=== PATIENT | male | born 1955 | race Caucasian/White ===

== ENCOUNTER 2023-09-24 16:38 | Inpatient (IN) | payer MEDICARE, BC, SELFPAY ==
[2023-09-24] VITALS (20 sets, daily range): BP systolic 111–153; BP diastolic 53–70; PULSE 58–83; RESP 10–21; TEMP 36.6–36.7; O2SAT 96–100; BMI 29.0
--- NOTE | ~2023-09-24 | XR_ITS ---
EXAMINATION: XR chest 1V portable Exam Date/Time: 09/24/2023 18:00 CDT HISTORY: frequent falls Comparison: 06/30/2016. RESULT: Lines, tubes, and devices: None. Lungs and pleura: Clear. Cardiomediastinal silhouette: Stable. Other: No acute osseous or upper abdominal finding. IMPRESSION: No acute cardiopulmonary process. Reviewed, dictated and finalized at location K.
--- NOTE | ~2023-09-24 | CT_ITS ---
EXAMINATION: CT brain wo con DATE: 09/24/2023 18:03 INDICATION: dizziness, frequent falls . TECHNIQUE: Computed tomography (CT) of the head was performed without intravenous contrast. The mA wa s adjusted according to patient size. Iterative reconstruction technique was employed. The dose-lengt h product was 756.67 mGy-cm. COMPARISON: MR brain 09/07/2011. FINDINGS: No acute intracranial hemorrhage or extra-axial fluid collection. No hydrocephalus, mass, or herniation. No CT findings of acute infarct. 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 Unremarkable dural venous sinus attenuation. No acute osseous abnormality. The aerated spaces are clear. Mild atrophy and chronic white matter change. Atherosclerotic intracranial calcification. Bilateral l ens replacements. IMPRESSION: No acute intracranial process. Reviewed, dictated and finalized at location K.
--- NOTE | ~2023-09-24 | US_ITS ---
EXAMINATION: US renal BI DATE: 09/25/2023 16:48 INDICATION: Renal failure. TECHNIQUE: Multiple ultrasound grayscale images of the kidneys were obtained. COMPARISON: None. FINDINGS: The right kidney measures 9.3 x 4.9 x 4.5 cm. The left kidney measures 9.0 x 4.7 x 5.1 cm. The kidney s demonstrate normal parenchymal echogenicity. There is no hydronephrosis. The bladder is normal. IMPRESSION: 1. Normal kidneys. No hydronephrosis. Reviewed, dictated and finalized at location A.
--- NOTE | 2023-09-24 16:50 | ECG_ITS ---
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 Measurements Intervals [place] Rate: 74 P: 42 MD: 149 QRS: 26 QRSD: 91 T: 48 QT: 364 QTc: 406 Interpretive Statements SINUS RHYTHM BASELINE ARTIFACT- I, II, III, AVR, AVL, AVF NORMAL ECG No previous ECG available for comparison Electronically Signed On 09-24-2023 21:14:04 CDT by Bashir Bear D.O.
[2023-09-24 17:04] LABS: Basophils Percent Auto 0.3 % (0.2-1.2); Eosinophils Absolute Auto 0.2 K/mm3 (0-0.3); Eosinophils Percent Auto 1.5 % (0-4.4); Hemoglobin 12.1 g/dL (14.0-18.0); Immature Granulocyte Absolute 0.04 K/mm3 (0.00-0.031); Immature Granulocyte Percent A 0.3 % (0-0.5); Lymphocytes Absolute Auto 1.09 K/mm3 (0.9-3.2); Lymphocytes Percent Auto 8.8 % (18.3-44.2); Mean Corpuscular HGB Conc 32.7 g/dl (32-36); Mean Corpuscular Hemoglobin 28.5 pg (26-34); Mean Corpuscular Volume 87.3 fl (80-100); Monocytes Absolute Auto 0.7 K/mm3 (0.1-0.6); Monocytes Percent Auto 5.4 % (2.6-8.5); Neutrophils Absolute Auto 10.3 K/mm3 (1.3-6.7); Neutrophils Percent Auto 83.7 % (45.5-73.1); Platelet Count Result 340 k/mm3 (150-375); Red Blood Count 4.24 M/mm3 (4.6-6.20); Red Cell Distribution Width 14.4 % (11.5-14.5); White Blood Count 12.3 K/mm3 (4.5-10.0)
[2023-09-24 17:27] LABS: Alanine Aminotransferase 7 U/L (6-50); Albumin Level 4.6 g/dL (3.5-5.1); Alkaline Phosphatase 46 U/L (38-126); Anion Gap 11 mmol/L (4-12); Aspartate Amino Transferase 27 U/L (17-59); Bilirubin,Total 0.9 mg/dL (0.2-1.3); Blood Urea Nitrogen 40 mg/dL (9-20); Calcium 9.7 mg/dL (8.4-10.2); Carbon Dioxide 20 mmol/L (22-30); Chloride 106 mmol/L (98-107); Estimated CRCL calculation 31 ml/min; Estimated Glomerular Filt Rate 24; Glucose 57 mg/dL (65-110); Sodium 137 mmol/L (137-145)
--- NOTE | 2023-09-24 17:27 | ED.FALL ---
HPI - Fall General Chief Complaint: Fall <Cole Lopez PA-C - Last Filed: 09/24/23 20:05> Stated Complaint: INCREASED FALLS <Cole Lopez PA-C - Last Filed: 09/24/23 20:05> Time Seen by Provider: 09/24/23 17:00 <Cole Lopez PA-C - Last Filed: 09/24/23 20:05> Source: patient <MEL Watson Last Filed: 09/24/23 20:05> Mode of arrival: ambulatory <MEL Watson Last Filed: 09/24/23 20:05> Limitations: no limitations <MEL Watson Last Filed: 09/24/23 20:05> History of Present Illness HPI Narrative: This is a 67-year-old male with PMH of T2 dm, Parkinson's who presents to the ED for chief complaint of frequent falls over the past 2 weeks. Patient reports that he is unsure of why he has been following. He knows that he has these falls but cannot tell what is happening to cause them. is here at bedside and states that it seems that patient gets a little dizzy prior to falling. Reports that he also seems to have some lightheadedness/slurred speech. Today she notes that while patient was leaving a message further son, he started to ooze blur his words. She did not notice any facial droop or unilateral weakness. Patient denies any focal weakness, numbness, headache, chest pain, shortness of breath, cough or recent illness. Denies urinary symptoms or abdominal pain. Denies nausea, vomiting. Patient takes metformin and glimepiride for diabetes. His dosing has not changed and he has been taking as prescribed. states that patient has not been eating or drinking as much lately. <MEL Watson Last Filed: 09/24/23 20:05> Related Data Home Medications: Home Medications Medication Instructions Recorded Confirmed Adult Aspirin EC Low Strength 81 mg PO DAILY 09/24/23 09/24/23 atorvastatin 20 mg tablet 20 mg PO DAILY 09/24/23 09/24/23 carbidopa 25 mg-levodopa 100 mg 25 - 100 tablet PO TID 09/24/23 09/24/23 tablet (Sinemet) carbidopa ER 50 mg-levodopa 200 mg 50 - 200 tablet PO HS 09/24/23 09/24/23 tablet,extended release cetirizine 10 mg PO DAILY 09/24/23 09/24/23 clonazepam 0.5 mg tablet 0.5 mg PO HS 09/24/23 09/24/23 fenofibrate 160 mg tablet 160 mg PO DAILY 09/24/23 09/24/23 gabapentin 300 mg capsule 300 mg PO HS 09/24/23 09/24/23 glimepiride 1 mg tablet 1 mg PO DAILY 09/24/23 09/24/23 metformin 500 mg tablet 500 mg PO BID 09/24/23 09/24/23 omeprazole 20 mg PO DAILY 09/24/23 09/24/23 sertraline 100 mg tablet 100 mg PO DAILY 09/24/23 09/24/23 tamsulosin 0.4 mg capsule 0.4 mg PO DAILY 09/24/23 09/24/23 <Cole Lopez PA-C - Last Filed: 09/24/23 20:05> Allergies/Adverse Reactions: Allergies Allergy/AdvReac Type Severity Reaction Status Date / Time No Known Allergies Allergy Verified 09/24/23 21:20 <Cole Lopez PA-C - Last Filed: 09/24/23 20:05> Review of Systems Review of Systems: All systems as dictated in HPI <Cole Lopez PA-C - Last Filed: 09/24/23 20:05> [facility] Family History Family History: Family History (Updated 09/24/23 @ 22:17 by Brynn Javier RN) Other Unknown family medical history <MEL Watson Last Filed: 09/24/23 20:05> Social History Social History: Social History Smoking status: Never smoker Second hand tobacco smoke exposure: No Alcohol intake: current Drinks per week: 1 Substance use: never Do You Feel Safe in your Home?: Yes Lack of Transportation: No Lack of Food: Never True Current Housing: I Have Housing Concerned About Future Housing: No Difficulty Paying Gas/Electric Bills: No Difficulty Paying for Meds: No Currently Unemployed: No Education: Decline to Answer Difficulty w/ Childcare or Family Care: No Spiritual care concerns: No <Cole Lopez PA-C - Last Filed: 09/24/23 20:05> Exam Narrative: GENERAL: Well-appearing, well-nourished, and in no acute d
[2023-09-24] MEDS: DEXTROSE 50% 25 GM/50 ML SYRINGE IV PUSH (17:42)
[2023-09-24] MEDS: DEXTROSE 5%/0.45% SOD CHL 1,000 ML 100 ML IV CONT (18:27)
[2023-09-24] MEDS: OCTREOTIDE ACETATE 50 MCG/ML VIAL SUB-Q (18:30)
[2023-09-24 18:36] LABS: INR 1.1; Prothrombin Time 14.5 Seconds (11.1-14.7)
[2023-09-24 18:37] LABS: Partial Thromboplastin Time 23.8 Seconds (22.3-36.8)
[2023-09-24 18:52] LABS: Glucose Point of Care 97 mg/dl (65-105)
--- NOTE | 2023-09-24 19:19 | PC.NURSE ---
this rn assumed care of patient. this rn took patient report from SAMANTHA Gillespie.
[2023-09-24 19:42] LABS: Appearance Urine Clear (Clear); Bacteria Urine None Seen /hpf; Bilirubin Urine Negative (Negative); Blood Urine Negative (Negative); Color Urine Yellow (Yellow); Glucose Urine UA Negative (Negative); Hyaline Casts Urine Present /lpf; Ketones Urine Trace mg/dL (Negative); Leukocyte Esterase Ur Negative LEU/UL (Negative); Need Manual Microscopic Reviewed; Nitrate Urine Negative (Negative); Non Pathogenic Casts >20; Protein Urine Trace mg/dL (Negative); RBC Urine 0-2 /hpf (0-2); Specific Grav Ur 1.021 (1.001-1.035); Squamous Epithelial Cell Urine None Seen /hpf (Few); WBC Urine 0-5 /hpf (0-3)
[2023-09-24 19:44] LABS: Add Urine Microscopic? YES
[2023-09-24 20:33] LABS: Glucose Point of Care 88 mg/dl (65-105)
--- NOTE | 2023-09-24 21:00 | ADMGEN ---
This patient, Susan Ledezma, was admitted to IMU Room 205-01. Patient/family oriented to hospital policies and general routines including ID bracelet, bed and alarms, visiting hours, pain management, procedures, bathroom and other care routines, personal items, smoking policy, room service/diet, and visiting hours. Information on how to activate the Rapid Response Team has been discussed. Patient/Family are encouraged to report perceived risks to care and to ask questions if they do not understand what they are told or what they should do.
--- NOTE | 2023-09-24 21:08 | PM.IMHP ---
H&P: HPI History of Present Illness Date/Time: 09/24/23 21:08 Chief Complaint: Recurrent falls Narrative: This is a 67-year-old male with past medical history significant for Parkinson's disease, type diabetes mellitus. Patient comes to the emergency room after having a fall at home has had recurrent falls in the last couple of weeks, patient states that he gets lightheaded, denies any loss of consciousness, denies nausea vomiting diarrhea abdominal pain, shortness of breath, chest pain, vision changes, focal weakness. Patient was found to have a low blood sugar. Preliminary workup has been essentially nonrevealing. Patient has been admitted for further evaluation management and treatment. EXAMINATION: CT brain wo con DATE: 09/24/2023 18:03 INDICATION: dizziness, frequent falls . TECHNIQUE: Computed tomography (CT) of the head was performed without intravenous contrast. The mA was adjusted according to patient size. Iterative reconstruction technique was employed. The dose-length product was 756.67 mGy-cm. COMPARISON: MR brain 09/07/2011. FINDINGS: No acute intracranial hemorrhage or extra-axial fluid collection. No hydrocephalus, mass, or herniation. No CT findings of acute infarct. 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 Unremarkable dural venous sinus attenuation. No acute osseous abnormality. The? aerated spaces are clear. Mild atrophy and chronic white matter change. Atherosclerotic intracranial calcification. Bilateral lens replacements. IMPRESSION:? No acute intracranial process. EXAMINATION:? XR chest 1V portable Exam Date/Time:? 09/24/2023 18:00 CDT HISTORY: frequent falls ? Comparison:? 06/30/2016. RESULT: Lines, tubes, and devices:? None. Lungs and pleura:? Clear. Cardiomediastinal silhouette:? Stable. Other:? No acute osseous or upper abdominal finding. ? IMPRESSION: No acute cardiopulmonary process. Review of Systems Review of Systems: Recurrent falls, lightheadedness, low blood sugar Constitutional: Constitutional: Reports frequent falls Eyes: Eyes: Denies change in vision ENT: Denies dysphagia, Reports dizziness, Denies nasal congestion, Denies nasal discharge and Denies odynophagia Cardiovascular: Cardiovascular: Denies chest pain, Reports lightheadedness, Denies radiating jaw, neck or arm pain and Denies palpitations Respiratory: Respiratory: Denies cough and Denies dyspnea Gastrointestinal: Gastrointestinal: Denies abdominal pain, Denies diarrhea, Denies nausea and Denies vomiting Genitourinary: Genitourinary: Denies dysuria Musculoskeletal: Musculoskeletal: Denies back pain, Denies arthralgias and Denies limited range of motion Integumentary/Breasts: Skin/Breast: Denies rash Neurologic: Reports dizziness, Denies focal weakness and Denies Sensory deficit (Neuro) Psychiatric: Psychiatric: Reports no additional psychiatric complaints and Reports as per HPI Endocrine: Endocrine: Denies cold intolerance, Denies heat intolerance, Denies polyphagia, Denies polydipsia, Denies polyuria and Denies palpitations Hematologic/Lymphatic: Hematologic/Lymphatic: Reports no additional hematologic/lymphatic complaints and Reports as per HPI Allergic/Immunologic: Allergic/Immunologic: Reports no additional allergic/immunologic complaints and Reports as per HPI [facility] Family History Family History (Updated 09/24/23 @ 22:17 by Brynn Javier RN) Other Unknown family medical history Social History Social History Smoking status: Never smoker Alcohol intake: never Substance use: never Meds Home Medications and Allergies Home Medications Medication Instructions Recorded Confirmed Type Adult Aspirin EC Low Strength 81 mg PO DAILY 09/24/23 09/24/23 History atorvastatin 20 mg tablet 20 m
[2023-09-24 21:37] LABS: Glucose Point of Care 107 mg/dl (65-105)
[2023-09-24 21:39] LABS: Hemoglobin A1C 6.7 % (<5.7)
[2023-09-25] VITALS (14 sets, daily range): BP systolic 112–138; BP diastolic 59–66; PULSE 56–73; RESP 14–18; TEMP 36.3–36.7; O2SAT 97–100; BMI 29.0
[2023-09-25 00:05] LABS: Glucose Point of Care 129 mg/dl (65-105)
[2023-09-25 01:20] LABS: Glucose Point of Care 100 mg/dl (65-105)
[2023-09-25 02:48] LABS: Glucose Point of Care 128 mg/dl (65-105)
--- NOTE | 2023-09-25 02:52 | PC.NURSE ---
Dr. Logan notified of pt's q1hr blood sugar checks. with new order to D/C q1hr accuchecks and order accuchecks AC/HS.
[2023-09-25] MEDS: GABAPENTIN 300 MG CAPSULE PO ×2 (03:17→20:24)
[2023-09-25] MEDS: CARBIDOPA/LEVODOPA 25/100 MG CR TABLET 2 TABLET PO ×2 (03:17→20:24)
[2023-09-25] MEDS: DEXTROSE 5%/0.45% SOD CHL 1,000 ML 100 ML IV CONT ×2 (04:43→14:58)
[2023-09-25] MEDS: TAMSULOSIN HCL 0.4 MG CAPSULE PO (08:03)
[2023-09-25] MEDS: SERTRALINE HCL 50 MG TABLET 100 MG PO (08:03)
[2023-09-25] MEDS: CARBIDOPA/LEVODOPA 25/100 MG TABLET 3 TABLET PO ×3 (08:03→17:00)
[2023-09-25] MEDS: PANTOPRAZOLE 40 MG TABLET PO (08:04)
[2023-09-25] MEDS: LORATADINE 10 MG TABLET PO (08:04)
[2023-09-25] MEDS: ASPIRIN 81 MG ENTERIC TABLET PO (08:04)
[2023-09-25] MEDS: FENOFIBRATE 160 MG TABLET PO (08:04)
[2023-09-25 08:10] LABS: Glucose Point of Care 135 mg/dl (65-105)
[2023-09-25 11:44] LABS: Hematocrit 37.8 % (42.0-52.0); Mean Corpuscular HGB Conc 31.7 g/dl (32-36); Mean Corpuscular Hemoglobin 28.3 pg (26-34); Mean Corpuscular Volume 89.2 fl (80-100); Mean Platelet Volume 9.6 fl (7.4-10.4); Platelet Count Result 340 k/mm3 (150-375); Red Blood Count 4.24 M/mm3 (4.6-6.20); Red Cell Distribution Width 14.5 % (11.5-14.5); White Blood Count 11.1 K/mm3 (4.5-10.0)
[2023-09-25 11:55] LABS: Anion Gap 9 mmol/L (4-12); Blood Urea Nitrogen 34 mg/dL (9-20); Carbon Dioxide 20 mmol/L (22-30); Chloride 103 mmol/L (98-107); Estimated CRCL calculation 35 ml/min; Estimated Glomerular Filt Rate 32; Glucose 175 mg/dL (65-110); Potassium 5.2 mmol/L (3.4-5.0); Sodium 132 mmol/L (137-145)
[2023-09-25 12:00] LABS: Glucose Point of Care 179 mg/dl (65-105)
--- NOTE | 2023-09-25 15:47 | PC.NURSE ---
This patient, Susan Ledezma, was transferred to [facility] on 09/25/23 at 1510. Personal belongings sent with patient. Report given to SAMANTHA Conway. Appropriate documentation sent with patient.
--- NOTE | 2023-09-25 15:49 | PC.NURSE ---
Spouse, Isabel, updated on transferred to room 242.
--- NOTE | 2023-09-25 15:55 | PM.IMPN ---
Progress Note: A&P Assessment and Plan (1) Hypoglycemia secondary to sulfonylurea: Code(s): T38.3X1A - Poisoning by insulin and oral hypoglycemic [antidiabetic] drugs, accidental (unintentional), initial encounter; E16.0 - Drug-induced hypoglycemia without coma Status: Acute (2) Falls: Code(s): W19.XXXA - Unspecified fall, initial encounter Status: Acute (3) Diabetes: Code(s): E11.9 - Type 2 diabetes mellitus without complications Status: Acute (4) Parkinson's disease: Code(s): G20.A1 - Parkinson's disease without dyskinesia, without mention of fluctuations Status: Acute Plan This is a 67-year-old male with past medical history of type 2 diabetes Parkinson's disease presents to the ED with frequent falls of the past 2 weeks. Knee feels of the bed dizzy prior to falling associated slurred speech. No facial drooping or unilateral weakness. No cough chest pain shortness of breath or fever chills. Patient takes metformin and glimepiride for diabetes. Vitals was stable in the ED. EKG with normal sinus rhythm. Exam with no focal neurological deficits. He was noted to be hypoglycemic at 57 on CMP. Mildly elevated WBC count at 12.3. CMP revealed creatinine of 2.7 which indicates IVONE. Last creatinine per chart was 1.[address] scan of the brain showed no acute findings but likely reveal chronic infarct to the right lateral occipital lobe. Chest x-ray was normal. He received D50 and was started on D5 normal saline. Also received octreotide 50 mcg. Patient received IV fluid creatinine is down to 2.1 today. Gentle fluid to continue. A1c at 6.7. PT OT to see. Hold glimepiride and metformin. DVT prophylaxis Lovenox. Renal ultrasound. DYLLAN on CPAP at home. PT OT see will stop D5 and monitor blood sugar. Subjective Date/time seen: 09/25/23 15:55 Interval history: No overnight events. Feeling better. No chest pain or shortness of breath. Review of Systems Review of Systems: All systems reviewed & are unremarkable except as noted in HPI and below Exam Const: Other: GENERAL: Well-appearing, well-nourished, and in no acute distress. HEAD: Normocephalic, atraumatic. EYES: PERRLA and EOMI. ENT: Nares clear, no rhinorrhea or epistaxis.? Mucous membranes moist. NECK: Supple.? No adenopathy or masses.? CHEST: No respiratory distress. Clear to auscultation. No wheezes rales or rhonchi HEART: Regular rate and rhythm.? No murmur heard.? Normal peripheral pulses. ABDOMEN: Soft, nontender, nondistended, normal active bowel sounds. MSK: Normal range of motion.? No edema. SKIN: Warm, dry, no rash. NEURO: Alert and oriented x4. No focal deficits. PSYCH: Normal mood and affect. Objective Data Vital Signs Vital Signs: Vital Signs - 24 hr 09/24/23 16:44 09/24/23 17:12 09/24/23 17:15 Temperature 98.1 F Pulse Rate 79 72 78 Respiratory Rate 15 10 L 11 L Blood Pressure 111/53 L Pulse Oximetry 98 98 98 Oxygen Delivery 09/24/23 17:16 09/24/23 17:42 09/24/23 17:45 Temperature Pulse Rate 77 79 83 Respiratory Rate 21 H 13 18 Blood Pressure 132/57 L Pulse Oximetry 96 97 96 Oxygen Delivery 09/24/23 17:46 09/24/23 18:06 09/24/23 18:15 Temperature Pulse Rate 78 72 Respiratory Rate 17 17 Blood Pressure 117/57 L Pulse Oximetry 97 99 99 Oxygen Delivery 09/24/23 18:24 09/24/23 18:30 09/24/23 18:31 Temperature Pulse Rate 72 73 73 Respiratory Rate 20 18 16 Blood Pressure 141/62 H 138/60 Pulse Oximetry 97 99 99 Oxygen Delivery 09/24/23 19:04 09/24/23 19:58 09/24/23 20:01 Temperature Pulse Rate 61 58 L 61 Respiratory Rate 17 16 18 Blood Pressure 144/70 H 141/65 H Pulse Oximetry 99 96 99 Oxygen Delivery 09/24/23 20:16 09/24/23 21:00 09/24/23 23:44 Temperature 97.8 F Pulse Rate 60 62 Respiratory Rate 13 18 Blood Pressure 143/69 H 153/64 H Pulse Oximetry 99 100 Oxygen Delivery Room Air 09/24/23 23:56
[2023-09-25 17:03] LABS: Glucose Point of Care 150 mg/dl (65-105)
[2023-09-25] MEDS: clonazePAM (*CRX) 0.5 MG TABLET PO (20:25)
[2023-09-25 20:29] LABS: Glucose Point of Care 135 mg/dl (65-105)
[2023-09-25] MEDS: HEPARIN SODIUM 5,000 UNITS/ML VIAL 5000 UNITS SUB-Q (20:30)
[2023-09-26] VITALS (7 sets, daily range): BP systolic 108–119; BP diastolic 58–67; PULSE 59–74; RESP 14–18; TEMP 36.4–36.9; O2SAT 98–100
[2023-09-26 05:06] LABS: Basophils Percent Auto 0.4 % (0.2-1.2); Eosinophils Absolute Auto 0.3 K/mm3 (0-0.3); Eosinophils Percent Auto 3.8 % (0-4.4); Hematocrit 37.2 % (42.0-52.0); Hemoglobin 11.8 g/dL (14.0-18.0); Immature Granulocyte Absolute 0.02 K/mm3 (0.00-0.031); Immature Granulocyte Percent A 0.3 % (0-0.5); Lymphocytes Absolute Auto 1.19 K/mm3 (0.9-3.2); Lymphocytes Percent Auto 15.8 % (18.3-44.2); Mean Corpuscular HGB Conc 31.7 g/dl (32-36); Mean Corpuscular Hemoglobin 28.2 pg (26-34); Mean Platelet Volume 9.4 fl (7.4-10.4); Monocytes Absolute Auto 0.5 K/mm3 (0.1-0.6); Monocytes Percent Auto 6.5 % (2.6-8.5); Neutrophils Absolute Auto 5.5 K/mm3 (1.3-6.7); Neutrophils Percent Auto 73.2 % (45.5-73.1); Platelet Count Result 323 k/mm3 (150-375); Red Blood Count 4.18 M/mm3 (4.6-6.20); Red Cell Distribution Width 14.1 % (11.5-14.5); White Blood Count 7.5 K/mm3 (4.5-10.0)
[2023-09-26 05:25] LABS: Albumin Level 4.1 g/dL (3.5-5.1); Alkaline Phosphatase 45 U/L (38-126); Anion Gap 5 mmol/L (4-12); Aspartate Amino Transferase 24 U/L (17-59); Bilirubin,Total 0.7 mg/dL (0.2-1.3); Blood Urea Nitrogen 29 mg/dL (9-20); Calcium 9.3 mg/dL (8.4-10.2); Carbon Dioxide 24 mmol/L (22-30); Chloride 106 mmol/L (98-107); Estimated CRCL calculation 36 ml/min; Estimated Glomerular Filt Rate 34; Glucose 98 mg/dL (65-110); Magnesium 1.9 mg/dL (1.6-2.3); Potassium 4.5 mmol/L (3.4-5.0); Sodium 135 mmol/L (137-145)
[2023-09-26 05:31] LABS: Alanine Aminotransferase < 6 U/L (6-50)
[2023-09-26 08:38] LABS: Glucose Point of Care 94 mg/dl (65-105)
[2023-09-26] MEDS: CARBIDOPA/LEVODOPA 25/100 MG TABLET 3 TABLET PO ×2 (08:47→11:52)
[2023-09-26] MEDS: ASPIRIN 81 MG ENTERIC TABLET PO (08:48)
[2023-09-26] MEDS: PANTOPRAZOLE 40 MG TABLET PO (08:48)
[2023-09-26] MEDS: LORATADINE 10 MG TABLET PO (08:48)
[2023-09-26] MEDS: FENOFIBRATE 160 MG TABLET PO (08:48)
[2023-09-26] MEDS: HEPARIN SODIUM 5,000 UNITS/ML VIAL 5000 UNITS SUB-Q (08:48)
[2023-09-26] MEDS: TAMSULOSIN HCL 0.4 MG CAPSULE PO (08:49)
[2023-09-26] MEDS: SERTRALINE HCL 50 MG TABLET 100 MG PO (08:49)
[2023-09-26 11:57] LABS: Glucose Point of Care 149 mg/dl (65-105)
--- NOTE | 2023-09-26 14:25 | PM.DS ---
DS: Admitting Diagnosis Discharge Date 09/26/2023 Admitting Diagnosis Recurrent falls DS: Discharge Diagnosis Discharge Diagnosis (1) Hypoglycemia secondary to sulfonylurea: Code(s): T38.3X1A - Poisoning by insulin and oral hypoglycemic [antidiabetic] drugs, accidental (unintentional), initial encounter; E16.0 - Drug-induced hypoglycemia without coma Status: Acute (2) Falls: Code(s): W19.XXXA - Unspecified fall, initial encounter Status: Acute (3) Diabetes: Code(s): E11.9 - Type 2 diabetes mellitus without complications Status: Acute (4) Parkinson's disease: Code(s): G20.A1 - Parkinson's disease without dyskinesia, without mention of fluctuations Status: Acute DS: Summary Hospital Course Hospital Course: This is a 67-year-old male with past medical history of type 2 diabetes Parkinson's disease presents to the ED with frequent falls of the past 2 weeks.? Knee feels weak and dizzy prior to falling associated slurred speech.? No facial drooping or unilateral weakness.? No cough chest pain shortness of breath or fever chills.? Patient takes metformin and glimepiride for diabetes.? Vitals was stable in the ED. EKG with normal sinus rhythm.? Exam with no focal neurological deficits.? He was noted to be hypoglycemic at 57 on CMP.? Mildly elevated WBC count at 12.3.? CMP revealed creatinine of 2.7 which indicates IVONE.? 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 Chest x-ray was normal.? He received D50 and was started on D5 normal saline.? Also received octreotide 50 mcg.? Patient received IV fluid creatinine is down to 2.1 and further down to 2. History with gentle IV fluids. His baseline creatinine from 2021 was 1.6. He might be close to his baseline now. With his worsening renal dysfunction his glimepiride might be causing his hypoglycemic episodes. Which is recommended to be stopped. He follows with linen folder. And encouraged him to discuss with him regarding his diabetes therapy. A1c at 6.7.? PT OT to see which he cleared.? He continues PT OT as outpatient as well. DVT prophylaxis Lovenox.? Renal ultrasound.? DYLLAN on CPAP at home. Time Spent with Patient Time attestation: Total time spent providing and/or coordinating discharge services: 35 minutes Exam Const: Other: GENERAL: Well-appearing, well-nourished, and in no acute distress. HEAD: Normocephalic, atraumatic. EYES: PERRLA and EOMI. ENT: Nares clear, no rhinorrhea or epistaxis.? Mucous membranes moist. NECK: Supple.? No adenopathy or masses.? CHEST: No respiratory distress. Clear to auscultation. No wheezes rales or rhonchi HEART: Regular rate and rhythm.? No murmur heard.? Normal peripheral pulses. ABDOMEN: Soft, nontender, nondistended, normal active bowel sounds. MSK: Normal range of motion.? No edema. SKIN: Warm, dry, no rash. NEURO: Alert and oriented x4. No focal deficits. PSYCH: Normal mood and affect. DS: Data Data Completed and Pending Labs on day of discharge: Labs from last 24 hours 09/26/23 09/26/23 09/26/23 11:51 08:28 04:49 WBC 7.5 RBC 4.18 L Hgb 11.8 L Hct 37.2 L MCV 89.0 MCH 28.2 MCHC 31.7 L RDW 14.1 Plt Count 323 MPV 9.4 Immature Gran % (Auto) 0.3 Neut % (Auto) 73.2 H Lymph % (Auto) 15.8 L [place] % (Auto) 6.5 Eos % (Auto) 3.8 Baso % (Auto) 0.4 Lymph # (Auto) 1.19 [place] # (Auto) 0.5 Eos # (Auto) 0.3 Baso # (Auto) 0.0 Abs Immat Gran (auto) 0.02 Absolute Neuts (auto) 5.5 Absolute Nucleated RBC 0.000 Nucleated RBC % 0.0 Sodium 135 L Potassium 4.5 Chloride 106 Carbon Dioxide 24 Anion Gap 5 BUN 29 H Creatinine 2.00 H Estim Creat Clear Calc 36 Estimated GFR 34 L Glucose 98 POC Capillary Glucose 149 H 94 Calcium 9.3 Magnesium 1.9 Total Bilirubin 0.7 AST
== END 2023-09-26 15:10 | disposition home or self-care (01) | DRG 918 ==
LOC: ANHED 20:05 → ANHIMU 20:45 → ANH2MED 09-25 15:32
PROVIDERS: Emergency Medicine; Nurse Practitioner Acute Care; Admitting Provider Internal Medicine; Emergency Provider Physician Assistant; PCP Internal Medicine; Visit Provider Internal Medicine
DX: T38.3X1A Poisoning by insulin and oral hypoglycemic [antidiabetic] drugs, accidental (unintentional), initial encounter (principal); E11.649 Type 2 diabetes mellitus with hypoglycemia without coma; G20.A1 Parkinson's disease without dyskinesia, without mention of fluctuations; G47.33 Obstructive sleep apnea (adult) (pediatric); Z79.84 Long term (current) use of oral hypoglycemic drugs; Z91.81 History of falling; Z86.73 Personal history of transient ischemic attack (TIA), and cerebral infarction without residual deficits; Z99.89 Dependence on other enabling machines and devices; Z79.82 Long term (current) use of aspirin
CPT/HCPCS: 36415; 70450; 71045; 76775; 80048; 80053; 81001; 82948; 83036; 83735; 85025; 85027; 85610; 85730; 93005; 96361; 96372; 96374; 97110; 97161; 97166; 97530; 97535; 99285; A9270; G0378; J1644; J2354

== ENCOUNTER 2024-06-19 13:19 | Emergency (ER) | payer MEDICARE, BC, SELFPAY ==
--- NOTE | ~2024-06-19 | XR_ITS ---
HISTORY: left rib pain, fall COMPARISON: 09/24/2023 TECHNIQUE: 3 views of the left ribs were performed along with a PA and lateral of the chest FINDINGS: No acute displaced fracture is appreciated. The cardiomediastinal silhouette is unremarkable. The lungs are clear. Bone mineralization is age-appropriate. IMPRESSION: No acute displaced left-sided rib fracture. The lungs are clear. Reviewed, dictated and finalized at location A. 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
--- OUTSIDE RECORDS SUMMARY | 2024-06-19 13:21 | XMS_ITS | Continuity of Care Document ---
Author Organization [employer] [place] Address [address] [facility] [address] [facility] [address] [place] [address] Phone Care Team Providers Care Triage Specialist Name Role Phone Lucy Dang OT Unavailable Unavailable Procedures Procedure Date Therapeutic Activities Therapeutic Activities Therapeutic Activities Therapeutic Activities Progress Note Therapeutic Activities Therapeutic Activities Therapeutic Activities Hot or Cold Pack Therapeutic Activities Therapeutic Activities Therapeutic Activities Therapeutic Activities Therapeutic Activities Therapeutic Activities Doc neg elder mal no plan PT Evaluation High Complexity Therapeutic Activities Therapeutic Exercise Therapeutic Activities Manual Therapy Hot or Cold Pack Therapeutic Activities Manual Therapy Hot or Cold Pack Therapeutic Activities Manual Therapy Hot or Cold Pack Therapeutic Activities Manual Therapy Hot or Cold Pack Therapeutic Activities Manual Therapy Hot or Cold Pack Progress Note Therapeutic Activities Manual Therapy Hot or Cold Pack Therapeutic Activities Manual Therapy Hot or Cold Pack Therapeutic Activities Manual Therapy Hot or Cold Pack Therapeutic Activities Manual Therapy Hot or Cold Pack Therapeutic Activities Manual Therapy Hot or Cold Pack Doc neg elder mal no plan Identified as not an unhealthy alcohol u ser Not identified as unhealthy alcohol via screening OT Evaluation Low Complexity Therapeutic Activities Manual Therapy Hot or Cold Pack Advance Directives Directive Yes / No Effective Date File Name No Information Encounters Encounter Description Practice Location Reason(s) For Visit Diagnoses Date Provider Providers Copied on Encounter [facility] [employer] [address] [place] [address], [id number], [place] tel:[phone] [place] No Information 5 Laurence Ayala. . [facility] [place] [place], [id number], [place] tel:[phone] [place] No Information 4 Laurence Ayala. . Referring Provider: Fadi Martinez, [address] [place] [address] [address], [place], [address]. tel:[phone] [facility] [employer] [place], [id number], [place] tel:[phone] [place] No Information 4 Levy Avila. . Referring Provider: José Miguel Michaels, [address] [place] [address], [place], [address]. tel:[phone] [facility] [place] [place], [id number], [place] tel:[phone] [place] No Information Dec-2 4 Dang Lucy. . Referring Provider: Fadi Martinez, [address] [facility] [address], [place], [address]. tel:[phone] [facility] [address], [place], [place], [id number], [place] tel:[phone] [place] No Information Dec-2 4 [place]orge Austin. . Referring Provider: José Miguel Michaels, [address] [place] [address], [address]. tel:[phone] [facility] [address], [place], [place], [id number], [place] tel:[phone] [place] No Information Mar-2 4 Dang Lucy. . Referring Provider: Fadi Martinez, [address] [facility] [address], [place], [address]. tel:[phone] [facility] [address] [facility], [place], [place], [id number], [place] tel:[phone] [place] No Information Mar- 4 [place]orge Austin. . Referring Provider: José Miguel Michaels, [address] [place] [address], [address]. tel:[phone] [facility] [address] [place], [place] [address], [place], [place], [id number], [place] tel:[phone] [place] No Information Mar- 4 Emmanuel Markus. . Referring Provider: Fadi Martinez, [address] [facility] [address], [place], [address]. tel:[phone] [facility] [address], [place], [place], [id number], [place] tel:[phone] [place] No Information Mar- 4 [place] Austin. . Referring Provider: José Miguel Michaels, [address] [place] [address], [address]. tel:[phone] [facility] [address], [place], [place], [id number], [place] tel:[phone] [place] No Information 4 [place]orge Austin. . Referring Provider: José Miguel Michaels, [address] [place] [address], [address]. tel:[phone] [facility], [address], [place], [place], [id number], [place] tel:[phone] [place] No Information 4 Dang Lucy. . Referring Provider: Fadi Martinez, [address] [place] [address] [address], [place], [address]. tel:[phone] [facility] [address], [place], [place], [id number], [place] tel:[phone] [place] No Information 4 Dang Lucy. . Referring Provider: Fadi Martinez, [address] [facility] [address], [place], [address]. tel:[phone] [facility], [address], [place], [id number], [place] tel:[phone] [place] No Information 4 [place]orge Austin. . Referring Provider: José Miguel Michaels, [address] [place] [address], [address]. tel:[phone] [facility] [address], [place], [place], [id number], [place] tel:[phone] [place] No Information Dec-0 4 Oh[place]orge Austin. . Referring Provider: José Miguel Michaels, [address] [place] [address], [address]. tel:[phone] [facility], [address], [place], [id number], [place] tel:[phone] [place] No Information Dec-[address], [place], [place]. Referring Provider: José Miguel Michaels, [address] [place] [address], [place], [address]. tel:[phone] [facility], [place], [id number], [place] tel:[phone] [place] No Information 4 Dang Lucy. . Referring Provider: Fadi Martinez, [address] [place] [address] [address], [place], [address]. tel:[phone] [facility], [place], [place], [id number], [place] tel:[phone] [place] No Information 4 Dang Lucy. . Referring Provider: Fadi Martinez, [address] [place] [address] [address], [place], [address]. tel:[phone] [facility], [place], [place], [id number], [place] tel:[phone] [place] No Information 4 Dang Lucy. . Referring Provider: Fadi Martienz, [address] [place] [address] [address], [place], [address]. tel:[phone] [facility], [place], [place], [id number], [place] tel:[phone] [place] No Information 4 Dang Lucy. . Referring Provider: Fadi Martinez, [address] [place] [address] [address], [place], [address]. tel:[phone] [facility], [place], [place], [id number], [place] tel:[phone] [place] No Information 4 Dang Lucy. . Referring Provider: Fadi Martinez, [address] [place] [address] [address], [place], [address]. tel:[phone] [facility], [place], [id number], [place] tel:[phone] [place] No Information 0 4 Dang Lucy. . Referring Provider: Fadi Martinez, [address] [facility] [address], [place], [address]. tel:[phone] [facility], [address], [place], [place], [id number], [place] tel:[phone] [place] No Information 4 Dang Lucy. . Referring Provider: Fadi Martinez, [address] [facility] [address], [place], [address]. tel:[phone] [facility] [address], [place], [place], [id number], [place] tel:[phone] [place] No Information 4 Dang Lucy. . Referring Provider: Dylan Canales [facility] [address], [place], [address]. tel:[phone] [facility], [address], [place], [id number], [place] tel:[phone] [place] No Information 4 Dang Lucy. . Referring Provider: Fadi Martinez, [address] [facility] [address], [place], [address]. tel:[phone] [facility] [address], [place], [place], [id number], [place] tel:[phone] [place] No Information 4 Dang Lucy. . Referring Provider: Fadi Martinez, [address] [facility] [address], [place], [address]. tel:[phone] [facility], [place], [place], [id number], [place] tel:[phone] [place] No Information 4 Dang Lucy. . Referring Provider: Fadi Martinez [address] [facility] [address], [place], [address]. tel:[phone] Family History Family Member Type Diagnosis Age At Onset No Information Payers Payer name Insurance type Covered constitution party ID Authorjasmina tialyse(s) Medicare [place] [id number] Social History Type Description Quantity Date Captured Comments Sex Male Smoking Status No Information Chief Complaint And Reason For Visit No Information Reason For Referral Reason For Referral No Information History Of Present Illness Encounter Date Complaint History Of Prese nt Illness No Information Functional Status Date Functional Assessmen t No Information Instructions Date Instruction Additional Infor mation No Information Assessments Type Assessment Date No Information Patient Care Teams Name Effective Dates (start - stop) Status Members No Information
--- OUTSIDE RECORDS SUMMARY | 2024-06-19 13:21 | XMS_ITS | Clinical Summary ---
Author Organization [facility] Address [address] [place] [address] Care Team Providers Care Recreation Aide Name Role Phone Jm Alonso MD Primary Care Provider [phone] Allergies No known active allergies Medications cetirizine (ZyrTEC) 10 mg tabletIndicati ons:Seasonal Allergic Rhinitis Take 1 tablet (10 mg total) by mouth radiation control technician 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 Active aspirin 81 mg enteric coated tabletIndicati ons:prevention of thrombosis Take 1 tablet (81 mg total) by mouth every morning Active omeprazole 20 mg tablet,delayed release (DR/EC)Indicat ions:Treatment of Non-Bleeding Gastric Disorder Take 1 tablet (20 mg total) by mouth every morning 09/26/19 21 Active sertraline (ZOLOFT) 100 mg tablet Take 1.5 tabs each morning. 150 tablet 3 03/23/20 23 Active atorvastatin (LIPITOR) 20 mg tablet Take 1 tablet (20 mg total) by mouth daily 90 tablet 3 07/03/19 24 Active pen needle, diabetic 32 gauge x /32 needle Use to inject insulin 1 times per day. 100 each 3 10/13/19 24 Active cyanocobalamin (Vitamin B-12) 1,000 mcg tabletIndicati ons:Prevention of Vitamin B12 Deficiency Take 1 tablet (1,000 mcg total) by mouth daily Active tamsulosin (FLOMAX) 0.4 mg extended release capsule Take 1 capsule (0.4 mg total) by mouth daily 90 capsule 2 12/21/19 24 Active carbidopa-levo dopa (SINEMET) 25-100 mg per tabletIndicati ons:Parkinsoni sm Take 3 tablets by mouth 4 (four) times a day 1080 tablet 3 01/29/20 24 025 Active carbidopa-levo dopa CR (SINEMET CR) 50-200 mg per CR tablet Take 2 tablets by mouth nightly 180 tablet 3 01/29/20 24 025 Active linaGLIPtin (Tradjenta) 5 mg tablet Take 1 tablet by mouth once daily 30 tablet 3 04/12/20 24 Active clonazePAM (KlonoPIN) 0.5 mg tabletIndicati ons:REM sleep behavior disorder TAKE 2 TABLETS BY MOUTH ONCE DAILY AT NIGHT 180 tablet 04/27/19 25 Active gabapentin (NEURONTIN) 300 mg capsule TAKE 1 CAPSULE BY MOUTH NIGHTLY 90 capsule 2 05/11/19 25 Active insulin glargine 100 unit/mL (3 mL) pen for injection Take 30 units sub q daily 45 mL 4 05/23/19 25 Active fenofibrate (TRIGLIDE) 160 mg tablet Take 1 tablet by mouth once daily 90 tablet 06/16/19 25 Active fenofibrate (TRIGLIDE) 160 mg tablet Take 1 tablet (160 mg total) by mouth daily 90 tablet 2 06/29/19 24 025 Discontinued insulin glargine (LANTUS) 100 unit/mL (3 mL) pen for injection Take 15 units every am same time 15 mL 3 10/13/19 24 025 Discontinued(Th erapy completed) pneumococcal 20-valent (PREVNAR 20) 0.5 mL vaccine Inject 0.5 mL into the muscle as instructed once for 1 dose 0.5 mL 05/23/19 25 025 varicella-zost er (SHINGRIX) 50 mcg/0.5 mL vaccine Inject 0.5 mL into the muscle as instructed once for 1 dose 0.5 mL 1 05/23/19 25 025 Active Problems Problem Noted Date Diagnosed Date Nuclear sclerotic cataract of right eye 01/09/20 23 Benign prostatic hyperplasia with nocturia 02/28 Anxiety 10/21/2021 Sialorrhea 11/06/2020 Assessment & Plan (11/06/2020 9:04 PM CDT): He has sialorrhea which may be related to underlying Parkinson disease. THis is not sufficiently bothersome to warrant treatment at this time but we may consider chemodenervation in the future. Obstructive sleep apnea on CPAP 08/03/2020 Cubital tunnel syndrome on left 07/25/2020 Overview (07/25/2020): Added automatically from request for surgery [id number] Levodopa-induced dyskinesia 05/04/2020 Paresthesia of skin 05/04/2020 Ulnar neuropathy at elbow of left upper extremit y 04/18/2020 Assessment & Plan (04/18/2020 1:53 PM MANAGER RESORT): Plan at this point is to check nerve conduction study to verify that this is indeed a ulnar neuropathy at the elbow as opposed to a cervical radiculopathy. Once this is confirmed we can proceed with definitive therapy Type 2 diabetes mellitus wit hout complication, without long-term current use of insulin ([facility]) 02/29/2020 Assessment & Plan (05/23/2024 12:02 PM MANAGER RESORT): Increase insulin to 30 units Assessment & Plan (02/09/2024 11:53 AM CDT): Incease lantus to 26 units. May need bolus insulin Essential hypertension 02/29/2020 Assessment & Plan (05/23/2024 12:02 PM MANAGER RESORT): Bp at target Assessment & Plan (02/09/2024 11:52 AM CDT): Bp at target Gastroesophageal reflux disease without esophagi tis 02/29/2020 REM sleep behavior disorder 09/07/2018 Assessment & Plan (09/29/2022 7:31 AM CDT): He has history of limb movements in sleep that probably represent REM behavior disorder given his underlying Parkinson disease and improvement of this phenomenon with clonazepam. He is reasonably well treated and is tolerating current dose of clonazepam so it is be reasonable to continue current dose. Assessment & Plan (11/06/2020 9:02 PM CDT): He has history of limb movements in sleep that probably represent REM behavior disorder given his underlying Parkinson disease and improvement of this phenomenon with clonazepam. He is reasonably well treated and is tolerating current dose of clonazepam so it is be reasonable to continue current dose. Assessment & Plan (01/09/2020 9:05 AM CDT): He continues to have limb movements in sleep that probably represent REM behavior disorder given his underlying Parkinson disease and improvement of this phenomenon with clonazepam. He still has some RBD symptoms and is tolerating current dose of clonazepam so it may be reasonable to increase the dose slightly from 0.5mg to 1mg qhs. It has been some time since his last sleep study so I will refer to sleep neurologist for evaluation and polysomnogram if appropriate to query DYLLAN and/or other pathologies. Assessment & Plan (09/07/2018 4:19 PM CDT): He has limb movements in sleep that may represent REM behavior disorder given his underlying Parkinson disease and improvement of this phenomenon with clonazepam. He still has some RBD symptoms and is tolerating current dose of clonazepam so it may be reasonable to increase the dose slightly. Parkinson disease (CMS/[facility]) 05/29/2015 Assessment & Plan (05/23/2024 12:02 PM MANAGER RESORT): sandee Stevens neurology Assessment & Plan (02/09/2024 11:52 AM CDT): Per neuro Assessment & Plan (11/05/2023 1:28 PM CDT): He has parkinsonism stage 2.5 characterized on exam by bilateral rigidity and bradykinesia, mild postural instability with recovery on pull test, feeling of internal tremor, and subjective response to levodopa. The most likely etiology remains idiopathic Parkinson disease. He may have levodopa-related side effects including mild non-bothersome dyskinesia, and lightheadedness with low BPs that resolved after eliminating the irbesartan. He has some occasional wearing off but cannot tolerate more levodopa at this time given dyskinesia. He may take doses 30 to 60 min early as needed for wearing off. He has finished PT and knows of [employer] channel exercises online. He is interested in ST both for his voice and for his cognition and we will refer for that today. He has sleep apnea and is now treated so daytime sleepiness is better. His RBD is well controlled with clonazepam and he doesn't have much insomnia or PLMS. He has noted bothersome pins and needles and pain in the palmar side of his left hand and the pinky and ring finger and EMG/NCS showed substantial nerve entrapment. He can continue his current dose of bedtime gabapentin for now. He has some complaints of thinking and memory impairment and borderline low B12 in 2020. He should continue his B12 supplement. TSH was normal. We discussed cholinesterase inhibitors but given low likelihood of efficacy, they will skip these in favor of Focus Factor, which I explained also may not be helpful. We will order OT for this. Mood and anxiety are better with increased sertraline and we will continue that. Recs: 1. On busy days, may try carbi/levo IR qid vs tid, watching for side effects. 2. Same ER levodopa. 3. Same gabapentin.. 4. Same clonazepam and sertraline. 5. Start APDA youtube channel exercises. 6. Start ST, rx given. 7. Restart B12. 8. Same sertraline. 9. We agree with RSB. 10. Increase salt, fluids and if tolerated, caffeine, if not too late in the day. Assessment & Plan (03/26/2023 7:09 PM MANAGER RESORT): He has parkinsonism stage 2.5 characterized on exam by bilateral rigidity and bradykinesia, mild postural instability with recovery on pull test, feeling of internal tremor, and subjective response to levodopa. The most likely etiology remains idiopathic Parkinson disease. He may have levodopa-related side effects including mild non-bothersome dyskinesia, and lightheadedness with low BPs that resolved after eliminating the irbesartan. He has some occasional wearing off but cannot tolerate more levodopa at this time given dyskinesia. He may take doses 30 to 60 min early as needed for wearing off. We will refer to PT today and he knows of the APDA classes online. He has sleep apnea and is now treated so daytime sleepiness is better. His RBD is well controlled with clonazepam and he doesn't have much insomnia or PLMS. He has noted bothersome pins and needles and pain in the palmar side of his left hand and the pinky and ring finger and EMG/NCS showed substantial nerve entrapment. He can continue his current dose of bedtime gabapentin for now. He has some complaints of thinking and memory impairment and borderline low B12 in 2020. He should continue his B12 supplement. TSH was normal. We discussed cholinesterase inhibitors but given low likelihood of efficacy, they will skip these in favor of Focus Factor, which I explained also may not be helpful. Mood and anxiety are still a bit of an issue with 100 mg/day of sertraline and we will increase that dose. Recs: 1. Same carbi/levo IR. Same ER levodopa. 2. Same gabapentin.. 3. Same clonazepam. 4. Start APDA [employer] channel exercises. 5. Start PT, rx given. 6. Continue B12. 7. Increase sertraline as directed. Assessment & Plan (09/29/2022 7:30 AM CDT): He has parkinsonism stage 2.5 characterized by bilateral rigidity and bradykinesia, postural instability with recovery on pull test, historical feeling of internal tremor, and subjective response to levodopa. The most likely etiology remains idiopathic Parkinson disease. He may be reasonably well-treated at this point and it is reasonable to continue carbidopa-levodopa at current regimen as long as he does not have problematic orthostatic hypotension. He would benefit from PT for gait training and fall prevention. I discussed with him and his that I am concerned about his driving based on their reports, and I recommended he pursue a driving evaluation with Occupational Therapy. 1. Please checking orthostatic blood pressure per the instruction sheet and send results in 1-2 weeks. 2. Continue carbidopa-levodopa at same schedule for now but if fluctuation of thinking gets more noticeable, you may want to be more consistent with dose timing. 3. Call [facility] PT to schedule a follow up appointment. 4. I will send a referral to [facility] OT for a driving evaluation. Assessment & Plan (05/16/2022 1:12 PM MANAGER RESORT): He has parkinsonism stage 2.5 characterized on exam by bilateral rigidity and bradykinesia, mild postural instability with recovery on pull test, feeling of internal tremor, and subjective response to levodopa. The most likely etiology remains idiopathic Parkinson disease. He may have levodopa-related side effects including mild non-bothersome dyskinesia, history of orthostasis with low BPs at the last 3 visits here (82 to 100 systolic each time in the last 3 months), and mild daytime sleepiness. His orthostasis could contribute to daytime sleepiness and given the extremely low BP today and lightheadedness, I will contact Dr. Alonso about decreasing or eliminating the irbesartan. He has some occasional wearing off but cannot tolerate more levodopa at this time given BP and dyskinesia. He may take doses 30 to 60 min early as needed for wearing off. He is doing PT and should start APDA youtube channel exercises when PT ends. He has sleep apnea and is now treated so daytime sleepiness is better. His RBD is well controlled with clonazepam and he doesn't have much insomnia or PLMS. He has noted bothersome pins and needles and pain in the palmar side of his left hand and the pinky and ring finger and EMG/NCS showed substantial nerve entrapment. He can continue his current dose of gabapentin for now. He has some complaints of thinking and memory impairment and borderline low B12 in 2019. He should start a B12 supplement. TSH was normal. We discussed cholinesterase inhibitors but given low likelihood of efficacy, they will skip these in favor of Focus Factor, which I explained also may not be helpful. Mood is fine with sertraline and we will continue this dose. Recs: 1. Same carbi/levo but may take doses 30 to 60 min early if needed. Same ER levodopa. 2. Same gabapentin.. 3. Same clonazepam. 4. Start APDA youtube channel exercises. 5. I emailed Dr. Alonso about cutting back irbesartan to half or stopping it entirely. 6. Start B12. 7. Same sertraline. Assessment & Plan (10/21/2021 5:47 PM CDT): He has parkinsonism stage 2.5 characterized on exam by bilateral rigidity and bradykinesia, postural instability with recovery on pull test, feeling of internal tremor, and subjective response to levodopa. The most likely etiology remains idiopathic Parkinson disease. He may have levodopa-related side effects including mild non-bothersome dyskinesia, history of orthostasis with low BPs at the last 3 visits here (99 to 100 systolic each time in the last 3 months), and daytime sleepiness. His orthostasis could contribute to daytime sleepiness and he could talk with his PMD about cutting back the irbesartan given the low readings with lightheadedness. He has some wearing off but cannot tolerate more levodopa at this time given BP and dyskinesia. He may take doses 30 to 60 min early as needed for wearing off. He is willing to do PT here to devise a plan and then have it sent locally, same with ST for dysphagia; and will start APDA youtube exercises. He has sleep apnea and is now treated so daytime sleepiness is better. He continues to have limb movements in sleep that probably represent REM behavior disorder given his underlying Parkinson disease and improvement of this phenomenon with clonazepam. This has been better since increasing his clonazepam. He has noted bothersome pins and needles and pain in the palmar side of his left hand and the pinky and ring finger and EMG/NCS showed substantial nerve entrapment. He can continue his current dose of gabapentin for now. He has some complaints of thinking and memory impairment and should be sure PMD has checked B12 (also given the possible neuropathy described above) and TSH. Recs: 1. Same carbi/levo but may take doses 30 to 60 min early if needed. Same ER levodopa. 2. Same gabapentin.. 3. Same clonazepam. 4. Start APDA youtube channel exercises. 5. Talk to Dr. Alonso about cutting back irbesartan to half. 6. [employer]. 7. Start PT and ST here at [facility] then get plan made for PT and ST locally. Assessment & Plan (11/06/2020 9:00 PM CDT): He has parkinsonism stage 2.5 characterized by bilateral rigidity and bradykinesia, postural instability with recovery on pull test, historical feeling of internal tremor, and subjective response to levodopa. The most likely etiology remains idiopathic Parkinson disease. He may be reasonably well-treated at this point despite clear benefit from dose to dose and is tolerating current regimen of levodopa so it is reasonable to continue as is for now. He would benefit from PT for gait training and fall prevention. 1. Continue carbidopa-levodopa at current dose. 2. Our office to please mail copy of my instructions for orthostatic blood pressure. I asked him to please check blood pressure sitting/standing per the instruction sheet, daily for 1 week, then send results. 3. I will send a referral to physical therapy with Dr. Diana Nath for a follow up appointment. 4. Continue clonazepam for dream enactment and they will let me know if this ever worsens. 5. If drooling worsens they will let me know and we can discuss [employer]. 6. I will send refill for gabapentin 300mg at bedtime, they will call me in 3 months to discuss whether we should continue after that. Assessment & Plan (08/06/2020 12:42 PM CDT): He has parkinsonism stage 2.5 characterized on exam by bilateral rigidity and bradykinesia, postural instability with recovery on pull test, feeling of internal tremor, and subjective response to levodopa. The most likely etiology remains idiopathic Parkinson disease. He may have levodopa-related side effects including dyskinesia, history of orthostasis (better since his antihypertensive was cut in half), and daytime sleepiness. He tried to decrease levodopa to see if dyskinesia improved but motor symptoms and wearing off worsened. At this point, his wearing off and peak dose symptoms are under better control and we will continue his current doses. He completed PT and will start APDA youtube exercises. He has sleep apnea and is working with the sleep group on mask consideration. He continues to have limb movements in sleep that probably represent REM behavior disorder given his underlying Parkinson disease and improvement of this phenomenon with clonazepam. This has been better since increasing his clonazepam at last visit. He has noted bothersome pins and needles and pain in the palmar side of his left hand and the pinky and ring finger and EMG/NCS showed substantial nerve entrapment. He will soon have surgery with Emily Bowser. He can continue his current dose of gabapentin for now. He has some complaints of thinking and memory impairment and should be sure PMD has checked B12 (also given the possible neuropathy described above) and TSH. Recs: 1. Same carbi/levo. Same ER levodopa. 2. Same gabapentin (he will soon have surgery for his nerve entrapment). 3. Same clonazepam. 4. Start APDA youtube channel exercises. Assessment & Plan (05/04/2020 12:37 PM MANAGER RESORT): He has parkinsonism stage 2.5 characterized on prior exam by bilateral rigidity and bradykinesia, postural instability with recovery on pull test, feeling of internal tremor, and subjective response to levodopa. The most likely etiology remains idiopathic Parkinson disease. He may have levodopa-related side effects including dyskinesia, history of orthostasis (better since his antihypertensive was cut in half), and daytime sleepiness. He tried to decrease levodopa to see if dyskinesia improved but motor symptoms and wearing off worsened. At this point, he has an unusual schedule for taking levodopa IR and we will change doses so that they are every 4 hours apart to prevent wearing off and taking other doses too close together. He completed PT and will start APDA youtube exercises. He has sleep apnea and is working with the sleep group on mask consideration. He continues to have limb movements in sleep that probably represent REM behavior disorder given his underlying Parkinson disease and improvement of this phenomenon with clonazepam. This has been better since increasing his clonazepam at last visit. He has noted bothersome pins and needles and pain in the palmar side of his left hand and the pinky and ring finger. He had decreased sensation to sharp vs dull and clear weakness when holding ring finger and pinky to thumb but normal vibratory sense and cool/warm sense. This may be due to ulnar nerve entrapment. He does not note loss of sensation or paresthesia in the arm. We will order EMG/NCS and possibly refer to hand clinic. Since the pain is substantial enough at night that he could wake up in tears, we will also increase his gabapentin from 300 to 600 for paresthesia. He has some complaints of thinking and memory impairment and should be sure PMD has checked B12 (also given the possible neuropathy described above) and TSH. 1. Same carbi/levo but change dosing times to q 4 hours. Same ER levodopa. 2. Increase gabapentin to 600 mg qhs. We will order EMG/NCS of left hand. 3. Start APDA youtube channel exercises. 4. Be sure PMD has checked TSH and B12. Assessment & Plan (01/09/2020 9:11 AM CDT): He has parkinsonism stage 2.5 characterized on prior exam by bilateral rigidity and bradykinesia, postural instability with recovery on pull test, feeling of internal tremor, and subjective response to levodopa. The most likely etiology remains idiopathic Parkinson disease. He may have levodopa-related side effects including dyskinesia, orthostasis, and daytime sleepiness. It is reasonable to decrease carbidopa/levodopa gradually to see if these side effects improve without sacrificing essential motor benefit. He would benefit from PT for gait training and fall prevention and may need home safety assessment at discretion of PT. It is reasonable for him to obtain a handicap parking placard. 1. Decrease carbidopa/levodopa to 2.5 tablets for 2 weeks and then may decrease to 2 tablets if sleepiness, lightheadedness, and head bobbing is not improved. 2. Our office to mail or electronically send Instructions for measuring orthostatic blood pressure for him to check daily for 1 week and then report back with the results. 3. I will send a referral to a sleep neurologist at [facility]. They may want to order another sleep study because it has been some time since your last one. 4. I will send a referral to [facility] PT for balance and walking. 5. Increase clonazepam to 2 tablets at bedtime (1mg total). I sent renewal prescription 6. Our office to look for handicap parking application which they will send for my signature. Assessment & Plan (09/07/2018 4:21 PM CDT): He has parkinsonism stage 2.5 characterized by bilateral rigidity and bradykinesia, postural instability with recovery on pull test, feeling of internal tremor, and subjective response to levodopa. The most likely etiology remains idiopathic Parkinson disease. He may be undertreated due to inconsistent levodopa dosing so it is reasonable to first make his dosing schedule more consistent and then adjust as needed after that. 1. I encouraged him to try to take carbidopa/levodopa 25/100mg 3 tabs three times daily (breakfast lunch and supper). He should call with any side effects including lightheadedness. If he notices lightheadedness, I asked him to please take blood pressure sitting and standing per instruction sheet I provided today. 2. Increase clonazepam (1mg) to 1 tablet at bedtime for REM behavior disorder. 3. Exercise regularly. Resolved Problems Problem Noted Date Diagnosed Date Resolved Date Nuclear sclerotic cataract of left eye 11/25/2022 01/14/2023 Nuclear sclerotic cataract of right eye 11/25/2022 01/14/2023 Hyperlipidemia 02/29/2020 08/16/2021 Encounters Date Type Department Care Team Description 06/09/2024 Telephone [facility] [address] [place] [address] Jm Alonso MD Fall 06/06/2024 Telephone [facility] [address] [place] [address] Doron Nancy, [facility] Scheduling Appointments 05/23/2024 11:15 AM MANAGER RESORT Office Visit [facility] [address] [facility] [address] [place] [address] Jm Alonso MD Type 2 diabetes mellitus without complication, without long-term current use of insulin (CMS/HCC) (HCC) (Primary Dx); Parkinson's disease with dyskinesia and fluctuating manifestations (HCC); Essential hypertension 05/11/2024 2:45 PM MANAGER RESORT Office Visit [facility] [address] [place] [id number] Fadi Martinez PA Closed displaced fracture of base of third metacarpal bone of right hand with routine healing, subsequent encounter (Primary Dx) 05/02/2024 Telephone [facility] [facility] [address] [place] [id number] Fadi Martinez PA Appointment from Last 3 Months Immunizations Immunization Administration Dates Next Due Moderna SARS-CoV-2 Monovalent Vaccination (12+ Y RS) 07/27/2020,06/29/2020 Surgical History Surgery Date Site/Laterality Comments ULNAR NERVE REPAIR 08/07/2020 Left CATARACT EXTRACTION 01/14/2023 Left Medical History Medical History Date Comments Diabetes mellitus (HCC) Hypertension Hyperlipidemia Parkinson disease (HCC) Sleep apnea cpap nightly Family History Medical History Relation Name Comments Heart attack Father Heart disease Father Hypertension Mother Anesthesia problems Neg Hx Relation Name Status Comments Father Mother Social History Tobacco Use Types Packs/Day Years Used Date Smoking Tobacco: Never Smokeless Tobacco: Never Tobacco Cessation:Counseling Given: Not Answered AUDIT-C Answer Date Recorded Q1: How often do you have a drink containing alcohol? Never 03/09/2024 Q2: How many drinks containi ng alcohol do you have on a typical day when you are drinking? Patient does not drink Q3: How often do you have si x or more drinks on one occasion? Never 03/09/2024 Personal Safety Answer Date Recorded Have you ever been in or are you currently in a harmful physical or emotional relationship or is someone making you feel afraid or unsafe? Denies 02/11/2023 Sex and Gender Information Value Date Recorded Sex Assigned at Not on file Legal Sex Male 11:00 AM MANAGER RESORT Gender Identity Male 01/03/2020 10:22 AM CDT Sexual Orientation Choose not to disclose 2019 10:22 AM CDT Obstetrics History Last Filed Vital Signs Vital Sign Reading Time Taken Comments Blood Pressure 116/69 05/23/2024 11:31 AM MANAGER RESORT Pulse 73 05/23/2024 11:31 AM MANAGER RESORT Temperature 36.6 C (97.9 F) 11/15/2023 4:38 PM CDT Respiratory Rate 16 11/15/2023 4:38 PM CDT Oxygen Saturation 99% 11/15/2023 4:38 PM CDT Inhaled Oxygen Concentration - - Weight 100.7 kg (222 lb) 05/23/2024 11:31 AM MANAGER RESORT Height 182.9 cm (6') 05/23/2024 11:31 AM MANAGER RESORT Body Mass Index 30.11 05/23/2024 11:31 AM MANAGER RESORT Plan of Treatment Scheduled Procedures Name Priority Associated Diagnoses Date/Ti me COLONOSCOPY Encounter for screening colonoscopy Health Maintenance Due Date Last Done Comments Hepatitis C Screening 1955 Dilated Eye Exam 1955 Foot Exam 1955 DTaP/Tdap/Td Vaccine (1 - Tdap) 11/05/1967 Hepatitis B Screening 1974 Pneumococcal vaccine 65+ (1 of 2 - PCV) 11/05/1975 Zoster Vaccine (1 of 2) 2006 Well Visit 65+ 2021 Depression Screening 05/16/2023 05/16/2022 Prostate Cancer Screening-PSA 08/17/2023 08/16/2021, 02/29/2020 Influenza Vaccine (#1) 2023 Fall Risk Assessment 02/12/2024 02/11/2023 Albumin Creatinine Ratio, Urine 09/28/2024 09/29/2023 eGFR 09/28/2024 09/29/2023, 04/2 05/2021, 02/29/2020 Covid-19 Vaccine (7 - 2024-25 season) 2024 04/29/2024, 05/22/2023, 10/21/2021, Additional history exists Lipid Panel 11/03/2024 2023, 08/26, 08/16/2021, Additional history exists Hemoglobin A1C 11/20/2024 05/23/2024, 01/25, 2023, Additional history exists Colon Cancer Screening-Colonoscopy 11/08/2025 Postponed from 1955 (Patient declined, but will receive in the future) Medical Devices Implanted Type Area [place] Device Identifier Shelf Expiration Date Model / Serial / Lot [employer] Lens Iol Tecnis Smplcty 1-Pc Clr [place] 15.5 Diopter [id number] - [id number] - [id number] Implanted:Qty: 1 on 01/14/2023 by Richmond Morales MD at [facility] Lens Left: Eye [employer] [id number] 05/10/2025 [id number] / [id number] / 0 [employer] Lens Iol Tecnis Smplcty 1-Pc Clr [place] 15.5 Diopter [id number] - [id number] - [id number] Implanted:Qty: 1 on 02/11/2023 by Richmond Morales MD at [facility] Lens Right: Eye [employer] [id number] 12/10/2024 [id number] / [id number] / Procedures Procedure Name Priority Date/Time Associated Diagnosis Comments POCT HEMOGLOBIN A1C Routine 05/23/2024 1 1:33 AM MANAGER RESORT Type 2 diabetes mellitus without complication, without long-term current use of insulin ([facility]/HCC) (HCC) POCT LIPID PANEL Routine 2023 11:1 4 AM CDT Hyperlipidemia, unspecified hyperlipidemia type BASIC METABOLIC PANEL Routine 09/29/2023 11:20 AM CDT Stage 3b chronic kidney disease (HCC) ALBUMIN CREATININE RATIO, URINE Routine 09/29/2023 11:20 AM CDT Stage 3b chronic kidney disease (HCC) PSA SCREEN Routine 08/16/2021 10:37 AM CDT Type 2 diabetes mellitus without complication, without long-term current use of insulin (CMS/HCC) (HCC) Hyperlipidemia, unspecified hyperlipidemia type Colon cancer screening Parkinson disease (CMS/HCC) (HCC) from Last 3 Months or Most Recently Relevant to Health Maintenance Results * (ABNORMAL) POCT hemoglobin A1c (05/23/2024 11:33 AM MANAGER RESORT) Hemoglobin A1C, POC 9.9 4.0 - 5.6 % Blood 05/23/2024 11:3 3 AM MANAGER RESORT us Jm Alonso MD POINT OF CARE TEST ORDERABLES Final Result * POCT lipid panel (2023 11:14 AM CDT) Cholesterol, POC 112 mg/dL HDL, POC 47 mg/dL Triglycerides, POC 66 mg/dL LDL Cholesterol POC 5 mg/dL Chol/HDL Ratio, POC 2.4 Non-HDL Cholesterol, POC 65 mg/dL Cholesterol Total, POC 112 mg/dL Capillary blood 2023 1 1:14 AM CDT us Jm Alonso MD POINT OF CARE TEST ORDERABLES Final Result * Albumin Creatinine Ratio, Urine (09/29/2023 11:20 AM CDT) Creatinine ur 220.6 Not Estab. mg/dL [facility] - 01 Microalbumin, ur 38.0 Not Estab. ug/mL [facility] - 01 Microalbumin/cre at ratio 17 0 - 29 mg/g creat [facility] - 01 Comment: Normal: 0 - 29 Moderately increased: 30 - 300 Severely increased: >300 Urine 09/29/2023 11:2 0 AM CDT 09/29/2023 Narrative [facility] - 09/30/2023 4:08 AM CDT Performed at: [facility] [id number] Counter Checker: Yuan Gaitan PhD, Phone: [phone] Jm Alonso MD LAB URINE ORDERABLES Final Re sult Performing Organization Address [facility] [[email or web address]] Co de Phone Number [facility] - * (ABNORMAL) Basic metabolic panel (09/29/2023 11:20 AM CDT) Glucose 188(H) 70 - 99 mg/dL [facility] - 01 BUN 25 8 - 27 mg/dL [facility] - 01 Creatinine, Serum 1.78(H) 0.76 - 1.27 mg/dL [facility] - 01 eGFR 42(L) >59 mL/min/1.7 3 [facility] - 01 BUN/creat ratio 14 10 - 24 [facility] - 01 Sodium 136 134 - 144 mmol/L [facility] - 01 Potassium, sr 5.4(H) 3.5 - 5.2 mmol/L [facility] - 01 Ch[place]ide 101 96 - 106 mmol/L [facility] - 01 CO2 22 20 - 29 mmol/L [facility] - 01 Calcium 10.1 8.6 - 10.2 mg/dL [facility] - 01 Blood 09/29/2023 11:2 0 AM CDT 09/29/2023 Narrative [facility] - 09/30/2023 4:08 AM CDT Performed at: [facility] [id number] Counter Checker: Yuan Gaitan PhD, Phone: [phone] Jm Alonso MD LAB BLOOD ORDERABLES Final Re sult Performing Organization Address [facility]/ZIP Co de Phone Number [facility] - * PSA screen (08/16/2021 10:37 AM CDT) PSA 0.5 0.0 - 4.0 ng/mL [facility] - 01 Comment: Lito ECLIA methodology. According to the [employer], Serum PSA should decrease and remain at undetectable levels after radical prostatectomy. The AUA defines biochemical recurrence as an initial PSA value 0.2 ng/mL or greater followed by a subsequent confirmatory PSA value 0.2 ng/mL or greater. Values obtained with different assay methods or kits cannot be used interchangeably. Results cannot be interpreted as absolute evidence of the presence or absence of malignant disease. Blood specimen (specimen) 08/16/2021 10:37 AM CDT 08/16/2021 Narrative [facility] - 08/17/2021 7:09 AM CDT Performed at: - [facility] [id number] Counter Checker: Yuan Gaitan PhD, Phone: [phone] us Jm Alonso MD LAB BLOOD ORDERABLES Final Re sult [facility] - 01 from Last 3 Months or Most Recently Relevant to Health Maintenance Insurance MEDICARE [facility] Address: [address] [place] [address] MEDICARE [facility] [employer] MEDICARE MEDICARE [facility] Address: [address] [place] [address] Advance Directives For more information, please contact: [phone] * Full Code (Latest Code Status on File) Date Activated Date Inactivated Comments 02/11/2023 9:33 AM 02/11/2023 4:38 PM * Full Code Date Activated Date Inactivated Comments 01/14/2023 8:51 AM 01/14/2023 4:11 PM Care Teams Recreation Aide Relationship Specialty Start Date End Date Jm Alonso MD [id number] [address] PCP - General Internal Medicine 08/25/18
--- OUTSIDE RECORDS SUMMARY | 2024-06-19 13:21 | XMS_ITS | Clinical Summary ---
Author Organization [facility] Address [address] [place] [phone] Phone Care Team Providers Care Lens Dotter Name Role Phone Unavailable Primary Care Provider Unavailabl e Social History Tobacco Use Types Packs/Day Years Used Date Smoking Tobacco: Never Assessed Sex and Gender Information Value Date Recorded Sex Assigned at Not on file Legal Sex Male 5:35 AM HAND SINGER Gender Identity Not on file Sexual Orientation Not on file Plan of Treatment Health Maintenance Due Date Last Done Comments DTAP/TDAP/TD VACCINES (1 - Tdap) 11/05/1975 COLORECTAL SCREENING 2001 Colorectal Cancer Screening 2001 FIT-DNA Q 3 years 2001 FIT/FOBT Q 1 year 2001 Flex Sig/CT Colonography Q 5 years 2001 PNEUMOCOCCAL VACCINE 65+ YEARS (1 of 1 - PCV) 11/05/19 07 ZOSTER VACCINE (1 of 2) 2006 INFLUENZA VACCINE (#1) 2023 RSV VACCINE (60+ or ) (1 - 1-dose 75+ series) 11/05/2031
--- OUTSIDE RECORDS SUMMARY | 2024-06-19 13:21 | XMS_ITS | Encounter Summary ---
Author Organization [employer] Address [address] [place] [address] Care Team Providers Care Furniture Packer Name Role Phone Unavailable Primary Care Provider Unavailabl e Encounter Details Date Type Department Care Team (Late st Contact Info) Description 10/16/2007 Outpatient Historical [facility] [place], Authorized [place] [address] [place] [address] Other Chest Pain Social History Tobacco Use Types Packs/Day Years Used Date Smoking Tobacco: Never Assessed Sex and Gender Information Value Date Recorded Sex Assigned at Not on file Legal Sex Male 5:35 AM PEDIATRIC CNS Gender Identity Not on file Sexual Orientation Not on file documented as of this encounter Plan of Treatment Not on file documented as of this encounter Procedures Procedure Name Priority Date/Time Associated Diagnosis Comments ECHO STRESS TEST EXERCISE WO ECG Routine 10/18/2007 10:13 AM CDT BASIC METABOLIC PANEL Stat 10/18/2007 6:57 AM CDT D-DIMER Timed Study 10/17/2007 5:34 PM CDT TROPONIN Timed Study 10/17/2007 6:15 AM CDT TROPONIN (W/REFLEX CKMB/CK) Stat 10/16/2007 10:26 PM CDT CBC WITH DIFFERENTIAL Stat 10/16/2007 10:26 PM CDT COMPREHENSIVE METABOLIC PANEL Stat 10/16/2007 10:26 PM CDT XR CHEST PA OR AP 1 VW Routine 10/16/2007 10:25 PM CDT documented in this encounter Results * ECHOCARDIOGRAM STRESS TEST (10/18/2007 10:13 AM CDT) Narrative INTERFACE SYSTEM - 10/18/2007 10:13 AM CDT [facility] [address] [place] [id number] [email or web address] Patient: Susan Ledezma MRN: Study ID: ADULT STRESS ECH Gender: M : 1955 Age: 51 years Race: 1 Room: Bed: Height: Study Date: October 18, 2007 Patient status: Inpatient Weight: Access. #: [id number] POC: Ordering: Jamie Riley Attending MD: Jamie Riley Admitting MD: Jamie Riley Study Conclusions: SUMMARY - Stress results : Duration of exercise was 6 min and 30 sec. Target heart rate was achieved. There was no chest pain during stress. The stress ECG was normal. - Echo image interpretation : There was no diagnostic evidence for stress-induced ischemia. History and indications - Detection of coronary artery disease. Stress results [place] protocol HR bpm SBP mmHg DBP mmHg Symptoms ST change Rhythm/conduct Baseline 86 119 68 none none NSR, no ectopy STRESS RESULTS - Duration of exercise was 6 min and 30 sec. - Maximal work rate was 7 METs. - Functional capacity was normal. - Maximal heart rate during stress was 155 bpm ( 90 % of maximal predicted heart rate). - The heart rate response to stress was normal. - There was normal resting blood pressure with an appropriate response to stress. - The rate-pressure product for the peak heart rate and blood pressure was [address]. - There was no chest pain during stress. - The stress test was terminated due to moderate fatigue. - There were no stress arrhythmias or conduction abnormalities. - The stress ECG was normal. Imaging data STRESS 2D ECHOCARDIOGRAPHIC RESULTS Baseline: - There were no left ventricular regional wall motion abnormalities at baseline. Peak stress: - There were no left ventricular regional wall motion abnormalities at peak stress. ECHO IMPRESSIONS - There was no diagnostic evidence for stress-induced ischemia. Prepared and Electronically Authenticated Jem Jang MD Confirmed October 18, 2007 09:54:58 Procedure Note Provider, Historical - 10/18/2007 [facility] [address] [place] [address] [email or web address] Patient: Susan Ledezma MRN: Study ID: ADULT STRESS ECH Gender: M : 1955 Age: 51 years Race: 1 Room: Bed: Height: Study Date: October 18, 2007 Patient status: Inpatient Weight: Access. #: [id number] POC: Ordering: Jamie Riley Attending MD: Jamie Riley Admitting MD: Jamie Riley Study Conclusions: SUMMARY - Stress results : Duration of exercise was 6 min and 30 sec. Targetheart rate was achieved. There was no chest pain during stress. The stress ECG was normal. - Echo image interpretation : There was no diagnostic evidence for stress-induced ischemia. History and indications - Detection of coronary artery disease. Stress results Richmond protocol HR bpm SBP mmHg DBP mmHg Symptoms ST change Rhythm/conduct Baseline 86 119 68 none none NSR, no ectopy STRESS RESULTS - Duration of exercise was 6 min and 30 sec. - Maximal work rate was 7 METs. - Functional capacity was normal. - Maximal heart rate during stress was 155 bpm ( 90 % of maximalpredicted heart rate). - The heart rate response to stress was normal. - There was normal resting blood pressure with an appropriate responseto stress. - The rate-pressure product for the peak heart rate and blood pressurewas 15953. - There was no chest pain during stress. - The stress test was terminated due to moderate fatigue. - There were no stress arrhythmias or conduction abnormalities. - The stress ECG was normal. Imaging data STRESS 2D ECHOCARDIOGRAPHIC RESULTS Baseline: - There were no left ventricular regional wall motion abnormalities at baseline. Peak stress: - There were no left ventricular regional wall motion abnormalities at peak stress. ECHO IMPRESSIONS - There was no diagnostic evidence for stress-induced ischemia. Prepared and Electronically Authenticated Jem Jang MD Confirmed October 18, 2007 09:54:58 Jamie Chen MD ORDERABLES Final Resu lt INTERFACE SYSTEM Refer to clinic/hospital department * (ABNORMAL) BASIC METABOLIC PANEL (10/18/2007 6:57 AM CDT) SODIUM 135 135 - 145 mmol/L [facility] CALCIUM 8.5 8.4 - 10.2 mg/dL [facility] CO2 25 22 - 30 mmol/L [facility] CREATININE 1.19(H) 0.67 - 1.17 mg/dL [facility] POTASSIUM 4.6 3.5 - 4.9 mmol/L [facility] BUN 20 6 - 20 mg/dL [facility] CHLORIDE 99 96 - 108 mmol/L [facility] GLUCOSE 128(H) 65 - 99 mg/dL [facility] GFR, >60 >=60 mL/min/1. 7 sq meter [facility] GFR >60 >=60 mL/min/1. 7 sq meter [facility] Comment: Modification of Diet in Renal Disease (MDRD) study formula. Estimated GFR rate interpretative information for both Americans and non- Americans is available on the [facility] Intranet at: [email or web address] Select: Lab Policies and Procedures Select: Reference Ranges - GFR Blood specimen (specimen) 10/18/2007 6:57 AM CDT 10/18/2007 7:08 AM CDT Result [facility] Jamie Chen MD CHEMISTRY ORDERABLES Edite d Performing Organization Address [facility] Co de Phone Number [facility] CLIA# [id number] [address] [place] [address] * D-DIMER (10/17/2007 5:34 PM CDT) D-DIMER QUANT <0.22 <=0.42 ug/mL FEU [facility] Comment: DVT Screen reference range <0.45 ug/mL FEU D. Dimer Interpretation: The reference range is not clearly established in uncomplicated pregnancies. Values above the upper limit of the reference range are common from the 31st to 40th week of . High negative predictive values for DVT have been reported with the current methodology, as part of a comprehensive medical examination, including risk stratification. Blood specimen (specimen) 10/17/2007 5:34 PM CDT 10/17/2007 5:56 PM CDT Jamie Chen MD HEMATOLOGY ORDERABLES Sania l Result Performing Organization Address [facility] Co de Phone Number [facility] CLIA# [id number] [address] [place] [address] * TROPONIN (10/17/2007 6:15 AM CDT) Pathologist [facility] TROPONIN T <0.01 <=0.03 ng/mL [facility] TROPONIN T INTERP Negative [facility] Blood specimen (specimen) 10/17/2007 6:15 AM CDT 10/17/2007 6:19 AM CDT us aJmie Chen MD CHEMISTRY ORDERABLES Edite d [facility] CLIA# [id number] [address] [place] [address] * (ABNORMAL) COMPREHENSIVE METABOLIC PANEL (10/16/2007 10:26 PM CDT) [facility] CALCIUM 9.1 8.4 - 10.2 mg/dL [facility] CO2 22 22 - 30 mmol/L [facility] ALBUMIN 4.4 3.4 - 4.8 g/dL [facility] POTASSIUM See note. 3.5 - 4.9 mmol/L [facility] Comment: Gross hemolysis present. Result unreliable. K not reported per . Gross hemolysis present. Result unreliable. CREATININE 1.10 0.67 - 1.17 mg/dL [facility] SODIUM 134(L) 135 - 145 mmol/L [facility] ALT 18 0 - 41 U/L [facility] Comment: Hemolyzed: Result may be falsely elevated. ALKALINE PHOSPHATASE 65 40 - 129 U/L [facility] BILIRUBIN TOTAL 0.5 0.2 - 1.0 mg/dL [facility] TOTAL PROTEIN 7.5 6.3 - 8.6 g/dL [facility] CHLORIDE 101 96 - 108 mmol/L [facility] GLUCOSE 174(H) 65 - 99 mg/dL [facility] AST 36 12 - 38 U/L [facility] Comment: Hemolyzed: Result may be falsely elevated. BUN 19 6 - 20 mg/dL [facility] GFR, >60 >=60 mL/min/1. 7 sq meter [facility] GFR >60 >=60 mL/min/1. 7 sq meter [facility] Comment: Modification of Diet in Renal Disease (MDRD) study formula. Estimated GFR rate interpretative information for both Americans and non- Americans is available on the [facility] Intranet at: [email or web address] Select: Lab Policies and Procedures Select: Reference Ranges - GFR Blood specimen (specimen) 10/16/2007 10:26 PM CDT 10/16/2007 10:34 PM CDT Mohsen Garcia MD CHEMISTRY ORDERABLES Edited [facility] CLIA# [id number] [address] [place] [address] * TROPONIN (W/REFLEX CKMB/CK) (10/16/2007 10:26 PM CDT) TROPONIN T <0.01 <=0.03 ng/mL [facility] TROPONIN T INTERP Negative [facility] Blood specimen (specimen) 10/16/2007 10:26 PM CDT 10/16/2007 10:34 PM CDT Mohsen Garcia MD CHEMISTRY ORDERABLES Edited [facility] CLIA# [id number] [address] [place] [address] * CBC WITH DIFFERENTIAL (10/16/2007 10:26 PM CDT) MPV 10.7 9.3 - 12.4 fL [facility] HEMATOCRIT 43.4 40.0 - 48.0 % [facility] RDW-STDEV 41.3 37.1 - 48.7 fL [facility] RBC 5.09 4.50 - 5.40 M/uL [facility] MCHC 35.3 31.5 - 35.5 % [facility] MCV 85.3 82.0 - 99.0 fL [facility] PLATELETS 275 140 - 350 K/uL [facility] HEMOGLOBIN 15.3 13.6 - 16.5 g/dL [facility] RDW 13.3 11.5 - 14.5 % [facility] WBC 8.7 4.0 - 9.8 K/uL [facility] MCH 30.1 27.2 - 32.6 pg [facility] BASOPHILS 1 0 - 2 % [facility] BASOPHILS ABSOLUTE 0.05 0.00 - 0.20 K/uL [facility] MONOCYTES 8 3 - 13 % [facility] MONOCYTE ABSOLUTE 0.68 0.10 - 1.30 K/uL [facility] NEUTROPHILS 65 45 - 70 % [facility] NEUTROPHIL ABSOLUTE 5.65 1.90 - 7.00 K/uL [facility] EOSINOPHILS 2 0 - 7 % [facility] EOSINOPHIL ABSOLUTE 0.15 0.00 - 0.70 K/uL [facility] LYMPHOCYTES 25 16 - 45 % [facility] LYMPHOCYTE ABSOLUTE 2.15 0.70 - 4.50 K/uL [facility] Blood specimen (specimen) 10/16/2007 10:26 PM CDT 10/16/2007 10:34 PM CDT us Mohsen Garcia MD HEMATOLOGY ORDERABLES Edited INTERFACE SYSTEM Refer to clinic/hospital department [facility] CLIA# [id number] [address] [place] [address] * XR CHEST PA OR AP (10/16/2007 10:25 PM CDT) Anatomical Region Laterality Modality Chest Other 10/16/2007 10:2 5 PM CDT Narrative 10/17/2007 5:13 PM CDT [facility] [address] [place], [place] [address] Admit Date: 10/17/2007 SUSAN LEDEZMA Sex: M Admit Prov: JAMIE CHEN Date: 1955 Primary Care Prov: CMRN: [id number] Room: [address] [place] [address] SSN: [id number] IMAGING SERVICES Ordering Prov: N/A Accession Number: [id number] Interpretation Chest, portable AP semierect, 10/16/2007 at 2230 hours. Clinical History: Chest pain and shortness of breath. Findings: The heart and mediastinum are within normal limits. The lungs are free of active infiltrates. No pleural effusion or pneumothorax is identified. Impression: No active disease. . Dictated by: CHADWICK MAZA 10/16/2007 22:41 Electronically signed by: CHADWICK MAZA 10/17/2007 17:13 Transcribed: 10/16/2007 23:07 AMK Procedure Note Provider, Historical - 10/17/2007 [facility] [address] [place], [place] [address] Admit Date: 10/17/2007 SUSAN LEDEZMA Sex: M Admit Prov: JAMIE CHEN Date: 1955 Primary Care Prov: CMRN: [id number] Room: [address] [place] [address] SSN: [id number] IMAGING SERVICES Ordering Prov: N/A Interpretation Chest, portable AP semierect, 10/16/2007 at 2230 hours. Clinical History: Chest pain and shortness of breath. Findings: The heart and mediastinum are within normal limits. Thelungs are free of active infiltrates. No pleural effusion or pneumothoraxis identified. Impression: No active disease. . Dictated by: CHADWICK MAZA 10/16/2007 22:41 Electronically signed by: CHADWICK MAZA 10/17/2007 17:13 Transcribed: 10/16/2007 23:07 AMK Mohsen Garcia MD DIAGNOSTIC IMAGING ORDERABLES Fi nal Result documented in this encounter Visit Diagnoses Diagnosis Other chest pain documented in this encounter
--- OUTSIDE RECORDS SUMMARY | 2024-06-19 13:21 | XMS_ITS | Referral Summary ---
Author Organization [facility] Address [address] [place] [address] Care Team Providers Care Plant Maintenance Worker Name Role Phone Jm Alonso MD Primary Care Provider [phone] Encounters Date Type Department Care Team Description 06/09/2024 Telephone [facility] [address] [place] [phone] Jm Alonso MD Fall 06/06/2024 Telephone [facility] Scheduling [address] [place] [address] [facility] Scheduling Appointments 05/23/2024 11:15 AM NUT TIGHTENER Office Visit [facility] [address] [place] [phone] Jm Alonso MD Type 2 diabetes mellitus without complication, without long-term current use of insulin (CMS/HCC) (HCC) (Primary Dx); Parkinson's disease with dyskinesia and fluctuating manifestations ([facility]); Essential hypertension 05/11/2024 2:45 PM NUT TIGHTENER Office Visit [facility] [address] [place] [phone] Fadi Martinez PA Closed displaced fracture of base of third metacarpal bone of right hand with routine healing, subsequent encounter (Primary Dx) 05/02/2024 Telephone [facility] [address] [address] Fadi Martinez PA Appointment from Last 3 Months Allergies No known active allergies Medications cetirizine (ZyrTEC) 10 mg tabletIndicati ons:Seasonal Allergic Rhinitis Take 1 tablet (10 mg total) by mouth food 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 Once this is confirmed we can proceed with definitive therapy Type 2 diabetes mellitus wit hout complication, without long-term current use of insulin ([facility]) 02/29/2020 Assessment & Plan (05/23/2024 12:02 PM NUT TIGHTENER): Increase insulin to 30 units Assessment & Plan (02/09/2024 11:53 AM CDT): Incease lantus to 26 units. May need bolus insulin Essential hypertension 02/29/2020 Assessment & Plan (05/23/2024 12:02 PM NUT TIGHTENER): Bp at target Assessment & Plan (02/09/2024 [...] to increase the dose slightly. Parkinson disease ([facility]) 05/29/2015 Assessment & Plan (05/23/2024 12:02 PM NUT TIGHTENER): sandee Stevens neurology Assessment & Plan (02/09/2024 [...] He has finished PT and knows of [employer] youtube channel exercises online. He is interested in [...] day. Assessment & Plan (03/26/2023 7:09 PM NUT TIGHTENER): He has parkinsonism stage 2.5 characterized on [...] borderline low B12 in 2019. He should continue his B12 supplement. TSH [...] 4. Start [employer] youtube channel exercises. 5. Start PT, rx given. [...] more consistent with dose timing. 3. Call [facility] PT to schedule a follow up appointment. 4. I will send a referral to [facility] OT for a driving evaluation. Assessment & Plan (05/16/2022 1:12 PM NUT TIGHTENER): He has parkinsonism stage 2.5 characterized on [...] borderline low B12 in 2020. He should start a B12 supplement. TSH [...] about cutting back irbesartan to half. 6. [employer]. 7. Start PT and ST here at [facility] then get plan made for PT [...] exercises. Assessment & Plan (05/04/2020 12:37 PM NUT TIGHTENER): He has parkinsonism stage 2.5 characterized on [...] a referral to a sleep neurologist at [facility]. They may want to order another sleep study because it has been some time since your last one. 4. I will send a referral to [facility] PT for balance and walking. 5. Increase clonazepam to 2 tablets at bedtime (1mg total). I sent renewal prescription 6. Our office to look for [employer] parking application which they will send for [...] right eye 11/25/2022 01/14/2023 Hyperlipidemia 02/29/2020 08/16/2021 Immunizations Immunization Administration Dates Next Due Moderna SARS-CoV-2 Monovalent Vaccination (12+ Y RS) 07/27/2020,06/29/2020 Social History Tobacco Use Types Packs/Day Years [...] on file Legal Sex Male 11:00 AM NUT TIGHTENER Gender Identity Male 01/03/2020 10:22 AM CDT Sexual Orientation Choose not to disclose 2019 10:22 AM CDT Last Filed Vital Signs Vital Sign Reading Time Taken Comments Blood Pressure 116/69 05/23/2024 11:31 AM NUT TIGHTENER Pulse 73 05/23/2024 11:31 AM NUT TIGHTENER Temperature 36.6 C (97.9 F) 11/15/2023 4:38 PM CDT Respiratory Rate 16 11/15/2023 4:38 PM CDT Oxygen Saturation 99% 11/15/2023 4:38 PM CDT Inhaled Oxygen Concentration - - Weight 100.7 kg (222 lb) 05/23/2024 11:31 AM NUT TIGHTENER Height 182.9 cm (6') 05/23/2024 11:31 AM NUT TIGHTENER Body Mass Index 30.11 05/23/2024 11:31 AM NUT TIGHTENER Plan of Treatment Scheduled Procedures Name Priority Associated Diagnoses Date/Ti me COLONOSCOPY Encounter for screening colonoscopy Medical Devices Implanted Type Area Cottage Parent Device Identifier Shelf Expiration Date Model / Serial / Lot [employer] Lens Iol Tecnis Smplcty 1-Pc Clr Dundy 15.5 Diopter [id number] - [id number] - [id number] Implanted:Qty: 1 on 01/14/2023 by Richmond Morales MD at [facility] Lens Left: Eye [employer] [id number] 05/10/2025 [id number] / [id number] / 0 [employer] Lens Iol Tecnis Smplcty 1-Pc Clr Dundy 15.5 Diopter [id number] - [id number] - [id number] Implanted:Qty: 1 on 02/11/2023 by Richmond Morales MD at [facility] [employer] Lens Right: Eye [employer] [id number] 12/10/2024 [id number] / [id number] / Procedures Procedure Name Priority Date/Time Associated Diagnosis Comments POCT HEMOGLOBIN A1C Routine 05/23/2024 1 1:33 AM NUT TIGHTENER Type 2 diabetes mellitus without complication, without long-term current use of insulin ([facility] ([facility]) POCT LIPID PANEL Routine 2023 11:1 4 [...] (ABNORMAL) POCT hemoglobin A1c (05/23/2024 11:33 AM NUT TIGHTENER) Hemoglobin A1C, POC 9.9 4.0 - 5.6 % Blood 05/23/2024 11:3 3 AM NUT TIGHTENER us Jm Alonso MD POINT OF CARE [...] - 09/30/2023 4:08 AM CDT Performed at: [address] [place] [address] [id number] Assembly Mechanic: Yuan Gaitan PhD, Phone: [phone] Jm Alonso MD LAB URINE ORDERABLES Final Re sult Performing Organization Address [facility] de Phone Number [facility] - * (ABNORMAL) Basic metabolic panel (09/29/2023 11:20 AM CDT) Pathologist [facility] Glucose 188(H) 70 - 99 mg/dL [facility] [...] - 09/30/2023 4:08 AM CDT Performed at: [address] [place] [address] [id number] Assembly Mechanic: Yuan Gaitan PhD, Phone: [phone] Jm Alonso MD LAB BLOOD ORDERABLES Final Re sult [facility] - 01 * PSA screen (08/16/2021 10:37 AM CDT) [facility] Signature PSA 0.5 0.0 - 4.0 ng/mL [facility] - Comment: Lito ECLIA methodology. According to the [place] [employer], Serum PSA should decrease and [...] - 08/17/2021 7:09 AM CDT Performed at: [address] [place] [address] [id number] Assembly Mechanic: Yuan Gaitan PhD, Phone: [phone] us Jm Alonso MD LAB BLOOD ORDERABLES Final Re sult [facility] - from Last 3 Months or Most Recently Relevant to Health Maintenance Insurance MEDICARE [facility] MEDICARE [facility]AL [facility] FEDERAL MEDICARE MEDICARE [facility] Advance Directives For more information, please contact: [phone] * Full Code (Latest Code Status on File) Date Activated Date Inactivated Comments 02/11/2023 9:33 AM 02/11/2023 4:38 PM * Full Code Date Activated Date Inactivated Comments 01/14/2023 8:51 AM 01/14/2023 4:11 PM Care Teams Plant Maintenance Worker Relationship Specialty Start Date End Date Jm Alonso MD [address] [facility] [address] [address] PCP - General Internal Medicine 08/25/18
[2024-06-19 13:31] VITALS: BP 111/60; PULSE 70; RESP 15; TEMP 36.9; O2SAT 99
--- OUTSIDE RECORDS SUMMARY | 2024-06-19 14:34 | XMS_ITS | Clinical Summary ---
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
--- OUTSIDE RECORDS SUMMARY | 2024-06-19 14:34 | XMS_ITS | Encounter Summary ---
Author Organization [employer] Address [address] [place] [address] Care Team Providers Care Supervisor [employer] Name Role Phone Unavailable Primary Care Provider Unavailabl e Encounter Details Date Type Department Care Team (Late st Contact Info) Description 10/16/2007 Outpatient Historical [facility] [place], Authorized [place] 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 [id number] [email or web address] Patient: Susan Ledezma MRN: Study ID: ADULT STRESS ECH Gender: M : 1955 Age: 51 years Race: 1 Room: Bed: Height: Study Date: October 18, 2007 Patient status: Inpatient Weight: Access. #: [id number] POC: Ordering: Jamie Riley Attending MD: Jamie [...] peak heart rate [place] blood pressure [place] [address]. - There was no chest pain during [...] 09:54:58 Procedure Note Provider, Historical - 10/18/2007 [facility] [place] [address] [place] [address] [email or web address] Stress Study Patient: Susan Ledezma MRN: Study ID: ADULT STRESS ECH Gender: M : 1955 Age: 51 years Race: 1 Room: Bed: Height: Study Date: October 18, 2007 Patient status: Inpatient Weight: Access. #: [id number] POC: Ordering: Jamie Riley Attending MD: Jamie [...] the peak heart rate and blood pressurewas 09276. - There was no chest pain during [...] CDT) SODIUM 135 135 - 145 mmol/L [facility] CALCIUM 8.5 8.4 - 10.2 mg/dL [facility] CO2 25 22 - 30 mmol/L [facility] CREATININE 1.19(H) 0.67 - 1.17 mg/dL [facility] POTASSIUM 4.6 3.5 - 4.9 mmol/L [facility] BUN 20 6 - 20 mg/dL [facility] CHLORIDE 99 96 - 108 mmol/L [facility] GLUCOSE 128(H) 65 - 99 mg/dL [facility] GFR, >60 >=60 mL/min/1. 7 sq meter [facility] GFR >60 >=60 mL/min/1. 7 sq meter [facility] Comment: Modification of Diet in Renal Disease (MDRD) study formula. Estimated GFR rate interpretative information for both Americans and non- Americans is available on the [facility] Intranet at: [email or web address] Select: Lab Policies and Procedures Select: Reference Ranges - GFR Blood specimen (specimen) 10/18/2007 6:57 AM CDT 10/18/2007 7:08 AM CDT Result [facility] Jamie Chen MD CHEMISTRY ORDERABLES Edite d Performing Organization Address [facility] Co de Phone Number [facility] CLIA# [id number] [address] [place] [address] * D-DIMER (10/17/2007 5:34 PM CDT) D-DIMER QUANT <0.22 <=0.42 ug/mL FEU [facility] Comment: DVT Screen reference range <0.45 [...] ORDERABLES Sania l Result Performing Organization Address [facility] Co de Phone Number [facility] CLIA# [id number] [address] [place] [address] * TROPONIN (10/17/2007 6:15 AM CDT) Pathologist [facility] TROPONIN T <0.01 <=0.03 ng/mL [facility] TROPONIN T INTERP Negative [facility] Blood specimen (specimen) 10/17/2007 6:15 AM CDT 10/17/2007 6:19 AM CDT us Jamie Chen MD CHEMISTRY ORDERABLES Edite d [facility] CLIA# [id number] [address] [place] [address] * (ABNORMAL) COMPREHENSIVE METABOLIC PANEL (10/16/2007 10:26 PM CDT) [facility] CALCIUM 9.1 8.4 - 10.2 mg/dL [facility] CO2 22 22 - 30 mmol/L [facility] ALBUMIN 4.4 3.4 - 4.8 g/dL [facility] POTASSIUM See note. 3.5 - 4.9 mmol/L [facility] Comment: Gross hemolysis present. Result unreliable. K not reported per . Gross hemolysis present. Result unreliable. CREATININE 1.10 0.67 - 1.17 mg/dL [facility] SODIUM 134(L) 135 - 145 mmol/L [facility] ALT 18 0 - 41 U/L [facility] Comment: Hemolyzed: Result may be falsely elevated. ALKALINE PHOSPHATASE 65 40 - 129 U/L [facility] BILIRUBIN TOTAL 0.5 0.2 - 1.0 mg/dL [facility] TOTAL PROTEIN 7.5 6.3 - 8.6 g/dL [facility] CHLORIDE 101 96 - 108 mmol/L [facility] GLUCOSE 174(H) 65 - 99 mg/dL [facility] AST 36 12 - 38 U/L [facility] Comment: Hemolyzed: Result may be falsely elevated. BUN 19 6 - 20 mg/dL [facility] GFR, >60 >=60 mL/min/1. 7 sq meter [facility] GFR >60 >=60 mL/min/1. 7 sq meter [facility] Comment: Modification of Diet in Renal Disease (MDRD) study formula. Estimated GFR rate interpretative information for both Americans and non- Americans is available on the [facility] Intranet at: [email or web address] Select: Lab Policies and Procedures Select: Reference Ranges - GFR Blood specimen (specimen) 10/16/2007 10:26 PM CDT 10/16/2007 10:34 PM CDT Mohsen Garcia MD CHEMISTRY ORDERABLES Edited [facility] CLIA# [id number] [address] [place] [address] * TROPONIN (W/REFLEX CKMB/CK) (10/16/2007 10:26 PM CDT) TROPONIN T <0.01 <=0.03 ng/mL [facility] TROPONIN T INTERP Negative [facility] Blood specimen (specimen) 10/16/2007 10:26 PM CDT 10/16/2007 10:34 PM CDT Mohsen Garcia MD CHEMISTRY ORDERABLES Edited [facility] CLIA# [id number] [address] [place] [address] * CBC WITH DIFFERENTIAL (10/16/2007 10:26 PM CDT) MPV 10.7 9.3 - 12.4 fL [facility] HEMATOCRIT 43.4 40.0 - 48.0 % [facility] RDW-STDEV 41.3 37.1 - 48.7 fL [facility] RBC 5.09 4.50 - 5.40 M/uL [facility] MCHC 35.3 31.5 - 35.5 % [facility] MCV 85.3 82.0 - 99.0 fL [facility] PLATELETS 275 140 - 350 K/uL [facility] HEMOGLOBIN 15.3 13.6 - 16.5 g/dL [facility] RDW 13.3 11.5 - 14.5 % [facility] WBC 8.7 4.0 - 9.8 K/uL [facility] MCH 30.1 27.2 - 32.6 pg [facility] BASOPHILS 1 0 - 2 % [facility] BASOPHILS ABSOLUTE 0.05 0.00 - 0.20 K/uL [facility] MONOCYTES 8 3 - 13 % [facility] MONOCYTE ABSOLUTE 0.68 0.10 - 1.30 K/uL [facility] NEUTROPHILS 65 45 - 70 % [facility] NEUTROPHIL ABSOLUTE 5.65 1.90 - 7.00 K/uL [facility] EOSINOPHILS 2 0 - 7 % [facility] EOSINOPHIL ABSOLUTE 0.15 0.00 - 0.70 K/uL [facility] LYMPHOCYTES 25 16 - 45 % [facility] LYMPHOCYTE ABSOLUTE 2.15 0.70 - 4.50 K/uL [facility] Blood specimen (specimen) 10/16/2007 10:26 PM CDT 10/16/2007 10:34 PM CDT us Mohsen Garcia MD HEMATOLOGY ORDERABLES Edited INTERFACE SYSTEM Refer to clinic/hospital department [facility] CLIA# [id number] [address] [place] [address] * XR CHEST PA OR AP (10/16/2007 10:25 PM CDT) Anatomical Region Laterality Modality Chest Other 10/16/2007 10:2 5 PM CDT Narrative 10/17/2007 5:13 PM CDT [facility] [address] [place], [place] [address] Admit Date: 10/17/2007 SUSAN ELDEZMA Sex: M Admit Prov: JAMIE CHEN Date: 1955 Primary Care Prov: CMRN: [id number] Room: [address] [place] [address] SSN: [id number] IMAGING SERVICES Ordering Prov: N/A Accession Number: [id number] Interpretation Chest, portable AP semierect, 10/16/2007 at [...] AMK Procedure Note Provider, Historical - 10/17/2007 [facility] [address] [place], [place] [address] Admit Date: 10/17/2007 SUSAN LEDEZMA Sex: M Admit Prov: JAMIE CHEN Date: 1955 Primary Care Prov: CMRN: [id number] Room: [address] [place] [address] SSN: [id number] IMAGING SERVICES Ordering Prov: N/A Interpretation Chest, [...]
--- OUTSIDE RECORDS SUMMARY | 2024-06-19 14:34 | XMS_ITS | Clinical Summary ---
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 Once this is confirmed we can proceed with definitive therapy Type 2 diabetes mellitus wit hout complication, without long-term current use of insulin ([facility]) 02/29/2020 Assessment & Plan (05/23/2024 12:02 PM MILL WASHER): Increase insulin to 30 units Assessment & Plan (02/09/2024 11:53 AM CDT): Incease lantus to 26 units. May need bolus insulin Essential hypertension 02/29/2020 Assessment & Plan (05/23/2024 12:02 PM MILL WASHER): Bp at target Assessment & Plan (02/09/2024 [...] to increase the dose slightly. Parkinson disease (CMS/[facility]) 05/29/2015 Assessment & Plan (05/23/2024 12:02 PM MILL WASHER): sandee Stevens neurology Assessment & Plan (02/09/2024 [...] He has finished PT and knows of [employer] channel exercises online. He is interested in [...] day. Assessment & Plan (03/26/2023 7:09 PM MILL WASHER): He has parkinsonism stage 2.5 characterized on [...] gabapentin.. 3. Same clonazepam. 4. Start APDA [employer] channel exercises. 5. Start PT, rx given. [...] more consistent with dose timing. 3. Call [facility] PT to schedule a follow up appointment. 4. I will send a referral to [facility] OT for a driving evaluation. Assessment & Plan (05/16/2022 1:12 PM MILL WASHER): He has parkinsonism stage 2.5 characterized on [...] about cutting back irbesartan to half. 6. [employer] PD Voice [employer]. 7. Start PT and ST here at [facility] then get plan made for [...] exercises. Assessment & Plan (05/04/2020 12:37 PM MILL WASHER): He has parkinsonism stage 2.5 characterized on [...] a referral to a sleep neurologist at [facility]. They may want to order another sleep study because it has been some time since your last one. 4. I will send a referral to [facility] PT for balance and walking. 5. [...] Type Department Care Team Description 06/09/2024 Telephone [facility] [address] [place] [address] Jm Alonso MD Fall 06/06/2024 Telephone [facility] Scheduling [address] [place] [address] Doron Nancy, [facility] Scheduling Appointments 05/23/2024 11:15 AM MILL WASHER Office Visit [facility] [address] [place] [address] Jm Alonso MD Type 2 diabetes mellitus without complication, without long-term current use of insulin (CMS/HCC) (HCC) (Primary Dx); Parkinson's disease with dyskinesia and fluctuating manifestations (HCC); Essential hypertension 05/11/2024 2:45 PM MILL WASHER Office Visit [facility] [address] [place] [phone] Fadi Martinez PA Closed displaced fracture of base of third metacarpal bone of right hand with routine healing, subsequent encounter (Primary Dx) 05/02/2024 Telephone [facility] [address] [place] [phone] Fadi Martinez PA Appointment from Last [...] on file Legal Sex Male 11:00 AM MILL WASHER Gender Identity Male 01/03/2020 10:22 AM CDT Sexual Orientation Choose not to disclose 2019 10:22 AM CDT Obstetrics History Last Filed Vital Signs Vital Sign Reading Time Taken Comments Blood Pressure 116/69 05/23/2024 11:31 AM MILL WASHER Pulse 73 05/23/2024 11:31 AM MILL WASHER Temperature 36.6 C (97.9 F) 11/15/2023 4:38 PM CDT Respiratory Rate 16 11/15/2023 4:38 PM CDT Oxygen Saturation 99% 11/15/2023 4:38 PM CDT Inhaled Oxygen Concentration - - Weight 100.7 kg (222 lb) 05/23/2024 11:31 AM MILL WASHER Height 182.9 cm (6') 05/23/2024 11:31 AM MILL WASHER Body Mass Index 30.11 05/23/2024 11:31 AM MILL WASHER Plan of Treatment Scheduled Procedures Name Priority [...] the future) Medical Devices Implanted Type Area Painter Aircraft Device Identifier Shelf Expiration Date Model / Serial / Lot [employer] Lens Iol Tecnis Smplcty 1-Pc Clr [place] 15.5 Diopter [id number] - [id number] - [id number] Implanted:Qty: 1 on 01/14/2023 by Richmond Morales MD at [facility] Lens Left: Eye [employer] [id number] 05/10/2025 [id number] / [id number] / 0 [employer] Lens Iol Tecnis Smplcty 1-Pc Clr [place] 15.5 Diopter [id number] - [id number] - [id number] Implanted:Qty: 1 on 02/11/2023 by Richmond Morales MD at [facility] Lens Right: Eye [employer] [id number] 12/10/2024 [id number] / [id number] / Procedures Procedure Name Priority Date/Time Associated Diagnosis Comments POCT HEMOGLOBIN A1C Routine 05/23/2024 1 1:33 AM MILL WASHER Type 2 diabetes mellitus without complication, without long-term current use of insulin ([facility]/HCC) (HCC) POCT LIPID PANEL Routine 2023 11:1 [...] (ABNORMAL) POCT hemoglobin A1c (05/23/2024 11:33 AM MILL WASHER) Hemoglobin A1C, POC 9.9 4.0 - 5.6 % Blood 05/23/2024 11:3 3 AM MILL WASHER us Jm Alonso MD POINT OF CARE [...] - 09/30/2023 4:08 AM CDT Performed at: [address] [id number] Arborist Climber: Yuan Gaitna PhD, Phone: [phone] Jm Alonso MD LAB URINE ORDERABLES Final Re sult Performing Organization Address [facility] Co de Phone Number [facility] - [...] - 09/30/2023 4:08 AM CDT Performed at: [address] [id number] Arborist Climber: Yuan Gaitan PhD, Phone: [phone] Jm Alonso MD LAB BLOOD ORDERABLES Final Re sult Performing Organization Address [facility]/ZIP Co de Phone Number [facility] - * PSA screen (08/16/2021 10:37 AM CDT) PSA 0.5 0.0 - 4.0 ng/mL [facility] - 01 Comment: Lito ECLIA methodology. According to the [place] [employer], Serum PSA should decrease and [...] 08/17/2021 7:09 AM CDT Performed at: - [facility] [id number] Arborist Climber: Yuan Gaitan PhD, Phone: [phone] us Jm Alonso MD LAB BLOOD ORDERABLES Final Re sult [facility] - 01 from Last 3 Months or Most Recently Relevant to Health Maintenance Insurance MEDICARE [facility] MEDICARE [facility] FEDERAL [facility] FEDERAL MEDICARE MEDICARE [facility] Advance Directives For more information, please contact: [phone] * Full Code (Latest Code Status on File) Date Activated Date Inactivated Comments 02/11/2023 9:33 AM 02/11/2023 4:38 PM * Full Code Date Activated Date Inactivated Comments 01/14/2023 8:51 AM 01/14/2023 4:11 PM Care Teams Equipment Lead Relationship Specialty Start Date End Date Jm Alonso MD [address] [address] PCP - General Internal Medicine 08/25/18
--- OUTSIDE RECORDS SUMMARY | 2024-06-19 14:34 | XMS_ITS | Continuity of Care Document ---
Author Organization [employer] [place] Address [address] [facility] [address] [place] [address] Phone Care Team Providers Care Security Systems Integrator Name Role Phone Lucy Dang OT Unavailable [...] Diagnoses Date Provider Providers Copied on Encounter [facility] [place] [address], [id number], [place] tel:[phone] [place] No Information 5 Laurence Ayala. . [facility] [employer] [place], [id number], [place] tel:[phone] [place] No Information 4 Laurence Ayala. . Referring Provider: Fadi Martinez, [address] [place] [address] [address], [place], [address]. tel:[phone] [facility] [employer] [place], [id number], [place] tel:[phone] [place] No Information 4 Levy Avila. . Referring Provider: José Miguel Michaels, [address] [place] [address], [place], [address]. tel:[phone] [facility] [employer] [place], [id number], [place] tel:[phone] [place] No Information Dec-2 4 Dang Lucy. . Referring Provider: Fadi Martinez, [address] [facility] [address], [place], [address]. tel:[phone] [facility] [address], [place], [place], [id number], [place] tel:[phone] [place] No Information Dec-2 4 [place]. . Referring Provider: José Miguel Michaels, [address] [place] [address], [address]. tel:[phone] [facility] [address], [place], [place], [id number], [place] tel:[phone] [place] No Information Mar-2 4 Dang Lucy. . Referring Provider: Fadi Martinez, [address] [facility] [address], [place], [address]. tel:[phone] [facility] [address], [place], [place], [id number], [place] tel:[phone] [place] No Information Mar- 4 [place]. . Referring Provider: José Miguel Michaels, [address] [place] [address], [address]. tel:[phone] [facility] [address] [place], [place] [address], [place], [place], [id number], [place] tel:[phone] [place] No Information Mar- 4 Emmanuel Markus. . Referring Provider: Fadi Martinez, [address] [facility] [address], [place], [address]. tel:[phone] [facility] [address], [place], [place], [id number], [place] tel:[phone] [place] No Information Mar- 4 [place]. . Referring Provider: José Miguel Michaels, [address] [place] [address], [address]. tel:[phone] [facility] [address] [place] [address], [place], [id number], [place] tel:[phone] [place] No Information 4 [place]. . Referring Provider: José Miguel Michaels, [address] [place] [address], [address]. tel:[phone] [facility], [address], [place], [place], [id number], [place] tel:[phone] [place] No Information 4 Dang Lucy. . Referring Provider: Fadi Martinez, [address] [place] [address] [address], [place], [address]. tel:[phone] [facility] [address], [place], [place], [id number], [place] tel:[phone] [place] No Information 4 Dang Lucy. . Referring Provider: Fadi Martinez, [address] [facility] [address], [place], [address]. tel:[phone] [facility], [address], [place], [id number], [place] tel:[phone] [place] No Information 4 [place]. . Referring Provider: José Miguel Michaels, [address] [place] [address], [address]. tel:[phone] [facility] [address], [place], [id number], [place] tel:[phone] [place] No Information Dec-0 4 [place]. . Referring Provider: José Miguel Michaels, [address] [place] [address], [address]. tel:[phone] [facility], [address], [place], [place], [id number], [place] tel:[phone] [place] No Information Dec-0 2 4 [place], [place], [place]. Referring Provider: José Miguel Michaels, [address] [place] [address], [place], [address]. tel:[phone] [facility] [place] [address], [place], [place], [id number], [place] tel:[phone] [place] No Information 4 Dang Lucy. . Referring Provider: Fadi Martinez, [address] [place] [address] [address], [place], [address]. tel:[phone] [facility] [place] [address], [place], [place], [id number], [place] tel:[phone] [place] No Information 4 Dang Lucy. . Referring Provider: Fadi Martinez, [address] [place] [address] [address], [place], [address]. tel:[phone] [facility], [place], [id number], [place] tel:[phone] [place] No Information 4 Dang Lucy. . Referring Provider: Fadi Martinez, [address] [place] [address] [address], [place], [address]. tel:[phone] [facility] [place] [address], [place], [id number], [place] tel:[phone] [place] No Information 4 Dang Lucy. . Referring Provider: Fadi Martinez, [address] [place] [address] [address], [place], [address]. tel:[phone] [facility] [place] [address], [place], [place], [address], [place] tel:[phone] [place] No Information 4 Dang Lucy. . Referring Provider: Fadi Martinez, [address] [place] [address] [address], [place], [address]. tel:[phone] [facility] [place] [address], [place], [place], [address], [place] tel:[phone] [place] No Information 0 4 Dang Lucy. . Referring Provider: Fadi Martinez, [address] [facility] [address], [place], [address]. tel:[phone] [facility], [address], [place], [place], [id number], [place] tel:[phone] [place] No Information 4 Dang Lucy. . Referring Provider: Fadi Martinez, [address] [facility] [address], [place], [address]. tel:[phone] [facility] [address], [place], [place], [id number], [place] tel:[phone] [place] No Information 4 Dang Lucy. . Referring Provider: Dylan Canales [facility] [address], [place], [address]. tel:[phone] [facility], [address], [place], [place], [address], [place] tel:[phone] [place] No Information 4 Dang Lucy. . Referring Provider: Fadi Martinez, [address] [facility] [address], [place], [address]. tel:[phone] [facility] [address], [place], [id number], [place] tel:[phone] [place] No Information 4 Dang Lucy. . Referring Provider: Fadi Martinez, [address] [facility] [address], [place], [address]. tel:[phone] [facility], [place], [id number], [place] tel:[phone] [place] No Information 4 Dang Lucy. . Referring Provider: Fadi Martinez [address] [facility] [address], [place], [address]. tel:[phone] Family History Family Member Type Diagnosis Age At Onset No Information Payers Payer name Insurance type Covered libertarian ID Authorjasmina tialyse(s) Medicare [place] MB [id number] Social History Type Description Quantity Date Captured [...]
--- OUTSIDE RECORDS SUMMARY | 2024-06-19 14:34 | XMS_ITS | Referral Summary ---
Author Organization [facility] Address [address] [place] [address] Care Team Providers Care It Data Architect Name Role Phone Jm Alonso MD Primary Care Provider [phone] Encounters Date Type Department Care Team Description 06/09/2024 Telephone [facility] [address] [place] [id number] Jm Alonso MD Fall 06/06/2024 Telephone [facility] Scheduling [address] [place] [address] [facility] Scheduling Appointments 05/23/2024 11:15 AM SIZING SPRAYER Office Visit [facility] [address] [place] [phone] Jm Alonso MD Type 2 diabetes mellitus without complication, without long-term current use of insulin (CMS/HCC) (HCC) (Primary Dx); Parkinson's disease with dyskinesia and fluctuating manifestations ([facility]); Essential hypertension 05/11/2024 2:45 PM SIZING SPRAYER Office Visit [facility] [address] [place] [phone] Fadi Martinez PA Closed displaced fracture of base of third metacarpal bone of right hand with routine healing, subsequent encounter (Primary Dx) 05/02/2024 Telephone [facility] [address] [facility] [address], [place] [address] Fadi Martinez PA Appointment from Last 3 Months Allergies No known active allergies Medications cetirizine (ZyrTEC) 10 mg tabletIndicati ons:Seasonal Allergic Rhinitis Take 1 tablet (10 mg total) by mouth technology auditor 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 Active aspirin 81 mg enteric [...] (07/25/2020): Added automatically from request for surgery [id number] 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 Once this is confirmed we can proceed with definitive therapy Type 2 diabetes mellitus wit hout complication, without long-term current use of insulin ([facility]) 02/29/2020 Assessment & Plan (05/23/2024 12:02 PM SIZING SPRAYER): Increase insulin to 30 units Assessment & Plan (02/09/2024 11:53 AM CDT): Incease lantus to 26 units. May need bolus insulin Essential hypertension 02/29/2020 Assessment & Plan (05/23/2024 12:02 PM SIZING SPRAYER): Bp at target Assessment & Plan (02/09/2024 [...] to increase the dose slightly. Parkinson disease ([facility]) 05/29/2015 Assessment & Plan (05/23/2024 12:02 PM SIZING SPRAYER): sandee Stevens neurology Assessment & Plan (02/09/2024 [...] He has finished PT and knows of [employer] youtube channel exercises online. He is interested [...] day. Assessment & Plan (03/26/2023 7:09 PM SIZING SPRAYER): He has parkinsonism stage 2.5 characterized on [...] more consistent with dose timing. 3. Call [facility] PT to schedule a follow up appointment. 4. I will send a referral to [facility] OT for a driving evaluation. Assessment & Plan (05/16/2022 1:12 PM SIZING SPRAYER): He has parkinsonism stage 2.5 characterized on [...] back irbesartan to half. 6. [employer]. 7. Start PT and ST here at [facility] then get plan made for PT and [...] exercises. Assessment & Plan (05/04/2020 12:37 PM SIZING SPRAYER): He has parkinsonism stage 2.5 characterized on [...] a referral to a sleep neurologist at [facility]. They may want to order another sleep study because it has been some time since your last one. 4. I will send a referral to [facility] PT for balance and walking. 5. Increase clonazepam to 2 tablets at bedtime (1mg total). I sent renewal prescription 6. Our office to look for [employer] parking application which they will send for [...] on file Legal Sex Male 11:00 AM SIZING SPRAYER Gender Identity Male 01/03/2020 10:22 AM CDT Sexual Orientation Choose not to disclose 2019 10:22 AM CDT Last Filed Vital Signs Vital Sign Reading Time Taken Comments Blood Pressure 116/69 05/23/2024 11:31 AM SIZING SPRAYER Pulse 73 05/23/2024 11:31 AM SIZING SPRAYER Temperature 36.6 C (97.9 F) 11/15/2023 4:38 PM CDT Respiratory Rate 16 11/15/2023 4:38 PM CDT Oxygen Saturation 99% 11/15/2023 4:38 PM CDT Inhaled Oxygen Concentration - - Weight 100.7 kg (222 lb) 05/23/2024 11:31 AM SIZING SPRAYER Height 182.9 cm (6') 05/23/2024 11:31 AM SIZING SPRAYER Body Mass Index 30.11 05/23/2024 11:31 AM SIZING SPRAYER Plan of Treatment Scheduled Procedures Name Priority Associated Diagnoses Date/Ti me COLONOSCOPY Encounter for screening colonoscopy Medical Devices Implanted Type Area Digital Strategy Specialist Device Identifier Shelf Expiration Date Model / Serial / Lot [employer] Lens Iol Tecnis Smplcty 1-Pc Clr [place] 15.5 Diopter [id number] - [id number] - [id number] Implanted:Qty: 1 on 01/14/2023 by Richmond Morales MD at [facility] Lens Left: Eye [employer] [id number] 05/10/2025 [id number] / [id number] / 0 [employer] Lens Iol Tecnis Smplcty 1-Pc Clr [place] 15.5 Diopter [id number] - [id number] - [id number] Implanted:Qty: 1 on 02/11/2023 by Richmond Morales MD at [facility] Lens Right: Eye [employer] [id number] 12/10/2024 [id number] / [id number] / Procedures Procedure Name Priority Date/Time Associated Diagnosis Comments POCT HEMOGLOBIN A1C Routine 05/23/2024 1 1:33 AM SIZING SPRAYER Type 2 diabetes mellitus without complication, without long-term current use of insulin ([facility]) ([facility]) POCT LIPID PANEL Routine 2023 11:1 4 [...] (ABNORMAL) POCT hemoglobin A1c (05/23/2024 11:33 AM SIZING SPRAYER) Hemoglobin A1C, POC 9.9 4.0 - 5.6 % Blood 05/23/2024 11:3 3 AM SIZING SPRAYER us Jm Alonso MD POINT OF CARE [...] - 09/30/2023 4:08 AM CDT Performed at: [address] [place] [id number] Yarn Examiner: Yuan Gaitan PhD, Phone: [phone] Jm Alonso MD LAB URINE ORDERABLES Final Re sult Performing Organization Address [facility] de Phone Number [facility] - * (ABNORMAL) Basic metabolic panel (09/29/2023 11:20 AM CDT) Pathologist [facility] Glucose 188(H) 70 - 99 mg/dL [facility] [...] - 09/30/2023 4:08 AM CDT Performed at: [address] [place] [id number] Yarn Examiner: Yuan Gaitan PhD, Phone: [phone] Jm Alonso MD LAB BLOOD ORDERABLES Final Re sult [facility] - 01 * PSA screen (08/16/2021 10:37 AM CDT) [facility] Signature PSA 0.5 0.0 - 4.0 ng/mL [facility] - Comment: Lito ECLIA methodology. According to the [place] [employer], Serum PSA should decrease and [...] - 08/17/2021 7:09 AM CDT Performed at: [address] [place] [id number] Yarn Examiner: Yuan Gaitan PhD, Phone: [phone] us Jm Alonso MD LAB BLOOD ORDERABLES Final Re sult [employer] [facility] - from Last 3 Months or Most Recently Relevant to Health Maintenance Insurance MEDICARE [facility] MEDICARE [facility] FEDERAL [facility] FEDERAL MEDICARE MEDICARE [facility] Address: [address] [place] [address] Advance Directives For more information, please contact: [phone] * Full Code (Latest Code Status on File) Date Activated Date Inactivated Comments 02/11/2023 9:33 AM 02/11/2023 4:38 PM * Full Code Date Activated Date Inactivated Comments 01/14/2023 8:51 AM 01/14/2023 4:11 PM Care Teams It Data Architect Relationship Specialty Start Date End Date Jm Alonso MD [address] [facility] [address] [address] PCP - General Internal Medicine 08/25/18
--- NOTE | 2024-06-19 14:39 | ED.FALL ---
HPI - Fall General Chief Complaint: Fall Stated Complaint: fall yesterday, L side pain Time Seen by Provider: 06/19/24 14:20 Source: patient Mode of arrival: ambulatory Limitations: no limitations History of Present Illness HPI Narrative: This is a 68-year-old male that presents to the emergency department for left-sided rib pain. Reports he does not have great balance due to history of Parkinson's. He tripped and fell onto his left side yesterday. He has had left-sided rib pain since which prompted him to be seen. He did not hit his head or lose consciousness. No other focal injuries or areas of pain. Denies abdominal pain, vomiting. Related Data Home Medications ?Medication ?Instructions ?Recorded ?Confirmed ?Last Taken ?Type Adult Aspirin EC Low Strength 81 mg PO DAILY 09/24/23 06/19/24 09/24/23 09:30 History atorvastatin 20 mg tablet 20 mg PO DAILY 09/24/23 09/24/23 09/24/23 09:30 History carbidopa 25 mg-levodopa 100 mg 25 - 100 tablet PO TID 09/24/23 09/24/23 09/24/23 18:00 History tablet (Sinemet) carbidopa ER 50 mg-levodopa 200 mg 50 - 200 tablet PO HS 09/24/23 09/24/23 09/23/23 22:30 History tablet,extended release cetirizine 10 mg PO DAILY 09/24/23 09/24/23 09/24/23 09:30 History clonazepam 0.5 mg tablet 0.5 mg PO HS 09/24/23 09/24/23 09/23/23 22:30 History fenofibrate 160 mg tablet 160 mg PO DAILY 09/24/23 09/24/23 09/24/23 09:30 History gabapentin 300 mg capsule 300 mg PO HS 09/24/23 09/24/23 09/23/23 22:30 History metformin 500 mg tablet 500 mg PO BID 09/24/23 09/24/23 09/24/23 09:30 History omeprazole 20 mg PO DAILY 09/24/23 09/24/23 09/24/23 09:30 History sertraline 100 mg tablet 100 mg PO DAILY 09/24/23 09/24/23 09/24/23 09:30 History tamsulosin 0.4 mg capsule 0.4 mg PO DAILY 09/24/23 09/24/23 09/24/23 09:30 History Allergies Allergy/AdvReac Type Severity Reaction Status Date / Time No Known Allergies Allergy Verified 06/19/24 14:22 Review of Systems Review of Systems: CONSTITUTIONAL: Denies fever RESPIRATORY: Denies dyspnea. GASTROINTESTINAL: Denies abdominal pain, nausea, vomiting All systems reviewed & are unremarkable except as noted in HPI and below PMFSH Past Medical History Medical History (Updated 06/19/24 @ 15:24 by Roslyn Landon PA-C) Diabetes Parkinson's disease Family History Family History (Updated 09/24/23 @ 22:17 by Brynn Javier RN) Other Unknown family medical history Social History Social History Smoking status: Never smoker Second hand tobacco smoke exposure: No Alcohol intake: current Drinks per week: 1 Substance use: never Do You Feel Safe in your Home?: Yes Lack of Transportation: No Lack of Food: Never True Current Housing: I Have Housing Concerned About Future Housing: No Difficulty Paying Gas/Electric Bills: No Difficulty Paying for Meds: No Currently Unemployed: No Education: Decline to Answer Difficulty w/ Childcare or Family Care: No Spiritual care concerns: No Exam Narrative: GENERAL: Well-appearing, well-nourished, and in no acute distress. HEAD: Normocephalic, atraumatic. EYES: PERRLA and EOMI. ENT: Nares clear, no rhinorrhea or epistaxis. Mucous membranes moist. Oropharynx without tonsillar hypertrophy exudate or other lesions. Bilateral TMs pearly warren non-bulging NECK: Supple. No adenopathy or masses. CHEST: Clear to auscultation. No respiratory distress. No wheezes rales or rhonchi HEART: Regular rate and rhythm. No murmur heard. Normal peripheral pulses. ABDOMEN: Soft, nontender, nondistended, normal active bowel sounds. EXTREMITIES: Normal range of motion. No edema. Strength equal in bilateral upper and lower extremities (5/5) SKIN: Warm, dry, no rash. NEURO: No focal deficits. Alert and oriented x3. CN II-XII grossly intact PSYCH: Normal mood and affect Course Course Emergency Course: patient and family updated on workup and agree with plan of care Vital Signs Vital signs: Vital Signs Temperature 98.4 F 06/19/24 13:31 Pulse Rate 70 06/19/24 13:31 Respiratory Rate 15 06/19/24 13:31 Blood Pressure 111/60 06/19/24 13:31 Pulse Oximetry 99 06/19/24 13:31 Oxygen Delivery Room Air 06/19/24 13:31 Temperature 98.4 F 06/19/24 13:31 Pulse Rate 70 06/19/24 13:31 Respiratory Rate 15 06/19/24 13:31 Blood Pressure 111/60 06/19/24 13:31 Pulse Oximetry 99 06/19/24 13:31 Oxygen Delivery Room Air 06/19/24 13:31 MDM - Fall MDM Narrative Medical decision making narrative: Patient presents the emergency department for left-sided rib pain after a fall yesterday. Patient is neurologically intact. Left rib/chest x-ray without acute posttraumatic findings. Patient updated on his workup and agrees with plan of care. He is to follow up with primary provider. He was given warnings to return to the ER Differential Diagnosis Differential diagnosis: Likely other (rib fracture, rib contusion) Imaging Data Radiologist's impression: ITS Impressions Ribs w/Chest X-Ray 06/19/24 15:10 IMPRESSION: No acute displaced left-sided rib fracture. The lungs are clear. Critical Care Time Critical Care Time Critical Care Time: No Discharge Plan Discharge Clinical Impression: Contusion of rib on left side Qualifiers: Encounter type: initial encounter Qualified Code(s): S20.212A - Contusion of left front wall of thorax, initial encounter Patient Disposition: Home, Self-Care Condition: Stable Instructions: Rib Contusion (ED) Additional Instructions: Return to the emergency department if you experience fever, chest pain, shortness of breath, abdominal pain with nausea and vomiting, or any other symptoms that are concerning to you. Rest. Ice to the area. Over the counter pain medication as needed Follow up with primary care doctor Patient Language: Citizen Of [place] Prescriptions: No Action Adult Aspirin EC Low Strength 81 mg PO DAILY metformin 500 mg tablet 500 mg PO BID atorvastatin 20 mg tablet 20 mg PO DAILY clonazepam 0.5 mg tablet 0.5 mg PO HS carbidopa-levodopa 50-200 mg tablet extended release 50 - 200 tablet PO HS sertraline 100 mg tablet 100 mg PO DAILY tamsulosin 0.4 mg capsule 0.4 mg PO DAILY gabapentin 300 mg capsule 300 mg PO HS carbidopa-levodopa [Sinemet] 25-100 mg tablet 25 - 100 tablet PO TID Rx Instructions: Take 3 tablets Three Times A Day fenofibrate 160 mg tablet 160 mg PO DAILY cetirizine 10 mg PO DAILY omeprazole 20 mg PO DAILY Follow-up/Referrals: Celeste,Jm Woodard MD [Primary Care Provider] -
[2024-06-19 15:33] VITALS: BP 115/68; PULSE 72; RESP 16; TEMP 37; O2SAT 98
== END 2024-06-19 15:34 | disposition home or self-care (01) ==
PROVIDERS: Emergency Provider Physician Assistant; PCP Internal Medicine
DX: S20.212A Contusion of left front wall of thorax, initial encounter (principal); W18.30XA Fall on same level, unspecified, initial encounter; G20.A1 Parkinson's disease without dyskinesia, without mention of fluctuations; E11.9 Type 2 diabetes mellitus without complications
CPT/HCPCS: 71046; 71100; 99283

== ENCOUNTER 2024-09-06 17:29 | Emergency (ER) | payer MEDICARE, BC, SELFPAY ==
--- NOTE | ~2024-09-06 | CT_ITS ---
EXAMINATION: CT cervical spine wo con DATE: 09/06/2024 18:30 INDICATION: fall/trauma TECHNIQUE: Computed tomography (CT) of the cervical spine was performed without intravenous contrast. Automated exposure control and iterative reconstruction technique were employed. The dose-length pro duct was 495.80 mGy-cm. COMPARISON: None. FINDINGS: Vertebral Body Alignment: Mild reversal of the normal cervical lordosis centered at C5-6. Trace retro listhesis at C6-7, presumably secondary to degenerative change. Craniocervical and atlantoaxial alignment: Moderate degenerative change. Alignment intact. Osseous structures/fracture: No evidence of a lytic or blastic process in the visualized spine. No e vidence of acute fracture. Cervical soft tissues: The paraspinal soft tissues planes are maintained. Degenerative changes: Degenerative changes, without severe central canal narrowing. Severe right neur al foraminal narrowing at C5-6 and on the left at C6-7 secondary to degenerative changes. IMPRESSION: No acute fracture or traumatic malalignment in the cervical spine. Reviewed, dictated and finalized at location K.
--- NOTE | ~2024-09-06 | CT_ITS ---
EXAMINATION: CT brain wo con DATE: 09/06/2024 18:29 INDICATION: fall/trauma . TECHNIQUE: Computed tomography (CT) of the head was performed without intravenous contrast. The mA wa s adjusted according to patient size. Iterative reconstruction technique was employed. The dose-lengt h product was 681.00 mGy-cm. COMPARISON: 09/24/2023. FINDINGS: No acute intracranial hemorrhage or extra-axial fluid collection. No hydrocephalus, mass, or herniation. No acute ischemic infarct. Unremarkable dural venous sinus attenuation. No acute osseous abnormality. The aerated spaces are clear. Small left posterior scalp contusion. Mild atrophy and chronic white matter change. Atherosclerotic intracranial calcification. Bilateral l ens replacements. Small chronic right occipital infarct IMPRESSION: No acute intracranial process. Reviewed, dictated and finalized at location K.
--- OUTSIDE RECORDS SUMMARY | 2024-09-06 17:31 | XMS_ITS | Referral Summary ---
Author Organization [facility] Address [address] [place] [address] Care Team Providers Care Anesthesiologist Assistant Name Role Phone Jm Alonso MD Primary Care Provider [phone] Encounters Date Type Department Care Team Description 09/06/2024 Results Follow-Up [facility] Convenient Care at [address] [phone] Desi Barney NP 09/06/2024 2:35 PM CDT Ancillary Procedure [facility] Imaging at [address] [phone] Injury of left little finger, initial encounter 09/06/2024 2:10 PM CDT Ancillary Procedure [facility] Imaging at [address] [phone] Injury of left little finger, initial encounter 09/06/2024 2:30 PM CDT Office Visit [facility] at [address] [phone] Desi Barney, ROSA Injury of left little finger, initial encounter (Primary Dx); Closed traumatic dislocation of proximal interphalangeal (PIP) joint of left little finger; Displaced fracture of middle phalanx of left little finger, initial encounter for closed fracture 09/05/2024 Telephone [facility] [address] [facility] 7[address] [place] [address] Adrianne Briceño RN 07/25/2024 12:00 PM CDT Office Visit [facility] [address] [facility] 6th [address] [place] [address] Rusty Vicente PA Essential hypertension (Primary Dx); Obstructive sleep apnea on CPAP; REM sleep behavior disorder 07/18/2024 Results Follow-Up [facility]ient Care at [address] [address] Briseida Bowers NP 07/18/2024 2:25 PM CDT Ancillary Procedure [facility] Imaging at [address] [phone] Accidental fall, initial encounter 07/18/2024 2:20 PM CDT Ancillary Procedure [facility] Imaging at [address] [phone] Accidental fall, initial encounter 07/18/2024 2:15 PM CDT Ancillary Procedure [facility] Medical [facility] Imaging at [address] [phone] Accidental fall, initial encounter 07/18/2024 2:00 PM CDT Office Visit [facility] at [address] [phone] Briseida Bowers NP Accidental fall, initial encounter (Primary Dx) 06/20/2024 2:45 PM COMMERCIAL RELIEF DRIVER Office Visit [facility] Medical [facility] Convenient Care at [address] [phone] Yovana Cheek NP Bilateral impacted cerumen (Primary Dx); Dizziness 06/19/2024 Orders Only [facility] [address] [facility] [place] [phone] Jm Alonso MD 06/09/2024 [facility] [address] [place] [phone] Jm Alonso MD Fall from Last 3 Months Allergies No known active allergies Medications cetirizine (ZyrTEC) 10 mg tabletIndicati ons:Seasonal Allergic Rhinitis Take 1 tablet (10 mg total) by mouth digital analyst 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 Active aspirin 81 mg enteric coated tabletIndicati ons:prevention of thrombosis Take 1 tablet (81 mg total) by mouth every morning Active omeprazole 20 mg tablet,delayed release (DR/EC)Indicat ions:Treatment of Non-Bleeding Gastric Disorder Take 1 tablet (20 mg total) by mouth every morning 09/26/19 21 Active pen needle, diabetic 32 gauge x [...] 180 tablet 3 01/29/20 24 025 Active gabapentin (NEURONTIN) 300 mg capsule TAKE 1 CAPSULE BY MOUTH NIGHTLY 90 capsule 2 05/11/19 25 Active insulin glargine 100 unit/mL (3 mL) pen for injection Take 30 units sub q daily 45 mL 4 05/23/19 25 Active fenofibrate (TRIGLIDE) 160 mg tablet Take 1 tablet by mouth once daily 90 tablet 06/16/19 25 Active clonazePAM (KlonoPIN) 0.5 mg tabletIndicati ons:REM sleep behavior disorder TAKE 2 TABLETS BY MOUTH ONCE DAILY AT NIGHT 180 tablet 07/30/19 25 Active atorvastatin (LIPITOR) 20 mg tablet Take 1 tablet by mouth once daily 90 tablet 2 07/30/19 25 Active Tradjenta 5 mg tablet Take 1 tablet by mouth once daily 30 tablet 08/16/19 25 Active sertraline (ZOLOFT) 100 mg tablet Take 1.5 tablets (150 mg total) by mouth digital analyst 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 135 tablet 3 09/06/19 25 026 Active sertraline (ZOLOFT) 100 mg tablet Take 1.5 tabs each morning. 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 Once this is confirmed we can proceed with definitive therapy Type 2 diabetes mellitus wit hout complication, without long-term current use of insulin 02/29/2020 Assessment & Plan (05/23/2024 12:02 PM COMMERCIAL RELIEF DRIVER): Increase insulin to 30 units Assessment & Plan (02/09/2024 11:53 AM CDT): Incease lantus to 26 units. May need bolus insulin Essential hypertension 02/29/2020 Assessment & Plan (05/23/2024 12:02 PM COMMERCIAL RELIEF DRIVER): Bp at target Assessment & Plan (02/09/2024 [...] to increase the dose slightly. Parkinson disease (CMS/[facility]) 05/29/2015 Assessment & Plan (05/23/2024 12:02 PM COMMERCIAL RELIEF DRIVER): sandee Stevens neurology Assessment & Plan (02/09/2024 [...] He has finished PT and knows of APDA youtube channel exercises online. He is interested [...] day. Assessment & Plan (03/26/2023 7:09 PM COMMERCIAL RELIEF DRIVER): He has parkinsonism stage 2.5 characterized on [...] more consistent with dose timing. 3. Call [facility] PT to schedule a follow up appointment. 4. I will send a referral to [facility] OT for a driving evaluation. Assessment & Plan (05/16/2022 1:12 PM COMMERCIAL RELIEF DRIVER): He has parkinsonism stage 2.5 characterized on [...] about cutting back irbesartan to half. 6. [employer]. 7. Start PT and [...] exercises. Assessment & Plan (05/04/2020 12:37 PM COMMERCIAL RELIEF DRIVER): He has parkinsonism stage 2.5 characterized on [...] a referral to a sleep neurologist at [facility]. They may want to order another sleep study because it has been some time since your last one. 4. I will send a referral to [facility] PT for balance and walking. 5. [...] on file Legal Sex Male 11:00 AM COMMERCIAL RELIEF DRIVER Gender Identity Male 01/03/2020 10:22 AM CDT Sexual Orientation Choose not to disclose 2019 10:22 AM CDT Last Filed Vital Signs Vital Sign Reading Time Taken Comments Blood Pressure 120/76 09/06/2024 2:00 PM CDT Pulse 78 09/06/2024 2:00 PM CDT Temperature 37.1 C (98.7 F) 09/06/2024 2:00 PM CDT Respiratory Rate 20 09/06/2024 2:00 PM CDT Oxygen Saturation 98% 09/06/2024 2:00 PM CDT Inhaled Oxygen Concentration - - Weight 102.5 kg (226 lb) 09/06/2024 2:00 PM CDT Height 182.9 cm (6') 07/25/2024 12:01 PM CDT Body Mass Index 30.65 07/25/2024 12:01 PM CDT Plan of Treatment Scheduled Procedures Name Priority Associated Diagnoses Date/Ti me COLONOSCOPY Encounter for screening colonoscopy Medical Devices Implanted Type Area Brain Picker Device Identifier Shelf Expiration Date Model / Serial / Lot [employer] Lens Iol Tecnis Smplcty 1-Pc Clr [place] 15.5 Diopter [id number] - [id number] - [id number] Implanted:Qty: 1 on 01/14/2023 by Richmond Morales MD at [facility] Lens Left: Eye [employer] [id number] 05/10/2025 [id number] / [id number] / 0 [employer] Lens Iol Tecnis Smplcty 1-Pc Clr [place] 15.5 Diopter [id number] - [id number] - [id number] Implanted:Qty: 1 on 02/11/2023 by Richmond Morales MD at [facility] Advanced [facility] Lens Right: Eye [employer] [id number] 12/10/2024 [id number] / [id number] / Procedures Procedure Name Priority Date/Time Associated Diagnosis Comments XR FINGER 5TH PINKY LEFT Schedule MINI, Read MINI (Appt Today, Awaiting Results) 09/06/2024 2:39 PM CDT Injury of left little finger, initial encounter XR HAND LEFT 3 OR MORE VIEWS Schedule MINI, Read MINI (Appt Today, Awaiting Results) 09/06/2024 2:17 PM CDT Injury of left little finger, initial encounter XR SHOULDER LEFT 2 OR MORE VIEWS Schedule MINI, Read MINI (Appt Today, Awaiting Results) 07/18/2024 2:25 PM CDT Accidental fall, initial encounter XR HUMERUS LEFT 2 OR MORE VIEWS Schedule MINI, Read MINI (Appt Today, Awaiting Results) 07/18/2024 2:25 PM CDT Accidental fall, initial encounter XR HIP LEFT 2 OR 3 VIEWS Schedule MINI, Read MINI (Appt Today, Awaiting Results) 07/18/2024 2:25 PM CDT Accidental fall, initial encounter [place] REMOVAL IMPACTED CERUMEN INSTRUMENTATION UNILAT Routine 06/20/2024 2:45 PM COMMERCIAL RELIEF DRIVER Bilateral impacted cerumen SCAN - RADIOLOGY/IMAGING 06/19/2024 3:23 PM COMMERCIAL RELIEF DRIVER POCT HEMOGLOBIN A1C Routine 05/23/2024 11:33 AM COMMERCIAL RELIEF DRIVER Type 2 diabetes mellitus without complication, without long-term current use of insulin (HCC) POCT LIPID PANEL Routine 2023 11:14 AM CDT Hyperlipidemia, unspecified hyperlipidemia type BASIC METABOLIC PANEL Routine 09/29/2023 11:20 AM CDT Stage 3b chronic kidney disease (HCC) ALBUMIN CREATININE RATIO, URINE Routine 09/29/2023 11:20 AM CDT Stage 3b chronic kidney disease (HCC) PSA SCREEN Routine 08/16/2021 10:37 AM CDT Type 2 diabetes mellitus without complication, without long-term current use of insulin (HCC) Hyperlipidemia, unspecified hyperlipidemia type Colon cancer screening Parkinson disease (HCC) from Last 3 Months or Most Recently Relevant to Health Maintenance Results * XR Finger 5Th Pinky Left (09/06/2024 2:39 PM CDT) Anatomical Region Laterality Modality Upper Extremities, Hand, Fingers Left Digital Radiography 09/06/2024 3:16 PM CDT Narrative 09/06/2024 3:18 PM CDT EXAM DESCRIPTION: XR FINGER 5TH PINKY LEFT REASON FOR STUDY: Dislocation, finger or thumb, post reduction Post reduction fifth digit. TECHNIQUE: 3 radiographic view(s) of the left small finger . COMPARISON: Same day hand radiograph. FINDINGS: BONES/JOINTS: Interval reduction of previously seen 5th proximal interphalangeal joint dislocation. Displaced volar plate avulsion fracture of the base of the 5th middle phalanx. SOFT TISSUES: Overlying soft tissue edema. IMPRESSION: Interval reduction of previously seen 5th proximal interphalangeal joint dislocation. Displaced volar plate avulsion fracture of the 5th middle phalanx. THIS IS AN ELECTRONICALLY VERIFIED FINAL REPORT 09/06/2024 3:18 PM - Electronically signed by Collin Cantrell M.D. NS T: Report ID: [id number] Reading Location: [id number] Procedure Note Collin Cantrell MD - 09/06/2024 EXAM DESCRIPTION: XR FINGER 5TH PINKY LEFT REASON FOR STUDY: Dislocation, finger or thumb, post reduction Post reduction fifth digit. TECHNIQUE: 3 radiographic view(s) of the left small finger . COMPARISON: Same day hand radiograph. FINDINGS: BONES/JOINTS: Interval reduction of previously seen 5thproximal interphalangeal joint dislocation. Displaced volar plate avulsionfracture of the base of the 5th middle phalanx. SOFT TISSUES: Overlying soft tissue edema. IMPRESSION: Interval reduction of previously seen 5th proximal interphalangeal joint dislocation. Displaced volar plate avulsion fracture of the 5th middle phalanx. THIS IS AN ELECTRONICALLY VERIFIED FINAL REPORT 09/06/2024 3:18 PM - Electronically signed by Collin STARKS T: Report ID: [id number] Reading Location: [id number] Desi Barney SALES ACCOUNT DIRECTOR IMG XR PROCEDURES Final Re sult * XR Hand Left 3 or More Views (09/06/2024 2:17 PM CDT) Anatomical Region Laterality Modality Upper Extremities, Hand Left Digital Radiography 09/06/2024 3:13 PM CDT Narrative 09/06/2024 3:16 PM CDT EXAM DESCRIPTION: XR HAND LEFT 3 OR MORE VIEWS REASON FOR STUDY: finger pain, left little finger, likely dislocated at pip. Unable to bend. Mild tenderness to ring finger Left fifth digit PIP pain and unable to bend. Fall today. TECHNIQUE: 3 radiographic view(s) of the left hand . COMPARISON: None. FINDINGS: BONES/JOINTS: Dorsal dislocation of the 5th middle phalanx. Nondisplaced fracture of the volar aspect of the base of the 5th middle phalanx. SOFT TISSUES: Overlying soft tissue edema. IMPRESSION: Dorsal dislocation of the 5th middle phalanx. Nondisplaced fracture of the volar aspect of the base of the 5th middle phalanx. THIS IS AN ELECTRONICALLY VERIFIED FINAL REPORT 09/06/2024 3:16 PM - Electronically signed by Collin Cantrell M.D. NS T: Report ID: [id number] Reading Location: [id number] Procedure Note Collin Cantrell MD - 09/06/2024 EXAM DESCRIPTION: XR HAND LEFT 3 OR MORE VIEWS REASON FOR STUDY: finger pain, left little finger, likely dislocated atpip. Unable to bend. Mild tenderness to ring finger Left fifth digit PIP pain and unable to bend. Fall today. TECHNIQUE: 3 radiographic view(s) of the left hand . COMPARISON: None. FINDINGS: BONES/JOINTS: Dorsal dislocation of the 5th middle phalanx. Nondisplaced fracture of the volar aspect of the base of the 5th middle phalanx. SOFT TISSUES: Overlying soft tissue edema. IMPRESSION: Dorsal dislocation of the 5th middle phalanx. Nondisplaced fracture of the volar aspect of the base of the 5th middle phalanx. THIS IS AN ELECTRONICALLY VERIFIED FINAL REPORT 09/06/2024 3:16 PM - Electronically signed by Collin Cantrell M.D. NS T: Report ID: [id number] Reading Location: [id number] Desi Barney NP IMG XR PROCEDURES Final Re sult * XR Shoulder Left 2+ Vw (07/18/2024 2:25 PM CDT) Anatomical Region Laterality Modality Upper Extremities, Shoulder Left Digi jessica Radiography 07/18/2024 7:36 PM CDT Narrative 07/18/2024 7:40 PM CDT EXAM DESCRIPTION: XR SHOULDER LEFT 2 OR MORE VIEWS; XR HUMERUS LEFT 2 OR MORE VIEWS REASON FOR STUDY: accidental fall Pt fell this morning. Pain to the left shoulder, left arm, and left hip. No prior surgery to the shoulder, arm or hip. TECHNIQUE: 4 radiographic view(s) of the left shoulder and AP and lateral views of the humerus . COMPARISON: None FINDINGS: BONES/JOINTS: No acute fracture is noted. There is a 4.5 mm calcified structure adjacent to the humeral head which may represent a free fragment in the shoulder joint. The joint spaces are otherwise normal. SOFT TISSUES: Within normal limits. IMPRESSION: 1. No fracture. 2. Possible small free fragment in the left shoulder joint. THIS IS AN ELECTRONICALLY VERIFIED FINAL REPORT 07/18/2024 7:40 PM - Electronically signed by Francisco Reyes M.D. BS T: Report ID: [id number] Reading Location: [id number] Procedure Note Francisco Reyes MD - 07/18/2024 EXAM DESCRIPTION: XR SHOULDER LEFT 2 OR MORE VIEWS; XR HUMERUS LEFT 2 ORMORE VIEWS REASON FOR STUDY: accidental fall Pt fell this morning. Pain to the left shoulder, left arm, and left hip.No prior surgery to the shoulder, arm or hip. TECHNIQUE: 4 radiographic view(s) of the left shoulder and AP and lateral views of the humerus . COMPARISON: None FINDINGS: BONES/JOINTS: No acute fracture is noted. There is a 4.5 mm calcified structure adjacent to the humeral head which may represent afree fragment in the shoulder joint. The joint spaces are otherwise normal. SOFT TISSUES: Within normal limits. IMPRESSION: 1. No fracture. 2. Possible small free fragment in the left shoulder joint. THIS IS AN ELECTRONICALLY VERIFIED FINAL REPORT 07/18/2024 7:40 PM - Electronically signed by Francisco Reyes M.D. BS T: Report ID: [id number] Reading Location: [id number] Briseida Bowers NP IM XR PROCEDURES Final Result * XR Humerus Left 2 or More Views (07/18/2024 2:25 PM CDT) Anatomical Region Laterality Modality Upper Extremities, Upper Arm Left Dig ital Radiography 07/18/2024 7:36 PM CDT Narrative 07/18/2024 7:40 PM CDT EXAM DESCRIPTION: XR SHOULDER LEFT 2 OR MORE VIEWS; XR HUMERUS LEFT 2 OR MORE VIEWS REASON FOR STUDY: accidental fall Pt fell this morning. Pain to the left shoulder, left arm, and left hip. No prior surgery to the shoulder, arm or hip. TECHNIQUE: 4 radiographic view(s) of the left shoulder and AP and lateral views of the humerus . COMPARISON: None FINDINGS: BONES/JOINTS: No acute fracture is noted. There is a 4.5 mm calcified structure adjacent to the humeral head which may represent a free fragment in the shoulder joint. The joint spaces are otherwise normal. SOFT TISSUES: Within normal limits. IMPRESSION: 1. No fracture. 2. Possible small free fragment in the left shoulder joint. THIS IS AN ELECTRONICALLY VERIFIED FINAL REPORT 07/18/2024 7:40 PM - Electronically signed by Francisco Reyes M.D. BS T: Report ID: [id number] Reading Location: [id number] Procedure Note Francisco Reyes MD - 07/18/2024 EXAM DESCRIPTION: XR SHOULDER LEFT 2 OR MORE VIEWS; XR HUMERUS LEFT 2 ORMORE VIEWS REASON FOR STUDY: accidental fall Pt fell this morning. Pain to the left shoulder, left arm, and left hip.No prior surgery to the shoulder, arm or hip. TECHNIQUE: 4 radiographic view(s) of the left shoulder and AP and lateral views of the humerus . COMPARISON: None FINDINGS: BONES/JOINTS: No acute fracture is noted. There is a 4.5 mm calcified structure adjacent to the humeral head which may represent afree fragment in the shoulder joint. The joint spaces are otherwise normal. SOFT TISSUES: Within normal limits. IMPRESSION: 1. No fracture. 2. Possible small free fragment in the left shoulder joint. THIS IS AN ELECTRONICALLY VERIFIED FINAL REPORT 07/18/2024 7:40 PM - Electronically signed by Francisco Murphy.D. BS T: Report ID: [id number] Reading Location: [id number] Briseida Bowers NP IMG XR PROCEDURES Final Result * XR Hip Left 2+ Vw (07/18/2024 2:25 PM CDT) Anatomical Region Laterality Modality Lower Extremities, Hip, Pelvis Left D igital Radiography 07/18/2024 7:38 PM CDT Narrative 07/18/2024 7:39 PM CDT EXAM DESCRIPTION: XR HIP LEFT 2 OR 3 VIEWS REASON FOR STUDY: accidental fall Pt fell this morning. Pain to the left shoulder, left arm, and left hip. No prior surgery to the shoulder, arm or hip. TECHNIQUE: AP and lateral radiographic view(s) of the left hip . COMPARISON: 2023 FINDINGS: BONES/JOINTS: There is no acute fracture, malalignment or osseous abnormality. There is mild degenerative change of the left hip joint with joint space narrowing and spur formation seen. SOFT TISSUES: Within normal limits. IMPRESSION: 1. No fracture. 2. Mild degenerative change of the left hip joint. THIS IS AN ELECTRONICALLY VERIFIED FINAL REPORT 07/18/2024 7:39 PM - Electronically signed by Francisco Reyes M.D. BS T: Report ID: [id number] Reading Location: [id number] Procedure Note Francisco Reyes MD - 07/18/2024 EXAM DESCRIPTION: XR HIP LEFT 2 OR 3 VIEWS REASON FOR STUDY: accidental fall Pt fell this morning. Pain to the left shoulder, left arm, and left hip.No prior surgery to the shoulder, arm or hip. TECHNIQUE: AP and lateral radiographic view(s) of the left hip . COMPARISON: 2023 FINDINGS: BONES/JOINTS: There is no acute fracture, malalignment orosseous abnormality. There is mild degenerative change of the left hip joint with joint space narrowing and spur formation seen. SOFT TISSUES: Within normal limits. IMPRESSION: 1. No fracture. 2. Mild degenerative change of the left hip joint. THIS IS AN ELECTRONICALLY VERIFIED FINAL REPORT 07/18/2024 7:39 PM - Electronically signed by Francisco Reyes M.D. BS T: Report ID: [id number] Reading Location: [id number] Briseida Bowers SALES ACCOUNT DIRECTOR IMG XR PROCEDURES Final Result * [place] REMOVAL IMPACTED CERUMEN INSTRUMENTATION UNILAT (06/20/2024 2:45 PM COMMERCIAL RELIEF DRIVER) Narrative Yovana Cheek NP - 06/20/2024 2:45 PM COMMERCIAL RELIEF DRIVER Yovana Cheek NP 06/20/2024 3:41 PM Ear Cerumen Removal Performed by: Yovana Cheek NP Authorized by: Yovana Cheek NP Consent Given by: Patient Verbal consent obtained: Yes Location: Bilateral L ear cerumen impacted?: Yes L ear method of removal: Instrumentation and irrigation L ear instrumentation: Curette L ear magnification: Otoscope R ear cerumen impacted?: Yes R ear method of removal: Instrumentation and irrigation R ear instrumentation: Curette R ear magnification: Otoscope Inspection: TM intact Hearing quality: Normal Patient tolerance: Patient tolerated the procedure well with no immediate complications Yovana Cheek SALES ACCOUNT DIRECTOR IN CLINIC/BEDSIDE ORDERABLES F inal Result * SCAN - RADIOLOGY/IMAGING (06/19/2024 3:23 PM COMMERCIAL RELIEF DRIVER) Anatomical Region Laterality Modality Other Jm Alonso MD Final Result * (ABNORMAL) POCT hemoglobin A1c (05/23/2024 11:33 AM COMMERCIAL RELIEF DRIVER) Hemoglobin A1C, POC 9.9 4.0 - 5.6 % Blood 05/23/2024 11:3 3 AM COMMERCIAL RELIEF DRIVER Result [facility] Jm Alonso MD POINT OF CARE TEST ORDERABLES Final Result * POCT lipid panel (2023 11:14 AM CDT) Cholesterol, POC 112 mg/dL HDL, POC 47 mg/dL Triglycerides, POC 66 mg/dL LDL Cholesterol POC 5 mg/dL Chol/HDL Ratio, POC 2.4 Non-HDL Cholesterol, POC 65 mg/dL Cholesterol Total, POC 112 mg/dL Capillary blood 2023 1 1:14 AM CDT Jm Alonso MD POINT OF CARE TEST [...] - 09/30/2023 4:08 AM CDT Performed at: 01 - [place] [address] Shovel Engineer: Yuan Gaitan PhD, Phone: [phone] Jm Alonso MD LAB URINE ORDERABLES Final Re sult [facility] - 01 * (ABNORMAL) Basic metabolic panel (09/29/2023 11:20 [...] - 09/30/2023 4:08 AM CDT Performed at: Lab[address] [id number] Shovel Engineer: Yuan Gaitan PhD, Phone: [phone] Jm Alonso MD LAB BLOOD ORDERABLES Final Re sult Performing Organization Address [facility] Co de Phone Number [facility] * PSA screen (08/16/2021 10:37 AM CDT) [facility] PSA 0.5 0.0 - 4.0 ng/mL [facility] - Comment: Lito ECLIA methodology. According to the [employer], Serum PSA should decrease and [...] - 08/17/2021 7:09 AM CDT Performed at: [facility] [id number] Shovel Engineer: Yuan Gaitan PhD, Phone: [phone] Jm Alonso MD LAB BLOOD ORDERABLES Final Re sult Performing Organization Address [facility]/ZIP Co de Phone Number [facility] from Last 3 Months or Most Recently Relevant to Health Maintenance Insurance MEDICARE [facility] MEDICARE [facility] Address: [address] [place] [address] MEDICARE [facility] Address: [address] [address] MEDICARE [facility] Address: [address] [address] [place] [address] [facility] Advance Directives For more information, please contact: [phone] * Full Code (Latest Code Status on File) Date Activated Date Inactivated Comments 02/11/2023 9:33 AM 02/11/2023 4:38 PM * Full Code Date Activated Date Inactivated Comments 01/14/2023 8:51 AM 01/14/2023 4:11 PM Care Teams Anesthesiologist Assistant Relationship Specialty Start Date End Date Jm Alonso MD PCP - General Internal Medicine 08/25/18
--- OUTSIDE RECORDS SUMMARY | 2024-09-06 17:32 | XMS_ITS | Clinical Summary ---
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
--- OUTSIDE RECORDS SUMMARY | 2024-09-06 17:32 | XMS_ITS | Encounter Summary ---
Author Organization [facility] Healthcare Address [address] [place] [address] Care Team Providers Care Fondant Machine Operator Name Role Phone Jm Alonso MD Primary Care Provider [phone] Encounter Details Date Type Department Care Team (Late st Contact Info) Description 07/18/2024 Results Follow-Up [facility] Convenient Care at [address] [address] Briseida Bowers NP [address] [place] [address] [address] [place] [address] Social History Tobacco Use Types Packs/Day Years Used Date Smoking Tobacco: Never Smokeless Tobacco: Never AUDIT-C Answer Date Recorded Q1: How often [...] on file 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 Pt verbalized understanding. documented in this encounter Plan of Treatment Scheduled Procedures Name Priority Associated Diagnoses Date/Ti me COLONOSCOPY Encounter for screening colonoscopy documented as of this encounter Visit Diagnoses Not on filedocumented in this encounter Care Teams Fondant Machine Operator Relationship Specialty Start Date End Date Jm Alonso MD PCP - General Internal Medicine 08/25/18 documented as of this encounter
--- OUTSIDE RECORDS SUMMARY | 2024-09-06 17:32 | XMS_ITS | Encounter Summary ---
Author Organization [facility] Address 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 [id number] [email or web address] Study Patient: Susan Ledezma MRN: Study ID: ADULT STRESS ECH Gender: M : 1955 Age: 51 years Race: 1 Room: Bed: Height: Study Date: October 18, 2007 Patient status: Inpatient Weight: Access. #: [id number] POC: Ordering: Jamie Riley Attending MD: Jamie [...] peak heart rate and blood pressure [place] [address]. - There was no chest pain during [...] 09:54:58 Procedure Note Provider, Historical - 10/18/2007 [facility] [address] [place] [address] [email or web address] Stress Study Patient: Susan Ledezma MRN: Study ID: ADULT STRESS ECH Gender: M : 1955 Age: 51 years Race: 1 Room: Bed: Height: Study Date: October 18, 2007 Patient status: Inpatient Weight: Access. #: [id number] POC: Ordering: Jamie Riley Attending MD: Jamie [...] the peak heart rate and blood pressurewas [address]5928. - There was no chest pain during [...] CDT) SODIUM 135 135 - 145 mmol/L [facility] CALCIUM 8.5 8.4 - 10.2 mg/dL [facility] CO2 25 22 - 30 mmol/L [facility] CREATININE 1.19(H) 0.67 - 1.17 mg/dL [facility] POTASSIUM 4.6 3.5 - 4.9 mmol/L [facility] BUN 20 6 - 20 mg/dL [facility] CHLORIDE 99 96 - 108 mmol/L [facility] GLUCOSE 128(H) 65 - 99 mg/dL [facility] GFR, >60 >=60 mL/min/1. 7 sq meter [facility] GFR >60 >=60 mL/min/1. 7 sq meter [facility] Comment: Modification of Diet in Renal Disease (MDRD) study formula. Estimated GFR rate interpretative information for both Americans and non- Americans is available on the [facility] Intranet at: [email or web address] Select: Lab Policies and Procedures Select: Reference Ranges - GFR Blood specimen (specimen) 10/18/2007 6:57 AM CDT 10/18/2007 7:08 AM CDT Result [facility] Jamie Chen MD CHEMISTRY ORDERABLES Edite d Performing Organization Address [facility] Co de Phone Number [facility] CLIA# [id number] [address] [place] [address] * D-DIMER (10/17/2007 5:34 PM CDT) D-DIMER QUANT <0.22 <=0.42 ug/mL FEU [facility] Comment: DVT Screen reference range <0.45 [...] ORDERABLES Sania l Result Performing Organization Address [facility] Co de Phone Number [facility] CLIA# [id number] [address] [place] [address] * TROPONIN (10/17/2007 6:15 AM CDT) Pathologist [facility] TROPONIN T <0.01 <=0.03 ng/mL [facility] TROPONIN T INTERP Negative [facility] Blood specimen (specimen) 10/17/2007 6:15 AM CDT 10/17/2007 6:19 AM CDT us Jamie Chen MD CHEMISTRY ORDERABLES Edite d [facility] CLIA# [id number] [address] [place] [address] * (ABNORMAL) COMPREHENSIVE METABOLIC PANEL (10/16/2007 10:26 PM CDT) [facility] CALCIUM 9.1 8.4 - 10.2 mg/dL [facility] CO2 22 22 - 30 mmol/L [facility] ALBUMIN 4.4 3.4 - 4.8 g/dL [facility] POTASSIUM See note. 3.5 - 4.9 mmol/L [facility] Comment: Gross hemolysis present. Result unreliable. K not reported per . Gross hemolysis present. Result unreliable. CREATININE 1.10 0.67 - 1.17 mg/dL [facility] SODIUM 134(L) 135 - 145 mmol/L [facility] ALT 18 0 - 41 U/L [facility] Comment: Hemolyzed: Result may be falsely elevated. ALKALINE PHOSPHATASE 65 40 - 129 U/L [facility] BILIRUBIN TOTAL 0.5 0.2 - 1.0 mg/dL [facility] TOTAL PROTEIN 7.5 6.3 - 8.6 g/dL [facility] CHLORIDE 101 96 - 108 mmol/L [facility] GLUCOSE 174(H) 65 - 99 mg/dL [facility] AST 36 12 - 38 U/L [facility] Comment: Hemolyzed: Result may be falsely elevated. BUN 19 6 - 20 mg/dL [facility] GFR, >60 >=60 mL/min/1. 7 sq meter [facility] GFR >60 >=60 mL/min/1. 7 sq meter [facility] Comment: Modification of Diet in Renal Disease (MDRD) study formula. Estimated GFR rate interpretative information for both Americans and non- Americans is available on the [facility] Intranet at: [email or web address] Select: Lab Policies and Procedures Select: Reference Ranges - GFR Blood specimen (specimen) 10/16/2007 10:26 PM CDT 10/16/2007 10:34 PM CDT Mohsen Garcia MD CHEMISTRY ORDERABLES Edited [facility] CLIA# [id number] [address] [place] [address] * TROPONIN (W/REFLEX CKMB/CK) (10/16/2007 10:26 PM CDT) TROPONIN T <0.01 <=0.03 ng/mL [facility] TROPONIN T INTERP Negative [facility] Blood specimen (specimen) 10/16/2007 10:26 PM CDT 10/16/2007 10:34 PM CDT Mohsen Garcia MD CHEMISTRY ORDERABLES Edited [facility] CLIA# [id number] [address] [place] [address] * CBC WITH DIFFERENTIAL (10/16/2007 10:26 PM CDT) MPV 10.7 9.3 - 12.4 fL [facility] HEMATOCRIT 43.4 40.0 - 48.0 % [facility] RDW-STDEV 41.3 37.1 - 48.7 fL [facility] RBC 5.09 4.50 - 5.40 M/uL [facility] MCHC 35.3 31.5 - 35.5 % [facility] MCV 85.3 82.0 - 99.0 fL [facility] PLATELETS 275 140 - 350 K/uL [facility] HEMOGLOBIN 15.3 13.6 - 16.5 g/dL [facility] RDW 13.3 11.5 - 14.5 % [facility] WBC 8.7 4.0 - 9.8 K/uL [facility] MCH 30.1 27.2 - 32.6 pg [facility] BASOPHILS 1 0 - 2 % [facility] BASOPHILS ABSOLUTE 0.05 0.00 - 0.20 K/uL [facility] MONOCYTES 8 3 - 13 % [facility] MONOCYTE ABSOLUTE 0.68 0.10 - 1.30 K/uL [facility] NEUTROPHILS 65 45 - 70 % [facility] NEUTROPHIL ABSOLUTE 5.65 1.90 - 7.00 K/uL [facility] EOSINOPHILS 2 0 - 7 % [facility] EOSINOPHIL ABSOLUTE 0.15 0.00 - 0.70 K/uL [facility] LYMPHOCYTES 25 16 - 45 % [facility] LYMPHOCYTE ABSOLUTE 2.15 0.70 - 4.50 K/uL [facility] Blood specimen (specimen) 10/16/2007 10:26 PM CDT 10/16/2007 10:34 PM CDT us Mohsen Garcia MD HEMATOLOGY ORDERABLES Edited INTERFACE SYSTEM Refer to clinic/hospital department [facility] CLIA# [id number] [address] [place] [address] * XR CHEST PA OR AP (10/16/2007 10:25 PM CDT) Anatomical Region Laterality Modality Chest Other 10/16/2007 10:2 5 PM CDT Narrative 10/17/2007 5:13 PM CDT [facility] [address] [place], [place] [address] Admit Date: 10/17/2007 SUSAN LEDEZMA Sex: M Admit Prov: JAMIE CHEN Date: 1955 Primary Care Prov: CMRN: [id number] Room: [address] [place] [address] SSN: [id number] IMAGING SERVICES Ordering Prov: N/A Accession Number: [id number] Interpretation Chest, portable AP semierect, 10/16/2007 at [...] AMK Procedure Note Provider, Historical - 10/17/2007 [facility] [address] [place] [place], [place] [address] Admit Date: 10/17/2007 SUSAN LEDEZMA Sex: M Admit Prov: JAMIE CHEN Date: 1955 Primary Care Prov: CMRN: [id number] Room: [address] [place] [address] SSN: [id number] IMAGING SERVICES Ordering Prov: N/A Interpretation Chest, [...]
--- OUTSIDE RECORDS SUMMARY | 2024-09-06 17:32 | XMS_ITS | Encounter Summary ---
Author Organization [facility] Address [address] [place] [address] Care Team Providers Care Cut Off Machine Unloader Name Role Phone Jm Alonso MD Primary Care Provider [phone] Reason for Visit * Diagnostic Imaging (Routine) - Closed Specialty Diagnoses / Procedures Referred By Contac t Referred To Contact Diagnoses Injury of left little finger, initial encounter Procedures XR Hand Left 3 or More Views Desi Barney, PUBLIC SAFETY DISPATCHER [address] [place] [address] Phone: tel: fax: [facility] Referral ID Status Reason Start Date Expiration Date Visits Re quested Visits Authorized [id number] Closed 09/06/2024 10/06/2025 1 1 Encounter Details Date Type Department Care Team (Latest Contact Info) Description 09/06/2024 2:10 PM CDT Ancillary Procedure [facility] Imaging at [address] [id number] Injury of left little finger, initial encounter Social History Tobacco Use Types Packs/Day Years [...] on file 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] 3:16 PM - Electronically signed by Collin STARKS T: Report ID: [id number] Reading Location: [id number] Procedure Note Collin Cantrell MD - 09/06/2024 [...] Collin Cantrell M.D. NS T: Report ID: [id number] Reading Location: [place] [address] Desi Barney PUBLIC SAFETY DISPATCHER IMG XR PROCEDURES Final Re sult documented in this encounter Visit Diagnoses Diagnosis Injury of left little finger, initial encounter documented in this encounter Care Teams Cut Off Machine Unloader Relationship Specialty Start Date End Date Jm Alonso MD PCP - General Internal Medicine 08/25/18 documented as of this encounter
--- OUTSIDE RECORDS SUMMARY | 2024-09-06 17:32 | XMS_ITS | Encounter Summary ---
Author Organization [facility] Address [address] [place] [address] Care Team Providers Care Intermodal Truck Driver Name Role Phone Jm Alonso MD Primary Care Provider [phone] Reason for Referral * Consultation (Routine) - Authorized Specialty Diagnoses / Procedures Referred By Manuel alba Referred To Contact Hand Surgery Diagnoses Closed traumatic dislocation of proximal interphalangeal (PIP) joint of left little finger Desi Barney NP [address] [place] [address] Phone: tel: fax: [facility] Hand Surgery [address] [place] [address] [place] [phone] Phone: tel: fax: Referral ID Status Reason Start Date Expiration Date Visits Requested Visits Authorized [id number] Authorized Specialty Services Required 09/06/2024 10/06/2025 1 1 Question Answer Please select the performing region: [facility] [[id number]] Please select the performing department: [facility] [[id number]] # of visits: 1 * Diagnostic Imaging (Routine) - Closed Specialty Diagnoses / Procedures Referred By Manuel alba Referred To Contact Diagnoses Injury of left little finger, initial encounter Procedures XR Finger [address] Pinky Left Desi Barney NP [address] [place] [address] Phone: tel: fax: [facility] Referral ID Status Reason Start Date Expiration Date Visits Re quested Visits Authorized [id number] Closed 09/06/2024 10/06/2025 1 1 * Diagnostic Imaging (Routine) - Closed Specialty Diagnoses / Procedures Referred By Contac t Referred To Contact Diagnoses Injury of left little finger, initial encounter Procedures XR Hand Left 3 or More Views Desi Barney NP [address] [place] [address] Phone: tel: fax: [facility] Referral ID Status Reason Start Date Expiration Date Visits Re quested Visits Authorized [id number] Closed 09/06/2024 10/06/2025 1 1 Reason for Visit * Reason Comments Hand Injury Fell around noon, fe ll down Encounter Details Date Type Department Care Team (Late st Contact Info) Description 09/06/2024 2:30 PM CDT Office Visit [facility] Convenient Care at [address] [address] Desi Barney NP [address] [place] [address] Injury of left little finger, initial encounter (Primary Dx); Closed traumatic dislocation of proximal interphalangeal (PIP) joint of left little finger; Displaced fracture of middle phalanx of left little finger, initial encounter for closed fracture Social History Tobacco Use Types Packs/Day Years [...] on file 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 Gender Identity Male 01/03/2020 10:22 AM CDT Sexual Orientation Choose not to disclose 2019 10:22 AM CDT documented as of this encounter Last Filed Vital Signs Vital Sign Reading Time Taken Comments Blood Pressure 120/76 09/06/2024 2:00 PM CDT Pulse 78 09/06/2024 2:00 PM CDT Temperature 37.1 C (98.7 F) 09/06/2024 2:00 PM CDT Respiratory Rate 20 09/06/2024 2:00 PM CDT Oxygen Saturation 98% 09/06/2024 2:00 PM CDT Inhaled Oxygen Concentration - - Weight 102.5 kg (226 lb) 09/06/2024 2:00 PM CDT Height - - Body Mass Index 30.65 07/25/2024 12:01 PM CDT documented in this encounter Patient Instructions * Patient Instructions* Desi Barney NP - 09/06/2024 2:30 PM CDT If you have no improvement or worsening of your symptoms, please follow up with your Primary Care Provider, Convenient Care and or Emergency Room. I strive to provide you with EXCELLENT service. You may receive a survey after your visit today. If you cannot rate your experience as EXCELLENT, please let us know how we can improve and better meet your needs. Thank you for choosing [facility]! It was my pleasure to see you today, I hope you feel better soon! Desi Barney TITLE CLERK [employer]BILE * Attachments The following attachments cannot be sent through Care Everywhere. * Finger Dislocation (AfterCare(R) Instructions(ER/ED)) (Rwandan) documented in this encounter Plan of Treatment Scheduled Procedures Name Priority Associated Diagnoses Date/Ti me COLONOSCOPY Encounter for screening colonoscopy Scheduled Referrals Name Type Priority Associated Diagnoses Orde r Schedule Ambulatory referral to Hand Surgery Outpatient Referral Routine Closed traumatic dislocation of proximal interphalangeal (PIP) joint of left little finger 1 Occurrences starting 09/06/2024 until 09/06/2025 documented as of this encounter Results * XR Finger [address] Pinky Left [...] Collin Cantrell M.D. NS T: Report ID: [id number] Reading Location: [id number] Procedure Note Collin Cantrell MD - 09/06/2024 [...] Collin Cantrell M.D. NS T: Report ID: [id number] Reading Location: [id number] Desi Barney REJECT OPENER AND FILLER IMG XR PROCEDURES Final Re sult * [...] Collin Cantrell M.D. NS T: Report ID: [id number] Reading Location: [id number] Procedure Note Collin Cantrell MD - 09/06/2024 [...] signed by Collin STARKS T: Report ID: [id number] Reading Location: [id number] Desi Barney REJECT OPENER AND FILLER IMG XR PROCEDURES Final Re sult documented in this encounter Visit Diagnoses Diagnosis Injury of left little finger, initial encounter- Primary Closed traumatic dislocation of proximal interphalangeal (PIP) joint of left little finger Displaced fracture of middle phalanx of left little finger, initial encounter for closed fracture Injury of left little finger, initial encounter Injury of left little finger, initial encounter documented in this encounter Care Teams Intermodal Truck Driver Relationship Specialty Start Date End Date Jm Alonso MD PCP - General Internal Medicine 08/25/18 documented as of this encounter
--- OUTSIDE RECORDS SUMMARY | 2024-09-06 17:32 | XMS_ITS | Encounter Summary ---
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 We are sorry to hear of his increasing back pain and hunching over. The stooped posture is common in PD and this posture along with stiffness can cause more back pain. Does he notice the back pain improves after a dose of levodopa at all? Or is this back pain constant and does not relate to levodopa dosing? Has he had the back pain evaluated by his primary doctor or a specialist? Any injury to cause the back pain, such as a fall? Exercise is no doubt very important foreveryone and especially our PD patients. It is great that he has started [employer] and PT would be a great idea to address his back pain as well. We also could move his Marcie appointment up sooner if you like since his last visit was October of 2023. Let us know. Take care, Kate Briceño, RN, BSN Movement Disorders Department of Neurology ===View-only below this line=== ----- Message ----- From:Susan Ledezma Sent:09/02/2024 9:01 PM CDT To:Marcie Silver NP Subject:Mid to Lower Back Discomfort/Pain Susan has been complaining about his back for a while now along with hunching over when it gets too bad. I have suggested maybe a back brace yet if we don't know the cause, this may do more harm than good. He had talked about wanting to go back to PT plus he started [employer] this week. We attended the [employer] [place] Conference last week which provided a lot of good information. The things that stood out for me was new medical treatments and that exercise is extremely important. Massagewas mentioned too so we started looking at those massage chairs yet the rollers are causing a greatdeal of discomfort. I am trying to encourage him yet with the falling episodes that happen on and off these days ' we are both cautious. Susan is not due to see Dr. Hutchins until October and Marcie in November - would like to see what might work for him before then. Let me know your thoughts. Sincerely Renay Ledezma documented in this encounter Plan of Treatment Scheduled Procedures Name Priority Associated Diagnoses Date/Ti me COLONOSCOPY Encounter for screening colonoscopy documented as of this encounter Visit Diagnoses Not on filedocumented in this encounter Care Teams Fitness Trainer Relationship Specialty Start Date End Date Jm Alonso MD PCP - General Internal Medicine 08/25/18 documented as of this encounter
--- OUTSIDE RECORDS SUMMARY | 2024-09-06 17:32 | XMS_ITS | Continuity of Care Document ---
Author Organization [employer] [place] Address [address] [facility] [place] [address] Phone Care Team Providers Care Supervisor Billposting Name Role Phone Lucy Dang OT Unavailable [...] Diagnoses Date Provider Providers Copied on Encounter [facility] [address] [place] [address], [id number], [place] tel:[phone] [place] No Information 5 Laurence Ayala. . [facility] [employer] [place], [id number], [place] tel:[phone] [place] No Information 4 Laurence Ayala. . Referring Provider: Fadi Martinez, [address] [place] [address] [address], [place], [address]. tel:[phone] [facility] [place], [id number], [place] tel:[phone] [place] No Information 4 Levy Avila. . Referring Provider: José Miguel Michaels, [address] [place] [address], [place], [address]. tel:[phone] [facility] [employer] [place], [id number], [place] tel:[phone] [place] No Information Dec-2 4 Dang Lucy. . Referring Provider: Fadi Martinez, [address] [facility] [address], [place], [address]. tel:[phone] [facility] [address], [place], [place], [id number], [place] tel:[phone] [place] No Information Dec-2 4 [place] Austin. . Referring Provider: José Miguel Michaels, [address] [place] [address], [address]. tel:[phone] [facility] [address], [place], [id number], [place] tel:[phone] [place] No Information Mar-2 4 Dang Lucy. . Referring Provider: Fadi Martinez, 4 [facility] [address], [place], [address]. tel:[phone] [facility] [address], [place], [id number], [place] tel:[phone] [place] No Information Mar- 4 [place] Austin. . Referring Provider: José Miguel Michaels, [address] [place] [address], [address]. tel:[phone] [facility] [address] [place], [place] [address], [place], [address], [place] tel:[phone] [place] No Information Mar- 4 Emmanuel Markus. . Referring Provider: Fadi Martinez, [address] [facility] [address], [place], [address]. tel:[phone] [facility] [address], [place], [address], [place] tel:[phone] [place] No Information Mar- 4 [place]. . Referring Provider: José Miguel Michaels, [address] [place] [address], [address]. tel:[phone] [facility] [address], [place], [address], [place] tel:[phone] [place] No Information 4 [place]. . Referring Provider: José Miguel Michaels, [address] [place] [address], [address]. tel:[phone] [facility], [address], [place], [address], [place] tel:[phone] [place] No Information 4 Dang Lucy. . Referring Provider: Fadi Martinez, [address] [place] [address] [address], [place], [address]. tel:[phone] [facility] [address], [place], [id number], [place] tel:[phone] [place] No Information 4 Dang Lucy. . Referring Provider: Fadi Martinez, 4 [facility] [address], [place], [address]. tel:[phone] [facility], [address], [place], [address], [place] tel:[phone] [place] No Information 4 [place] Austin. . Referring Provider: José Miguel Michaels, [address] [place] [address], [address]. tel:[phone] [facility] [address], [place], [address], [place] tel:[phone] [place] No Information Dec-0 4 [place] Austin. . Referring Provider: José Miguel Michaels, [address] [place] [address], [address]. tel:[phone] [facility], [address], [place], [address], [place] tel:[phone] [place] No Information Dec-0 2 4 [place], [place], [place]. Referring Provider: José Miguel Michaels, [address] [place] [address], [place], [address]. tel:[phone] [facility], [place], [place], [address], [place] tel:[phone] [place] No Information 4 Dang Lucy. . Referring Provider: Fadi Martinez, [address] [place] [address] [address], [place], [address]. tel:[phone] [facility], [place], [id number], [place] tel:[phone] [place] No Information 4 Dang Lucy. . Referring Provider: Fadi Martinez, [address] [place] [address] [address], [place], [address]. tel:[phone] [facility], [place], [address], [place] tel:[phone] [place] No Information 4 Dang Lucy. . Referring Provider: Fadi Martinez, [address] [place] [address] [address], [place], [address]. tel:[phone] [facility], [place], [address], [place] tel:[phone] [place] No Information 4 Dang Lucy. . Referring Provider: Fadi Martinez, [address] [place] [address] [address], [place], [address]. tel:[phone] [facility], [place], [address], [place] tel:[phone] [place] No Information 4 Dang Lucy. . Referring Provider: Fadi Martinez, [address] [place] [address] [address], [place], [address]. tel:[phone] [facility], [place], [address], [place] tel:[phone] [place] No Information 0 4 Dang Lucy. . Referring Provider: Fadi Martinez, 4 [facility] [address], [place], [address]. tel:[phone] [facility], [address], [place], [address], [place] tel:[phone] [place] No Information 4 Dang Lucy. . Referring Provider: Fadi Martinez, [address] [facility] [address], [place], [address]. tel:[phone] [facility] [address], [place], [address], [place] tel:[phone] [place] No Information 4 Dang Lucy. . Referring Provider: Dylan Canales [facility] [address], [place], [address]. tel:[phone] [facility], [address], [place], [address], [place] tel:[phone] [place] No Information 4 Dang Lucy. . Referring Provider: Fadi Martinez, [address] [facility] [address], [place], [address]. tel:[phone] [facility] [address], [place], [address], [place] tel:[phone] [place] No Information 4 Dang Lucy. . Referring Provider: Fadi Martinez, [address] [facility] [address], [place], [address]. tel:[phone] [facility], [place], [address], [place] tel:[phone] [place] No Information 4 Dang Lucy. . Referring Provider: Fadi Martinez 4 [facility] [address], [place], [address]. tel:[phone] Family History Family Member Type Diagnosis Age At Onset No Information Payers Payer name Insurance type Covered democrat ID Authorjasmina tialyse(s) Medicare [place] [id number] Social History Type Description Quantity Date Captured [...]
--- OUTSIDE RECORDS SUMMARY | 2024-09-06 17:32 | XMS_ITS | Encounter Summary ---
Author Organization [facility] Healthcare Address [address] [place] [address] Care Team Providers Care Electromyographic Technician Name Role Phone Jm Alonso MD Primary Care Provider [phone] Reason for Visit * Diagnostic Imaging (Routine) - Closed Specialty Diagnoses / Procedures Referred By Contac t Referred To Contact Diagnoses Injury of left little finger, initial encounter Procedures XR Finger 5Th Pinky Left Desi Barney, FERMENTER WINE [address] [place] [address] Phone: tel: fax: [facility] Referral ID Status Reason Start Date Expiration Date Visits Re quested Visits Authorized [id number] Closed 09/06/2024 10/06/2025 1 1 Encounter Details Date Type Department Care Team (Latest Contact Info) Description 09/06/2024 2:35 PM CDT Ancillary Procedure [facility] Imaging at [address] [address] Injury of left little finger, [...] on file 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 NS T: Report ID: [id number] Reading Location: [id number] Procedure Note Collin Cantrell MD - 09/06/2024 [...] signed by Collin STARKS T: Report ID: [id number] Reading Location: [place] [address] Desi Barney FERMENTER WINE IMG XR PROCEDURES Final Re sult documented in this encounter Visit Diagnoses Diagnosis Injury of left little finger, initial encounter documented in this encounter Care Teams Electromyographic Technician Relationship Specialty Start Date End Date Jm Alonso MD PCP - General Internal Medicine 08/25/18 documented as of this encounter
--- OUTSIDE RECORDS SUMMARY | 2024-09-06 17:32 | XMS_ITS | Encounter Summary ---
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
--- OUTSIDE RECORDS SUMMARY | 2024-09-06 17:32 | XMS_ITS | Clinical Summary ---
Author Organization [facility] Address [address] [place] [address] Care Team Providers Care Nutrition Services Worker Name Role Phone Jm Alonso MD Primary Care Provider [phone] Allergies No known active allergies Medications cetirizine (ZyrTEC) 10 mg tabletIndicati ons:Seasonal Allergic Rhinitis Take 1 tablet (10 mg total) by mouth mainframe architect 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 Active aspirin 81 mg enteric coated tabletIndicati ons:prevention of thrombosis Take 1 tablet (81 mg total) by mouth every morning Active omeprazole 20 mg tablet,delayed release (DR/EC)Indicat ions:Treatment of Non-Bleeding Gastric Disorder Take 1 tablet (20 mg total) by mouth every morning 09/26/19 21 Active pen needle, diabetic 32 gauge x 5/32 needle Use to inject insulin 1 times [...] 1.5 tablets (150 mg total) by mouth mainframe architect 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 135 tablet 3 09/06/19 25 [...] (07/25/2020): Added automatically from request for surgery [id number] 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 Once this is confirmed we can proceed with definitive therapy Type 2 diabetes mellitus wit hout complication, without long-term current use of insulin 02/29/2020 Assessment & Plan (05/23/2024 12:02 PM FINANCIAL AID ADVISOR): Increase insulin to 30 units Assessment & Plan (02/09/2024 11:53 AM CDT): Incease lantus to 26 units. May need bolus insulin Essential hypertension 02/29/2020 Assessment & Plan (05/23/2024 12:02 PM FINANCIAL AID ADVISOR): Bp at target Assessment & Plan (02/09/2024 [...] to increase the dose slightly. Parkinson disease ([facility]) 05/29/2015 Assessment & Plan (05/23/2024 12:02 PM FINANCIAL AID ADVISOR): sandee Stevens neurology Assessment & Plan (02/09/2024 [...] He has finished PT and knows of [employer] youtube channel exercises online. He is interested [...] day. Assessment & Plan (03/26/2023 7:09 PM FINANCIAL AID ADVISOR): He has parkinsonism stage 2.5 characterized on [...] more consistent with dose timing. 3. Call [facility] PT to schedule a follow up appointment. 4. I will send a referral to [facility] OT for a driving evaluation. Assessment & Plan (05/16/2022 1:12 PM FINANCIAL AID ADVISOR): He has parkinsonism stage 2.5 characterized on [...] about cutting back irbesartan to half. 6. [employer] PD tu[employer]nr Project. 7. Start PT and ST here at [facility] then get plan made for PT and [...] exercises. Assessment & Plan (05/04/2020 12:37 PM FINANCIAL AID ADVISOR): He has parkinsonism stage 2.5 characterized on [...] a referral to a sleep neurologist at [facility]. They may want to order another sleep study because it has been some time since your last one. 4. I will send a referral to [facility] PT for balance and walking. 5. Increase [...] Date Type Department Care Team Description 09/06/2024 2:35 PM CDT Ancillary Procedure [facility] Imaging at [address] [address] Injury of left little finger, initial encounter 09/06/2024 2:30 PM CDT Office Visit [facility] Convenient Care at [address] [address] Desi Barney NP Injury of left little finger, initial encounter (Primary Dx); Closed traumatic dislocation of proximal interphalangeal (PIP) joint of left little finger; Displaced fracture of middle phalanx of left little finger, initial encounter for closed fracture 09/06/2024 2:10 PM CDT Ancillary Procedure [facility] Imaging at [address] [address] Injury of left little finger, initial encounter 09/06/2024 Results Follow-Up [facility] Convenient Care at [address] [id number] Desi Barney NP 09/05/2024 Telephone [facility] [address] [facility] [address]th [place] [address] Adrianne Briceño RN 07/25/2024 12:00 PM CDT Office Visit [facility] [address] [facility] 6[address] [place] [address] Rusty Vicente PA Essential hypertension (Primary Dx); Obstructive sleep apnea on CPAP; REM sleep behavior disorder 07/18/2024 2:25 PM CDT Ancillary Procedure [facility] Imaging at [address] [address] Accidental fall, initial encounter 07/18/2024 2:20 PM CDT Ancillary Procedure [facility] Imaging at [address] [address] Accidental fall, initial encounter 07/18/2024 2:15 PM CDT Ancillary Procedure [facility] Imaging at [address] [address] Accidental fall, initial encounter 07/18/2024 2:00 PM CDT Office Visit [facility] Convenient Care at [address] [address] Briseida Bowers NP Accidental fall, initial encounter (Primary Dx) 07/18/2024 Results Follow-Up [facility] Convenient Care at [address] [address] Briseida Bowers NP 06/20/2024 2:45 PM FINANCIAL AID ADVISOR Office Visit [facility] Convenient Care at [address] [address] Yovana Cheek NP Bilateral impacted cerumen (Primary Dx); Dizziness 06/19/2024 Orders Only [facility] [address] [place] [address] Jm Alonso MD 06/09/2024 Telephone [facility] [address] [place], [place] [address] [place] [address] Jm Alonso MD Fall from Last 3 Months Immunizations Immunization Administration [...] on file Legal Sex Male 11:00 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 Gender Identity Male 01/03/2020 10:22 AM CDT [...] 05/16/2022 Prostate Cancer Screening-PSA 08/17/2023 08/16/2021, 02/29/2020 Fall Risk Assessment 02/12/2024 02/11/2023 Albumin Creatinine Ratio, Urine 09/28/2024 09/29/2023 eGFR 09/28/2024 09/29/2023, 07/27, 02/29/2020 Covid-19 Vaccine ( season) 2024 04/29/2024, 05/22/2023, 10/21/2021, Additional history exists Lipid Panel 11/03/2024 2023, 08/26, 08/16/2021, Additional history exists Hemoglobin A1C 11/20/2024 05/23/2024, 01/25, 2023, Additional history exists Influenza Vaccine (Season Ended) 2024 Colon Cancer Screening-Colonoscopy 11/08/2025 Postponed from 1956 (Patient declined, but will receive in the future) Medical Devices Implanted Type Area Moisture Meter Reader Device Identifier Shelf Expiration Date Model / Serial / Lot [employer] Lens Iol Tecnis Smplcty 1-Pc Clr Rawlins 15.5 Diopter [id number] - [id number] - [id number] Implanted:Qty: 1 on 01/14/2023 by Richmond Morales MD at [facility] Lens Left: Eye [employer] [id number] 05/10/2025 [id number] / [id number] / 0 [employer] Lens Iol Tecnis Smplcty 1-Pc Clr Raw[place]ins 15.5 Diopter [id number] - [id number] - [id number] Implanted:Qty: 1 on 02/11/2023 by Richmond Morales MD at [facility] Lens Right: Eye [employer] [id number] 12/10/2024 [id number] / [id number] / Procedures Procedure Name Priority Date/Time Associated [...] 2:25 PM CDT Accidental fall, initial encounter ND REMOVAL IMPACTED CERUMEN INSTRUMENTATION UNILAT Routine 06/20/2024 2:45 PM FINANCIAL AID ADVISOR Bilateral impacted cerumen SCAN - RADIOLOGY/IMAGING 06/19/2024 3:23 PM FINANCIAL AID ADVISOR POCT HEMOGLOBIN A1C Routine 05/23/2024 11:33 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 AID ADVISOR Type 2 diabetes mellitus without complication, without [...] Collin Cantrell M.D. NS T: Report ID: [id number] Reading Location: [id number] Procedure Note Collin Cantrell MD - 09/06/2024 [...] signed by Collin STARKS T: Report ID: [id number] Reading Location: [id number] Desi Barney NP IMG XR PROCEDURES Final [...] signed by Collin STARKS T: Report ID: [id number] Reading Location: [id number] Procedure Note Collin Cantrell MD - 09/06/2024 [...] signed by Collin STARKS T: Report ID: [id number] Reading Location: [id number] Desi Barney NP IMG XR PROCEDURES Final [...] Francisco Reyes M.D. BS T: Report ID: [id number] Reading Location: [id number] Procedure Note Francisco Reyes MD - 07/18/2024 [...] Francisco Reyes M.D. BS T: Report ID: [id number] Reading Location: [id number] Briseida Bowers NP IM XR PROCEDURES Final [...] Francisco Reyes M.D. BS T: Report ID: [id number] Reading Location: [id number] Procedure Note Francisco Reyes MD - 07/18/2024 [...] Francisco Reyes M.D. BS T: Report ID: [id number] Reading Location: [id number] Briseida Bowers NP IMG XR PROCEDURES Final [...] Francisco Reyes M.D. BS T: Report ID: [id number] Reading Location: [id number] Procedure Note Francisco Reyes MD - 07/18/2024 [...] Francisco Reyes M.D. BS T: Report ID: [id number] Reading Location: [id number] Briseida Bowers TEACHER'S ASSISTANT IMG XR PROCEDURES Final Result * ND REMOVAL IMPACTED CERUMEN INSTRUMENTATION UNILAT (06/20/2024 2:45 PM FINANCIAL AID ADVISOR) Narrative Yovana Cheek NP - 06/20/2024 2:45 PM FINANCIAL AID ADVISOR Yovana Cheek NP 06/20/2024 3:41 PM Ear [...] the procedure well with no immediate complications Result [facility] Yovana Cehek NP IN CLINIC/BEDSIDE ORDERABLES F inal Result * SCAN - RADIOLOGY/IMAGING (06/19/2024 3:23 PM FINANCIAL AID ADVISOR) Anatomical Region Laterality Modality Other Result [facility] Jm Alonso MD Final Result * (ABNORMAL) POCT hemoglobin A1c (05/23/2024 11:33 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 AID ADVISOR) Hemoglobin A1C, POC 9.9 4.0 - 5.6 % Blood 05/23/2024 11:3 3 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 AID ADVISOR Result [facility] Jm Alonso MD POINT OF CARE TEST [...] - 09/30/2023 4:08 AM CDT Performed at: [address] [place] [id number] Blade Aligner: Yuan Gaitan PhD, Phone: [phone] Jm Alonso MD LAB URINE ORDERABLES Final Re sult [facility] - 01 * (ABNORMAL) Basic metabolic [...] - 09/30/2023 4:08 AM CDT Performed at: [address] [id number] Blade Aligner: Yuan Gaitan PhD, Phone: [phone] mJ Alonso MD LAB BLOOD ORDERABLES Final Re sult Performing Organization Address [facility] Co de Phone Number [facility] - * PSA screen (08/16/2021 10:37 AM CDT) [facility] PSA 0.5 0.0 - 4.0 ng/mL [facility] - Comment: Lito ECLIA methodology. According to the [employer], Serum PSA should decrease and [...] - 08/17/2021 7:09 AM CDT Performed at: [address] [place] [id number] Blade Aligner: Yuan Gaitan PhD, Phone: [phone] Jm Alonso MD LAB BLOOD ORDERABLES Final Re sult Performing Organization Address [facility] de Phone Number [facility] - from Last 3 Months or Most Recently Relevant to Health Maintenance Insurance MEDICARE [facility] FEDERAL MEDICARE [facility] MEDIC[facility] Advance Directives For more information, please contact: [phone] * Full Code (Latest Code Status on File) Date Activated Date Inactivated Comments 02/11/2023 9:33 AM 02/11/2023 4:38 PM * Full Code Date Activated Date Inactivated Comments 01/14/2023 8:51 AM 01/14/2023 4:11 PM Care Teams Nutrition Services Worker Relationship Specialty Start Date End Date Jm Alonso MD PCP - General Internal Medicine 08/25/18
[2024-09-06 17:45] VITALS: BP 92/55; PULSE 67; RESP 16; TEMP 36.7; O2SAT 100
[2024-09-06 18:42] VITALS: BP 109/47; PULSE 64; RESP 20; TEMP 36.1; O2SAT 100
--- NOTE | 2024-09-06 20:40 | PC.NURSE ---
Dr. Hill at pt bedside to remove C-collar.
--- OUTSIDE RECORDS SUMMARY | 2024-09-06 20:41 | XMS_ITS | Clinical Summary ---
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
--- OUTSIDE RECORDS SUMMARY | 2024-09-06 20:41 | XMS_ITS | Continuity of Care Document ---
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 . [facility] [employer], [place], [id number], [place] tel:[phone] [place] No Information 4 Laurence Ayala. . Referring Provider: Fadi Martinez, [address] [place] [address] [address], [place], [address]. tel:[phone] [facility] [employer], [place], [address], [place] tel:[phone] [place] No Information 4 Levy Avila. . Referring Provider: José Miguel Michaels, [address] [place] [address], [place], [address]. tel:[phone] [facility] [employer] [address], [place], [id number], [place] tel:[phone] [place] No Information Dec-2 4 Dang Lucy. . Referring Provider: Fadi Martinez, [address] [facility] [address], [place], [address]. tel:[phone] [facility] [address], [place], [place], [id number], [place] tel:[phone] [place] No Information Dec-2 4 [place]. . Referring Provider: José Miguel Michaels, [address] [place] [address], [address]. tel:[phone] [facility] [address], [place], [place], [id number], [place] tel:[phone] [place] No Information Mar-2 4 Dang Lucy. . Referring Provider: Fadi Martinez, [address] [facility] [address], [place], [address]. tel:[phone] [facility] [address], [place], [place], [id number], [place] tel:[phone] [place] No Information Mar- 4 [place]. . Referring Provider: José Miguel Michaels, [address] [place] [address], [address]. tel:[phone] [facility] [address] [place], [place] [address], [place], [place], [id number], [place] tel:[phone] [place] No Information Mar- 4 Emmanuel Markus. . Referring Provider: Fadi Martinez, [address] [facility] [address], [place], [address]. tel:[phone] [facility] [address], [place], [place], [id number], [place] tel:[phone] [place] No Information Mar- 4 [place]. . Referring Provider: José Miguel Michaels, [address] [place] [address], [address]. tel:[phone] [facility] [address], [place], [id number], [place] tel:[phone] [place] No Information 4 [place]. . Referring Provider: José Miguel Michaels, [address] [place] [address], [address]. tel:[phone] [facility], [address], [place], [place], [id number], [place] tel:[phone] [place] No Information 4 Dang Lucy. . Referring Provider: Fadi Martinez, [address] [place] [address] [address], [place], [address]. tel:[phone] [facility] [address], [place], [place], [id number], [place] tel:[phone] [place] No Information 4 Dang Lucy. . Referring Provider: Fadi Martinez, [address] [facility] [address], [place], [address]. tel:[phone] [facility], [address], [place], [place], [id number], [place] tel:[phone] [place] No Information 4 [place]. . Referring Provider: José Miguel Michaels, [address] [place] [address], [address]. tel:[phone] [facility] [address], [place], [place], [id number], [place] tel:[phone] [place] No Information Dec-0 4 [place]. . Referring Provider: José Miguel Michaels, [address] [place] [address], [address]. tel:[phone] [facility], [address], [place], [id number], [place] tel:[phone] [place] No Information Dec-0 2 4 [place], [place], [place]. Referring Provider: José Miguel Michaels, [address] [place] [address], [place], [address]. tel:[phone] [facility], [place], [place], [id number], [place] tel:[phone] [place] No Information 4 Dang Lucy. . Referring Provider: Fadi Martinez, [address] [place] [address] [address], [place], [address]. tel:[phone] [facility], [place], [place], [id number], [place] tel:[phone] [place] No Information 4 Dang Lucy. . Referring Provider: Fadi Martinez, [address] [place] [address] [address], [place], [address]. tel:[phone] [facility], [place], [place], [address], [place] tel:[phone] [place] No Information 4 Dang Lucy. . Referring Provider: Fadi Martinez, [address] [place] [address] [address], [place], [address]. tel:[phone] [facility], [place], [id number], [place] tel:[phone] [place] No Information 4 Dang Lucy. . Referring Provider: Fadi Martinez, [address] [place] [address] [address], [place], [address]. tel:[phone] [facility], [place], [place], [id number], [place] tel:[phone] [place] No Information 4 Dang Lucy. . Referring Provider: Fadi Martinez, [address] [place] [address] [address], [place], [address]. tel:[phone] [facility], [place], [place], [address], [place] tel:[phone] [place] No Information 0 4 Dang Lucy. . Referring Provider: Fadi Martinez, [address] [facility] [address], [place], [address]. tel:[phone] [facility], [address], [place], [place], [address], [place] tel:[phone] [place] No Information 4 Dang Lucy. . Referring Provider: Fdai Maritnez, [address] [facility] [address], [place], [address]. tel:[phone] [facility] [address], [place], [place], [address], [place] tel:[phone] [place] No Information 4 Dang Lucy. . Referring Provider: Dylan Canales [facility] [address], [place], [address]. tel:[phone] [facility], [address], [place], [place], [address], [place] tel:[phone] [place] No Information 4 Dang Lucy. . Referring Provider: Fadi Martinez, [address] [facility] [address], [place], [address]. tel:[phone] [facility] [address], [place], [place], [address], [place] tel:[phone] [place] No Information 4 Dang Lucy. . Referring Provider: Fadi Martinez, [address] [facility] [address], [place], [address]. tel:[phone] [facility], [place], [place], [address], [place] tel:[phone] [place] No Information 4 Dang Lucy. . Referring Provider: Fadi Martinez [address] [facility] [address], [place], [address]. tel:[phone] Family History Family Member Type Diagnosis Age At Onset No Information Payers Payer name Insurance type Covered democrat ID Authorjasmina tialyse(s) Medicare [place] [id number] Social History Type Description Quantity Date Captured [...]
--- OUTSIDE RECORDS SUMMARY | 2024-09-06 20:41 | XMS_ITS | Encounter Summary ---
Author Organization [employer] Address 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 [id number] [email or web address] Stress Study Patient: Susan Ledezma MRN: Study ID: ADULT STRESS ECH Gender: M : 1955 Age: 51 years Race: 1 Room: Bed: Height: Study Date: October 18, 2007 Patient status: Inpatient Weight: Access. #: [id number] POC: Ordering: Jamie Riley Attending MD: Jamie [...] peak heart rate [place] blood [place] [address]. - There was no chest pain during [...] Provider, Historical - 10/18/2007 [facility] [address] [place] [address] [email or web address] Stress Study Patient: Susan Ledezma MRN: Study ID: ADULT STRESS ECH Gender: M : 1955 Age: 51 years Race: 1 Room: Bed: Height: Study Date: October 18, 2007 Patient status: Inpatient Weight: Access. #: [id number] POC: Ordering: Jamie Riley Attending MD: Jamie [...] the peak heart rate and blood pressurewas 63002. - There was no chest pain during [...] CDT) SODIUM 135 135 - 145 mmol/L [facility] CALCIUM 8.5 8.4 - 10.2 mg/dL [facility] CO2 25 22 - 30 mmol/L [facility] CREATININE 1.19(H) 0.67 - 1.17 mg/dL [facility] POTASSIUM 4.6 3.5 - 4.9 mmol/L [facility] BUN 20 6 - 20 mg/dL [facility] CHLORIDE 99 96 - 108 mmol/L [facility] GLUCOSE 128(H) 65 - 99 mg/dL [facility] GFR, >60 >=60 mL/min/1. 7 sq meter [facility] GFR >60 >=60 mL/min/1. 7 sq meter [facility] Comment: Modification of Diet in Renal Disease (MDRD) study formula. Estimated GFR rate interpretative information for both Americans and non- Americans is available on the [facility] Intranet at: [email or web address] Select: Lab Policies and Procedures Select: Reference Ranges - GFR Blood specimen (specimen) 10/18/2007 6:57 AM CDT 10/18/2007 7:08 AM CDT Result [facility] Jamie Chen MD CHEMISTRY ORDERABLES Edite d Performing Organization Address [facility] Co de Phone Number [facility] CLIA# [id number] [address] [place] [address] * D-DIMER (10/17/2007 5:34 PM CDT) D-DIMER QUANT <0.22 <=0.42 ug/mL FEU [facility] Comment: DVT Screen reference range [...] ORDERABLES Sania l Result Performing Organization Address [facility] Co de Phone Number [facility] CLIA# [id number] [address] [place] [address] * TROPONIN (10/17/2007 6:15 AM CDT) Pathologist [facility] TROPONIN T <0.01 <=0.03 ng/mL [facility] TROPONIN T INTERP Negative [facility] Blood specimen (specimen) 10/17/2007 6:15 AM CDT 10/17/2007 6:19 AM CDT us Jamie Chen MD CHEMISTRY ORDERABLES Edite d [facility] CLIA# [id number] [address] [place] [address] * (ABNORMAL) COMPREHENSIVE METABOLIC PANEL (10/16/2007 10:26 PM CDT) [facility] CALCIUM 9.1 8.4 - 10.2 mg/dL [facility] CO2 22 22 - 30 mmol/L [facility] ALBUMIN 4.4 3.4 - 4.8 g/dL [facility] POTASSIUM See note. 3.5 - 4.9 mmol/L [facility] Comment: Gross hemolysis present. Result unreliable. K not reported per . Gross hemolysis present. Result unreliable. CREATININE 1.10 0.67 - 1.17 mg/dL [facility] SODIUM 134(L) 135 - 145 mmol/L [facility] ALT 18 0 - 41 U/L [facility] Comment: Hemolyzed: Result may be falsely elevated. ALKALINE PHOSPHATASE 65 40 - 129 U/L [facility] BILIRUBIN TOTAL 0.5 0.2 - 1.0 mg/dL [facility] TOTAL PROTEIN 7.5 6.3 - 8.6 g/dL [facility] CHLORIDE 101 96 - 108 mmol/L [facility] GLUCOSE 174(H) 65 - 99 mg/dL [facility] AST 36 12 - 38 U/L [facility] Comment: Hemolyzed: Result may be falsely elevated. BUN 19 6 - 20 mg/dL [facility] GFR, >60 >=60 mL/min/1. 7 sq meter [facility] GFR >60 >=60 mL/min/1. 7 sq meter [facility] Comment: Modification of Diet in Renal Disease (MDRD) study formula. Estimated GFR rate interpretative information for both Americans and non- Americans is available on the [facility] Intranet at: [email or web address] Select: Lab Policies and Procedures Select: Reference Ranges - GFR Blood specimen (specimen) 10/16/2007 10:26 PM CDT 10/16/2007 10:34 PM CDT Mohsen Garcia MD CHEMISTRY ORDERABLES Edited [facility] CLIA# [id number] [address] [place] [address] * TROPONIN (W/REFLEX CKMB/CK) (10/16/2007 10:26 PM CDT) TROPONIN T <0.01 <=0.03 ng/mL [facility] TROPONIN T INTERP Negative [facility] Blood specimen (specimen) 10/16/2007 10:26 PM CDT 10/16/2007 10:34 PM CDT Mohsen Garcia MD CHEMISTRY ORDERABLES Edited [facility] CLIA# [id number] [address] [place] [address] * CBC WITH DIFFERENTIAL (10/16/2007 10:26 PM CDT) MPV 10.7 9.3 - 12.4 fL [facility] HEMATOCRIT 43.4 40.0 - 48.0 % [facility] RDW-STDEV 41.3 37.1 - 48.7 fL [facility] RBC 5.09 4.50 - 5.40 M/uL [facility] MCHC 35.3 31.5 - 35.5 % [facility] MCV 85.3 82.0 - 99.0 fL [facility] PLATELETS 275 140 - 350 K/uL [facility] HEMOGLOBIN 15.3 13.6 - 16.5 g/dL [facility] RDW 13.3 11.5 - 14.5 % [facility] WBC 8.7 4.0 - 9.8 K/uL [facility] MCH 30.1 27.2 - 32.6 pg [facility] BASOPHILS 1 0 - 2 % [facility] BASOPHILS ABSOLUTE 0.05 0.00 - 0.20 K/uL [facility] MONOCYTES 8 3 - 13 % [facility] MONOCYTE ABSOLUTE 0.68 0.10 - 1.30 K/uL [facility] NEUTROPHILS 65 45 - 70 % [facility] NEUTROPHIL ABSOLUTE 5.65 1.90 - 7.00 K/uL [facility] EOSINOPHILS 2 0 - 7 % [facility] EOSINOPHIL ABSOLUTE 0.15 0.00 - 0.70 K/uL [facility] LYMPHOCYTES 25 16 - 45 % [facility] LYMPHOCYTE ABSOLUTE 2.15 0.70 - 4.50 K/uL [facility] Blood specimen (specimen) 10/16/2007 10:26 PM CDT 10/16/2007 10:34 PM CDT us Mohsen Garcia MD HEMATOLOGY ORDERABLES Edited INTERFACE SYSTEM Refer to clinic/hospital department [facility] CLIA# [id number] [address] [place] [address] * XR CHEST PA OR AP (10/16/2007 10:25 PM CDT) Anatomical Region Laterality Modality Chest Other 10/16/2007 10:2 5 PM CDT Narrative 10/17/2007 5:13 PM CDT [facility] [address] [place], [place] [address] Admit Date: 10/17/2007 SUSAN LEDEZMA Sex: M Admit Prov: JAMIE CHEN Date: 1955 Primary Care Prov: CMRN: [id number] Room: [address] [place] [address] SSN: [id number] IMAGING SERVICES Ordering Prov: N/A Accession Number: [id number] Interpretation Chest, portable AP semierect, 10/16/2007 at [...] AMK Procedure Note Provider, Historical - 10/17/2007 [facility] [address] [place], [place] [address] Admit Date: 10/17/2007 SUSAN LEDEZMA Sex: M Admit Prov: JAMIE CHEN Date: 1955 Primary Care Prov: CMRN: [id number] Room: [address] [place] [address] SSN: [id number] IMAGING SERVICES Ordering Prov: N/A Interpretation Chest, [...]
--- NOTE | 2024-09-06 20:48 | ED.GENADULT ---
HPI - General Adult General Chief complaint: Fall Stated complaint: fall Time Seen by Provider: 09/06/24 20:13 History of Present Illness HPI narrative: 68-year-old male with history of Parkinson's and recurrent falls presenting fall. Patient fell multiple times today. On his 1st falling dislocated his finger which is relocated at an outside urgent care. He then fell again and then fell a 3rd time striking his head. He did not lose conscious. He use blood thinners. He did notice lump back his head came to be evaluated. Patient has Parkinson's and falls more days than not. He has no other complaints at this time. Related Data Home Medications ?Medication ?Instructions ?Recorded ?Confirmed ?Last Taken ?Type Adult Aspirin EC Low Strength 81 mg PO DAILY 09/24/23 06/19/24 09/24/23 09:30 History atorvastatin 20 mg tablet 20 mg PO DAILY 09/24/23 09/24/23 09/24/23 09:30 History carbidopa 25 mg-levodopa 100 mg 25 - 100 tablet PO TID 09/24/23 09/24/23 09/24/23 18:00 History tablet (Sinemet) carbidopa ER 50 mg-levodopa 200 mg 50 - 200 tablet PO HS 09/24/23 09/24/23 09/23/23 22:30 History tablet,extended release cetirizine 10 mg PO DAILY 09/24/23 09/24/23 09/24/23 09:30 History clonazepam 0.5 mg tablet 0.5 mg PO HS 09/24/23 09/24/23 09/23/23 22:30 History fenofibrate 160 mg tablet 160 mg PO DAILY 09/24/23 09/24/23 09/24/23 09:30 History gabapentin 300 mg capsule 300 mg PO HS 09/24/23 09/24/23 09/23/23 22:30 History metformin 500 mg tablet 500 mg PO BID 09/24/23 09/24/23 09/24/23 09:30 History omeprazole 20 mg PO DAILY 09/24/23 09/24/23 09/24/23 09:30 History sertraline 100 mg tablet 100 mg PO DAILY 09/24/23 09/24/23 09/24/23 09:30 History tamsulosin 0.4 mg capsule 0.4 mg PO DAILY 09/24/23 09/24/2324 09:30 History Allergies Allergy/AdvReac Type Severity Reaction Status Date / Time No Known Allergies Allergy Verified 09/06/24 19:28 [facility] Past Medical History Medical History (Updated 09/06/24 @ 20:53 by Bill Hill MD) Diabetes Parkinson's disease Family History Family History (Updated 09/24/23 @ 22:17 by Brynn Javier RN) Other Unknown family medical history Social History Social History Smoking status: Never smoker Second hand tobacco smoke exposure: No Alcohol intake: current Drinks per week: 1 Substance use: never Do You Feel Safe in your Home?: Yes Lack of Transportation: No Lack of Food: Never True Current Housing: I Have Housing Concerned About Future Housing: No Difficulty Paying Gas/Electric Bills: No Difficulty Paying for Meds: No Currently Unemployed: No Education: Decline to Answer Difficulty w/ Childcare or Family Care: No Spiritual care concerns: No Exam Narrative: APPEARANCE: No apparent distress. Head: atraumatic. EYES: EOMI, NOSE: Atraumatic NECK: Trachea midline no midline spinal tenderness RESPIRATORY: No increased rate of breathing CTAB CARDIOVASCULAR: RRR, ABDOMINAL: Non-distended MUSCULOSKELETAl: No obvious deformities NEURO: Alert. Cranial nerves 2-12 grossly intact. Sensation light touch, motor function cerebellar function intact for 4 extremities. Slight intention tremor bilaterally. SKIN:: Warm, dry. Normal color PSYCHIATRIC: Normal affect Course Vital Signs Vital signs: Vital Signs Temperature 98.0 F 09/06/24 17:45 Pulse Rate 67 09/06/24 17:45 Respiratory Rate 16 09/06/24 17:45 Blood Pressure 92/55 L 09/06/24 17:45 Pulse Oximetry 100 09/06/24 17:45 Oxygen Delivery Room Air 09/06/24 17:45 Temperature 96.9 F L 09/06/24 18:42 Pulse Rate 64 09/06/24 18:42 Respiratory Rate 20 09/06/24 18:42 Blood Pressure 109/47 L 09/06/24 18:42 Pulse Oximetry 100 09/06/24 18:42 Oxygen Delivery Room Air 09/06/24 17:45 Medical Decision Making MDM Narrative Medical decision making narrative: -Course: 68-year-old male Parkinson's presenting fall. CT brain and C-spine negative for traumatic injury. Neurologic exam is normal outside of his classic Parkinson's symptoms. I discussed doing further lab work/studies due to his recurrent falls and they have declined. Patient falls almost on a daily basis and this is nothing new for him. They are following up PCP on they have any concerns they would like to address at then. Patient discharged. He was given a splint for his pinky finger. -DDX includes but is not limited to: Fall, C-spine injury, intracranial hemorrhage, concussion Vital Signs Vital Signs: Vital Signs Temperature 98.0 F 09/06/24 17:45 Pulse Rate 67 09/06/24 17:45 Respiratory Rate 16 09/06/24 17:45 Blood Pressure 92/55 L 09/06/24 17:45 Pulse Oximetry 100 09/06/24 17:45 Oxygen Delivery Room Air 09/06/24 17:45 Temperature 96.9 F L 09/06/24 18:42 Pulse Rate 64 09/06/24 18:42 Respiratory Rate 20 09/06/24 18:42 Blood Pressure 109/47 L 09/06/24 18:42 Pulse Oximetry 100 09/06/24 18:42 Oxygen Delivery Room Air 09/06/24 17:45 Discharge Plan Discharge Clinical Impression: Fall Patient Disposition: Home Condition: Stable Instructions: Antibiotic Form, Parkinson Disease (ED), Fall Prevention for Older Adults (ED) Additional Instructions: You seen emergency department after a fall. Your CT head and C-spine were negative for acute injury. Please follow-up with your primary care physician at your appointment on . If develop any new or worsening symptoms return to the ED for re-evaluation. Patient Language: Pashto Prescriptions: No Action Adult Aspirin EC Low Strength 81 mg PO DAILY metformin 500 mg tablet 500 mg PO BID atorvastatin 20 mg tablet 20 mg PO DAILY clonazepam 0.5 mg tablet 0.5 mg PO HS carbidopa-levodopa 50-200 mg tablet extended release 50 - 200 tablet PO HS sertraline 100 mg tablet 100 mg PO DAILY tamsulosin 0.4 mg capsule 0.4 mg PO DAILY gabapentin 300 mg capsule 300 mg PO HS carbidopa-levodopa [Sinemet] 25-100 mg tablet 25 - 100 tablet PO TID Rx Instructions: Take 3 tablets Three Times A Day fenofibrate 160 mg tablet 160 mg PO DAILY cetirizine 10 mg PO DAILY omeprazole 20 mg PO DAILY Follow-up/Referrals: Celeste,Jm Woodard MD [Primary Care Provider] -
== END 2024-09-06 21:30 | disposition home or self-care (01) ==
PROVIDERS: Emergency Provider Emergency Medicine; PCP Internal Medicine
DX: G20.A1 Parkinson's disease without dyskinesia, without mention of fluctuations (principal); E11.9 Type 2 diabetes mellitus without complications; Z79.84 Long term (current) use of oral hypoglycemic drugs; Z91.81 History of falling; Z79.01 Long term (current) use of anticoagulants; W19.XXXA Unspecified fall, initial encounter
CPT/HCPCS: 70450; 72125; 99284

== ENCOUNTER 2024-10-10 15:01 | Emergency (ER) | payer MEDICARE, BC, SELFPAY ==
--- NOTE | ~2024-10-10 | CT_ITS ---
CT brain wo con Ordering provider: Ranulfo Espinoza MD History: 68 years Male with . fall . Comparison: September 06, 2024 Technique: CT of the head without contrast. Radiation reduction technique utilized. The dose-length product was 681 mGy-cm. FINDINGS: BRAIN PARENCHYMA AND CSF SPACES: Hypodensity is seen in the right parietal area which may be subacute or hilar or chronic infarct which is unchanged from previous examination. Mild leukoaraiosis and diffuse cortical atrophy. Mild atheromatous disease. No midline shift, mass effect or hemorrhage. The brain parenchyma and CSF spaces are otherwise norm al. VISUALIZED PARANASAL SINUSES: Well aerated. MASTOIDS: Well aerated. BONES: The bones appear intact. SOFT TISSUES: Visualized nasopharynx is normal. Superficial soft tissues are normal. IMPRESSION: No acute intracranial findings. Hypodensity in the right parietal temporal area which is unchanged from previous examination suggesti ve of subacute versus chronic infarct. Reviewed, dictated and finalized at location A. IMPRESSION: No acute intracranial findings. Hypodensity in the right parietal temporal area which is unchanged from previou s examination suggestive of subacute versus chronic infarct.
--- NOTE | ~2024-10-10 | CT_ITS ---
EXAMINATION: CT cervical spine wo con DATE: 10/10/2024 16:12 INDICATION: Fall TECHNIQUE: Computed tomography (CT) of the cervical spine was performed without intravenous contrast. Automated exposure control and iterative reconstruction technique were employed. The dose-length pro duct was 681.00 mGy-cm. COMPARISON: 09/06/2024 FINDINGS: Unchanged 1-2 mm retrolisthesis C6 on C7. 9 mm cervical levocurvature. Severe osteoarthritis at the a tlantoaxial articulation. Vertebral body heights are normal with no fracture. Multilevel cervical dis c height loss, severe at C6-C7, moderate at C5-C6 and mild at C4-C5 and C7-T1. Multilevel uncovertebr al osteoarthritis, severe on the right at C5-C6 and bilaterally at C6-C7. Mild to moderate uncoverteb ral osteoarthritis at many of the remaining cervical uncovertebral joints. There is also multilevel m ild to moderate cervical facet osteoarthritis. Posterior disc osteophyte complexes resulting in mild central canal stenosis at C5-C6 and C6-C7. Moderate neural from stenosis on the right at C3-C4 and bi laterally at C5-C6 and C6-C7. Mild neural from stenosis at a few additional bilateral neural foramina . Cervical soft tissues are unremarkable. Visualized apices of lungs are clear. IMPRESSION: 1. Moderate to severe lower cervical predominant spondylosis. No acute osseous abnormality. Reviewed, dictated and finalized at location B.
[2024-10-10 15:02] VITALS: BP 131/72; PULSE 76; RESP 13; TEMP 36.8; O2SAT 95
[2024-10-10 15:47] LABS: Glucose Point of Care 116 mg/dl (65-105)
[2024-10-10 16:30] VITALS: BP 122/63; PULSE 68; RESP 18; O2SAT 96
--- NOTE | 2024-10-10 16:57 | ED_ITS ---
HPI - Fall General Chief Complaint: Fall Stated Complaint: glf, multiple Time Seen by Provider: 10/10/24 15:48 History of Present Illness HPI Narrative: 77-year-old male with a past medical history including Parkinson's dementia and recurrent falls. Patient presents to the emergency department after falling today when he was outside on his porch. He fell forward and struck his knees but did not strike his head or lose consciousness. He has fallen multiple times today and multiple times in the past few months. Patient is not any acute distress, denies any pains. States he falls frequently from Parkinson's and his is at bedside states that she is not concerned about his falls. He has a upcoming neurologist appointment with his primary team in early October. No recent medication changes. No blood thinner use. He is on carbidopa levodopa for Parkinson's. Patient presents in a C-collar and denies any complaints. He has some abrasions over his hands and knees which are old according to them. Related Data Home Medications ?Medication ?Instructions ?Recorded ?Confirmed ?Last Taken ?Type Adult Aspirin EC Low Strength 81 mg PO DAILY 09/24/23 06/19/24 09/24/23 09:30 History atorvastatin 20 mg tablet 20 mg PO DAILY 09/24/23 09/24/23 09/24/23 09:30 History carbidopa 25 mg-levodopa 100 mg 25 - 100 tablet PO TID 09/24/23 09/24/23 09/24/23 18:00 History tablet (Sinemet) carbidopa ER 50 mg-levodopa 200 mg 50 - 200 tablet PO HS 09/24/23 09/24/23 09/23/23 22:30 History tablet,extended release cetirizine 10 mg PO DAILY 09/24/23 09/24/23 09/24/23 09:30 History clonazepam 0.5 mg tablet 0.5 mg PO HS 09/24/23 09/24/23 09/23/23 22:30 History fenofibrate 160 mg tablet 160 mg PO DAILY 09/24/23 09/24/23 09/24/23 09:30 History gabapentin 300 mg capsule 300 mg PO HS 09/24/23 09/24/23 09/23/23 22:30 History metformin 500 mg tablet 500 mg PO BID 09/24/23 09/24/23 09/24/23 09:30 History omeprazole 20 mg PO DAILY 09/24/23 09/24/23 09/24/23 09:30 History sertraline 100 mg tablet 100 mg PO DAILY 09/24/23 09/24/23 09/24/23 09:30 History tamsulosin 0.4 mg capsule 0.4 mg PO DAILY 09/24/23 09/24/23 09/24/23 09:30 History Allergies Allergy/AdvReac Type Severity Reaction Status Date / Time No Known Allergies Allergy Verified 10/10/24 15:04 Review of Systems Review of Systems: As reviewed above in [facility] Past Medical History Medical History Diabetes Parkinson's disease Family History Family History Other Unknown family medical history Social History Social History Smoking status: Never smoker Second hand tobacco smoke exposure: No Alcohol intake: current Drinks per week: 1 Substance use: never Do You Feel Safe in your Home?: Yes Lack of Transportation: No Lack of Food: Never True Current Housing: I Have Housing Concerned About Future Housing: No Difficulty Paying Gas/Electric Bills: No Difficulty Paying for Meds: No Currently Unemployed: No Education: Decline to Answer Difficulty w/ Childcare or Family Care: No Spiritual care concerns: No Exam Narrative: GENERAL: [Well-appearing, well-nourished, and in no acute distress.] HEAD: [Normocephalic, atraumatic.] EYES: [PERRLA and EOMI.] ENT: Nares clear, no rhinorrhea or epistaxis. Mucous membranes moist. NECK: Supple. CHEST: [Clear to auscultation. No respiratory distress.] HEART: [Regular rate and rhythm]. No murmur heard. [Normal peripheral pulses.] ABDOMEN: [Soft, nondistended], [nontender], [No rigidity or guarding] EXTREMITIES: Abrasions over the bilateral knees and hands which appear in various stages of healing, no acute bleeding or breakdown of the skin. Full range of motion of the knees and elbows. No step-offs deformities. Cogwheel rigidity noted. No midline cervical spinal tenderness. SKIN: Warm, dry, no rash. NEURO: [No focal deficits]. Alert and oriented [x3.] PSYCH: [Normal mood and affect.] Course Vital Signs Vital signs: Vital Signs Temperature 36.8 C 10/10/24 15:02 Pulse Rate 76 10/10/24 15:02 Respiratory Rate 13 10/10/24 15:02 Blood Pressure 131/72 10/10/24 15:02 Pulse Oximetry 95 10/10/24 15:02 Oxygen Delivery Room Air 10/10/24 15:02 Temperature 36.8 C 10/10/24 15:02 Pulse Rate 68 10/10/24 16:30 Respiratory Rate 18 10/10/24 16:30 Blood Pressure 122/63 10/10/24 16:30 Pulse Oximetry 96 10/10/24 16:30 Oxygen Delivery Room Air 10/10/24 15:02 MDM - Fall MDM Narrative Medical decision making narrative: 68-year-old male with history of Parkinson's disease and recurrent falls. Patient states he falls frequently multiple times per day and this is not unusual for him. He has difficulty with his cogwheel rigidity and gets caught up and then falls. No medications such as blood thinners, no changes to his medications recently. Follows up with Neurology with this appointment coming up in the early part of October. No apparent new injuries on examination, old very stages healing of abrasions to his knees and arms but full range of motion without any pain. No head trauma reported. No loss of consciousness. Head CT and cervical spine CT were ordered given the recurrent falls and risk factors. Patient has no signs of acute injury to his extremities and given no pain in range of motion restrictions I believe he does not need any imaging of the extremities. I discussed with his at bedside and the patient regarding getting a workup regarding his recurrent falls including blood work and other analysis but they declined and states this is not new for him and feel comfortable with him going home after some imaging. Patient offered analgesia but also politely declined. 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 Cervical spine without any cervical fracture deformity. Moderate severe spondylosis. Patient has no acute complaints at this time and is at baseline mentation and mobility. feels comfortable taking the patient home. Patient given return precautions and follow-up instructions. Medical Records Attestation: I reviewed the patient's medical records. Lab Data Attestation: I reviewed the patient's lab results. Labs: Lab Results 10/10/24 Range/Units 15:44 POC Capillary Glucose 116 H (65-105) mg/dl Imaging Data Attestation: I personally reviewed and interpreted this imaging study as follows: My impression: Impressions Head CT 10/10/24 16:14 IMPRESSION: No acute intracranial findings. Hypodensity in the right parietal temporal area which is unchanged from previous examination suggestive of subacute versus chronic infarct. Cervical Spine CT 10/10/24 16:16 IMPRESSION: 1. Moderate to severe lower cervical predominant spondylosis. No acute osseous abnormality. Discharge Plan Discharge Clinical Impression: Parkinson's disease, Falls frequently, Superficial abrasion Patient Disposition: Home Condition: Stable Instructions: Antibiotic Form, Contusion in Adults (ED), Fall Prevention (ED) Additional Instructions: CT scans without any acute problems, no fractures or dislocations or brain injury. You do have a prior old infarct that was seen on old CTs as well and not new. Follow-up with your nephrology team about this as well as your frequent falls. Return with any worsening symptoms or new concerns. Patient Language: Italian Prescriptions: No Action Adult Aspirin EC Low Strength 81 mg PO DAILY metformin 500 mg tablet 500 mg PO BID atorvastatin 20 mg tablet 20 mg PO DAILY clonazepam 0.5 mg tablet 0.5 mg PO HS carbidopa-levodopa 50-200 mg tablet extended release 50 - 200 tablet PO HS sertraline 100 mg tablet 100 mg PO DAILY tamsulosin 0.4 mg capsule 0.4 mg PO DAILY gabapentin 300 mg capsule 300 mg PO HS carbidopa-levodopa [Sinemet] 25-100 mg tablet 25 - 100 tablet PO TID Rx Instructions: Take 3 tablets Three Times A Day fenofibrate 160 mg tablet 160 mg PO DAILY cetirizine 10 mg PO DAILY omeprazole 20 mg PO DAILY Follow-up/Referrals: Celeste,Jm Woodard MD [Primary Care Provider] - Time of Disposition: 17:07
--- OUTSIDE RECORDS SUMMARY | 2024-10-10 17:05 | XMS_ITS | Encounter Summary ---
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 Role Phone Jm Alonso MD Primary Care Provider [phone] Encounter Details Date Type Department Care Team (Late st Contact Info) Description 09/06/2024 Results Follow-Up [facility] at [address] [id number] Desi Barney, CHROME TANNER [address] [place] [address] [address] [place], [place] [id number] XR Finger [address] Pinky Left Social History Tobacco Use Types Packs/Day Years [...] on file 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
--- OUTSIDE RECORDS SUMMARY | 2024-10-10 17:05 | XMS_ITS | Clinical Summary ---
Author Organization [facility] Address [address] [place] [address] Care Team Providers Care Edge Setter Name Role Phone Jm Alonso MD Primary Care Provider [phone] Allergies No known active allergies Medications cetirizine (ZyrTEC) 10 mg tabletIndicatio ns:Seasonal Allergic Rhinitis Take 1 tablet (10 mg total) by mouth jet piercer operator 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 Active aspirin 81 mg enteric coated tabletIndicatio ns:prevention of thrombosis Take 1 tablet (81 mg total) by mouth every morning Active omeprazole 20 mg tablet,delayed release (DR/EC)Indicati ons:Treatment of Non-Bleeding Gastric Disorder Take 1 tablet (20 mg total) by mouth every morning 1 Active pen needle, diabetic 32 gauge x /32 needle Use to inject insulin 1 times per day. 100 each 3 4 Active cyanocobalamin (Vitamin B-12) 1,000 mcg tabletIndicatio ns:Prevention of Vitamin B12 Deficiency Take 1 tablet (1,000 mcg total) by mouth daily Active carbidopa-levod opa (SINEMET) 25-100 mg per tabletIndicatio ns:Parkinsonism Take 3 tablets by mouth 4 (four) times a day 1080 tablet 3 4 01/29/20 25 Active carbidopa-levod opa CR (SINEMET CR) 50-200 mg per CR tablet Take 2 tablets by mouth nightly 180 tablet 3 4 01/29/20 25 Active gabapentin (NEURONTIN) 300 mg capsule TAKE 1 CAPSULE BY MOUTH NIGHTLY 90 capsule 2 5 Active insulin glargine 100 unit/mL (3 mL) pen for injection Take 30 units sub q daily 45 mL 4 5 Active clonazePAM (KlonoPIN) 0.5 mg tabletIndicatio ns:REM sleep behavior disorder TAKE 2 TABLETS BY MOUTH ONCE DAILY AT NIGHT 180 tablet 5 Active atorvastatin (LIPITOR) 20 mg tablet Take 1 tablet by mouth once daily 90 tablet 2 5 Active sertraline (ZOLOFT) 100 mg tablet Take 1.5 tablets (150 mg total) by mouth jet piercer operator 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 135 tablet 3 5 09/06/19 26 Active Tradjenta 5 mg tablet Take 1 tablet by mouth once daily 30 tablet 5 Active fenofibrate (TRIGLIDE) 160 mg tablet Take 1 tablet by mouth once daily 90 tablet 5 Active tamsulosin (FLOMAX) 0.4 mg extended release capsule Take 1 capsule by mouth once daily 90 capsule 5 Active mirabegron ER (MYRBETRIQ) 50 mg tablet extended release 24 hr Take 1 tablet (50 mg total) by mouth jet piercer operator 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 5 Active Active Problems Problem Noted Date Diagnosed Date Orthostatic hypotension 10/04/2024 Nuclear sclerotic cataract of right eye 01/09/20 [...] (07/25/2020): Added automatically from request for surgery [id number] 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 Once this is confirmed we can proceed with definitive therapy Type 2 diabetes mellitus wit hout complication, without long-term current use of insulin 02/29/2020 Assessment & Plan (05/23/2024 12:02 PM PARACHUTE ACCESSORIES ATTACHER): Increase insulin to 30 units Assessment & Plan (02/09/2024 11:53 AM CDT): Incease lantus to 26 units. May need bolus insulin Essential hypertension 02/29/2020 Assessment & Plan (05/23/2024 12:02 PM PARACHUTE ACCESSORIES ATTACHER): Bp at target Assessment & Plan (02/09/2024 [...] to increase the dose slightly. Parkinson disease ([facility]) 05/29/2015 Assessment & Plan (10/04/2024 4:14 PM CDT): He has parkinsonism stage 2.5 characterized on exam by bilateral rigidity and bradykinesia, mild postural instability with recovery on pull test, feeling of internal tremor, and subjective response to levodopa. The most likely etiology remains idiopathic Parkinson disease. He may have levodopa-related side effects including mild non-bothersome dyskinesia, and lightheadedness with low BPs that initially resolved after eliminating the irbesartan but has been more problematic again recently. We will have him check sit to stand pressures and report in a week. He should increase salt, fluids and if tolerated, caffeine. He has some occasional wearing off but cannot tolerate more levodopa at this time given dyskinesia. He may take doses 30 to 60 min early as needed for wearing off. He is willing to resume PT and knows of [email or web address] channel exercises online. He has completed ST both for his voice and for his cognition. He has sleep apnea and is now [...] and we will continue that. Recs: 1. Take carbi/levo IR at 9am, 1pm, 5pm. If any wearing off from dinner to bedtime, take an extra 1 tablet. Same carbi/levo CR 50/200 at bedtime. 3. Same gabapentin.. 4. Same clonazepam. 5. Start APDA youtube channel exercises. 6. Increase salt, fluids and caffeine if not too late in the day to prevent the low BPs. 7. Take cetirizeine at bedtime since it can make you sleepy. 8. Same sertraline. 9. We agree with RSB. 10. We will refer to PT today. 10. Check BPs sit to stand and report in a week. 11. Be sure PCP has checked B12 and TSH in the past year. My total encounter time was 47 minutes which was spent in the activities documented in the note including interview, assessment, education, and support. This includes time spent prior to the visit with 24 hours of the visit and after the visit in direct care of the patient. This time does not include time spent in any separately reportable services. I am seeing this patient for a chronic condition and will have continued care with this patient. Assessment & Plan (05/23/2024 12:02 PM PARACHUTE ACCESSORIES ATTACHER): sandee Stevens neurology Assessment & Plan (02/09/2024 [...] day. Assessment & Plan (03/26/2023 7:09 PM PARACHUTE ACCESSORIES ATTACHER): He has parkinsonism stage 2.5 characterized on [...] gabapentin.. 3. Same clonazepam. 4. Start APDA [email or web address] channel exercises. 5. Start PT, rx given. [...] more consistent with dose timing. 3. Call [facility] PT to schedule a follow up appointment. 4. I will send a referral to [facility] OT for a driving evaluation. Assessment & Plan (05/16/2022 1:12 PM PARACHUTE ACCESSORIES ATTACHER): He has parkinsonism stage 2.5 characterized on [...] about cutting back irbesartan to half. 6. [employer]. 7. Start PT and ST here at [facility] then get plan made for PT and [...] referral to physical therapy with Dr. Diana Crowner for a follow up appointment. 4. Continue [...] exercises. Assessment & Plan (05/04/2020 12:37 PM PARACHUTE ACCESSORIES ATTACHER): He has parkinsonism stage 2.5 characterized on [...] a referral to a sleep neurologist at [facility]. They may want to order another sleep study because it has been some time since your last one. 4. I will send a referral to [facility] PT for balance and walking. 5. Increase [...] Encounters Date Type Department Care Team Description 10/10/2024 10:00 AM CDT Office Visit [facility] Hand Surgery [address] [place], [place] [address] Shoshana Hutchins MD Closed traumatic dislocation of proximal interphalangeal (PIP) joint of left little finger (Primary Dx) 10/10/2024 Orders Only [facility] [address] [place] [address] Jm Alonso MD 09/24/2024 11:22 AM CDT - 09/24/2024 5:52 PM CDT Emergency [facility] Emergency Department [address] [place] [address] Natalie Urrutia MD Fitzmaurice, Sean C., MD Fall, initial encounter (Primary Dx); Blunt head trauma, initial encounter; Abdominal pain Discharge Disposition: Discharge to home or self care 09/24/2024 9:30 AM CDT Office Visit [facility] at [address] [address] Briseida Bowers NP Left upper quadrant abdominal pain (Primary Dx); Left upper quadrant abdominal tenderness without rebound tenderness; Contusion of abdominal wall, initial encounter; Multiple falls 09/16/2024 9:30 AM CDT Office Visit [facility] Movement Disorders [address] [place] [address] [address]th [place] [address] Marcie Silver NP Parkinson's disease with dyskinesia and fluctuating manifestations (HCC) (Primary Dx); Levodopa-induced dyskinesia; REM sleep behavior disorder; Anxiety 09/12/2024 9:15 AM CDT Office Visit [facility] Hand Surgery [address] [place] [id number] Shoshana Hutchins MD Finger pain, left (Primary Dx); Closed traumatic dislocation of proximal interphalangeal (PIP) joint of left little finger; Right wrist pain 09/12/2024 7:45 AM CDT - 09/12/2024 11:59 PM CDT Hospital Encounter [facility] M[facility] 1 DIAG IMG [address] [place] [address] Finger pain, left; Right wrist pain Discharge Disposition: Discharge to home or self care 09/12/2024 Telephone [facility] Scheduling [address] [place] [address] Marcie Silver NP Scheduling Appointments 09/08/2024 2:15 PM CDT Office Visit [facility] [place] [address] Jm Alonso MD Type 2 diabetes mellitus without complication, without long-term current use of insulin (HCC) (Primary Dx); Parkinson's disease with dyskinesia and fluctuating manifestations (HCC); Essential hypertension 09/06/2024 2:35 PM CDT Ancillary Procedure [facility] Imaging at [address] [address] Injury of left little finger, initial encounter 09/06/2024 2:30 PM CDT Office Visit [facility] Care at [address] [address] Desi Barney NP Injury of left little finger, initial encounter (Primary Dx); Closed traumatic dislocation of proximal interphalangeal (PIP) joint of left little finger; Displaced fracture of middle phalanx of left little finger, initial encounter for closed fracture 09/06/2024 2:10 PM CDT Ancillary Procedure [facility] Imaging at [address] [address] Injury of left little finger, initial encounter 09/06/2024 Orders Only [facility] [address] [place] [address] [address] [place] [address] Jm Alonso MD 09/06/2024 Results Follow-Up [facility] Care at [address] [address] Desi Barney NP XR Finger 5Th Pinky Left 09/05/2024 Telephone [facility] Movement Disorders [address] [facility] 7th [place] [address] Adrianne Briceño RN 07/25/2024 12:00 PM CDT Office Visit [facility] Neuro Sleep [address] 6th [address] [place] [address] Rusty Vicente PA Essential hypertension (Primary Dx); Obstructive sleep apnea on CPAP; REM sleep behavior disorder 07/18/2024 2:25 PM CDT Ancillary Procedure [facility] Imaging at [address] [address] Accidental fall, initial encounter 07/18/2024 2:20 PM CDT Ancillary Procedure [facility] Imaging at [address] [address] Accidental fall, initial encounter 07/18/2024 2:15 PM CDT Ancillary Procedure [facility] Imaging at [address] [address] Accidental fall, initial encounter 07/18/2024 2:00 PM CDT Office Visit [facility] at [address] [address] Briseida Bowers NP Accidental fall, initial encounter (Primary Dx) 07/18/2024 Results Follow-Up [facility] Care at [address] [address] Briseida Bowers NP XR Shoulder Left 2+ Vw from Last 3 Months Immunizations Immunization Administration [...] making you feel afraid or unsafe? Denies 09/24/2024 Sex and Gender Information Value Date Recorded Sex Assigned at Not on file Legal Sex Male 11:00 AM PARACHUTE ACCESSORIES ATTACHER Gender Identity Male 01/03/2020 10:22 AM CDT Sexual Orientation Choose not to disclose 2019 10:22 AM CDT Obstetrics History Last Filed Vital Signs Vital Sign Reading Time Taken Comments Blood Pressure 102/62 09/24/2024 5:45 PM CDT Pulse 77 09/24/2024 5:45 PM CDT Temperature 36.4 C (97.6 F) 09/24/2024 11:07 AM CDT Respiratory Rate 16 09/24/2024 5:45 PM CDT Oxygen Saturation 96% 09/24/2024 5:45 PM CDT Inhaled Oxygen Concentration - - Weight 102.5 kg (226 lb) 09/24/2024 11:07 AM CDT Height 182.9 cm (6') 09/24/2024 9:34 AM CDT Body Mass Index 30.65 09/24/2024 9:34 AM CDT Plan of Treatment Scheduled Procedures Name [...] 02/11/2023 Albumin Creatinine Ratio, Urine 09/28/2024 09/29/2023 Covid-19 Vaccine ( season) 2024 04/29/2024, 05/22/2023, 10/21/2021, Additional history exists Lipid Panel 11/03/2024 2023, 08/26, 08/16/2021, Additional history exists Influenza Vaccine (Season Ended) 2024 Hemoglobin A1C 03/11/2025 09/08/2024, 04/28, 02/09/2024, Additional history exists eGFR 09/24/2025 09/24/2024, 07/2023, 08/16/2021, Additional history exists Colon Cancer Screening-Colonoscopy 11/08/2025 Postponed from 1956 (Patient declined, but will receive in the future) Medical Devices Implanted Type Area Bridge/Structure Inspection Team Leader Device Identifier Shelf Expiration Date Model / Serial / Lot [employer] Lens Iol Tecnis Smplcty 1-Pc Clr Mohave 15.5 Diopter [id number] - [id number] - [id number] Implanted:Qty: 1 on 01/14/2023 by Richmond Morales MD at [facility] Lens Left: Eye [employer] [id number] 05/10/2025 [id number] / [id number] / 0 [employer] Lens Iol Tecnis Smplcty 1-Pc Clr Mohave 15.5 Diopter [id number] - [id number] - [id number] Implanted:Qty: 1 on 02/11/2023 by Richmond Morales MD at [facility] Lens Right: Eye [employer] [id number] 12/10/2024 [id number] / [id number] / Procedures Procedure Name Priority Date/Time Associated Diagnosis Comments SCAN - RADIOLOGY/IMAGING 10/10/2024 4:42 PM CDT SCAN - RADIOLOGY/IMAGING 10/10/2024 4:[address] RECON THORACIC AND LUMBAR SPINE W CONTRAST ED Urgent/IP Urgent 09/24/2024 2:[address] HEAD AND CERVICAL SPINE WO CONTRAST ED 09/24/2024 2:[address] CHEST ABDOMEN PELVIS W CONTRAST ED 09/24/2024 2:21 PM CDT URINALYSIS AND REFLEX TO MICROSCOPIC AND CULTURE STAT 09/24/2024 2:04 PM CDT EGFR STAT 09/24/2024 1:14 PM CDT LIPASE STAT 09/24/2024 1:14 PM CDT COMPREHENSIVE METABOLIC PANEL STAT 09/24/2024 1:14 PM CDT DIFFERENTIAL AUTO STAT 09/24/2024 12:41 PM CDT CBC WITH AUTO DIFFERENTIAL STAT 09/24/2024 12:41 PM CDT XR WRIST LEFT 3 OR MORE VIEWS Schedule Routine, Read Routine (OP Routine) 09/12/2024 10:00 AM CDT Right wrist pain XR HAND LEFT 3 OR MORE VIEWS Schedule Routine, Read Routine (OP Routine) 09/12/2024 10:00 AM CDT Finger pain, left XR FINGER 5TH PINKY LEFT Schedule Routine, Read Routine (OP Routine) 09/12/2024 10:00 AM CDT Finger pain, left POCT HEMOGLOBIN A1C Routine 09/08/2024 2 :41 PM CDT Type 2 diabetes mellitus without complication, without long-term current use of insulin (HCC) SCAN - RADIOLOGY/IMAGING 09/06/2024 6:44 PM CDT SCAN - RADIOLOGY/IMAGING 09/06/2024 6:44 PM CDT XR FINGER 5TH PINKY LEFT Schedule MINI, [...] 2:25 PM CDT Accidental fall, initial encounter POCT LIPID PANEL Routine 2023 11:14 AM CDT Hyperlipidemia, unspecified hyperlipidemia type ALBUMIN CREATININE RATIO, URINE Routine 09/29/2023 11:20 AM CDT Stage 3b chronic kidney disease (HCC) PSA SCREEN Routine 08/16/2021 10:37 AM CDT Type 2 diabetes mellitus without complication, without long-term current use of insulin (HCC) Hyperlipidemia, unspecified hyperlipidemia type Colon cancer screening Parkinson disease (HCC) from Last 3 Months or Most Recently Relevant to Health Maintenance Results * SCAN - RADIOLOGY/IMAGING (10/10/2024 4:42 PM CDT) Anatomical Region Laterality Modality Other us Jm Alonso MD Final Result * SCAN - RADIOLOGY/IMAGING (10/10/2024 4:30 PM CDT) Anatomical Region Laterality Modality Other us Jm Alonso MD Final Result * CT Recon Thoracic and Lumbar Spine W Contrast (C) (09/24/2024 2:21 PM CDT) Anatomical Region Laterality Modality Spine N/A Computed Tomogra phy 09/24/2024 6:32 PM CDT Impressions 09/24/2024 6:32 PM CDT 1. Focus of hypodensity in the right occipital region suggestive of an age-indeterminate infarct. Correlate with relevant symptoms or history. If there is concern for an acute or subacute infarct, brain MRI can be considered. 2. No evidence of acute fracture in the cervical, thoracic, or lumbar spine. Electronically signed by: Nydia Ryan M.D. Narrative 09/24/2024 6:32 PM CDT EXAMINATION: 1. CT head without contrast 2. CT of the cervical spine without contrast 3. CT of the thoracic spine with contrast 4. CT of the lumbar spine with contrast HISTORY: Trauma. No history of new weakness, headache or change in vision. TECHNIQUE: CT of the head was performed with images acquired from skull base to vertex without intravenous contrast. CT of the cervical spine was performed according to the standard protocol without intravenous contrast. Dedicated reconstructions of the thoracic and lumbar spine were generated using data from a CT of the chest, abdomen, and pelvis acquired with intravenous contrast according to standard protocol. COMPARISON: None Available. FINDINGS: HEAD: Focus of hypodensity in the right occipital region. Some areas are more well-defined, suggestive of more chronic process however there is some heterogeneous ill-defined hypodensity in this region which is age indeterminate. There is no acute intracranial hemorrhage. Ventricles are of normal size and morphology. No mass effect or midline shift is present. The warren-white matter differentiation is normal. The visualized portions of the orbits are normal. The visualized portions of the mastoids are normal. The visualized portions of the paranasal sinuses are normal. No fractures are identified. CERVICAL SPINE: The alignment of the cervical spine is normal. There is no acute fracture. Vertebral bodies are normal in height without compression fractures. Severe disc height loss is seen at C6-C7. The craniocervical junction is normal. Limited views of the skull base appear normal. The sphenoid sinus is well aerated. No soft tissue abnormality is identified. THORACIC SPINE: Multiple flowing anterior disc osteophytes are seen from T5 to T10. There are 12 rib-bearing thoracic vertebra. The alignment of the thoracic spine is normal. There is no acute fracture. Vertebral bodies are normal in height without compression fractures. Intervertebral disk heights are normal. There is no soft tissue abnormality. The thoracic aorta is normal. The disks are normal in configuration. There is no facet hypertrophy. There is no neuroforaminal stenosis. There is no spinal canal stenosis. LUMBAR SPINE: The alignment of the lumbar spine is normal. There is no acute fracture. The vertebral bodies are normal in height without compression fractures. The intervertebral disk heights are normal. There is no soft tissue abnormality. The abdominal aorta appears normal. Procedure Note Nydia Ryan MD - 09/24/2024 EXAMINATION: 1. CT head without contrast 2. CT of the cervical spine without contrast 3. CT of the thoracic spine with contrast 4. CT of the lumbar spine with contrast HISTORY: Trauma. No history of new weakness, headache or change in vision. TECHNIQUE: CT of the head was performed with images acquired from skull base to vertex without intravenous contrast. CT of the cervical spine was performed according to the standard protocol without intravenous contrast. Dedicated reconstructions of the thoracic and lumbar spine were generated using data from a CT of the chest, abdomen, and pelvis acquired with intravenous contrast according to standard protocol. COMPARISON: None Available. FINDINGS: HEAD: Focus of hypodensity in the right occipital region. Some areas are more well-defined, suggestive of more chronic process however there is some heterogeneous ill-defined hypodensity in this region which is age indeterminate. There is no acute intracranial hemorrhage. Ventricles are of normal size and morphology. No mass effect or midline shift is present. The warren-white matter differentiation is normal. The visualized portions of the orbits are normal. The visualized portions of the mastoids are normal. The visualized portions of the paranasal sinuses are normal. No fractures are identified. CERVICAL SPINE: The alignment of the cervical spine is normal. There is no acute fracture. Vertebral bodies are normal in height without compression fractures. Severe disc height loss is seen at C6-C7. The craniocervical junction is normal. Limited views of the skull base appear normal. The sphenoid sinus is well aerated. No soft tissue abnormality is identified. THORACIC SPINE: Multiple flowing anterior disc osteophytes are seen from T5 to T10. There are 12 rib-bearing thoracic vertebra. The alignment of the thoracic spine is normal. There is no acute fracture. Vertebral bodies are normal in height without compression fractures. Intervertebral disk heights are normal. There is no soft tissue abnormality. The thoracic aorta is normal. The disks are normal in configuration. There is no facet hypertrophy. There is no neuroforaminal stenosis. There is no spinal canal stenosis. LUMBAR SPINE: The alignment of the lumbar spine is normal. There is no acute fracture. The vertebral bodies are normal in height without compression fractures. The intervertebral disk heights are normal. There is no soft tissue abnormality. The abdominal aorta appears normal. IMPRESSION: 1. Focus of hypodensity in the right occipital region suggestive of an age-indeterminate infarct. Correlate with relevant symptoms or history. If there is concern for an acute or subacute infarct, brain MRI can be considered. 2. No evidence of acute fracture in the cervical, thoracic, or lumbar spine. Electronically signed by: Nydia Ryan M.D. Natalie Urrutia MD IMG CT PROCEDURES Sania l Result * CT Head and Cervical Spine WO Contrast (09/24/2024 2:21 PM CDT) Anatomical Region Laterality Modality Head and Neck N/A Computed Tomogra phy 09/24/2024 6:32 PM CDT Impressions 09/24/2024 6:32 PM CDT 1. Focus of hypodensity in the right occipital region suggestive of an age-indeterminate infarct. Correlate with relevant symptoms or history. If there is concern for an acute or subacute infarct, brain MRI can be considered. 2. No evidence of acute fracture in the cervical, thoracic, or lumbar spine. Electronically signed by: Nydia Ryan M.D. Narrative 09/24/2024 6:32 PM CDT EXAMINATION: 1. CT head without contrast 2. CT of the cervical spine without contrast 3. CT of the thoracic spine with contrast 4. CT of the lumbar spine with contrast HISTORY: Trauma. No history of new weakness, headache or change in vision. TECHNIQUE: CT of the head was performed with images acquired from skull base to vertex without intravenous contrast. CT of the cervical spine was performed according to the standard protocol without intravenous contrast. Dedicated reconstructions of the thoracic and lumbar spine were generated using data from a CT of the chest, abdomen, and pelvis acquired with intravenous contrast according to standard protocol. COMPARISON: None Available. FINDINGS: HEAD: Focus of hypodensity in the right occipital region. Some areas are more well-defined, suggestive of more chronic process however there is some heterogeneous ill-defined hypodensity in this region which is age indeterminate. There is no acute intracranial hemorrhage. Ventricles are of normal size and morphology. No mass effect or midline shift is present. The warren-white matter differentiation is normal. The visualized portions of the orbits are normal. The visualized portions of the mastoids are normal. The visualized portions of the paranasal sinuses are normal. No fractures are identified. CERVICAL SPINE: The alignment of the cervical spine is normal. There is no acute fracture. Vertebral bodies are normal in height without compression fractures. Severe disc height loss is seen at C6-C7. The craniocervical junction is normal. Limited views of the skull base appear normal. The sphenoid sinus is well aerated. No soft tissue abnormality is identified. THORACIC SPINE: Multiple flowing anterior disc osteophytes are seen from T5 to T10. There are 12 rib-bearing thoracic vertebra. The alignment of the thoracic spine is normal. There is no acute fracture. Vertebral bodies are normal in height without compression fractures. Intervertebral disk heights are normal. There is no soft tissue abnormality. The thoracic aorta is normal. The disks are normal in configuration. There is no facet hypertrophy. There is no neuroforaminal stenosis. There is no spinal canal stenosis. LUMBAR SPINE: The alignment of the lumbar spine is normal. There is no acute fracture. The vertebral bodies are normal in height without compression fractures. The intervertebral disk heights are normal. There is no soft tissue abnormality. The abdominal aorta appears normal. Procedure Note Nydia Ryan MD - 09/24/2024 EXAMINATION: 1. CT head without contrast 2. CT of the cervical spine without contrast 3. CT of the thoracic spine with contrast 4. CT of the lumbar spine with contrast HISTORY: Trauma. No history of new weakness, headache or change in vision. TECHNIQUE: CT of the head was performed with images acquired from skull base to vertex without intravenous contrast. CT of the cervical spine was performed according to the standard protocol without intravenous contrast. Dedicated reconstructions of the thoracic and lumbar spine were generated using data from a CT of the chest, abdomen, and pelvis acquired with intravenous contrast according to standard protocol. COMPARISON: None Available. FINDINGS: HEAD: Focus of hypodensity in the right occipital region. Some areas are more well-defined, suggestive of more chronic process however there is some heterogeneous ill-defined hypodensity in this region which is age indeterminate. There is no acute intracranial hemorrhage. Ventricles are of normal size and morphology. No mass effect or midline shift is present. The warren-white matter differentiation is normal. The visualized portions of the orbits are normal. The visualized portions of the mastoids are normal. The visualized portions of the paranasal sinuses are normal. No fractures are identified. CERVICAL SPINE: The alignment of the cervical spine is normal. There is no acute fracture. Vertebral bodies are normal in height without compression fractures. Severe disc height loss is seen at C6-C7. The craniocervical junction is normal. Limited views of the skull base appear normal. The sphenoid sinus is well aerated. No soft tissue abnormality is identified. THORACIC SPINE: Multiple flowing anterior disc osteophytes are seen from T5 to T10. There are 12 rib-bearing thoracic vertebra. The alignment of the thoracic spine is normal. There is no acute fracture. Vertebral bodies are normal in height without compression fractures. Intervertebral disk heights are normal. There is no soft tissue abnormality. The thoracic aorta is normal. The disks are normal in configuration. There is no facet hypertrophy. There is no neuroforaminal stenosis. There is no spinal canal stenosis. LUMBAR SPINE: The alignment of the lumbar spine is normal. There is no acute fracture. The vertebral bodies are normal in height without compression fractures. The intervertebral disk heights are normal. There is no soft tissue abnormality. The abdominal aorta appears normal. IMPRESSION: 1. Focus of hypodensity in the right occipital region suggestive of an age-indeterminate infarct. Correlate with relevant symptoms or history. If there is concern for an acute or subacute infarct, brain MRI can be considered. 2. No evidence of acute fracture in the cervical, thoracic, or lumbar spine. Electronically signed by: Nydia Ryan M.D. Natalie Urrutia MD IMG CT PROCEDURES Sania ainsley Result * CT Chest Abdomen Pelvis W Contrast (09/24/2024 2:21 PM CDT) Anatomical Region Laterality Modality Body N/A Computed Tomogra phy 09/24/2024 9:35 PM CDT Impressions 09/24/2024 9:35 PM CDT 1. No evidence of traumatic process within the abdomen or pelvis. 2. Nonobstructive left ureteric stone measuring up to 3 mm without hydronephrosis or hydroureter. ADDENDUM - This addendum is being placed on the report for a time dependent finding on a patient who was discharged from the emergency room (discrepancy). Nonobstructive left ureteric stone measuring 3 mm in the proximal left ureter. These findings were communicated to the emergency room attending physician Dr. Baldwin at 6:23 PM. Electronically signed by: Terrance Vitale M.D. Narrative 09/24/2024 9:35 PM CDT EXAMINATION: Computed tomography of the chest, abdomen and pelvis with intravenous contrast HISTORY: Trauma TECHNIQUE: Transaxial computed tomographic images of the chest, abdomen and pelvis were obtained with intravenous contrast according to the standard protocol after the uneventful administration of 60 mL Opti-Ray 350 intravenous contrast. COMPARISON: None FINDINGS: Chest: Lungs are clear of consolidation. Bibasilar subsegmental atelectasis. No pleural effusions. No pneumothorax. No acute or displaced rib fractures. Heart size is normal. No pericardial effusion. Mild to moderate three-vessel coronary artery calcifications. No suspicious thoracic lymphadenopathy. Thyroid is unremarkable. Esophagus is nondistended. Great vessels are normal in course and caliber. Abdomen/Pelvis: Normal-sized configuration liver. No discrete hepatic lesions. Gallbladder present without intrahepatic or extrahepatic ductal dilation. The adrenal glands are unremarkable. There is a small splenule. Pancreas is mildly atrophic with fatty infiltration. Symmetric renal cortical enhancement without hydronephrosis. There are multiple kidney stones noted within the kidneys bilaterally. There is a ureteric stone noted in the proximal left ureter measuring up to 3 mm in size. There is no upstream hydronephrosis or hydroureter. There is no evidence of bowel obstruction. Appendix is normal. Moderate colorectal stool volume. Underdistended bladder, limits evaluation. Prostate is unremarkable. No free fluid. No free air. Aortobiiliac system is normal in course and caliber with scattered calcified atherosclerotic disease. No suspicious lymphadenopathy within the abdomen or pelvis. Small right-sided fat-containing of canal hernia. Multilevel degenerative changes of the spine. No acute or aggressive osseous abnormalities. Procedure Note Terrance Vitale MD - 09/24/2024 EXAMINATION: Computed tomography of the chest, abdomen and pelvis with intravenous contrast HISTORY: Trauma TECHNIQUE: Transaxial computed tomographic images of the chest, abdomen and pelvis were obtained with intravenous contrast according to the standard protocol after the uneventful administration of 60 mL Opti-Ray 350 intravenous contrast. COMPARISON: None FINDINGS: Chest: Lungs are clear of consolidation. Bibasilar subsegmental atelectasis. No pleural effusions. No pneumothorax. No acute or displaced rib fractures. Heart size is normal. No pericardial effusion. Mild to moderate three-vessel coronary artery calcifications. No suspicious thoracic lymphadenopathy. Thyroid is unremarkable. Esophagus is nondistended. Great vessels are normal in course and caliber. Abdomen/Pelvis: Normal-sized configuration liver. No discrete hepatic lesions. Gallbladder present without intrahepatic or extrahepatic ductal dilation. The adrenal glands are unremarkable. There is a small splenule. Pancreas is mildly atrophic with fatty infiltration. Symmetric renal cortical enhancement without hydronephrosis. There are multiple kidney stones noted within the kidneys bilaterally. There is a ureteric stone noted in the proximal left ureter measuring up to 3 mm in size. There is no upstream hydronephrosis or hydroureter. There is no evidence of bowel obstruction. Appendix is normal. Moderate colorectal stool volume. Underdistended bladder, limits evaluation. Prostate is unremarkable. No free fluid. No free air. Aortobiiliac system is normal in course and caliber with scattered calcified atherosclerotic disease. No suspicious lymphadenopathy within the abdomen or pelvis. Small right-sided fat-containing of canal hernia. Multilevel degenerative changes of the spine. No acute or aggressive osseous abnormalities. IMPRESSION: 1. No evidence of traumatic process within the abdomen or pelvis. 2. Nonobstructive left ureteric stone measuring up to 3 mm without hydronephrosis or hydroureter. ADDENDUM - This addendum is being placed on the report for a time dependent finding on a patient who was discharged from the emergency room (discrepancy). Nonobstructive left ureteric stone measuring 3 mm in the proximal left ureter. These findings were communicated to the emergency room attending physician Dr. Baldwin at 6:23 PM. Electronically signed by: Terrance Vitale M.D. us Natalie Urrutia MD IMG CT PROCEDURES Sania l Result * (ABNORMAL) Urinalysis reflex to microscopic and culture Urine (09/24/2024 2:04 PM CDT) Color, ur Straw Yellow Clarity, ur Clear Clear [facility] Specific gravity, ur 1.023 1.003 - 1.030 [facility] pH, urine 6.0 [facility] Comment: Interpretive Data U rine pH is affected by diet, medications, systemic acid-base disturbances, and renal tubular function. pH may affect urinary stone formation. For example, urine pH below 6.0 may help reduce the tendency for calcium phosphate stones and pH greater than 6.0 may reduce the tendency for uric acid stone formation. Source: [facility] [employer] Current Interpretive Data was last revised on 2017 Protein, ur ql Trace Negative [facility] Glucose, ur ql 4+(A) Negative [facility] Ketones, ur Negative Negative [facility] Bilirubin, ur Negative Negative [facility] Blood, ur Negative Negative [facility] Urobilinogen, ur <2.0 <2.0 mg/dL [facility] Nitrite, ur Negative Negative [facility] Leukocyte esterase, ur Negative Negative [facility] UA reflex comment Reflex conditions for microscopic UA and culture not met. [facility] Urine 09/24/2024 2:04 PM CDT 09/24/2024 2:09 PM CDT Natalie Urrutia MD LAB MICROBIOLOGY - GEN ERAL ORDERABLES Final Result [facility] [id number] [facility]. [place] [address] * (ABNORMAL) eGFR (09/24/2024 1:14 PM CDT) eGFR 47(L) >=60 mL/min/1. 73 m2 Comment: Interpretive Data Reference Interval Normal >/= 90 mL/min/1.73m2 Mildly decreased* 60 - 89 mL/min/1.73m2 Mildly to moderately decreased 45 - 59 mL/min/1.73m2 Moderately to severely decreased 30 - 44 mL/min/1.73m2 Severely decreased 15 - 29 mL/min/1.73m2 Kidney Failure < 15 mL/min/1.73m2 *Relative to young adult level Estimated glomerular filtration rate is determined by the 2020 CKD-EPI equation recommended by the National Kidney Foundation (A Unifying Approach to GFR Estimation: Recommendations of the NKF-ASK Task Force on Reassessing the Inclusion of Race in Diagnosing Kidney Disease, JASN 2020). The CKD-EPI equation should not be used for patients with unstable renal function and has not been validated in children and those over 70. Current interpretive data was last reviewed 2021. Blood 09/24/2024 1:14 PM CDT 09/24/2024 1:22 PM CDT Natalie Urrutia MD LAB BLOOD ORDERABLES F inal Result Performing Organization Address [facility] de Phone Number [facility] [address] [employer] [place] [address] * Lipase (09/24/2024 1:14 PM CDT) Pathologist [facility] Lipase 56 10 - 99 Units/L Blood 09/24/2024 1:14 PM CDT 09/24/2024 1:22 PM CDT Natalie Urrutia MD LAB BLOOD ORDERABLES F inal Result Performing Organization Address [facility] de Phone Number [facility] [address] [facility] [place] [address] * (ABNORMAL) Comprehensive metabolic panel (09/24/2024 1:14 PM CDT) Pathologist [facility] Sodium 131(L) 135 - 145 mmol/L Potassium, pl 4.4 3.3 - 4.9 mmol/L [facility] Chloride 96(L) 97 - 110 mmol/L [facility] CO2 21(L) 22 - 32 mmol/L [facility] Anion gap 14 2 - 15 mmol/L [facility] BUN 27(H) 6 - 25 mg/dL [facility] Creatinine 1.60(H) 0.80 - 1.30 mg/dL [facility] Glucose 272(H) 70 - 199 mg/dL [facility] Comment: Interpretive Data Fasting glucose >/= 126 mg/dl is diagnostic for diabetes. Fasting is defined as no caloric intake for at least 8 hours. Fasting glucose between 100 mg/dl to 125 mg/dl is diagnostic of prediabetes. In a patient with classic symptoms of hyperglycemia or hyperglycemic crisis, a random glucose >/= 200 mg/dl is diagnostic for diabetes. In the absence of unequivocal hyperglycemia, results should be confirmed by repeat testing. The classification and Diagnosis of Diabetes Diabetes Care 2021; 46: S19-S40. Current interpretive data was last revised 2022. Calcium 8.7 8.5 - 10.3 mg/dL [facility] Bilirubin, total 0.3 0.1 - 1.2 mg/dL [facility] Protein, pl 6.7 6.5 - 8.5 g/dL [facility] Albumin 4.2 3.5 - 5.0 g/dL [facility] Alk phos 80 40 - 130 Units/L [facility] ALT <5(L) 7 - 55 Units/L [facility] AST 18 10 - 50 Units/L [facility] Blood 09/24/2024 1:14 PM CDT 09/24/2024 1:22 PM CDT us Natalie Urrutia MD LAB BLOOD ORDERABLES F inal Result [facility] [id number] [facility]. [place] [address] * (ABNORMAL) Differential, auto (09/24/2024 12:41 PM CDT) Pathologist [facility] Neutrophil abs 7.45(H) 1.50 - 6.50 K/cumm Imm gran abs 0.03 0.00 - 0.10 K/cumm [facility] Lymphocyte abs 0.94 0.80 - 3.30 K/cumm [facility] Monocyte abs 0.50 0.20 - 0.80 K/cumm [facility] Eosinophil abs 0.22 0.00 - 0.50 K/cumm [facility] Basophil abs 0.06 0.00 - 0.10 K/cumm [facility] Neutrophil pct 81.0 % [facility] Comment: Interpretive Data Percent cell count reference ranges are not reported, since discordance with absolute values may lead to misinterpretation of CBC data. Current Interpretive Data was last revised on 2017. Imm gran pct 0.3 % [facility] Comment: Interpretive Data Percent cell count reference ranges are not reported, since discordance with absolute values may lead to misinterpretation of CBC data. Current Interpretive Data was last revised on 2017. Lymphocyte pct 10.2 % [facility] Comment: Interpretive Data Percent cell count reference ranges are not reported, since discordance with absolute values may lead to misinterpretation of CBC data. Current Interpretive Data was last revised on 2017. Monocyte pct 5.4 % [facility] Comment: Interpretive Data Percent cell count reference ranges are not reported, since discordance with absolute values may lead to misinterpretation of CBC data. Current Interpretive Data was last revised on 2017. Eosinophil pct 2.4 % [facility] Comment: Interpretive Data Percent cell count reference ranges are not reported, since discordance with absolute values may lead to misinterpretation of CBC data. Current Interpretive Data was last revised on 2017. Basophil pct 0.7 % [facility] Comment: Interpretive Data Percent cell count reference ranges are not reported, since discordance with absolute values may lead to misinterpretation of CBC data. Current Interpretive Data was last revised on 2017. Blood 09/24/2024 12:4 1 PM CDT 09/24/2024 12:49 PM CDT us Natalie Urrutia MD LAB BLOOD ORDERABLES F inal Result [facility] [address] [facility] [address] * (ABNORMAL) CBC with auto differential (09/24/2024 12:41 PM CDT) WBC 9.20 3.80 - 9.90 K/cumm Hgb 12.1(L) 13.0 - 17.5 g/dL [facility] Hct 37.9(L) 38.9 - 50.3 % [facility] Plt 330 150 - 400 K/cumm [facility] MPV 9.8 9.1 - 12.3 fL [facility] RBC 4.53 4.30 - 5.80 M/cumm [facility] MCV 83.7 81.3 - 96.4 fL [facility] MCH 26.7(L) 27.1 - 33.3 pg [facility] MCHC 31.9(L) 32.3 - 35.7 g/dL [facility] RDW CV 14.8 11.1 - 14.9 % [facility] RDW SD 44.9 35.7 - 48.1 fL [facility] NRBC abs 0.00 0.00 - 0.01 K/cumm [facility] Blood 09/24/2024 12:4 1 PM CDT 09/24/2024 12:49 PM CDT Natalie Urrutia MD LAB BLOOD ORDERABLES F inal Result [facility] [address] [facility]. [facility] [place] [address] * XR Finger 5th Pinky Left (09/12/2024 10:00 AM CDT) Anatomical Region Laterality Modality Upper Extremities, Hand, Fingers Left Computed Radiography 09/12/2024 5:13 PM CDT Narrative 09/12/2024 5:20 PM CDT EXAM DESCRIPTION: XR HAND LEFT 3 OR MORE VIEWS; XR WRIST LEFT 3 OR MORE VIEWS; XR FINGER 5TH PINKY LEFT REASON FOR STUDY: Left hand, wrist and small finger pain. Pt had a fall in imaging room today, pain ; pain Follow up, fall, no pain FINDINGS: Three views left hand, three views left wrist and three views left small finger submitted with comparison 09/06/2024. Ulnar negative variance is present. Mild triscaphe joint osteoarthritis. No dorsal wrist soft tissue swelling. There is persistent reduction of a small finger proximal interphalangeal joint dislocation. Small avulsion fracture of the small finger middle phalanx volar base is unchanged. IMPRESSION: Persistent reduction of a left small finger proximal interphalangeal joint dislocation. Unchanged small avulsion fracture of the small finger middle phalanx volar base. THIS IS AN ELECTRONICALLY VERIFIED FINAL REPORT 09/12/2024 5:20 PM - Electronically signed by Andres Betancourt M.D. MF: FRANCISCO Report ID: [id number] Reading Location: [id number] Procedure Note Andres Betancourt MD - 09/12/2024 EXAM DESCRIPTION: XR HAND LEFT 3 OR MORE VIEWS; XR WRIST LEFT 3 OR MORE VIEWS; XR FINGER 5TH PINKY LEFT REASON FOR STUDY: Left hand, wrist and small finger pain. Pt had a fall in imaging room today, pain ; pain Follow up, fall, no pain FINDINGS: Three views left hand, three views left wrist and three viewsleft small finger submitted with comparison 09/06/2024. Ulnar negative variance is present. Mild triscaphe joint osteoarthritis.No dorsal wrist soft tissue swelling. There is persistent reduction of asmall finger proximal interphalangeal joint dislocation. Small avulsionfracture of the small finger middle phalanx volar base is unchanged. IMPRESSION: Persistent reduction of a left small finger proximal interphalangealjoint dislocation. Unchanged small avulsion fracture of the small finger middle phalanx volar base. THIS IS AN ELECTRONICALLY VERIFIED FINAL REPORT 09/12/2024 5:20 PM - Electronically signed by Andres Betancourt M.D. MF: FRANCISCO Report ID: [id number] Reading Location: [id number] us Shoshana Hutchins MD IMG XR PROCEDURES Final R esult * XR Hand Left 3 or More Views (09/12/2024 10:00 AM CDT) Anatomical Region Laterality Modality Upper Extremities, Hand Left Computed Radiography 09/12/2024 5:13 PM CDT Narrative 09/12/2024 5:20 PM CDT EXAM DESCRIPTION: XR HAND LEFT 3 OR MORE VIEWS; XR WRIST LEFT 3 OR MORE VIEWS; XR FINGER 5TH PINKY LEFT REASON FOR STUDY: Left hand, wrist and small finger pain. Pt had a fall in imaging room today, pain ; pain Follow up, fall, no pain FINDINGS: Three views left hand, three views left wrist and three views left small finger submitted with comparison 09/06/2024. Ulnar negative variance is present. Mild triscaphe joint osteoarthritis. No dorsal wrist soft tissue swelling. There is persistent reduction of a small finger proximal interphalangeal joint dislocation. Small avulsion fracture of the small finger middle phalanx volar base is unchanged. IMPRESSION: Persistent reduction of a left small finger proximal interphalangeal joint dislocation. Unchanged small avulsion fracture of the small finger middle phalanx volar base. THIS IS AN ELECTRONICALLY VERIFIED FINAL REPORT 09/12/2024 5:20 PM - Electronically signed by Andres Betancourt M.D. MF: FRANCISCO Report ID: [id number] Reading Location: [id number] Procedure Note Andres Betancourt MD - 09/12/2024 EXAM DESCRIPTION: XR HAND LEFT 3 OR MORE VIEWS; XR WRIST LEFT 3 OR MORE VIEWS; XR FINGER 5TH PINKY LEFT REASON FOR STUDY: Left hand, wrist and small finger pain. Pt had a fall in imaging room today, pain ; pain Follow up, fall, no pain FINDINGS: Three views left hand, three views left wrist and three viewsleft small finger submitted with comparison 09/06/2024. Ulnar negative variance is present. Mild triscaphe joint osteoarthritis.No dorsal wrist soft tissue swelling. There is persistent reduction of asmall finger proximal interphalangeal joint dislocation. Small avulsionfracture of the small finger middle phalanx volar base is unchanged. IMPRESSION: Persistent reduction of a left small finger proximal interphalangealjoint dislocation. Unchanged small avulsion fracture of the small finger middle phalanx volar base. THIS IS AN ELECTRONICALLY VERIFIED FINAL REPORT 09/12/2024 5:20 PM - Electronically signed by Andres Betancourt M.D. MF: FRANCISCO Report ID: [id number] Reading Location: [place] [id number] us Shoshana Hutchins MD IMG XR PROCEDURES Final R esult * XR Wrist Left 3 or More Views (09/12/2024 10:00 AM CDT) Anatomical Region Laterality Modality Upper Extremities, Wrist Left Compute d Radiography 09/12/2024 5:13 PM CDT Narrative 09/12/2024 5:20 PM CDT EXAM DESCRIPTION: XR HAND LEFT 3 OR MORE VIEWS; XR WRIST LEFT 3 OR MORE VIEWS; XR FINGER 5TH PINKY LEFT REASON FOR STUDY: Left hand, wrist and small finger pain. Pt had a fall in imaging room today, pain ; pain Follow up, fall, no pain FINDINGS: Three views left hand, three views left wrist and three views left small finger submitted with comparison 09/06/2024. Ulnar negative variance is present. Mild triscaphe joint osteoarthritis. No dorsal wrist soft tissue swelling. There is persistent reduction of a small finger proximal interphalangeal joint dislocation. Small avulsion fracture of the small finger middle phalanx volar base is unchanged. IMPRESSION: Persistent reduction of a left small finger proximal interphalangeal joint dislocation. Unchanged small avulsion fracture of the small finger middle phalanx volar base. THIS IS AN ELECTRONICALLY VERIFIED FINAL REPORT 09/12/2024 5:20 PM - Electronically signed by Andres Betancourt M.D. MF: FRANCISCO Report ID: [id number] Reading Location: [id number] Procedure Note Andres Betancourt MD - 09/12/2024 EXAM DESCRIPTION: XR HAND LEFT 3 OR MORE VIEWS; XR WRIST LEFT 3 OR MORE VIEWS; XR FINGER 5TH PINKY LEFT REASON FOR STUDY: Left hand, wrist and small finger pain. Pt had a fall in imaging room today, pain ; pain Follow up, fall, no pain FINDINGS: Three views left hand, three views left wrist and three viewsleft small finger submitted with comparison 09/06/2024. Ulnar negative variance is present. Mild triscaphe joint osteoarthritis.No dorsal wrist soft tissue swelling. There is persistent reduction of asmall finger proximal interphalangeal joint dislocation. Small avulsionfracture of the small finger middle phalanx volar base is unchanged. IMPRESSION: Persistent reduction of a left small finger proximal interphalangealjoint dislocation. Unchanged small avulsion fracture of the small finger middle phalanx volar base. THIS IS AN ELECTRONICALLY VERIFIED FINAL REPORT 09/12/2024 5:20 PM - Electronically signed by Andres Betancourt M.D. MF: FRANCISCO Report ID: [id number] Reading Location: [place] [address] us Shoshana Hutchins MD IMG XR PROCEDURES Final R esult * (ABNORMAL) POCT hemoglobin A1c (09/08/2024 2:41 PM CDT) Hemoglobin A1C, POC 9.0(A) 4.0 - 5.6 % Blood 09/08/2024 2:41 PM CDT us Jm Alonso MD POINT OF CARE TEST ORDERABLES Final Result * SCAN - RADIOLOGY/IMAGING (09/06/2024 6:44 PM CDT) Anatomical Region Laterality Modality Other us Jm Alonso MD Final Result * SCAN - RADIOLOGY/IMAGING (09/06/2024 6:44 PM CDT) Anatomical Region Laterality Modality Other us Jm Alonso MD Final Result * XR Finger 5Th Pinky Left (09/06/2024 [...] signed by Collin STARKS T: Report ID: [id number] Reading Location: [id number] Procedure Note Collin Cantrell MD - 09/06/2024 [...] Collin Cantrell M.D. NS T: Report ID: [id number] Reading Location: [id number] Desi María Barney NP IMG XR PROCEDURES Final Re [...] signed by Collin STARKS T: Report ID: [id number] Reading Location: [id number] Procedure Note Collin Cantrell MD - 09/06/2024 [...] signed by Collin STARKS T: Report ID: [id number] Reading Location: [id number] Desi Barney TREATING PLANT OPERATOR IMG XR PROCEDURES Final Re sult * [...] 7:40 PM - Electronically signed by Francisco SIERRA T: Report ID: [id number] Reading Location: [id number] Procedure Note Francisco Reyes MD - 07/18/2024 [...] Francisco Reyes M.D. BS T: Report ID: [id number] Reading Location: [id number] Briseida Robinson TREATING PLANT OPERATOR IMG XR PROCEDURES Final Result * XR Humerus [...] Francisco Reyes M.D. BS T: Report ID: [id number] Reading Location: [id number] Procedure Note Francisco Reyes MD - 07/18/2024 [...] Francisco Reyes M.D. BS T: Report ID: [id number] Reading Location: [place] [address] Briseida Bowers NP IMG XR PROCEDURES Final [...] Francisco Reyes M.D. BS T: Report ID: [id number] Reading Location: [id number] Procedure Note Francisco Reyes MD - 07/18/2024 [...] Francisco Reyes M.D. BS T: Report ID: [id number] Reading Location: [id number] Briseida Bowers TREATING PLANT OPERATOR IMG XR PROCEDURES Final Result * POCT lipid panel (2023 [...] - 09/30/2023 4:08 AM CDT Performed at: [address] [place] [id number] Mig Welder: Yuan Gaitan PhD, Phone: [phone] Jm Alonso MD LAB URINE ORDERABLES Final Re sult Performing Organization Address [facility] de Phone Number [facility] * PSA screen (08/16/2021 10:37 AM CDT) [facility] PSA 0.5 0.0 - 4.0 ng/mL [facility] - Comment: Lito ECLIA methodology. According to the [place] [employer], Serum PSA should decrease and [...] - 08/17/2021 7:09 AM CDT Performed at: [address] [place] [id number] Mig Welder: Yuan Gaitan PhD, Phone: [phone] Jm Alonso MD LAB BLOOD ORDERABLES Final Re sult Performing Organization Address [facility] Co de Phone Number [facility] from Last 3 Months or Most Recently Relevant to Health Maintenance Insurance MEDICARE [facility] FEDERAL MEDICARE [facility] FEDERAL MEDICARE MEDICARE [facility] FED[facility]AL Advance Directives For more information, please contact: [phone] * Full Code (Latest Code Status on File) Date Activated Date Inactivated Comments 02/11/2023 9:33 AM 02/11/2023 4:38 PM * Full Code Date Activated Date Inactivated Comments 01/14/2023 8:51 AM 01/14/2023 4:11 PM Care Teams Edge Setter Relationship Specialty Start Date End Date Jm Alonso MD PCP - General Internal Medicine 08/25/18
--- OUTSIDE RECORDS SUMMARY | 2024-10-10 17:05 | XMS_ITS | Clinical Summary ---
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
--- OUTSIDE RECORDS SUMMARY | 2024-10-10 17:05 | XMS_ITS | Referral Summary ---
Author Organization [facility] Address [address] [place] [phone] Care Team Providers Care Senior Oracle Developer Name Role Phone Jm Alonso MD Primary Care Provider [phone] Encounters Date Type Department Care Team Description 10/10/2024 Orders Only [facility] [address] [phone] Jm Alonso MD 10/10/2024 10:00 AM CDT Office Visit [facility] Hand Surgery [address] [place] [address] [place] [phone] Shoshana Hutchins MD Closed traumatic dislocation of proximal interphalangeal (PIP) joint of left little finger (Primary Dx) 09/24/2024 11:22 AM CDT - 09/24/2024 5:52 PM CDT Emergency [facility] Emergency Department [address] [place] [address] Natalie Urrutia MD Fitzmaurice, Sean C., MD Fall, initial encounter (Primary Dx); Blunt head trauma, initial encounter; Abdominal pain Discharge Disposition: Discharge to home or self care 09/24/2024 9:30 AM CDT Office Visit [facility] Care at [address] [phone] Briseida Bowers NP Left upper quadrant abdominal pain (Primary Dx); Left upper quadrant abdominal tenderness without rebound tenderness; Contusion of abdominal wall, initial encounter; Multiple falls 09/16/2024 9:30 AM CDT Office Visit [facility] Movement Disorders [address] [facility] 7th [place] [address] Marcie [place] NP Parkinson's disease with dyskinesia and fluctuating manifestations (HCC) (Primary Dx); Levodopa-induced dyskinesia; REM sleep behavior disorder; Anxiety 09/12/2024 Telephone [facility] Scheduling [address] [place] [address] Marcie Silver NP Scheduling Appointments 09/12/2024 7:45 AM CDT - 09/12/2024 11:59 PM CDT Hospital Encounter [facility] 1 DIAG IMG [address] [place] [address] Finger pain, left; Right wrist pain Discharge Disposition: Discharge to home or self care 09/12/2024 9:15 AM CDT Office Visit [facility] Hand Surgery [facility] [address] [place] [phone] Shoshana Hutchins MD Finger pain, left (Primary Dx); Closed traumatic dislocation of proximal interphalangeal (PIP) joint of left little finger; Right wrist pain 09/08/2024 2:15 PM CDT Office Visit [facility] [address] [place] [address] [address] [place] [phone] Jm Alonso MD Type 2 diabetes mellitus without complication, without long-term current use of insulin (HCC) (Primary Dx); Parkinson's disease with dyskinesia and fluctuating manifestations (HCC); Essential hypertension 09/06/2024 Orders Only [facility] [address] [place] [address] [address] [place] [phone] Jm Alonso MD 09/06/2024 Results Follow-Up [facility] Convenient Care at [address] [phone] Desi Barney NP XR Finger 5Th Pinky Left 09/06/2024 2:35 PM CDT Ancillary Procedure [facility] Imaging at [address] [phone] Injury of left little finger, initial encounter 09/06/2024 2:10 PM CDT Ancillary Procedure [facility] Imaging at [address] [phone] Injury of left little finger, initial encounter 09/06/2024 2:30 PM CDT Office Visit [facility]ient Care at [address] [phone] Desi Barney NP Injury of left little finger, initial encounter (Primary Dx); Closed traumatic dislocation of proximal interphalangeal (PIP) joint of left little finger; Displaced fracture of middle phalanx of left little finger, initial encounter for closed fracture 09/05/2024 Telephone [facility] Movement Disorders [address] [place] [address] 7th [place] [address] Adrianne Briceño RN 07/25/2024 12:00 PM CDT Office Visit [facility] Neuro Sleep [address] [place] [address] 6th [address] [place] [address] Rusty Vicente PA Essential hypertension (Primary Dx); Obstructive sleep apnea on CPAP; REM sleep behavior disorder 07/18/2024 Results Follow-Up [facility]ient Care at [address] [phone] Briseida Bowers NP XR Shoulder Left 2+ Vw 07/18/2024 2:25 PM CDT Ancillary Procedure [facility] Imaging at [address] [phone] Accidental fall, initial encounter 07/18/2024 2:20 PM CDT Ancillary Procedure [facility] Imaging at [address] [phone] Accidental fall, initial encounter 07/18/2024 2:15 PM CDT Ancillary Procedure [facility] Imaging at [address] [phone] Accidental fall, initial encounter 07/18/2024 2:00 PM CDT Office Visit [facility]ient Care at [address] [phone] Briseida Bowers NP Accidental fall, initial encounter (Primary Dx) from Last 3 Months Allergies No known active allergies Medications cetirizine (ZyrTEC) 10 mg tabletIndicatio ns:Seasonal Allergic Rhinitis Take 1 tablet (10 mg total) 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 Active aspirin 81 mg enteric [...] 1.5 tablets (150 mg total) 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 135 tablet 3 5 09/06/19 [...] 1 tablet (50 mg total) 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 5 Active Active Problems Problem [...] (07/25/2020): Added automatically from request for surgery [id number] Levodopa-induced dyskinesia 05/04/2020 Paresthesia of skin 05/04/2020 Ulnar neuropathy at elbow of left upper extremit y 04/18/2020 Assessment & Plan (04/18/2020 1:53 PM LEAD INSTRUCTOR/FLIGHT ATTENDANT): Plan at this point is to check nerve conduction study to verify that this is indeed a ulnar neuropathy at the elbow as opposed to a cervical radiculopathy. Once this is confirmed we can proceed with definitive therapy Type 2 diabetes mellitus wit hout complication, without long-term current use of insulin 02/29/2020 Assessment & Plan (05/23/2024 12:02 PM LEAD INSTRUCTOR/FLIGHT ATTENDANT): Increase insulin to 30 units Assessment & Plan (02/09/2024 11:53 AM CDT): Incease lantus to 26 units. May need bolus insulin Essential hypertension 02/29/2020 Assessment & Plan (05/23/2024 12:02 PM LEAD INSTRUCTOR/FLIGHT ATTENDANT): Bp at target Assessment & Plan (02/09/2024 [...] to increase the dose slightly. Parkinson disease ([facility]) 05/29/2015 Assessment & Plan (10/04/2024 4:14 [...] willing to resume PT and knows of APDA youtube channel exercises online. He has completed ST [...] patient. Assessment & Plan (05/23/2024 12:02 PM LEAD INSTRUCTOR/FLIGHT ATTENDANT): Hilda sees neurology Assessment & Plan (02/09/2024 11:52 AM [...] He has finished PT and knows of [employer] youtube channel exercises online. He is interested [...] day. Assessment & Plan (03/26/2023 7:09 PM LEAD INSTRUCTOR/FLIGHT ATTENDANT): He has parkinsonism stage 2.5 characterized on [...] more consistent with dose timing. 3. Call [facility] PT to schedule a follow up appointment. 4. I will send a referral to [facility] OT for a driving evaluation. Assessment & Plan (05/16/2022 1:12 PM LEAD INSTRUCTOR/FLIGHT ATTENDANT): He has parkinsonism stage 2.5 characterized on [...] gabapentin.. 3. Same clonazepam. 4. Start APDA youtNGI channel exercises. 5. Talk to Dr. Alonso about cutting back irbesartan to half. 6. [employer] Project. 7. Start PT and ST here at [facility] then get plan made for PT [...] exercises. Assessment & Plan (05/04/2020 12:37 PM LEAD INSTRUCTOR/FLIGHT ATTENDANT): He has parkinsonism stage 2.5 characterized on [...] EMG/NCS of left hand. 3. Start APDA youtNGI channel exercises. 4. Be sure PMD has [...] a referral to a sleep neurologist at [facility]. They may want to order another sleep study because it has been some time since your last one. 4. I will send a referral to [facility] PT for balance and walking. 5. 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 Gender Identity Male 01/03/2020 10:22 AM CDT [...] screening colonoscopy Medical Devices Implanted Type Area Contract Preparer Device Identifier Shelf Expiration Date Model / Serial / Lot [employer] Lens Iol Tecnis Smplcty 1-Pc Clr Plumas 15.5 Diopter [id number] - [id number] - [id number] Implanted:Qty: 1 on 01/14/2023 by Richmond Morales MD at [facility] Advanced Medicine Lens Left: Eye [employer] [id number] 05/10/2025 [id number] / [id number] / 0 [employer] Lens Iol Tecnis Smplcty 1-Pc Clr Plumas 15.5 Diopter [id number] - [id number] - [id number] Implanted:Qty: 1 on 02/11/2023 by Richmond Morales MD at [facility] Advanced Medicine Lens Right: Eye [employer] [id number] 12/10/2024 [id number] / [id number] / Procedures Procedure Name Priority Date/Time Associated [...] PM CDT) Anatomical Region Laterality Modality Other Jm Alonso MD Final Result * SCAN [...] CT PROCEDURES Sania l Result * CT Chest Abdomen Pelvis W [...] PM. Electronically signed by: Terrance Vitale M.D. Natalie Urrutia MD IMG CT PROCEDURES [...] tendency for uric acid stone formation. Source: [facility] Current Interpretive Data was last revised on [...] - GEN ERAL ORDERABLES Final Result DELIA CARRERA [address] [facility]. [place] [address] * (ABNORMAL) eGFR (09/24/2024 1:14 PM CDT) [...] ORDERABLES F inal Result Performing Organization Address [facility] Co de Phone Number [facility] [address] [place] [address] * Lipase (09/24/2024 1:14 PM CDT) Pathologist [facility] Lipase 56 10 - 99 Units/L Blood 09/24/2024 1:14 PM CDT 09/24/2024 1:22 PM CDT Natalie Urrutia MD LAB BLOOD ORDERABLES F inal Result Performing Organization Address [facility] de Phone Number [facility] [address] [facility] [place] [address] * (ABNORMAL) Comprehensive metabolic panel (09/24/2024 1:14 PM CDT) Sodium 131(L) 135 - 145 mmol/L Potassium, pl 4.4 3.3 - 4.9 mmol/L [facility] Chloride 96(L) 97 - 110 mmol/L [facility] CO2 21(L) 22 - 32 mmol/L [facility] [...] 2022. Calcium 8.7 8.5 - 10.3 mg/dL [facility] Bilirubin, total 0.3 0.1 - 1.2 mg/dL [facility] Protein, pl 6.7 6.5 - 8.5 g/dL [facility] Albumin 4.2 3.5 - 5.0 g/dL [facility] Alk phos 80 40 - 130 Units/L [facility] ALT <5(L) 7 - 55 Units/L [facility] AST 18 10 - 50 Units/L [facility] Blood 09/24/2024 1:14 PM CDT 09/24/2024 1:22 PM CDT us Natalie Urrutia MD LAB BLOOD ORDERABLES F inal Result [facility] [address] [facility]. [place] [address] * (ABNORMAL) Differential, auto (09/24/2024 12:41 PM CDT) Neutrophil abs 7.45(H) 1.50 - 6.50 K/cumm Imm gran abs 0.03 0.00 - 0.10 K/cumm [facility] Lymphocyte abs 0.94 0.80 - 3.30 K/cumm [facility] Monocyte abs 0.50 0.20 - 0.80 K/cumm [facility] Eosinophil abs 0.22 0.00 - 0.50 K/cumm [facility] Basophil abs 0.06 0.00 - 0.10 K/cumm [facility] Neutrophil pct 81.0 % [facility] Comment: Interpretive Data Percent cell count reference ranges are not reported, since discordance with absolute values may lead to misinterpretation of CBC data. Current Interpretive Data was last revised on 2017. Imm gran pct 0.3 % [facility] Comment: Interpretive Data Percent cell count reference ranges are not reported, since discordance with absolute values may lead to misinterpretation of CBC data. Current Interpretive Data was last revised on 2017. Lymphocyte pct 10.2 % [facility] Comment: Interpretive Data Percent cell count reference ranges are not reported, since discordance with absolute values may lead to misinterpretation of CBC data. Current Interpretive Data was last revised on 2017. Monocyte pct 5.4 % [facility] Comment: Interpretive Data Percent cell count reference ranges are not reported, since discordance with absolute values may lead to misinterpretation of CBC data. Current Interpretive Data was last revised on 2017. Eosinophil pct 2.4 % [facility] Comment: Interpretive Data Percent cell count reference ranges are not reported, since discordance with absolute values may lead to misinterpretation of CBC data. Current Interpretive Data was last revised on 2017. Basophil pct 0.7 % [facility] Comment: Interpretive Data Percent cell count reference ranges are not reported, since discordance with absolute values may lead to misinterpretation of CBC data. Current Interpretive Data was last revised on 2017. Blood 09/24/2024 12:4 1 PM CDT 09/24/2024 12:49 PM CDT Natalie Urrutia MD LAB BLOOD ORDERABLES F inal Result Performing Organization Address [facility]/ZIP Co de Phone Number DELIA CARRERA [address] [place] [address] * (ABNORMAL) CBC with auto differential (09/24/2024 12:41 PM CDT) [facility] WBC 9.20 3.80 - 9.90 K/cumm Hgb 12.1(L) 13.0 - 17.5 g/dL [facility] Hct 37.9(L) 38.9 - 50.3 % [facility] Plt 330 150 - 400 K/cumm [facility] MPV 9.8 9.1 - 12.3 fL [facility] RBC 4.53 4.30 - 5.80 M/cumm [facility] MCV 83.7 81.3 - 96.4 fL [facility] MCH 26.7(L) 27.1 - 33.3 pg [facility] MCHC 31.9(L) 32.3 - 35.7 g/dL [facility] RDW CV 14.8 11.1 - 14.9 % [facility] RDW SD 44.9 35.7 - 48.1 fL [facility] NRBC abs 0.00 0.00 - 0.01 K/cumm [facility] Blood 09/24/2024 12:4 1 PM CDT 09/24/2024 12:49 PM CDT us Natalie Urrutia MD LAB BLOOD ORDERABLES F inal Result Performing Organization Address City/[facility]/ZIP Co de Phone Number DELIA CARRERA [address] [place] [address] * XR Finger 5th Pinky Left (09/12/2024 [...] Andres Betancourt M.D. MF: FRANCISCO Report ID: [id number] Reading Location: [id number] Procedure Note Andres Betancourt MD - 09/12/2024 [...] Andres Betancourt M.D. MF: FRANCISCO Report ID: [id number] Reading Location: [id number] us Shoshana Hutchins MD IMG XR PROCEDURES [...] Andres Betancourt M.D. MF: FRANCISCO Report ID: [id number] Reading Location: [id number] Procedure Note Andres Betancourt MD - 09/12/2024 [...] Andres Betancourt M.D. MF: FRANCISCO Report ID: [id number] Reading Location: [place] [address] us Shoshana Hutchins MD IMG XR PROCEDURES [...] Andres Betancourt M.D. MF: FRANCISCO Report ID: [id number] Reading Location: [id number] Procedure Note Andres Betancourt MD - 09/12/2024 [...] Andres Betancourt M.D. MF: FRANCISCO Report ID: [id number] Reading Location: [id number] Shoshana Hutchins MD IMG XR PROCEDURES Final R esult * (ABNORMAL) POCT hemoglobin A1c (09/08/2024 2:41 PM CDT) Hemoglobin A1C, POC 9.0(A) 4.0 - 5.6 % Blood 09/08/2024 2:41 PM CDT Jm Alonso MD POINT OF CARE [...] signed by Collin STARKS T: Report ID: [id number] Reading Location: [id number] Procedure Note Collin Cantrell MD - 09/06/2024 [...] Collin Cantrell M.D. NS T: Report ID: [id number] Reading Location: [id number] Desi BRaegan Barney TROUBLE LINEMAN IMG XR PROCEDURES Final Re sult * [...] Collin Cantrell M.D. NS T: Report ID: [id number] Reading Location: [id number] Procedure Note Collin Cantrell MD - 09/06/2024 [...] signed by Collin STARKS T: Report ID: [id number] Reading Location: [id number] us Desi Barney TROUBLE LINEMAN IMG XR PROCEDURES Final Re sult * [...] Francisco Reyes M.D. BS T: Report ID: [id number] Reading Location: [id number] Procedure Note Francisco Reyes MD - 07/18/2024 [...] Francisco Reyes M.D. BS T: Report ID: [id number] Reading Location: [place] [address] Briseida Bowers NP IM XR PROCEDURES Final [...] Francisco Reyes M.D. BS T: Report ID: [id number] Reading Location: [id number] Procedure Note Francisco Reyes MD - 07/18/2024 [...] Francisco Reyes M.D. BS T: Report ID: [id number] Reading Location: [id number] Briseida Bowers NP IMG XR PROCEDURES Final [...] Francisco Reyes M.D. BS T: Report ID: [id number] Reading Location: [id number] Procedure Note Francisco Reyes MD - 07/18/2024 [...] Francisco Reyes M.D. BS T: Report ID: [id number] Reading Location: [id number] Briseida Bowers NP IMG XR PROCEDURES Final Result * POCT [...] - 09/30/2023 4:08 AM CDT Performed at: [address] [id number] Specialty Cook: Yuan Gaitan PhD, Phone: [phone] Jm Alonso MD LAB URINE ORDERABLES Final Re sult Performing Organization Address [facility]/ZIP Co de Phone Number [facility] * PSA screen (08/16/2021 10:37 AM CDT) PSA 0.5 0.0 - 4.0 ng/mL [facility] - 01 Comment: Lito ECLIA methodology. According to the [place] [employer], Serum PSA should decrease and [...] - 08/17/2021 7:09 AM CDT Performed at: [address] [id number] Specialty Cook: Yuan Gaitan PhD, Phone: [phone] Jm Alonso MD LAB BLOOD ORDERABLES Final Re sult Performing Organization Address City/[facility]/ZIP Co de Phone Number [facility] from Last 3 Months or Most Recently Relevant to Health Maintenance Insurance MEDICARE [facility] FEDERAL [facility] FEDERAL MEDICARE MEDICARE [facility] FEDERAL Advance Directives For more information, please contact: [phone] * Full Code (Latest Code Status on File) Date Activated Date Inactivated Comments 02/11/2023 9:33 AM 02/11/2023 4:38 PM * Full Code Date Activated Date Inactivated Comments 01/14/2023 8:51 AM 01/14/2023 4:11 PM Care Teams Senior Oracle Developer Relationship Specialty Start Date End Date Jm Alonso MD PCP - General Internal Medicine 08/25/18
--- OUTSIDE RECORDS SUMMARY | 2024-10-10 17:05 | XMS_ITS | Encounter Summary ---
Author Organization [employer] Address 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 [id number] [email or web address] Patient: Susan Ledezma MRN: Study ID: ADULT STRESS ECH Gender: M : 1955 Age: 51 years Race: 1 Room: Bed: Height: Study Date: October 18, 2007 Patient status: Inpatient Weight: Access. #: [id number] POC: Ordering: Jamie Riley Attending MD: Jamie [...] peak heart rate [place] blood [place] [address]. - There was no chest pain during [...] 09:54:58 Procedure Note Provider, Historical - 10/18/2007 [facility] [address] [place] [address] [email or web address] Patient: Susan Ledezma MRN: Study ID: ADULT STRESS ECH Gender: M : 1955 Age: 51 years Race: 1 Room: Bed: Height: Study Date: October 18, 2007 Patient status: Inpatient Weight: Access. #: [id number] POC: Ordering: Jamie Riley Attending MD: Jamie [...] the peak heart rate and blood pressurewas 07743. - There was no chest pain during [...] Jang MD Confirmed October 18, 2007 09:54:58 Jamei Chen MD ORDERABLES Final Resu lt INTERFACE SYSTEM Refer to clinic/hospital department * (ABNORMAL) BASIC METABOLIC PANEL (10/18/2007 6:57 AM CDT) SODIUM 135 135 - 145 mmol/L [facility] CALCIUM 8.5 8.4 - 10.2 mg/dL [facility] CO2 25 22 - 30 mmol/L [facility] CREATININE 1.19(H) 0.67 - 1.17 mg/dL [facility] POTASSIUM 4.6 3.5 - 4.9 mmol/L [facility] BUN 20 6 - 20 mg/dL [facility] CHLORIDE 99 96 - 108 mmol/L [facility] GLUCOSE 128(H) 65 - 99 mg/dL [facility] GFR, >60 >=60 mL/min/1. 7 sq meter [facility] GFR >60 >=60 mL/min/1. 7 sq meter [facility] Comment: Modification of Diet in Renal Disease (MDRD) study formula. Estimated GFR rate interpretative information for both Americans and non- Americans is available on the [facility] Intranet at: [email or web address] Select: Lab Policies and Procedures Select: Reference Ranges - GFR Blood specimen (specimen) 10/18/2007 6:57 AM CDT 10/18/2007 7:08 AM CDT Result [facility] Jamie Chen MD CHEMISTRY ORDERABLES Edite d Performing Organization Address [facility] Co de Phone Number [facility] CLIA# [id number] [address] [place] [address] * D-DIMER (10/17/2007 5:34 PM CDT) D-DIMER QUANT <0.22 <=0.42 ug/mL FEU [facility] Comment: DVT Screen reference range <0.45 [...] ORDERABLES Sania l Result Performing Organization Address [facility] Co de Phone Number [facility] CLIA# [id number] [address] [place] [address] * TROPONIN (10/17/2007 6:15 AM CDT) Pathologist [facility] TROPONIN T <0.01 <=0.03 ng/mL [facility] TROPONIN T INTERP Negative [facility] Blood specimen (specimen) 10/17/2007 6:15 AM CDT 10/17/2007 6:19 AM CDT us Jamie Chen MD CHEMISTRY ORDERABLES Edite d [facility] CLIA# [id number] [address] [place] [address] * (ABNORMAL) COMPREHENSIVE METABOLIC PANEL (10/16/2007 10:26 PM CDT) [facility] CALCIUM 9.1 8.4 - 10.2 mg/dL [facility] CO2 22 22 - 30 mmol/L [facility] ALBUMIN 4.4 3.4 - 4.8 g/dL [facility] POTASSIUM See note. 3.5 - 4.9 mmol/L [facility] Comment: Gross hemolysis present. Result unreliable. K not reported per . Gross hemolysis present. Result unreliable. CREATININE 1.10 0.67 - 1.17 mg/dL [facility] SODIUM 134(L) 135 - 145 mmol/L [facility] ALT 18 0 - 41 U/L [facility] Comment: Hemolyzed: Result may be falsely elevated. ALKALINE PHOSPHATASE 65 40 - 129 U/L [facility] BILIRUBIN TOTAL 0.5 0.2 - 1.0 mg/dL [facility] TOTAL PROTEIN 7.5 6.3 - 8.6 g/dL [facility] CHLORIDE 101 96 - 108 mmol/L [facility] GLUCOSE 174(H) 65 - 99 mg/dL [facility] AST 36 12 - 38 U/L [facility] Comment: Hemolyzed: Result may be falsely elevated. BUN 19 6 - 20 mg/dL [facility] GFR, >60 >=60 mL/min/1. 7 sq meter [facility] GFR >60 >=60 mL/min/1. 7 sq meter [facility] Comment: Modification of Diet in Renal Disease (MDRD) study formula. Estimated GFR rate interpretative information for both Americans and non- Americans is available on the [facility] Intranet at: [email or web address] Select: Lab Policies and Procedures Select: Reference Ranges - GFR Blood specimen (specimen) 10/16/2007 10:26 PM CDT 10/16/2007 10:34 PM CDT Mohsen Garcia MD CHEMISTRY ORDERABLES Edited [facility] CLIA# [id number] [address] [place] [address] * TROPONIN (W/REFLEX CKMB/CK) (10/16/2007 10:26 PM CDT) TROPONIN T <0.01 <=0.03 ng/mL [facility] TROPONIN T INTERP Negative [facility] Blood specimen (specimen) 10/16/2007 10:26 PM CDT 10/16/2007 10:34 PM CDT Mohsen Garcia MD CHEMISTRY ORDERABLES Edited [facility] CLIA# [id number] [address] [place] [address] * CBC WITH DIFFERENTIAL (10/16/2007 10:26 PM CDT) MPV 10.7 9.3 - 12.4 fL [facility] HEMATOCRIT 43.4 40.0 - 48.0 % [facility] RDW-STDEV 41.3 37.1 - 48.7 fL [facility] RBC 5.09 4.50 - 5.40 M/uL [facility] MCHC 35.3 31.5 - 35.5 % [facility] MCV 85.3 82.0 - 99.0 fL [facility] PLATELETS 275 140 - 350 K/uL [facility] HEMOGLOBIN 15.3 13.6 - 16.5 g/dL [facility] RDW 13.3 11.5 - 14.5 % [facility] WBC 8.7 4.0 - 9.8 K/uL [facility] MCH 30.1 27.2 - 32.6 pg [facility] BASOPHILS 1 0 - 2 % [facility] BASOPHILS ABSOLUTE 0.05 0.00 - 0.20 K/uL [facility] MONOCYTES 8 3 - 13 % [facility] MONOCYTE ABSOLUTE 0.68 0.10 - 1.30 K/uL [facility] NEUTROPHILS 65 45 - 70 % [facility] NEUTROPHIL ABSOLUTE 5.65 1.90 - 7.00 K/uL [facility] EOSINOPHILS 2 0 - 7 % [facility] EOSINOPHIL ABSOLUTE 0.15 0.00 - 0.70 K/uL [facility] LYMPHOCYTES 25 16 - 45 % [facility] LYMPHOCYTE ABSOLUTE 2.15 0.70 - 4.50 K/uL [facility] Blood specimen (specimen) 10/16/2007 10:26 PM CDT 10/16/2007 10:34 PM CDT us Mohsen Garcia MD HEMATOLOGY ORDERABLES Edited INTERFACE SYSTEM Refer to clinic/hospital department [facility] CLIA# [id number] [address] [place] [address] * XR CHEST PA OR AP (10/16/2007 10:25 PM CDT) Anatomical Region Laterality Modality Chest Other 10/16/2007 10:2 5 PM CDT Narrative 10/17/2007 5:13 PM CDT [facility] [address] [place], [place] [address] Admit Date: 10/17/2007 SUSAN LEDEZMA Sex: M Admit Prov: JAMIE CHEN Date: 1955 Primary Care Prov: CMRN: [id number] Room: [address] [place] [address] SSN: [id number] IMAGING SERVICES Ordering Prov: N/A Accession Number: [id number] Interpretation Chest, portable AP semierect, 10/16/2007 at [...] AMK Procedure Note Provider, Historical - 10/17/2007 [facility] [address] [place], [place] [address] Admit Date: 10/17/2007 SUSAN LEDEZMA Sex: M Admit Prov: JAMIE CHEN Date: 1955 Primary Care Prov: CMRN: [id number] Room: [address] [place] [address] SSN: [id number] IMAGING SERVICES Ordering Prov: N/A Interpretation Chest, [...]
--- OUTSIDE RECORDS SUMMARY | 2024-10-10 17:05 | XMS_ITS | Encounter Summary ---
Author Organization [facility] Healthcare Address [address] [place] [address] Care Team Providers Care Data Acquisition Technician Name Role Phone Jm Alonso MD Primary Care Provider [phone] Reason for Visit * Reason Comments Follow-up Encounter Details Date Type Department Care Team (Late st Contact Info) Description 10/10/2024 10:00 AM CDT Office Visit [facility] Hand Surgery [address] [facility] [address] [place] [address] Shoshana Hutchins MD [address] [facility] [address] [address] Closed traumatic dislocation of proximal interphalangeal (PIP) joint of left little finger (Primary Dx) Social History Tobacco Use Types Packs/Day Years [...] on file 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 FOLLOW UP VISIT Subjective CHIEF COMPLAINT Susan Ledezma was seen today for consultation requested by Jm Alonso MD for Follow-up of the Left Little Finger HISTORY OF PRESENT ILLNESS The patient is a 68-year-old right-hand dominant male with a past medical history of diabetes and Parkinson's who presents today for follow up of a left small finger dislocation he sustained on 09/06/2024. Since his last visit with me he has been doing therapy and has discontinued use of his splint. He states he has all of his motion back and he is happy with his small finger. He denies any paresthesias. PAST MEDICAL HISTORY He has a past medical history of Diabetes mellitus (HCC), Hyperlipidemia, Hypertension, Parkinson disease (HCC), and Sleep apnea. He has no past medical history of Delayed emergence from general anesthesia, Hard to intubate, Malignant hyperthermia, Motion sickness, PONV (postoperative nausea and vomiting), or Pseudocholinesterase deficiency. PAST SURGICAL HISTORY He has a past surgical history that includes Ulnar nerve repair (Left, 08/07/2020) and Cataract extraction (Left, 01/14/2023). MEDICATIONS He has a current medication list which includes the following prescription(s): aspirin, atorvastatin, carbidopa-levodopa, carbidopa-levodopa cr, cetirizine, clonazepam, cyanocobalamin, fenofibrate, gabapentin, insulin glargine, mirabegron er, omeprazole, pen needle, diabetic, sertraline, tamsulosin, and tradjenta. ALLERGIES He has no known allergies. 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 FAMILY HISTORY His family history includes Heart attack in his father; Heart disease in his father; Hypertension in his mother. REVIEW OF SYSTEMS Constitutional: Negative for fever and chills. HENT: Negative for neck pain. Eyes: Negative for change in vision. Respiratory: Negative for cough and shortness of breath. Cardiovascular: Negative for chest pain or pressure. PHYSICAL EXAM There were no vitals taken for this visit. General: Well appearing in no acute distress Chest: Normal work of breathing HEENT: Normocephalic, atraumatic Neuro: alert and oriented to person, place and time Examination of the left upper extremity demonstrates the patient is able to make a composite fist. He is able to flex and extend the PIP joint in his able to make a composite fist. This is stable. His sensation is intact to light touch in the radial and ulnar aspect of the digit as well as in the median, radial, and ulnar distributions. His digits are warm well perfused. REVIEW OF X-RAYS/STUDIES/LABS X-rays of the left hand dated 09/06/2024, left wrist dated today, left small finger dated today, were reviewed by me and it is my interpretation there are no dislocations or malalignment. The prior PIP dislocation of the left small finger has maintained closed reduction. Mild triscaphe joint osteoarthritis. Small avulsion fracture of the small finger middle phalanx volar base is unchanged. PLAN This is a 68-year-old right-hand dominant male who presents today following a closed left PIP dislocation with subsequent reduction 09/06/2024. I reviewed with the patient as well as his the relative anatomy of the diagnosis. I discussed with him that at this point he can return to any and all activity. He will return to see me on an as-needed basis. Shoshana Hutchins MD documented in this encounter Plan of Treatment Scheduled Procedures Name Priority Associated Diagnoses Date/Ti me COLONOSCOPY Encounter for screening colonoscopy documented as of this encounter Visit Diagnoses Diagnosis Closed traumatic dislocation of proximal interphalangeal (PIP) joint of left little finger- Primary documented in this encounter Care Teams Data Acquisition Technician Relationship Specialty Start Date End Date Jm Alonso MD PCP - General Internal Medicine 08/25/18 documented as of this encounter
--- OUTSIDE RECORDS SUMMARY | 2024-10-10 17:05 | XMS_ITS | Encounter Summary ---
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 Gender Identity Male 01/03/2020 10:22 AM CDT [...] SCAN - RADIOLOGY/IMAGING 10/10/2024 4:30 PM CDT documented in this encounter Results * SCAN - RADIOLOGY/IMAGING (10/10/2024 4:42 PM CDT) Anatomical Region Laterality Modality Other us Jm Alonso MD Final Result * SCAN - RADIOLOGY/IMAGING (10/10/2024 4:30 PM CDT) Anatomical Region Laterality Modality Other us Jm Alonso MD Final Result documented in this encounter Visit Diagnoses Not on filedocumented in this encounter Care Teams Vp Product Relationship Specialty Start Date End Date Jm Alonso MD PCP - General Internal Medicine 08/25/18 documented as of this encounter
== END 2024-10-10 17:29 | disposition home or self-care (01) ==
PROVIDERS: Emergency Provider Student in an Organized Health Care Education/Training Program; PCP Internal Medicine
DX: S80.212A Abrasion, left knee, initial encounter (principal); S80.211A Abrasion, right knee, initial encounter; G20.A1 Parkinson's disease without dyskinesia, without mention of fluctuations; F02.80 Dementia in other diseases classified elsewhere, unspecified severity, without behavioral disturbance, psychotic disturbance, mood disturbance, and anxiety; R29.6 Repeated falls; E11.9 Type 2 diabetes mellitus without complications; M47.812 Spondylosis without myelopathy or radiculopathy, cervical region; Z79.899 Other long term (current) drug therapy; Z79.84 Long term (current) use of oral hypoglycemic drugs; Z79.82 Long term (current) use of aspirin; W01.0XXA Fall on same level from slipping, tripping and stumbling without subsequent striking against object, initial encounter
CPT/HCPCS: 70450; 72125; 82948; 99284

== ENCOUNTER 2024-10-12 15:20 | Outpatient (CLI) | payer MEDICARE, BC, SELFPAY ==
--- NOTE | ~2024-10-12 | XR_ITS ---
Exam: Abdomen 1V HISTORY: CALCULUS OF URETER COMPARISON: None. TECHNIQUE: Supine images of the abdomen FINDINGS: Bowel gas pattern is nonspecific and non-obstructive. Fecal stasis within the colon and rectum. Projecting over the lower pole of the left kidney are multi ple calcified stones measuring 5.1, 5.3, and 7.2 mm. Within the left hemipelvis is an additional well-circumscribed calcification measuring 5.8 mm in cran iocaudal dimension, possibly a left distal ureteral stone at the level of the UVJ. There is no free air or deep sulci. Lung bases are unremarkable. Bones and soft tissues are unremarkable. IMPRESSION: Nonspecific, nonobstructive bowel gas pattern. Three nonobstructing left renal calculi. 5.8 mm calculus within the left hemipelvis, possibly at the level of the left UVJ. Cross-sectional im aging may be performed for confirmation. Reviewed, dictated and finalized at location A. IMPRESSION: Nonspecific, nonobstructive bowel gas pattern. Three nonobstructing left renal calculi. 5.8 mm calculus within the left hemipelvis, possibly at the level of the left U VJ. Cross-sectional imaging may be performed for confirmation.
--- OUTSIDE RECORDS SUMMARY | 2024-10-12 17:16 | XMS_ITS | Referral Summary ---
Author Organization [facility] Address [address] [place] [phone] Care Team Providers Care Visual Arts Teacher Name Role Phone Jm Alonso MD Primary Care Provider [phone] Encounters Date Type Department Care Team Description 10/10/2024 Orders Only [facility] [address] [phone] Jm Alonso MD 10/10/2024 10:00 AM CDT Office Visit [facility] Hand Surgery [address] [place] [address] [place] [phone] Shoshana Hutchins MD Closed traumatic dislocation of proximal interphalangeal (PIP) joint of left little finger (Primary Dx) 09/24/2024 11:22 AM CDT - 09/24/2024 5:[address] [facility] Emergency Department [id number] [place] [address] Natalie Urrutia MD Fitzmaurice, Sean C., MD Fall, initial encounter (Primary Dx); Blunt head trauma, initial encounter; Abdominal pain Discharge Disposition: Discharge to home or self care 09/24/2024 9:30 AM CDT Office Visit [facility] Medical Group [facility] Care at [address] [phone] Briseida Bowers NP Left upper quadrant abdominal pain (Primary Dx); Left upper quadrant abdominal tenderness without rebound tenderness; Contusion of abdominal wall, initial encounter; Multiple falls 09/16/2024 9:30 AM CDT Office Visit [facility] Movement Disorders [address] [facility] 7th [place] [address] Marcie Silver NP Parkinson's disease with dyskinesia and fluctuating manifestations (HCC) (Primary Dx); Levodopa-induced dyskinesia; REM sleep behavior disorder; Anxiety 09/12/2024 Telephone [facility] Scheduling [address] [place] [address] Marcie Silver NP Scheduling Appointments 09/12/2024 7:45 AM CDT - 09/12/2024 11:59 PM CDT Hospital Encounter [facility] 1 DIAG IMG [address] [place] [phone] Finger pain, left; Right wrist pain Discharge Disposition: Discharge to home or self care 09/12/2024 9:15 AM CDT Office Visit [facility] Medical [facility] Hand Surgery [facility] [address] [place] [phone] Shoshana Hutchins MD Finger pain, left (Primary Dx); Closed traumatic dislocation of proximal interphalangeal (PIP) joint of left little finger; Right wrist pain 09/08/2024 2:15 PM CDT Office Visit [facility] [address] [place] [address] [address] [place] [phone] Jm Alonso MD Type 2 diabetes mellitus without complication, without long-term current use of insulin (HCC) (Primary Dx); Parkinson's disease with dyskinesia and fluctuating manifestations (HCC); Essential hypertension 09/06/2024 Orders Only [facility] [address] [place] [address] [address] [place] [phone] Jm Alonso MD 09/06/2024 Results Follow-Up [facility] Convenient Care at [address] [phone] Desi Barney NP XR Finger 5Th Pinky Left 09/06/2024 2:35 PM CDT Ancillary Procedure [facility] Imaging at [address] [phone] Injury of left little finger, initial encounter 09/06/2024 2:10 PM CDT Ancillary Procedure [facility] Imaging at [address] [phone] Injury of left little finger, initial encounter 09/06/2024 2:30 PM CDT Office Visit [facility] Convenient Care at [address] [phone] Desi Barney NP Injury of left little finger, initial encounter (Primary Dx); Closed traumatic dislocation of proximal interphalangeal (PIP) joint of left little finger; Displaced fracture of middle phalanx of left little finger, initial encounter for closed fracture 09/05/2024 Telephone [facility] Movement Disorders [address] [place] [address] 7th [place] [address] Adrianne Briceño RN 07/25/2024 12:00 PM CDT Office Visit [facility] Neuro Sleep [address] [place] [address] 6th [address] [place] [address] Rusty Vicente PA Essential hypertension (Primary Dx); Obstructive sleep apnea on CPAP; REM sleep behavior disorder 07/18/2024 Results Follow-Up [facility]ient Care at [address] [phone] Briseida Bowers NP XR Shoulder Left 2+ Vw 07/18/2024 2:25 PM CDT Ancillary Procedure [facility] Imaging at [address] [phone] Accidental fall, initial encounter 07/18/2024 2:20 PM CDT Ancillary Procedure [facility] Medical [facility] Imaging at [address] [phone] Accidental fall, initial encounter 07/18/2024 2:15 PM CDT Ancillary Procedure [facility] Imaging at [address] [phone] Accidental fall, initial encounter 07/18/2024 2:00 PM CDT Office Visit [facility] Con[facility]ient Care at [address] [phone] Briseida Bowers NP Accidental fall, initial encounter (Primary Dx) from Last 3 Months Allergies No known active allergies Medications cetirizine (ZyrTEC) 10 mg tabletIndicati ons:Seasonal Allergic Rhinitis Take 1 tablet (10 mg total) by 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 nursery 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 teacher 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 Active aspirin 81 mg [...] (1,000 mcg total) by mouth daily Active carbidopa-levo dopa (SINEMET) 25-100 mg per [...] daily 45 mL 4 05/23/19 25 Active clonazePAM (KlonoPIN) 0.5 mg tabletIndicati ons:REM sleep behavior disorder TAKE 2 TABLETS BY MOUTH ONCE DAILY AT NIGHT 180 tablet 07/30/19 25 Active atorvastatin (LIPITOR) 20 mg tablet Take 1 tablet by mouth once daily 90 tablet 2 07/30/19 25 Active sertraline (ZOLOFT) 100 mg tablet Take 1.5 tablets (150 mg total) by mouth nursery school teacher 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 135 tablet 3 09/06/19 25 026 Active fenofibrate (TRIGLIDE) 160 mg tablet Take 1 tablet by mouth once daily 90 tablet 09/10/19 25 Active tamsulosin (FLOMAX) 0.4 mg extended release capsule Take 1 capsule by mouth once daily 90 capsule 09/10/19 25 Active mirabegron ER (MYRBETRIQ) 50 mg tablet extended release 24 hr Take 1 tablet (50 mg total) by mouth nursery school teacher 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 09/16/19 25 Active linaGLIPtin (Tradjenta) 5 mg tablet Take 1 tablet by mouth once daily 90 tablet 3 10/12/19 25 Active Tradjenta 5 mg tablet Take 1 tablet by mouth once daily 30 tablet 09/10/19 25 025 Discontinued Active Problems Problem Noted Date [...] (07/25/2020): Added automatically from request for surgery [id number] Levodopa-induced dyskinesia 05/04/2020 Paresthesia of skin 05/04/2020 Ulnar neuropathy at elbow of left upper extremit y 04/18/2020 Assessment & Plan (04/18/2020 1:53 PM MOP HANDLE ASSEMBLER): Plan at this point is to check nerve conduction study to verify that this is indeed a ulnar neuropathy at the elbow as opposed to a cervical radiculopathy. Once this is confirmed we can proceed with definitive therapy Type 2 diabetes mellitus wit hout complication, without long-term current use of insulin 02/29/2020 Assessment & Plan (05/23/2024 12:02 PM MOP HANDLE ASSEMBLER): Increase insulin to 30 units Assessment & Plan (02/09/2024 11:53 AM CDT): Incease lantus to 26 units. May need bolus insulin Essential hypertension 02/29/2020 Assessment & Plan (05/23/2024 12:02 PM MOP HANDLE ASSEMBLER): Bp at target Assessment & Plan (02/09/2024 [...] to increase the dose slightly. Parkinson disease ([facility]) 05/29/2015 Assessment & Plan (10/04/2024 4:14 PM [...] patient. Assessment & Plan (05/23/2024 12:02 PM MOP HANDLE ASSEMBLER): [facility]rol [facility] neurology Assessment & Plan (02/09/2024 11:52 AM [...] He has finished PT and knows of [employer] youtube channel exercises online. He is interested [...] day. Assessment & Plan (03/26/2023 7:09 PM MOP HANDLE ASSEMBLER): He has parkinsonism stage 2.5 characterized on [...] more consistent with dose timing. 3. Call [facility] PT to schedule a follow up appointment. 4. I will send a referral to [facility] OT for a driving evaluation. Assessment & Plan (05/16/2022 1:12 PM MOP HANDLE ASSEMBLER): He has parkinsonism stage 2.5 characterized on [...] back irbesartan to half. 6. [employer]. 7. Start PT and ST here at [facility] then get plan made for PT and [...] exercises. Assessment & Plan (05/04/2020 12:37 PM MOP HANDLE ASSEMBLER): He has parkinsonism stage 2.5 characterized on [...] a referral to a sleep neurologist at [facility]. They may want to order another sleep study because it has been some time since your last one. 4. I will send a referral to [facility] PT for balance and walking. 5. Increase clonazepam to 2 tablets at bedtime (1mg total). I sent renewal prescription 6. Our office to look for [employer] parking application which they will send for [...] on file Legal Sex Male 11:00 AM MOP HANDLE ASSEMBLER Gender Identity Male 01/03/2020 10:22 AM CDT [...] screening colonoscopy Medical Devices Implanted Type Area Logging Tractor Operator Device Identifier Shelf Expiration Date Model / Serial / Lot [employer] Lens Iol Tecnis Smplcty 1-Pc Clr [place] 15.5 Diopter [id number] - [id number] - [id number] Implanted:Qty: 1 on 01/14/2023 by Richmond Morales MD at [facility] Lens Left: Eye [employer] [id number] 05/10/2025 [id number] / [id number] / 0 [employer] Lens Iol Tecnis Smplcty 1-Pc Clr [place] 15.5 Diopter [id number] - [id number] - [id number] Implanted:Qty: 1 on 02/11/2023 by Richmond Morales MD at [facility] Lens Right: Eye [place] [employer] [id number] 12/10/2024 [id number] / [id number] / Procedures Procedure Name Priority Date/Time Associated Diagnosis Comments SCAN - LABS 10/10/2024 5:00 PM CDT SCAN - RADIOLOGY/IMAGING 10/10/2024 4:42 PM CDT [...] to Health Maintenance Results * SCAN - LABS (10/10/2024 5:00 PM CDT) us Jm Alonso MD Final Result * SCAN - RADIOLOGY/IMAGING (10/10/2024 4:42 PM [...] by: Nydia Ryan M.D. Natalie Urrutia MD IM CT PROCEDURES Sania l Result * CT [...] tendency for uric acid stone formation. Source: [facility] [employer] Current Interpretive Data was last revised on [...] MICROBIOLOGY - GEN ERAL ORDERABLES Final Result Performing Organization Address City/[facility] Co de Phone Number DELIA KNAPPCH [address] [employer] [facility] [place] [address] * (ABNORMAL) eGFR (09/24/2024 1:14 PM CDT) [...] ORDERABLES F inal Result Performing Organization Address [facility]/ZIP Co de Phone Number DELIA BJWCH [address] [facility] [place] [address] * Lipase (09/24/2024 1:14 PM CDT) Lipase 56 10 - 99 Units/L Blood 09/24/2024 1:14 PM CDT 09/24/2024 1:22 PM CDT Natalie Urrutia MD LAB BLOOD ORDERABLES F inal Result [facility] [address] [facility]. [place] [address] * (ABNORMAL) Comprehensive metabolic panel (09/24/2024 1:14 [...] LAB BLOOD ORDERABLES F inal Result DELIA CARRERA [address] [address] [facility]. [place] [address] * (ABNORMAL) Differential, auto (09/24/2024 12:41 PM CDT) Neutrophil abs 7.45(H) 1.50 - 6.50 K/cumm Imm gran abs 0.03 0.00 - 0.10 K/cumm [facility]ER [facility] Lymphocyte abs 0.94 0.80 - 3.30 K/cumm [facility] Monocyte abs 0.50 0.20 - 0.80 K/cumm [facility] Eosinophil abs 0.22 0.00 - 0.50 K/cumm [facility] Basophil abs 0.06 0.00 - 0.10 K/cumm C[facility]ER [facility] Neutrophil pct 81.0 % DELIA CARRERA Comment: Interpretive Data Percent cell count reference ranges are not reported, since discordance with absolute values may lead to misinterpretation of CBC data. Current Interpretive Data was last revised on 2017. Imm gran pct 0.3 % [facility] Comment: Interpretive Data Percent cell count reference ranges are not reported, since discordance with absolute values may lead to misinterpretation of CBC data. Current Interpretive Data was last revised on 2017. Lymphocyte pct 10.2 % DELIA CARRERA Comment: Interpretive Data Percent cell count reference ranges are not reported, since discordance with absolute values may lead to misinterpretation of CBC data. Current Interpretive Data was last revised on 2017. Monocyte pct 5.4 % DELIA CARRERA Comment: Interpretive Data Percent cell count reference ranges are not reported, since discordance with absolute values may lead to misinterpretation of CBC data. Current Interpretive Data was last revised on 2017. Eosinophil pct 2.4 % DELIA KNAPP Comment: Interpretive Data Percent cell count reference ranges are not reported, since discordance with absolute values may lead to misinterpretation of CBC data. Current Interpretive Data was last revised on 2017. Basophil pct 0.7 % [facility] Comment: Interpretive Data Percent cell count reference ranges are not reported, since discordance with absolute values may lead to misinterpretation of CBC data. Current Interpretive Data was last revised on 2017. Blood 09/24/2024 12:4 1 PM CDT 09/24/2024 12:49 PM CDT Natalie Urrutia MD LAB BLOOD ORDERABLES F inal Result [facility] [address] [facility]. [facility] of [employer] [place], [place] [id number] * (ABNORMAL) CBC with auto differential (09/24/2024 12:41 PM CDT) WBC 9.20 3.80 - 9.90 K/cumm Hgb 12.1(L) 13.0 - 17.5 g/dL [facility] BJW Hct 37.9(L) 38.9 - 50.3 % [facility] Plt 330 150 - 400 K/cumm [facility] MPV 9.8 9.1 - 12.3 fL [facility] RBC 4.53 4.30 - 5.80 M/cumm [facility] BJW MCV 83.7 81.3 - 96.4 fL [facility] W MCH 26.7(L) 27.1 - 33.3 pg [facility] MCHC 31.9(L) 32.3 - 35.7 g/dL [facility] RDW CV 14.8 11.1 - 14.9 % [facility] RDW SD 44.9 35.7 - 48.1 fL [facility] NRBC abs 0.00 0.00 - 0.01 K/cumm [facility] W Blood 09/24/2024 12:4 1 PM CDT 09/24/2024 12:49 PM CDT Natalie Urrutia MD LAB BLOOD ORDERABLES F inal Result [facility] BJWCH [address] [facility]. [place] [address] * XR Finger 5th Pinky Left (09/12/2024 [...] Andres Betancourt M.D. MF: FRANCISCO Report ID: [id number] Reading Location: [id number] Procedure Note Andres Betancourt MD - 09/12/2024 [...] Andres Betancourt M.D. MF: FRANCISCO Report ID: [id number] Reading Location: [place] [address] [place] Shoshana Hutchins MD IMG XR PROCEDURES [...] Andres Betancourt M.D. MF: [place]CO Report ID: [id number] Reading Location: [id number] Procedure Note Andres Betancourt MD - 09/12/2024 [...] Andres Betancourt M.D. MF: FRANCISCO Report ID: [id number] Reading Location: [id number] us Shoshana Hutchins MD IMG XR PROCEDURES [...] Andres Betancourt M.D. MF: FRANCISCO Report ID: [id number] Reading Location: [id number] Procedure Note Andres Betancourt MD - 09/12/2024 [...] Andres Betancourt M.D. MF: FRANCISCO Report ID: [id number] Reading Location: [id number] us Shoshana Hutchins MD IMG XR PROCEDURES [...] signed by Collin STARKS T: Report ID: [id number] Reading Location: [id number] Procedure Note Collin Cantrell MD - 09/06/2024 [...] signed by Collin STARKS T: Report ID: [id number] Reading Location: [id number] Desi Barney NP IMG XR PROCEDURES Final [...] signed by Collin STARKS T: Report ID: [id number] Reading Location: [id number] Procedure Note Collin Cantrell MD - 09/06/2024 [...] signed by Collin STARKS T: Report ID: [id number] Reading Location: [place] [address] Desi Barney NP IMG XR PROCEDURES Final [...] Francisco Reyes M.D. BS T: Report ID: [id number] Reading Location: [id number] Procedure Note Francisco Reyes MD - 07/18/2024 [...] Francisco Reyes M.D. BS T: Report ID: [id number] Reading Location: [id number] Briseida Bowers NP IMG XR PROCEDURES Final [...] Francisco Reyes M.D. BS T: Report ID: [id number] Reading Location: [id number] Procedure Note Francisco Reyes MD - 07/18/2024 [...] Francisco Reyes M.D. BS T: Report ID: [id number] Reading Location: [id number] Briseida Bowers NP IM XR PROCEDURES Final Result * XR Hip [...] Francisco Reyes M.D. BS T: Report ID: [id number] Reading Location: [id number] Procedure Note Francisco Reyes MD - 07/18/2024 [...] Francisco Reyes M.D. BS T: Report ID: [id number] Reading Location: [id number] Briseida Bowers NP IMG XR PROCEDURES Final [...] - 09/30/2023 4:08 AM CDT Performed at: [address] [place], [place] [id number] Abrasive Grader: Yuan Gaitan PhD, Phone: [phone] Jm Alonso MD LAB URINE ORDERABLES Final Re sult [facility] - * PSA screen (08/16/2021 10:37 AM CDT) PSA 0.5 0.0 - 4.0 ng/mL [facility] - 01 Comment: Lito ECLIA methodology. According to the [place] [employer], Serum PSA should decrease and [...] - 08/17/2021 7:09 AM CDT Performed at: [address] [place] [address] [place], [place] [id number] Abrasive Grader: Yuan Gaitan PhD, Phone: [phone] Jm Alonso MD LAB BLOOD ORDERABLES Final Re sult [facility] [place] [facility] Organization Address City/State/ZIP Co de Phone Number [facility] - 01 from Last 3 Months or Most Recently Relevant to Health Maintenance Insurance MEDICARE [facility] Address: [address] [place] [address] MEDICARE [facility] Address: [address] [place] [address] [facility] Address: [facility] [id number] [place] [address] MEDICARE MEDICARE [facility] Address: [address] [place] [address] Advance Directives For more information, please contact: [phone] * Full Code (Latest Code Status on File) Date Activated Date Inactivated Comments 02/11/2023 9:33 AM 02/11/2023 4:38 PM * Full Code Date Activated Date Inactivated Comments 01/14/2023 8:51 AM 01/14/2023 4:11 PM Care Teams Visual Arts Teacher Relationship Specialty Start Date End Date Jm Alonso MD PCP - General Internal Medicine 08/25/18
--- OUTSIDE RECORDS SUMMARY | 2024-10-12 17:17 | XMS_ITS | Continuity of Care Document ---
Author Organization [facility] Address [address] [facility] [address] [place] [address] Phone Care Team Providers Care Cognos Administrator Name Role Phone Lucy Dang OT Unavailable Unavailable Procedures Procedure Date Progress Note Manual Therapy Therapeutic Activities Hot or Cold Pack Therapeutic Activities Manual Therapy Hot or Cold Pack Therapeutic Activities Manual Therapy Hot or Cold Pack Therapeutic Activities Therapeutic Exercise Hot or Cold Pack Therapeutic Activities Therapeutic Exercise Hot or Cold Pack Doc neg elder mal no plan Identified as not an unhealthy alcohol u ser Not identified as unhealthy alcohol via screening OT Evaluation Low Complexity Therapeutic Activities Therapeutic Exercise Hot or Cold Pack Therapeutic Activities Therapeutic [...] Diagnoses Date Provider Providers Copied on Encounter [facility], [place], [place], [address], [place] tel:[phone] [place] No Information Laurence Ayala. . [facility] [facility], [place], [place], [address], [place] tel:[phone] [place] No Information Sep-1 2- 5 Dang Lucy. . Referring Provider: Shoshana Hutchins, [address] [place] [address], [place], [address] . tel:[phone] [facility] [address], [place], [place], [address], [place] tel:[phone] [place] No Information Giulle-0 5- 5 Dang Lucy. . Referring Provider: Shoshana Hucthins, [address] [place] [address], [place], [address] . tel:[phone] [place], [place] [address] [address], [place], [place], [address], tel:[phone] [place] No Information 0 3- 5 Dang Lucy. . Referring Provider: Shoshana Hutchins, [address] [place] [address], [place], [address] . tel:[phone] [place] [address] [address] [facility], [place], [place], [id number], [place] tel:[phone] [place] No Information August-2 5 Dang Lucy. . Referring Provider: Shoshana Hutchins [address] [place] [address], [place], [address] . tel:[phone] [place] [address], [place], [place], [address], [place] tel:[phone] [place] No Information August-2 5 Dang Lucy. . Referring Provider: Shoshana Hutchins [address] [place] [address], [place], [address] . tel:[phone] [facility], [address], [place], [place], [address], [place] tel:[phone] [place] No Information 5 Dang Lucy. . Referring Provider: Shoshana Hutchins, [address], [place], [address] . tel:[phone] [facility], [place], [place], [address], [place] tel:[phone] [place] No Information Dec-3 4 Dang Lucy. . Referring Provider: Fadi Martinez, [address] [facility] [address], [place], [address]. tel:[phone] [facility] [address], [place], [place], [address], [place] tel:[phone] [place] No Information Mar-3 4 [place]. . Referring Provider: José Miguel Michaels, [address] [place] [address], [address]. tel:[phone] [facility], [place], [place], [address], [place] tel:[phone] [place] No Information Mar-2 4 Dang Lucy. . Referring Provider: Fadi Martinez, [address] [facility] [address], [place], [address]. tel:[phone] [facility], [place], [place], [address], [place] tel:[phone] [place] No Information Dec-2 4 [place]. . Referring Provider: José Miguel Michaels, [address] [place] [address], [address]. tel:[phone] [facility], [place], [address], [place] tel:[phone] [place] No Information Dec-2 4 Dang Lucy. . Referring Provider: Fadi Martinez, [address] [facility] [address], [place], [address]. tel:[phone] [facility], [address], [place], [place], [address], [place] tel:[phone] [place] No Information 4 [place]. . Referring Provider: José Miguel Michaels, [address] [place] [address], [address]. tel:[phone] [facility] [address], [place], [place], [address], [place] tel:[phone] [place] No Information 4 Dean Aparicio. . Referring Provider: Fadi Martinez, [address] [facility] [address], [place], [address]. tel:[phone] [facility] [address], [place], [place], [address], [place] tel:[phone] [place] No Information 4 [place]. . Referring Provider: José Miguel Michaels, [address] [place] [address], [address]. tel:[phone] [facility] [address] [facility], [place], [place], [address], [place] tel:[phone] [place] No Information 4 [place]. . Referring Provider: José Miguel Michaels, [address] [place] [address], [address]. tel:[phone] [facility] [address], [place], [place], [address], [place] tel:[phone] [place] No Information 4 Dang Lucy. . Referring Provider: Fadi Martinez, [address] [facility] [address], [place], [address]. tel:[phone] [facility], [address], [place], [address], [place] tel:[phone] [place] No Information Mar- 4 Dang Lucy. . Referring Provider: Fadi Martinez, [address] [facility] [address], [place], [address]. tel:[phone] [facility] [address], [place], [place], [address], [place] tel:[phone] [place] No Information Dec-1 2- 4 [place]. . Referring Provider: José Miguel Michaels, [address] [place] [address], [address]. tel:[phone] [facility], [address], [place], [place], [address], [place] tel:[phone] [place] No Information Dec-0 9 4 [place]. . Referring Provider: José Miguel Michaels, [address] [place] [address], [address]. tel:[phone] [facility] [address], [place], [place], [address], [place] tel:[phone] [place] No Information Dec-0 - 4 [place], [place], [place]. Referring Provider: José Miguel Michaels, [address] [place] [address], [address]. tel:[phone] [facility], [place], [place], [address], [place] tel:[phone] [place] No Information Dec-0 4 Dang Lucy. . Referring Provider: Fadi Martinez, [address] [facility] [address], [place], [address]. tel:[phone] [facility], [address], [place], [place], [address], [place] tel:[phone] [place] No Information Feb-2 - 4 Dang Lucy. . Referring Provider: Fadi Martinez, [address] [facility] [address], [place], [address]. tel:[phone] [facility], [place], [place], [address], [place] tel:[phone] [place] No Information 4 Dang Lucy. . Referring Provider: Fadi Martinez, [address] [facility] [address], [place], [address]. tel:[phone] [facility], [address], [place], [place], [address], [place] tel:[phone] [place] No Information 4 Dang Lucy. . Referring Provider: Fadi Martinez, [address] [facility] [address], [place], [address]. tel:[phone] [facility] [address], [place], [place], [address], [place] tel:[phone] [place] No Information 0 4 Dang Lucy. . Referring Provider: Fadi Martinez, [address] [facility] [address], [place], [address]. tel:[phone] [facility], [address], [place], [place], [address], [place] tel:[phone] [place] No Information 0 4 Dang Lucy. . Referring Provider: Fadi Martinez, [address] [facility] [address], [place], [address]. tel:[phone] [facility] [address], [place], [place], [address], [place] tel:[phone] [place] No Information 4 Dang Lucy. . Referring Provider: Fadi Martinez, [address] [facility] [address], [place], [address]. tel:[phone] [facility], [place], [place], [address], [place] tel:[phone] [place] No Information 4 Dang Lucy. . Referring Provider: Fadi Martinez, [address] [facility] [address], [place], [address]. tel:[phone] [facility], [address], [place], [place], [address], [place] tel:[phone] [place] No Information 4 Dang Lucy. . Referring Provider: Fadi Martinez, [address] [facility] [address], [place], [address]. tel:[phone] [facility] [address], [place], [place], [address], [place] tel:[phone] [place] No Information 4 Dang Lucy. . Referring Provider: Fadi Martinez, [address] [facility] [address], [place], [address]. tel:[phone] [facility] [address], [place], [address], tel:[phone] [place] No Information 4 Dang Lucy. . Referring Provider: Fadi Martinez, [address] [place] [address] [place], [address]. tel:[phone] Family History Family Member Type Diagnosis Age At Onset No Information Payers Payer name Insurance type Covered green party ID Authorjasmina tialyse(s) Medicare [place] [id number] Social History Type Description Quantity Date Captured Comments Sex Male Smoking Status No Information Chief Complaint And Reason For Visit No Information Reason For Referral Reason For Referral No Information Plan Of Treatment Date Type Action Status Appointment Susan Ledezma 1-on-1 BOOKED Appointment Susan Ledezma 1-on-1 BOOKED Appointment Susan Ledezma 1-on-1 BOOKED Appointment Susan Ledezma 1-on- BOOKED History Of Present Illness Encounter Date Complaint History Of Prese nt Illness No Information Functional Status Date Functional Assessmen t No Information Instructions Date Instruction Additional Infor mation No Information Assessments Type Assessment Date No Information Patient Care Teams Name Effective Dates (start - stop) Status Members No Information
--- OUTSIDE RECORDS SUMMARY | 2024-10-12 17:17 | XMS_ITS | Encounter Summary ---
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
--- OUTSIDE RECORDS SUMMARY | 2024-10-12 17:17 | XMS_ITS | Encounter Summary ---
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
--- OUTSIDE RECORDS SUMMARY | 2024-10-12 17:17 | XMS_ITS | Clinical Summary ---
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
--- OUTSIDE RECORDS SUMMARY | 2024-10-12 17:17 | XMS_ITS | Clinical Summary ---
Author Organization [facility] Address [address] [place] [address] Care Team Providers Care Occupational Hygienist Name Role Phone Jm Alonso MD Primary Care Provider [phone] Allergies No known active allergies Medications cetirizine (ZyrTEC) 10 mg tabletIndicati ons:Seasonal Allergic Rhinitis Take 1 tablet (10 mg total) by mouth optical glass sawyer 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 Active aspirin 81 mg enteric [...] 1.5 tablets (150 mg total) by mouth optical glass sawyer 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 135 tablet 3 09/06/19 25 026 Active fenofibrate (TRIGLIDE) 160 mg tablet Take 1 tablet by mouth once daily 90 tablet 09/10/19 25 Active tamsulosin (FLOMAX) 0.4 mg extended release capsule Take 1 capsule by mouth once daily 90 capsule 09/10/19 25 Active mirabegron ER (MYRBETRIQ) 50 mg tablet extended release 24 hr Take 1 tablet (50 mg total) by mouth optical glass sawyer 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 09/16/19 25 Active linaGLIPtin (Tradjenta) [...] (07/25/2020): Added automatically from request for surgery [id number] 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 Once this is confirmed we can proceed with definitive therapy Type 2 diabetes mellitus wit hout complication, without long-term current use of insulin 02/29/2020 Assessment & Plan (05/23/2024 12:02 PM COMPUTER TAPE LIBRARIAN): Increase insulin to 30 units Assessment & Plan (02/09/2024 11:53 AM CDT): Incease lantus to 26 units. May need bolus insulin Essential hypertension 02/29/2020 Assessment & Plan (05/23/2024 12:02 PM COMPUTER TAPE LIBRARIAN): Bp at target Assessment & Plan (02/09/2024 [...] to increase the dose slightly. Parkinson disease ([facility]) 05/29/2015 Assessment & Plan (10/04/2024 [...] willing to resume PT and knows of [employer] youtube channel exercises online. He has completed [...] patient. Assessment & Plan (05/23/2024 12:02 PM COMPUTER TAPE LIBRARIAN): sandee Stevens neurology Assessment & Plan (02/09/2024 [...] day. Assessment & Plan (03/26/2023 7:09 PM COMPUTER TAPE LIBRARIAN): He has parkinsonism stage 2.5 characterized on [...] gabapentin.. 3. Same clonazepam. 4. Start [employer] channel exercises. 5. Start PT, rx given. [...] more consistent with dose timing. 3. Call [facility] PT to schedule a follow up appointment. 4. I will send a referral to [facility] OT for a driving evaluation. Assessment & Plan (05/16/2022 1:12 PM COMPUTER TAPE LIBRARIAN): He has parkinsonism stage 2.5 characterized on [...] about cutting back irbesartan to half. 6. [employer] Voice Project. 7. Start PT and ST here at [facility] then get plan made for PT [...] exercises. Assessment & Plan (05/04/2020 12:37 PM COMPUTER TAPE LIBRARIAN): He has parkinsonism stage 2.5 characterized on [...] a referral to a sleep neurologist at [facility]. They may want to order another sleep study because it has been some time since your last one. 4. I will send a referral to [facility] PT for balance and walking. 5. [...] Description 10/10/2024 10:00 AM CDT Office Visit [facility] [address] [place] [phone] Shoshana Hutchins MD Closed traumatic dislocation of proximal interphalangeal (PIP) joint of left little finger (Primary Dx) 10/10/2024 Orders Only [facility] [address] [facility] [address] [place] [address] Jm Alonso MD 09/24/2024 11:22 AM CDT - 09/24/2024 5:52 PM CDT Emergency [facility] Emergency Department [address] [address] Natalie Urrutia MD Fitzmaurice, Sean C., MD Fall, initial encounter (Primary Dx); Blunt head trauma, initial encounter; Abdominal pain Discharge Disposition: Discharge to home or self care 09/24/2024 9:30 AM CDT Office Visit [facility] Care at [address] [phone] Briseida Bowers NP Left upper quadrant abdominal pain (Primary Dx); Left upper quadrant abdominal tenderness without rebound tenderness; Contusion of abdominal wall, initial encounter; Multiple falls 09/16/2024 9:30 AM CDT Office Visit [facility] Movement Disorders [facility] 7th [place] [address] Marcie Silver NP Parkinson's disease with dyskinesia and fluctuating manifestations (HCC) (Primary Dx); Levodopa-induced dyskinesia; REM sleep behavior disorder; Anxiety 09/12/2024 9:15 AM CDT Office Visit [facility] [address] [place] [phone] Shoshana Hutchins MD Finger pain, left (Primary Dx); Closed traumatic dislocation of proximal interphalangeal (PIP) joint of left little finger; Right wrist pain 09/12/2024 7:45 AM CDT - 09/12/2024 11:59 PM CDT Hospital Encounter [facility] MOB 1 DIAG IMG [address] [place] [address] Finger pain, left; Right wrist pain Discharge Disposition: Discharge to home or self care 09/12/2024 Telephone [facility] Scheduling [address] [place] [address] Marcie Silver NP Scheduling Appointments 09/08/2024 2:15 PM CDT Office Visit [facility] [address] [place] [address] [address] [facility] [address] [place] [address] Jm Alonso MD Type 2 diabetes mellitus without complication, without long-term current use of insulin (HCC) (Primary Dx); Parkinson's disease with dyskinesia and fluctuating manifestations (HCC); Essential hypertension 09/06/2024 2:35 PM CDT Ancillary Procedure [facility] Imaging at [address] [address] Injury of left little finger, initial encounter 09/06/2024 2:30 PM CDT Office Visit [facility] at [address] [address] Desi Barney NP Injury of left little finger, initial encounter (Primary Dx); Closed traumatic dislocation of proximal interphalangeal (PIP) joint of left little finger; Displaced fracture of middle phalanx of left little finger, initial encounter for closed fracture 09/06/2024 2:10 PM CDT Ancillary Procedure [facility] Imaging at [address] [address] Injury of left little finger, initial encounter 09/06/2024 Orders Only [facility] [address] [place] [address] [address] [facility] [address] [place] [address] Jm Alonso MD 09/06/2024 Results Follow-Up [facility] Care at [address] [address] Desi Barney NP XR Finger 5Th Pinky Left 09/05/2024 Telephone [facility] Movement Disorders [address] [facility] 7th [place] [phone] Adrianne Briceño RN 07/25/2024 12:00 PM CDT Office Visit [facility] Neuro Sleep [address] [place] [address] Rusty Vicente PA Essential hypertension (Primary Dx); Obstructive sleep apnea on CPAP; REM sleep behavior disorder 07/18/2024 2:25 PM CDT Ancillary Procedure [facility] Imaging at [address] [address] Accidental fall, initial encounter 07/18/2024 2:20 PM CDT Ancillary Procedure [facility] Imaging at [address] [address] Accidental fall, initial encounter 07/18/2024 2:15 PM CDT Ancillary Procedure [facility] Imaging at [address] [address] Accidental fall, initial encounter 07/18/2024 2:00 PM CDT Office Visit [facility]ient Care at [address] [address] Briseida Bowers NP Accidental fall, initial encounter (Primary Dx) 07/18/2024 Results Follow-Up [facility] Care at [address] [address] Briseida Bowers NP XR Shoulder Left 2+ [...] on file Legal Sex Male 11:00 AM COMPUTER TAPE LIBRARIAN Gender Identity Male 01/03/2020 10:22 AM CDT [...] the future) Medical Devices Implanted Type Area Safety Relief Valve Technician Device Identifier Shelf Expiration Date Model / Serial / Lot [employer] Lens Iol Tecnis Smplcty 1-Pc Clr [place] 15.5 Diopter [id number] - [id number] - [id number] Implanted:Qty: 1 on 01/14/2023 by Richmond Morales MD at [facility] Lens Left: Eye [employer] [id number] 05/10/2025 [id number] / [id number] / 0 [employer] Lens Iol Tecnis Smplcty 1-Pc Clr [place] 15.5 Diopter [id number] - [id number] - [id number] Implanted:Qty: 1 on 02/11/2023 by Richmond Morales MD at [facility] Lens Right: Eye [employer] [id number] 12/10/2024 [id number] / [id number] / Procedures Procedure Name Priority Date/Time Associated [...] spine. Electronically signed by: Nydia Ryan M.D. us Natalie Urrutia MD IMG CT [...] tendency for uric acid stone formation. Source: [facility] [employer] Current Interpretive Data was last revised on [...] GEN ERAL ORDERABLES Final Result [place] REEVESWCH [address] [facility]. [place] [address] * (ABNORMAL) eGFR (09/24/2024 1:14 PM CDT) [...] ORDERABLES F inal Result Performing Organization Address [facility] Co de Phone Number [facility] BJWCH [address] [employer] [place] [address] * Lipase (09/24/2024 1:14 PM CDT) Lipase 56 10 - 99 Units/L Blood 09/24/2024 1:14 PM CDT 09/24/2024 1:22 PM CDT Natalie Urrutia MD LAB BLOOD ORDERABLES F inal Result Performing Organization Address [facility] Co de Phone Number [facility] B[facility] [address] [employer] [place] [address] * (ABNORMAL) Comprehensive metabolic panel (09/24/2024 1:14 [...] classification and Diagnosis of Diabetes Diabetes Care 202; 46: S19-S40. Current interpretive data was last [...] LAB BLOOD ORDERABLES F inal Result [place] KNAPP [address] [facility]. Department of Laboratories [place] [id number] * (ABNORMAL) Differential, auto (09/24/2024 12:41 PM [...] on 2017. Eosinophil pct 2.4 % [facility] BJWCH Comment: Interpretive Data Percent [...] ORDERABLES F inal Result Performing Organization Address [facility] Co de Phone Number [place] CARRERA [address] [employer] Department [employer] [place], [place] [phone] * (ABNORMAL) CBC with auto differential (09/24/2024 12:41 PM CDT) [facility] WBC 9.20 3.80 - 9.90 K/cumm Hgb 12.1(L) 13.0 - 17.5 g/dL [facility] Hct 37.9(L) 38.9 - 50.3 % [facility] Plt 330 150 - 400 K/cumm [facility] WCH MPV 9.8 9.1 - 12.3 fL [facility] RBC 4.53 4.30 - 5.80 M/cumm [facility] MCV 83.7 81.3 - 96.4 fL [facility] MCH 26.7(L) 27.1 - 33.3 pg [facility] W MCHC 31.9(L) 32.3 - 35.7 g/dL [facility] RDW CV 14.8 11.1 - 14.9 % [facility] B[facility] RDW SD 44.9 35.7 - 48.1 fL [facility] NRBC abs 0.00 0.00 - 0.01 K/cumm [facility] Blood 09/24/2024 12:4 1 PM CDT 09/24/2024 12:49 PM CDT Natalie Urrutia MD LAB BLOOD ORDERABLES F inal Result Performing Organization Address [facility] Co de Phone Number [place] KNAPPCH [address] [employer] [facility] [place] [address] * XR Finger 5th Pinky Left (09/12/2024 [...] Andres Betancourt M.D. MF: FRANCISCO Report ID: [id number] Reading Location: [id number] Procedure Note Andres Betancourt MD - 09/12/2024 [...] Andres Betancourt M.D. MF: FRANCISCO Report ID: [id number] Reading Location: [place] [address] us Shoshnaa Hutchins MD IMG XR PROCEDURES Final R [...] Andres Betancourt M.D. MF: FRANCISCO Report ID: [id number] Reading Location: [id number] Procedure Note Andres Betancourt MD - 09/12/2024 [...] Andres Betancourt M.D. MF: FRANCISCO Report ID: [id number] Reading Location: [place] [address] us Shoshana Hutchins MD IMG XR PROCEDURES [...] Andres Betancourt M.D. MF: FRANCISCO Report ID: [id number] Reading Location: [id number] Procedure Note Andres Betancourt MD - 09/12/2024 [...] Andres Betancourt M.D. MF: FRANCISCO Report ID: [id number] Reading Location: [id number] Shoshana Hutchins MD IMG XR PROCEDURES Final [...] CDT) Anatomical Region Laterality Modality Other us mJ Alonso MD Final Result * XR Finger [...] signed by Collin STARKS T: Report ID: [id number] Reading Location: [id number] Procedure Note Collin Cantrell MD - 09/06/2024 [...] Collin Cantrell M.D. NS T: Report ID: [id number] Reading Location: [id number] Desi Barney NP IMG XR PROCEDURES Final [...] Collin Cantrell M.D. NS T: Report ID: [id number] Reading Location: [id number] Procedure Note Collin Cantrell MD - 09/06/2024 [...] signed by Collin STARKS T: Report ID: [id number] Reading Location: [id number] Desi Barney NP IMG XR PROCEDURES Final [...] Francisco Reyes M.D. BS T: Report ID: [id number] Reading Location: [id number] Procedure Note Francisco Reyes MD - 07/18/2024 [...] Francisco Reyes M.D. BS T: Report ID: [id number] Reading Location: [place] [address] Briseida Bowers NP IMG XR PROCEDURES Final [...] Francisco Reyes M.D. BS T: Report ID: [id number] Reading Location: [id number] Procedure Note Francisco Reyes MD - 07/18/2024 [...] Francisco Reyes M.D. BS T: Report ID: [id number] Reading Location: [id number] Briseida Bowers NP IMG XR PROCEDURES Final [...] Francisco Reyes M.D. BS T: Report ID: [id number] Reading Location: [place] [address] Procedure Note Francisco Reyes MD - 07/18/2024 [...] Francisco Reyes M.D. BS T: Report ID: [id number] Reading Location: [place] [address] Briseida Bowers NP IMG XR PROCEDURES Final [...] - 09/30/2023 4:08 AM CDT Performed at: [address] [id number] Rubber Worker: Yuan Gaitan PhD, Phone: [phone] Jm Alonso MD LAB URINE ORDERABLES Final Re sult Performing Organization Address [facility] Co de Phone Number [facility] - * PSA screen (08/16/2021 10:37 AM CDT) PSA 0.5 0.0 - 4.0 ng/mL [facility] - 01 Comment: Lito ECLIA methodology. According to the [employer] [employer], Serum PSA should decrease and [...] - 08/17/2021 7:09 AM CDT Performed at: [address] [place] [id number] Rubber Worker: Yuan Gaitan PhD, Phone: [phone] Jm Alonso MD LAB BLOOD ORDERABLES Final Re sult Performing Organization Address [facility] Co de Phone Number [facility] LABNCRP 01 from Last 3 Months or Most Recently Relevant to Health Maintenance Insurance [facility]ARE [facility]ICARE [facility] [employer] MEDICARE MEDICARE [facility] [employer] Advance Directives For more information, please contact: [phone] * Full Code (Latest Code Status on File) Date Activated Date Inactivated Comments 02/11/2023 9:33 AM 02/11/2023 4:38 PM * Full Code Date Activated Date Inactivated Comments 01/14/2023 8:51 AM 01/14/2023 4:11 PM Care Teams Occupational Hygienist Relationship Specialty Start Date End Date Jm Alonso MD PCP - General Internal Medicine 08/25/18
--- OUTSIDE RECORDS SUMMARY | 2024-10-12 17:17 | XMS_ITS | Encounter Summary ---
Author Organization [employer] Address 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 [place] [id number] [email or web address] Study Patient: Susan Ledezma MRN: Study ID: ADULT STRESS ECH Gender: M : 1955 Age: 51 years Race: 1 Room: Bed: Height: Study Date: October 18, 2007 Patient status: Inpatient Weight: Access. #: [id number] POC: Ordering: Jamie Riley Attending MD: Jamie [...] peak heart [place] blood [place] [address]. - There was no chest pain during [...] 09:54:58 Procedure Note Provider, Historical - 10/18/2007 [facility] [address] [place] [address] [email or web address] Patient: Susan Ledezma MRN: Study ID: ADULT STRESS ECH Gender: M : 1955 Age: 51 years Race: 1 Room: Bed: Height: Study Date: October 18, 2007 Patient status: Inpatient Weight: Access. #: [id number] POC: Ordering: Jamie Riley Attending MD: Jamie [...] the peak heart rate and blood pressurewas 99774. - There was no chest pain during [...] and non- Americans is available on the [facility] Intranet at: [email or web address] Select: Lab Policies and Procedures Select: Reference Ranges - GFR Blood specimen (specimen) 10/18/2007 6:57 AM CDT 10/18/2007 7:08 AM CDT Result [facility] Jamie Chen MD CHEMISTRY ORDERABLES Edite d Performing Organization Address [facility] Co de Phone Number [facility] CLIA# [id number] [address] [place] [address] * D-DIMER (10/17/2007 5:34 PM CDT) D-DIMER [...] ORDERABLES Sania l Result Performing Organization Address [facility] Co de Phone Number [facility] CLIA# [id number] [address] [place] [address] * TROPONIN (10/17/2007 6:15 AM CDT) Pathologist [facility] TROPONIN T <0.01 <=0.03 ng/mL [facility] TROPONIN T INTERP Negative [facility] Blood specimen (specimen) 10/17/2007 6:15 AM CDT 10/17/2007 6:19 AM CDT us Jamie Chen MD CHEMISTRY ORDERABLES Edite d [facility] CLIA# [id number] [address] [place] [address] * (ABNORMAL) COMPREHENSIVE METABOLIC PANEL (10/16/2007 10:26 PM CDT) [facility] CALCIUM 9.1 8.4 - 10.2 mg/dL [facility] [...] and non- Americans is available on the [facility] Intranet at: [email or web address] Select: Lab Policies and Procedures Select: Reference Ranges - GFR Blood specimen (specimen) 10/16/2007 10:26 PM CDT 10/16/2007 10:34 PM CDT Mohsen Garcia MD CHEMISTRY ORDERABLES Edited [facility] CLIA# [id number] [address] [place] [address] * TROPONIN (W/REFLEX CKMB/CK) (10/16/2007 10:26 PM CDT) TROPONIN T <0.01 <=0.03 ng/mL [facility] TROPONIN T INTERP Negative [facility] Blood specimen (specimen) 10/16/2007 10:26 PM CDT 10/16/2007 10:34 PM CDT Mohsen Garcia MD CHEMISTRY ORDERABLES Edited [facility] CLIA# [id number] [address] [place] [address] * CBC WITH DIFFERENTIAL (10/16/2007 10:26 PM [...] LAB NEUTROPHILS 65 45 - 70 % [facility] NEUTROPHIL ABSOLUTE 5.65 1.90 - 7.00 K/uL [facility] EOSINOPHILS 2 0 - 7 % [facility] EOSINOPHIL ABSOLUTE 0.15 0.00 - 0.70 K/uL [facility] LYMPHOCYTES 25 16 - 45 % [facility] LYMPHOCYTE ABSOLUTE 2.15 0.70 - 4.50 K/uL [facility] Blood specimen (specimen) 10/16/2007 10:26 PM CDT 10/16/2007 10:34 PM CDT us Mohsen Garcia MD HEMATOLOGY ORDERABLES Edited INTERFACE SYSTEM Refer to clinic/hospital department [facility] CLIA# [id number] [address] [place] [address] * XR CHEST PA OR AP (10/16/2007 10:25 PM CDT) Anatomical Region Laterality Modality Chest Other 10/16/2007 10:2 5 PM CDT Narrative 10/17/2007 5:13 PM CDT [facility] [address] [place], [place] [address] Admit Date: 10/17/2007 SUSAN LEDEZMA Sex: M Admit Prov: JAMIE CHEN Date: 1955 Primary Care Prov: CMRN: [id number] Room: [address] [place] [address] SSN: [id number] IMAGING SERVICES Ordering Prov: N/A Accession Number: [id number] Interpretation Chest, portable AP semierect, 10/16/2007 at [...] Provider, Historical - 10/17/2007 [facility] [address] [place], [place] [address] Admit Date: 10/17/2007 SUSAN LEDEZMA Sex: M Admit Prov: JAMIE CHEN Date: 1955 Primary Care Prov: CMRN: [id number] Room: [address] [place] [address] SSN: [id number] IMAGING SERVICES Ordering Prov: N/A Interpretation Chest, [...]
== END 2024-10-12 15:21 | disposition home or self-care (01) ==
PROVIDERS: PCP Internal Medicine; Visit Provider Nurse Practitioner Family
DX: N20.1 Calculus of ureter (principal); R19.4 Change in bowel habit
CPT/HCPCS: 74018

== ENCOUNTER 2024-10-22 19:38 | Emergency (ER) | payer MEDICARE, BC, SELFPAY ==
[2024-10-22 19:47] VITALS: BP 122/65; PULSE 77; RESP 16; TEMP 36.5; O2SAT 99
--- NOTE | 2024-10-22 19:53 | ED_ITS ---
HPI - Wound/Laceration General Chief Complaint: Wound/Laceration Stated Complaint: L KNEE INJURY Time Seen by Provider: 10/22/24 19:45 Source: patient, family and RN notes reviewed Mode of arrival: ambulatory Limitations: no limitations History of Present Illness HPI narrative: 68-year-old male presents Express Care complaining of a fall. Patient said all occur approximately 1-2 hours ago. Patient has a history of Parkinson's and is prone to falling according to patient's house. Spouse states patient is sometimes stubborn will not use assistive devices or ask for help. Today patient was out in the yard when he had a ground level fall and hit his left knee on the concrete. Patient had a previous abrasion to his left knee and open the scab again. Patient states his tetanus is up-to-date. Patient denies hitting his head, neck pain, back pain, loss of consciousness, headache, vision changes, dizziness lightheadedness, or any other injuries. Patient denies any pain with bearing weight on his left knee. Patient denies any pain with movement of his left knee. Patient also has a history of diabetes, hyperlipidemia and acid reflux. Patient is not taking blood thinners. Related Data Home Medications ?Medication ?Instructions ?Recorded ?Confirmed ?Last Taken ?Type Adult Aspirin EC Low Strength 81 mg PO DAILY 09/24/23 10/22/24 09/24/23 09:30 History atorvastatin 20 mg tablet 20 mg PO DAILY 09/24/23 10/22/24 09/24/23 09:30 History carbidopa 25 mg-levodopa 100 mg 25 - 100 tablet PO TID 09/24/23 10/22/24 09/24/23 18:00 History tablet (Sinemet) carbidopa ER 50 mg-levodopa 200 mg 50 - 200 tablet PO 09/24/23 10/22/24 09/23/23 22:30 History tablet,extended release cetirizine 10 mg PO DAILY 09/24/23 10/22/24 09/24/23 09:30 History clonazepam 0.5 mg tablet 0.5 mg PO 09/24/23 10/22/24 09/23/23 22:30 History fenofibrate 160 mg tablet 160 mg PO DAILY 09/24/23 10/22/24 09/24/23 09:30 History gabapentin 300 mg capsule 300 mg PO HS 09/24/23 10/22/24 09/23/23 22:30 History omeprazole 20 mg PO DAILY 09/24/23 10/22/24 09/24/23 09:30 History sertraline 100 mg tablet 100 mg PO DAILY 09/24/23 09/24/23 09/24/23 09:30 History tamsulosin 0.4 mg capsule 0.4 mg PO DAILY 09/24/23 09/24/23 09/24/23 09:30 History insulin glargine-yfgn 100 unit/mL unit subcut 10/22/24 Unknown History (3 mL) subcutaneous pen linagliptin 5 mg tablet (Tradjenta) mg 10/22/24 Unknown History mirabegron 50 mg tablet,extended mg PO 10/22/24 Unknown History release 24 hr Allergies Allergy/AdvReac Type Severity Reaction Status Date / Time No Known Allergies Allergy Verified 10/22/24 19:51 Review of Systems Review of Systems: CONSTITUTIONAL: Denies fever, chills, or sweats. EYES: Denies visual changes, redness, or discharge. ENT: Denies rhinorrhea, congestion, sore throat, or otalgia. CARDIOVASCULAR: Denies chest pain, palpitations, or edema. RESPIRATORY: Denies cough or dyspnea. GASTROINTESTINAL: Denies abdominal pain, nausea, vomiting, or diarrhea. GENITOURINARY: Denies dysuria or hematuria. SKIN: Denies rash, wound, or itching. Positive for abrasion. MUSCULOSKELETAL: Denies back pain, joint pain, or myalgia. Positive for fall. NEUROLOGIC: Denies headache, numbness, or weakness. PSYCHIATRIC: Denies anxiety or depression. All other systems reviewed are negative, except as documented in HPI. [facility] Past Medical History Medical History Diabetes Parkinson's disease Family History Family History Other Unknown family medical history Social History Social History Smoking status: Never smoker Second hand tobacco smoke exposure: No Alcohol intake: current Drinks per week: 1 Substance use: never Do You Feel Safe in your Home?: Yes Lack of Transportation: No Lack of Food: Never True Current Housing: I Have Housing Concerned About Future Housing: No Difficulty Paying Gas/Electric Bills: No Difficulty Paying for Meds: No Currently Unemployed: No Education: Decline to Answer Difficulty w/ Childcare or Family Care: No Spiritual care concerns: No Comments At the time of my signature, I reviewed and agree with the nursing past medical, surgical, social, and family history. There is no relevant family history pertinent to the patient complaint. Exam Narrative: GENERAL: This is a well-nourished, well-developed adult, in no apparent dist ress. They are non ill-appearing, nontoxic appearing. HEAD: normocephalic, atraumatic. No raccoon eyes or Holguin signs. EYES: Sclera clear/white. Vision is grossly intact. Conjunctiva normal. Extr aocular movement intact. Pupils PERRLA. EARS: External ears normal Hearing grossly intact. NOSE: External nose normal THROAT: Mucous membranes moist NECK: Neck supple. No cervical point tenderness, no crepitus, step-offs, or midline tenderness. Neck is nontender. CARDIOVASCULAR: Regular rate and rhythm RESPIRATORY: Respiratory rate normal, respiratory effort nonlabored, no respiratory distress NEURO: awake, alert, and oriented to person, place and time. There were no obvious focal neurologic abnormalities. EXTREMITIES: Left knee: No obvious deformity, swelling, bruising, or redness. Nontender through for full range of motion. No bony tenderness to the knee. Capillary refill less than 3 seconds. Left pedal pulse 2 +palpable. Normal sensation. Neurovascular status intact distal injury. No valgus or varus laxity. Negative Coburn's test. Abrasion to left lateral knee just below the patella, wound is measuring approximately 2 cm x 2 cm. Large abrasion at partially scabbed, was reopened as measuring 5 cm x 2.5 cm. Hemostasis achieved. No surrounding cellulitis, and no induration, no area of fluctuance, no exudate. BACK: Nontender without deformity. No thoracic or lumbar point tenderness, crepitus, or step-offs. Midline tenderness. Course Course Emergency Course: Portions of this record may have been created with voice recognition software Level of Care: Express Care Visit Vital Signs Vital signs: Vital Signs Temperature 97.7 F 10/22/24 19:47 Pulse Rate 77 10/22/24 19:47 Respiratory Rate 16 10/22/24 19:47 Blood Pressure 122/65 10/22/24 19:47 Pulse Oximetry 99 10/22/24 19:47 Temperature 97.7 F 10/22/24 19:47 Pulse Rate 77 10/22/24 19:47 Respiratory Rate 16 10/22/24 19:47 Blood Pressure 122/65 10/22/24 19:47 Pulse Oximetry 99 10/22/24 19:47 Reviewed MDM - Wound/Laceration MDM Narrative Medical decision making narrative: Left knee without deformity, bruising, no bony tenderness, no knee pain with bearing weight on the left foot. No varus or valgus laxity. Knee joint is stable. Knee is nontender throughout full range of motion. No x-ray indicated. Tetanus up-to-date. Abrasion was cleaned and irrigated by nursing staff. Non adherent dressing antibiotic ointment applied to wound. Discussed physical exam findings. Advised supportive measures and signs/symptoms to go to the ER. Pt is appropriate for outpt treatment and f/u. Differential Diagnosis Differential diagnosis: Likely laceration, abrasion and other (knee fracture, knee strain) Critical Care Time Critical Care Time Critical Care Time: No Discharge Plan Discharge Clinical Impression: Abrasion of knee, left Qualifiers: Encounter type: initial encounter Qualified Code(s): S80.212A - Abrasion, left knee, initial encounter Fall Qualifiers: Encounter type: initial encounter Qualified Code(s): W19.XXXA - Unspecified fall, initial encounter Patient Disposition: Home Condition: Stable Instructions: Fall Prevention for Older Adults (ED), Abrasion (ED) Additional Instructions: Please wash your wound daily with mild soap and water. Please keep it dry and covered at all times. We status dirty water to the wound has healed completely. Please use assistive devices to assist you with ambulating. Please ask for help when needed with walking. Please follow-up with your PCP in 3-5 days. If he develops any worsening redness, swelling, green or yellow drainage,, fevers, pain, any new falls or new injuries, you hit your head coming developed headaches, blurry vision, dizziness, loss of consciousness confusion, and lethargy, or any serious concerns please go to the ER immediately. Patient Language: French Prescriptions: No Action Tradjenta 5 mg tablet mirabegron 50 mg tablet extended release 24 hr PO insulin glargine-yfgn 100 unit/mL (3 mL) insulin pen SUBCUT Adult Aspirin EC Low Strength 81 mg PO DAILY atorvastatin 20 mg tablet 20 mg PO DAILY clonazepam 0.5 mg tablet 0.5 mg PO HS carbidopa-levodopa 50-200 mg tablet extended release 50 - 200 tablet PO HS sertraline 100 mg tablet 100 mg PO DAILY tamsulosin 0.4 mg capsule 0.4 mg PO DAILY gabapentin 300 mg capsule 300 mg PO HS carbidopa-levodopa [Sinemet] 25-100 mg tablet 25 - 100 tablet PO TID Rx Instructions: Take 3 tablets Three Times A Day fenofibrate 160 mg tablet 160 mg PO DAILY cetirizine 10 mg PO DAILY omeprazole 20 mg PO DAILY Follow-up/Referrals: Celeste,Jm Woodard MD [Primary Care Provider] - Time of Disposition: 19:51
== END 2024-10-22 20:01 | disposition home or self-care (01) ==
PROVIDERS: PCP Internal Medicine
DX: S80.212A Abrasion, left knee, initial encounter (principal); W19.XXXA Unspecified fall, initial encounter; G20.A1 Parkinson's disease without dyskinesia, without mention of fluctuations; E11.9 Type 2 diabetes mellitus without complications; E78.5 Hyperlipidemia, unspecified; K21.9 Gastro-esophageal reflux disease without esophagitis; Z79.82 Long term (current) use of aspirin
CPT/HCPCS: 99212; G0463

== ENCOUNTER 2024-10-24 15:02 | Outpatient (CLI) | payer MEDICARE, BC, SELFPAY ==
--- NOTE | ~2024-10-24 | CT_ITS ---
Non-contrast CT scan of the Abdomen and Pelvis Clinical indication: Left ureteral stone Technique: 2.5 mm axial scans were obtained through the abdomen and pelvis without intravenous or or al contrast. Dose reduction technique was used on this scan by utilizing automated exposure control a nd iterative reconstruction technique. The dose-length product (DLP) was 559.66 mGy-cm. Findings: Images through the lung bases reveal no abnormalities. There is a 4 mm ovoid stone at the distal left ureter (axial image 147). No hydronephrosis or hydrour eter. There are additional bilateral nonobstructing stones, measuring up to 8 mm in the left kidney, and 4 mm in the right kidney. No right ureteral stone. The liver, spleen, pancreas, gallbladder, and adrenals appear normal. There is no aortic aneurysm. There is no evidence of bowel obstruction. Images through the pelvis were performed. There is no evidence of ascites or lymphadenopathy. Urinary bladder unremarkable. No pelvic mass seen. No ascites. Impression: 4 mm distal left ureteral stent without hydronephrosis. Additional bilateral nonobstructing renal stones, as above. Reviewed, dictated and finalized at location M. Impression: 4 mm distal left ureteral stent without hydronephrosis. Additional bilateral nonobstructing renal stones, as above.
--- OUTSIDE RECORDS SUMMARY | 2024-10-24 15:08 | XMS_ITS | Encounter Summary ---
Author Organization [facility] Address [address] [place] [address] Care Team Providers Care Supervisor Liquefaction Name Role Phone Unavailable Primary Care Provider Unavailabl e Encounter Details Date Type Department Care Team (Late st Contact Info) Description 10/16/2007 Outpatient Historical [facility] [place], Authorized [place] [id number] [facility] [place] [address] Other Chest Pain Social History Tobacco Use Types Packs/Day Years Used Date Smoking Tobacco: Never Assessed Sex and Gender Information Value Date Recorded Sex Assigned at Not on file Legal Sex Male 5:35 AM [employer] Gender Identity Not on file Sexual Orientation [...] INTERFACE SYSTEM - 10/18/2007 10:13 AM CDT [facility] [address] [id number] [email or web address] Patient: Susan Ledezma MRN: Study ID: ADULT STRESS ECH Gender: M : 1955 Age: 51 years Race: 1 Room: Bed: Height: Study Date: October 18, 2007 Patient status: Inpatient Weight: Access. #: [id number] POC: Ordering: Jamie Riley Attending MD: Jamie [...] peak heart rate [place] blood [place] [address]. - There was no chest pain during [...] 09:54:58 Procedure Note Provider, Historical - 10/18/2007 [facility] [address] [place] [address] [email or web address] Stress Study Patient: Susan Ledezma MRN: Study ID: ADULT STRESS ECH Gender: M : 1955 Age: 51 years Race: 1 Room: Bed: Height: Study Date: October 18, 2007 Patient status: Inpatient Weight: Access. #: [id number] POC: Ordering: Jamie Riley Attending MD: Jamie [...] the peak heart rate and blood pressurewas 23044. - There was no chest pain during [...] SODIUM 135 135 - 145 mmol/L [facility] CALCIUM 8.5 8.4 - 10.2 mg/dL [facility] CO2 25 22 - 30 mmol/L [facility] CREATININE 1.19(H) 0.67 - 1.17 mg/dL [facility] POTASSIUM 4.6 3.5 - 4.9 mmol/L [facility] BUN 20 6 - 20 mg/dL [facility] CHLORIDE 99 96 - 108 mmol/L [facility] GLUCOSE 128(H) 65 - 99 mg/dL [facility] GFR, >60 >=60 mL/min/1. 7 sq meter [facility] GFR >60 >=60 mL/min/1. 7 sq meter [facility] Comment: Modification of Diet in Renal Disease (MDRD) study formula. Estimated GFR rate interpretative information for both Americans and non- Americans is available on the [facility] Intranet at: [email or web address] Select: Lab Policies and Procedures Select: Reference Ranges - GFR Blood specimen (specimen) 10/18/2007 6:57 AM CDT 10/18/2007 7:08 AM CDT Result [facility] [place] Chen MD CHEMISTRY ORDERABLES Edite d Performing Organization Address [facility] Co de Phone Number [facility] CLIA# [id number] [address] [place] [address] * D-DIMER (10/17/2007 5:34 PM CDT) D-DIMER QUANT <0.22 <=0.42 ug/mL FEU [facility] Comment: DVT Screen reference range <0.45 [...] ORDERABLES Sania l Result Performing Organization Address [facility] Co de Phone Number [facility] CLIA# [id number] [address] [place] [address] * TROPONIN (10/17/2007 6:15 AM CDT) Pathologist [facility] TROPONIN T <0.01 <=0.03 ng/mL [facility] TROPONIN T INTERP Negative [facility] Blood specimen (specimen) 10/17/2007 6:15 AM CDT 10/17/2007 6:19 AM CDT us Jamie Chen MD CHEMISTRY ORDERABLES Edite d [facility] CLIA# [id number] [address] [place] [address] * (ABNORMAL) COMPREHENSIVE METABOLIC PANEL (10/16/2007 10:26 PM CDT) [facility] CALCIUM 9.1 8.4 - 10.2 mg/dL [facility] CO2 22 22 - 30 mmol/L [facility] ALBUMIN 4.4 3.4 - 4.8 g/dL [facility] POTASSIUM See note. 3.5 - 4.9 mmol/L [facility] Comment: Gross hemolysis present. Result unreliable. K not reported per . Gross hemolysis present. Result unreliable. CREATININE 1.10 0.67 - 1.17 mg/dL [facility] SODIUM 134(L) 135 - 145 mmol/L [facility] ALT 18 0 - 41 U/L [facility] Comment: Hemolyzed: Result may be falsely elevated. ALKALINE PHOSPHATASE 65 40 - 129 U/L [facility] BILIRUBIN TOTAL 0.5 0.2 - 1.0 mg/dL [facility] TOTAL PROTEIN 7.5 6.3 - 8.6 g/dL [facility] CHLORIDE 101 96 - 108 mmol/L [facility] GLUCOSE 174(H) 65 - 99 mg/dL [facility] AST 36 12 - 38 U/L [facility] Comment: Hemolyzed: Result may be falsely elevated. BUN 19 6 - 20 mg/dL [facility] GFR, >60 >=60 mL/min/1. 7 sq meter [facility] GFR >60 >=60 mL/min/1. 7 sq meter [facility] Comment: Modification of Diet in Renal Disease (MDRD) study formula. Estimated GFR rate interpretative information for both Americans and non- Americans is available on the [facility] Intranet at: [email or web address] Select: Lab Policies and Procedures Select: Reference Ranges - GFR Blood specimen (specimen) 10/16/2007 10:26 PM CDT 10/16/2007 10:34 PM CDT Mohsen Garcia MD CHEMISTRY ORDERABLES Edited [facility] CLIA# [id number] [address] [place] [address] * TROPONIN (W/REFLEX CKMB/CK) (10/16/2007 10:26 PM CDT) TROPONIN T <0.01 <=0.03 ng/mL [facility] TROPONIN T INTERP Negative [facility] Blood specimen (specimen) 10/16/2007 10:26 PM CDT 10/16/2007 10:34 PM CDT Mohsen Garcia MD CHEMISTRY ORDERABLES Edited [facility] CLIA# [id number] [address] [place] [address] * CBC WITH DIFFERENTIAL (10/16/2007 10:26 PM CDT) MPV 10.7 9.3 - 12.4 fL [facility] HEMATOCRIT 43.4 40.0 - 48.0 % [facility] RDW-STDEV 41.3 37.1 - 48.7 fL [facility] RBC 5.09 4.50 - 5.40 M/uL [facility] MCHC 35.3 31.5 - 35.5 % [facility] MCV 85.3 82.0 - 99.0 fL [facility] PLATELETS 275 140 - 350 K/uL [facility] HEMOGLOBIN 15.3 13.6 - 16.5 g/dL [facility] RDW 13.3 11.5 - 14.5 % [facility] WBC 8.7 4.0 - 9.8 K/uL [facility] MCH 30.1 27.2 - 32.6 pg [facility] BASOPHILS 1 0 - 2 % [facility] BASOPHILS ABSOLUTE 0.05 0.00 - 0.20 K/uL [facility] MONOCYTES 8 3 - 13 % [facility] MONOCYTE ABSOLUTE 0.68 0.10 - 1.30 K/uL [facility] NEUTROPHILS 65 45 - 70 % [facility] NEUTROPHIL ABSOLUTE 5.65 1.90 - 7.00 K/uL [facility] EOSINOPHILS 2 0 - 7 % [facility] EOSINOPHIL ABSOLUTE 0.15 0.00 - 0.70 K/uL [facility] LYMPHOCYTES 25 16 - 45 % [facility] LYMPHOCYTE ABSOLUTE 2.15 0.70 - 4.50 K/uL [facility] Blood specimen (specimen) 10/16/2007 10:26 PM CDT 10/16/2007 10:34 PM CDT us Mohsen Garcia MD HEMATOLOGY ORDERABLES Edited INTERFACE SYSTEM Refer to clinic/hospital department [facility] CLIA# [id number] [address] [place] [address] * XR CHEST PA OR AP (10/16/2007 10:25 PM CDT) Anatomical Region Laterality Modality Chest Other 10/16/2007 10:2 5 PM CDT Narrative 10/17/2007 5:13 PM CDT [facility] [address] [place], [place] [address] Admit Date: 10/17/2007 SUSAN LEDEZMA Sex: M Admit Prov: JAMIE CHEN Date: 1955 Primary Care Prov: CMRN: [id number] Room: [address] [place] [address] SSN: [id number] IMAGING SERVICES Ordering Prov: N/A Accession Number: [id number] Interpretation Chest, portable AP semierect, 10/16/2007 at [...] AMK Procedure Note Provider, Historical - 10/17/2007 [facility] [address] [place] [place], [place] [address] Admit Date: 10/17/2007 SUSAN LEDEZMA Sex: M Admit Prov: JAMIE CHEN Date: 1955 Primary Care Prov: CMRN: [id number] Room: [address] [place] [address] SSN: [id number] IMAGING SERVICES Ordering Prov: N/A Interpretation Chest, [...]
--- OUTSIDE RECORDS SUMMARY | 2024-10-24 15:08 | XMS_ITS | Clinical Summary ---
Author Organization [facility] Address [address] [place] [address] Care Team Providers Care Recreational Resort Manager Name Role Phone Jm Alonso MD Primary Care Provider [phone] Allergies No known active allergies Medications cetirizine (ZyrTEC) 10 mg tabletIndicati ons:Seasonal Allergic Rhinitis Take 1 tablet (10 mg total) by mouth licensing worker 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 Active aspirin 81 mg enteric [...] 1.5 tablets (150 mg total) by mouth licensing worker 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 135 tablet 3 09/06/19 25 026 Active fenofibrate (TRIGLIDE) 160 mg tablet Take 1 tablet by mouth once daily 90 tablet 09/10/19 25 Active tamsulosin (FLOMAX) 0.4 mg extended release capsule Take 1 capsule by mouth once daily 90 capsule 09/10/19 25 Active mirabegron ER (MYRBETRIQ) 50 mg tablet extended release 24 hr Take 1 tablet (50 mg total) by mouth licensing worker 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 09/16/19 25 Active linaGLIPtin (Tradjenta) [...] (07/25/2020): Added automatically from request for surgery [id number] 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 Once this is confirmed we can proceed with definitive therapy Type 2 diabetes mellitus wit hout complication, without long-term current use of insulin 02/29/2020 Assessment & Plan (05/23/2024 12:02 PM VEHICLE DAMAGE APPRAISER): Increase insulin to 30 units Assessment & Plan (02/09/2024 11:53 AM CDT): Incease lantus to 26 units. May need bolus insulin Essential hypertension 02/29/2020 Assessment & Plan (05/23/2024 12:02 PM VEHICLE DAMAGE APPRAISER): Bp at target Assessment & Plan (02/09/2024 [...] to increase the dose slightly. Parkinson disease ([facility]) 05/29/2015 Assessment & Plan (10/04/2024 4:14 [...] willing to resume PT and knows of [employer] youtube channel exercises online. He has completed [...] patient. Assessment & Plan (05/23/2024 12:02 PM VEHICLE DAMAGE APPRAISER): sandee Stevens neurology Assessment & Plan (02/09/2024 [...] day. Assessment & Plan (03/26/2023 7:09 PM VEHICLE DAMAGE APPRAISER): He has parkinsonism stage 2.5 characterized on [...] gabapentin.. 3. Same clonazepam. 4. Start [employer] channel exercises. 5. Start PT, rx given. [...] more consistent with dose timing. 3. Call [facility] PT to schedule a follow up appointment. 4. I will send a referral to [facility] OT for a driving evaluation. Assessment & Plan (05/16/2022 1:12 PM VEHICLE DAMAGE APPRAISER): He has parkinsonism stage 2.5 characterized on [...] about cutting back irbesartan to half. 6. [employer] PD Voice Project. 7. Start PT and ST here at [facility] then get plan made for PT and [...] exercises. Assessment & Plan (05/04/2020 12:37 PM VEHICLE DAMAGE APPRAISER): He has parkinsonism stage 2.5 characterized on [...] a referral to a sleep neurologist at [facility]. They may want to order another sleep study because it has been some time since your last one. 4. I will send a referral to [facility] PT for balance and walking. 5. [...] Encounters Date Type Department Care Team Description 10/12/2024 Orders Only [facility] [address] [place] [address] Jm Alonso MD 10/10/2024 10:00 AM CDT Office Visit [facility] Hand Surgery [address] [place] [address] [address] [place] [phone] Shoshana Hutchins MD Closed traumatic dislocation of proximal interphalangeal (PIP) joint of left little finger (Primary Dx) 10/10/2024 Orders Only [facility] [address] [place] [address] Jm Alonso MD 09/24/2024 11:22 AM CDT - 09/24/2024 5:52 PM CDT Emergency [facility] [address] [place] [address] Natalie Urrutia MD Fitzmaurice, Sean C., MD Fall, initial encounter (Primary Dx); Blunt head trauma, initial encounter; Abdominal pain Discharge Disposition: Discharge to home or self care 09/24/2024 9:30 AM CDT Office Visit 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 (HCC) (Primary Dx); Levodopa-induced dyskinesia; REM sleep behavior disorder; Anxiety 09/12/2024 9:15 AM CDT Office Visit [facility] Medical [facility] Hand Surgery [address] [place] [phone] Shoshana Hutchins MD Finger pain, left (Primary Dx); Closed traumatic dislocation of proximal interphalangeal (PIP) joint of left little finger; Right wrist pain 09/12/2024 7:45 AM CDT - 09/12/2024 11:59 PM CDT Hospital Encounter [facility] MOB 1 DIAG IMG [address] [place] [address] Finger pain, left; Right wrist pain Discharge Disposition: Discharge to home or self care 09/12/2024 Telephone [facility] Scheduling [facility] [place] [address] Marcie Silver NP Scheduling Appointments 09/08/2024 2:15 PM CDT Office Visit [email or web address] [address] [place] [address] [address] [place] [address] Jm Alonso MD Type 2 diabetes mellitus without complication, without long-term current use of insulin (HCC) (Primary Dx); Parkinson's disease with dyskinesia and fluctuating manifestations (HCC); Essential hypertension 09/06/2024 2:35 PM CDT Ancillary Procedure [facility] Imaging at [address] [phone] Injury of left little finger, initial encounter 09/06/2024 2:30 PM CDT Office Visit [facility] at [address] [phone] Desi Barney NP Injury of left little finger, initial encounter (Primary Dx); Closed traumatic dislocation of proximal interphalangeal (PIP) joint of left little finger; Displaced fracture of middle phalanx of left little finger, initial encounter for closed fracture 09/06/2024 2:10 PM CDT Ancillary Procedure [facility] at [address] [phone] Injury of left little finger, initial encounter 09/06/2024 Orders Only [facility] [address] [place] [address] [address] [place] [address] Jm Alonso MD 09/06/2024 Results Follow-Up [facility] at [address] [phone] Desi Barney NP XR Finger 5Th Pinky Left 09/05/2024 Telephone [facility] Movement Disorders [address] [facility] [address] [place] [address] Adrianne Briceño RN 07/25/2024 12:00 PM CDT Office Visit [facility] Neuro Sleep [address] [place] [address] Rusty Vicente PA Essential hypertension (Primary Dx); Obstructive sleep apnea on CPAP; REM sleep behavior disorder from Last 3 Months Immunizations Immunization Administration [...] on file Legal Sex Male 11:00 AM VEHICLE DAMAGE APPRAISER Gender Identity Male 01/03/2020 10:22 AM CDT [...] 02/09/2024, Additional history exists eGFR 09/24/2025 09/24/2024, 06/07/2023, 08/16/2021, Additional history exists Colon Cancer Screening-Colonoscopy 11/08/2025 Postponed from 1956 (Patient declined, but will receive in the future) Medical Devices Implanted Type Area Computer Engineering Technician Device Identifier Shelf Expiration Date Model / Serial / Lot [employer] Lens Iol Tecnis Smplcty 1-Pc Clr [place] 15.5 Diopter [id number] - [id number] - [id number] Implanted:Qty: 1 on 01/14/2023 by Richmond Morales MD at [facility] Advanced [facility] Lens Left: Eye [employer] [id number] 05/10/2025 [id number] / [id number] / 0 [employer] Lens Iol Tecnis Smplcty 1-Pc Clr [place] 15.5 Diopter [id number] - [id number] - [id number] Implanted:Qty: 1 on 02/11/2023 by Richmond Morales MD at [facility] Advanced [facility] Lens Right: Eye [employer] [id number] 12/10/2024 [id number] / [id number] / Procedures Procedure Name Priority Date/Time Associated Diagnosis Comments SCAN - RADIOLOGY/IMAGING 10/12/2024 6:54 PM CDT SCAN - LABS 10/10/2024 5:00 PM CDT [...] Injury of left little finger, initial encounter POCT LIPID PANEL Routine 2023 [...] Health Maintenance Results * SCAN - RADIOLOGY/IMAGING (10/12/2024 6:54 PM CDT) Anatomical Region Laterality Modality Other us Jm Alonso MD Final Result * SCAN - LABS (10/10/2024 5:00 PM [...] tendency for uric acid stone formation. Source: [employer] Current Interpretive Data was last revised on [...] for microscopic UA and culture not met. CERDIANELYS REE[facility]ESWCH Urine 09/24/2024 2:04 PM CDT 09/24/2024 2:09 PM CDT us Natalie Urrutia MD LAB MICROBIOLOGY - GEN ERAL ORDERABLES Final Result DELIA CARRERA [address] [facility]. [place] [address] * (ABNORMAL) eGFR (09/24/2024 1:14 PM CDT) [...] of Race in Diagnosing Kidney Disease, JASN 202). The CKD-EPI equation should not be used for patients with unstable renal function and has not been validated in children and those over 70. Current interpretive data was last reviewed 2021. Blood 09/24/2024 1:14 PM CDT 09/24/2024 1:22 PM CDT us Natalie Urrutia MD LAB BLOOD ORDERABLES F inal Result Performing Organization Address City/[facility]/ZIP Co de Phone Number DELIA KNAPPCH [address] [employer]. [place] [employer] [place] [address] * Lipase (09/24/2024 1:14 PM CDT) Pathologist [facility] Lipase 56 10 - 99 Units/L Blood 09/24/2024 1:14 PM CDT 09/24/2024 1:22 PM CDT Natalie Urrutia MD LAB BLOOD ORDERABLES F inal Result Performing Organization Address [facility] de Phone Number DELIA REEVESContactual [address] [employer]. [place] [address] * (ABNORMAL) Comprehensive metabolic panel (09/24/2024 1:14 PM CDT) Pathologist [facility] Sodium 131(L) 135 - 145 mmol/L Potassium, pl 4.4 3.3 - 4.9 mmol/L [facility]ER [facility] Chloride 96(L) 97 - 110 mmol/L [facility] CO2 21(L) 22 - 32 mmol/L [facility] Anion gap 14 2 - 15 mmol/L [facility] BUN 27(H) 6 - 25 mg/dL [facility] Creatinine 1.60(H) 0.80 - 1.30 mg/dL [facility] Glucose 272(H) 70 - 199 mg/dL [facility] Comment: Interpretive Data Fasting glucose >/= 126 [...] AST 18 10 - 50 Units/L C[facility]ER [facility] Blood 09/24/2024 1:14 PM CDT 09/24/2024 1:22 PM CDT us Natalie Urrutia MD LAB BLOOD ORDERABLES F inal Result DELIA KNAPP [address] [facility]. [place] [address] * (ABNORMAL) Differential, auto (09/24/2024 12:41 PM [...] C[facility]ER [facility] Neutrophil pct 81.0 % C[facility]ER [facility] Comment: Interpretive Data Percent cell count reference ranges are not reported, since discordance with absolute values may lead to misinterpretation of CBC data. Current Interpretive Data was last revised on 2017. Imm gran pct 0.3 % C[facility]ER [facility] Comment: Interpretive Data Percent cell count reference ranges are not reported, since discordance with absolute values may lead to misinterpretation of CBC data. Current Interpretive Data was last revised on 2017. Lymphocyte pct 10.2 % CERNER WDUNIA Comment: Interpretive Data Percent cell count reference ranges are not reported, since discordance with absolute values may lead to misinterpretation of CBC data. Current Interpretive Data was last revised on 2017. Monocyte pct 5.4 % DELIA REEVESIRA [facility] Comment: Interpretive Data Percent cell count reference ranges are not reported, since discordance with absolute values may lead to misinterpretation of CBC data. Current Interpretive Data was last revised on 2017. Eosinophil pct 2.4 % DELIA REEVESIRA [facility] Comment: Interpretive Data Percent cell count reference ranges are not reported, since discordance with absolute values may lead to misinterpretation of CBC data. Current Interpretive Data was last revised on 2017. Basophil pct 0.7 % DELIA REEVESIRA [facility] Comment: Interpretive Data Percent cell count reference ranges are not reported, since discordance with absolute values may lead to misinterpretation of CBC data. Current Interpretive Data was last revised on 2017. Blood 09/24/2024 12:4 1 PM CDT 09/24/2024 12:49 PM CDT us Natalie Urrutia MD LAB BLOOD ORDERABLES F inal Result DELIA [facility] [address] [facility]. [place] [address] * (ABNORMAL) CBC with auto differential (09/24/2024 12:41 PM CDT) Pathologist [facility] WBC 9.20 3.80 - 9.90 K/cumm Hgb 12.1(L) 13.0 - 17.5 g/dL [facility] Hct 37.9(L) 38.9 - 50.3 % [facility] Plt 330 150 - 400 K/cumm [facility] MPV 9.8 9.1 - 12.3 fL [facility] RBC 4.53 4.30 - 5.80 M/cumm [facility] MCV 83.7 81.3 - 96.4 fL [facility] MCH 26.7(L) 27.1 - 33.3 pg [facility] MCHC 31.9(L) 32.3 - 35.7 g/dL DELIA REEVESIRA [facility] RDW CV 14.8 11.1 - 14.9 % DELIA REEVESCH RDW SD 44.9 35.7 - 48.1 fL DELIA REEVESIRA [facility] NRBC abs 0.00 0.00 - 0.01 K/cumm DELIA REE[facility]ES[facility]A [facility] Blood 09/24/2024 12:4 1 PM CDT 09/24/2024 12:49 PM CDT us Natalie Urrutia MD LAB BLOOD ORDERABLES F inal Result DELIA REEVESIRA [facility] [address] [facility]. [place] [address] * XR Finger 5th Pinky Left (09/12/2024 [...] Andres Betancourt M.D. MF: FRANCISCO Report ID: [id number] Reading Location: [id number] Procedure Note Andres Betancourt MD - 09/12/2024 [...] Andres Betancourt M.D. MF: FRANCISCO Report ID: [id number] Reading Location: [id number] us Shoshana Hutchins MD IMG XR PROCEDURES [...] Andres Betancourt M.D. MF: FRANCISCO Report ID: [id number] Reading Location: [id number] Procedure Note Andres Betancourt MD - 09/12/2024 [...] Andres Betancourt M.D. MF: FRANCISCO Report ID: [id number] Reading Location: [id number] us Shoshana Hutchins MD IMG XR PROCEDURES [...] Andres Betancourt M.D. MF: FRANCISCO Report ID: [id number] Reading Location: [id number] Procedure Note Andres Betancourt MD - 09/12/2024 [...] Andres Betancourt M.D. MF: FRANCISCO Report ID: [id number] Reading Location: [id number] Shoshana Hutchins MD IMG XR PROCEDURES Final [...] Collin Cantrell M.D. NS T: Report ID: [id number] Reading Location: [id number] Procedure Note Collin Cantrell MD - 09/06/2024 [...] signed by Collin STARKS T: Report ID: [id number] Reading Location: [id number] Desi Barney NP IMG XR PROCEDURES Final [...] signed by Collin STARKS T: Report ID: [id number] Reading Location: [id number] Procedure Note Collin Cantrell MD - 09/06/2024 [...] signed by Collin STARKS T: Report ID: [id number] Reading Location: [id number] Desi Barney NP IMG XR PROCEDURES Final Re sult * POCT lipid panel (2023 11:14 AM [...] - 09/30/2023 4:08 AM CDT Performed at: [address] [place] [id number] Neuropsychiatrist: Yuan Gaitan PhD, Phone: [phone] Jm Alonso MD LAB URINE ORDERABLES Final Re sult [facility] - 01 * PSA screen (08/16/2021 10:37 AM CDT) Pathologist [facility] PSA 0.5 0.0 - 4.0 ng/mL [facility] - 01 Comment: Lito ECLIA methodology. According to the [employer], Serum PSA should decrease and [...] 08/17/2021 7:09 AM CDT Performed at: [address] [place] [id number] Neuropsychiatrist: Yuan Gaitan PhD, Phone: [phone] Jm Alonos MD LAB BLOOD ORDERABLES Final Re [facility] Organization Address City/State/ZIP Co de Phone Number [facility] - 01 from Last 3 Months or Most Recently Relevant to Health Maintenance Insurance [facility]IC[facility]IC[facility] MEDICARE MEDICARE [facility] Advance Directives For more information, please contact: [phone] * Full Code (Latest Code Status on File) Date Activated Date Inactivated Comments 02/11/2023 9:33 AM 02/11/2023 4:38 PM * Full Code Date Activated Date Inactivated Comments 01/14/2023 8:51 AM 01/14/2023 4:11 PM Care Teams Recreational Resort Manager Relationship Specialty Start Date End Date Jm Alonso MD PCP - General Internal Medicine 08/25/18
--- OUTSIDE RECORDS SUMMARY | 2024-10-24 15:08 | XMS_ITS | Referral Summary ---
Author Organization [facility] Address [address] [place] [address] Care Team Providers Care Clerical Secretary Name Role Phone Jm Alonso MD Primary Care Provider [phone] Encounters Date Type Department Care Team Description 10/12/2024 Orders Only [facility] [address] [place] [address] [address] [place] [address] Jm Alonso MD 10/10/2024 Orders Only [facility] [address] [place] [address] [address] [place] [phone] Jm Alonso MD 10/10/2024 10:00 AM CDT Office Visit [facility] Hand Surgery [address] [place] [phone] Shoshana Hutchins MD Closed traumatic dislocation of proximal interphalangeal (PIP) joint of left little finger (Primary Dx) 09/24/2024 11:22 AM CDT - 09/24/2024 5:52 PM CDT Emergency [facility] Emergency Department [address] [place] [address] Natalie Urrutia MD Fitzmaurice, Sean C., MD Fall, initial encounter (Primary Dx); Blunt head trauma, initial encounter; Abdominal pain Discharge Disposition: Discharge to home or self care 09/24/2024 9:30 AM CDT Office Visit [facility] Medical Group [facility] at [address] [address] Briseida Bowers NP Left upper quadrant abdominal pain (Primary Dx); Left upper quadrant abdominal tenderness without rebound tenderness; Contusion of abdominal wall, initial encounter; Multiple falls 09/16/2024 9:30 AM CDT Office Visit [facility] [address] [facility] 7th [place] [address] Marcie Silver NP Parkinson's disease with dyskinesia and fluctuating manifestations (HCC) (Primary Dx); Levodopa-induced dyskinesia; REM sleep behavior disorder; Anxiety 09/12/2024 Telephone [facility] Scheduling [address] [place] [address] Marcie Silver NP Scheduling Appointments 09/12/2024 7:45 AM CDT - 09/12/2024 11:59 PM CDT Hospital Encounter [facility] 1 DIAG IMG [address] [place] [address] Finger pain, left; Right wrist pain Discharge Disposition: Discharge to home or self care 09/12/2024 9:15 AM CDT Office Visit [facility] Hand Surgery [address] [facility] [address] [place] [phone] Shoshana Hutchins MD Finger pain, left (Primary Dx); Closed traumatic dislocation of proximal interphalangeal (PIP) joint of left little finger; Right wrist pain 09/08/2024 2:15 PM CDT Office Visit [facility] [address] [place] [address] [address] [place] [phone] Jm Alonso MD Type 2 diabetes mellitus without complication, without long-term current use of insulin (HCC) (Primary Dx); Parkinson's disease with dyskinesia and fluctuating manifestations (HCC); Essential hypertension 09/06/2024 Orders Only [facility] [address] [place] [address] [address] [place] [phone] Jm Alonso MD 09/06/2024 Results Follow-Up [facility] Medical [facility] at [address] [phone] Desi Barney NP XR Finger 5Th Pinky Left 09/06/2024 2:35 PM CDT Ancillary Procedure [facility] Imaging at [address] [phone] Injury of left little finger, initial encounter 09/06/2024 2:10 PM CDT Ancillary Procedure [facility] Group Imaging at [address] [phone] Injury of left little finger, initial encounter 09/06/2024 2:30 PM CDT Office Visit [facility] Convenient Care at [address] [phone] Desi Barney, ROSA Injury of left little finger, initial encounter (Primary Dx); Closed traumatic dislocation of proximal interphalangeal (PIP) joint of left little finger; Displaced fracture of middle phalanx of left little finger, initial encounter for closed fracture 09/05/2024 Telephone [facility] [address] [facility] 7th [place] [phone] Adrianne Briceño RN 07/25/2024 12:00 PM CDT Office Visit [facility] Neuro Sleep [address] [facility] 6th [address] [place] [address] Rusty Vicente PA Essential hypertension (Primary Dx); Obstructive sleep apnea on CPAP; REM sleep behavior disorder from Last 3 Months Allergies No known active allergies Medications cetirizine (ZyrTEC) 10 mg tabletIndicati ons:Seasonal Allergic Rhinitis Take 1 tablet (10 mg total) by mouth supervisory forester 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 Active aspirin 81 mg enteric [...] 1.5 tablets (150 mg total) by mouth supervisory forester 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 135 tablet 3 09/06/19 25 026 Active fenofibrate (TRIGLIDE) 160 mg tablet Take 1 tablet by mouth once daily 90 tablet 09/10/19 25 Active tamsulosin (FLOMAX) 0.4 mg extended release capsule Take 1 capsule by mouth once daily 90 capsule 09/10/19 25 Active mirabegron ER (MYRBETRIQ) 50 mg tablet extended release 24 hr Take 1 tablet (50 mg total) by mouth supervisory forester 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 09/16/19 25 Active linaGLIPtin (Tradjenta) [...] (07/25/2020): Added automatically from request for surgery [id number] Levodopa-induced dyskinesia 05/04/2020 Paresthesia of skin 05/04/2020 Ulnar neuropathy at elbow of left upper extremit y 04/18/2020 Assessment & Plan (04/18/2020 1:53 PM COKE WORKER): Plan at this point is to check nerve conduction study to verify that this is indeed a ulnar neuropathy at the elbow as opposed to a cervical radiculopathy. Once this is confirmed we can proceed with definitive therapy Type 2 diabetes mellitus wit hout complication, without long-term current use of insulin 02/29/2020 Assessment & Plan (05/23/2024 12:02 PM COKE WORKER): Increase insulin to 30 units Assessment & Plan (02/09/2024 11:53 AM CDT): Incease lantus to 26 units. May need bolus insulin Essential hypertension 02/29/2020 Assessment & Plan (05/23/2024 12:02 PM COKE WORKER): Bp at target Assessment & Plan (02/09/2024 [...] to increase the dose slightly. Parkinson disease ([facility]) 05/29/2015 Assessment & Plan (10/04/2024 [...] patient. Assessment & Plan (05/23/2024 12:02 PM COKE WORKER): Hilda seeeugene neurology Assessment & Plan (02/09/2024 11:52 AM [...] day. Assessment & Plan (03/26/2023 7:09 PM COKE WORKER): He has parkinsonism stage 2.5 characterized on [...] more consistent with dose timing. 3. Call [facility] PT to schedule a follow up appointment. 4. I will send a referral to [facility] OT for a driving evaluation. Assessment & Plan (05/16/2022 1:12 PM COKE WORKER): He has parkinsonism stage 2.5 characterized on [...] about cutting back irbesartan to half. 6. [employer] [facility]. 7. Start PT and ST here at [facility] then get plan made for PT [...] exercises. Assessment & Plan (05/04/2020 12:37 PM COKE WORKER): He has parkinsonism stage 2.5 characterized on [...] a referral to a sleep neurologist at [facility]. They may want to order another sleep study because it has been some time since your last one. 4. I will send a referral to [facility] PT for balance and walking. 5. [...] on file Legal Sex Male 11:00 AM COKE WORKER Gender Identity Male 01/03/2020 10:22 AM CDT [...] screening colonoscopy Medical Devices Implanted Type Area City [place] Device Identifier Shelf Expiration Date Model / Serial / Lot [employer] Lens Iol Tecnis Smplcty 1-Pc Clr Riley 15.5 Diopter [id number] - [id number] - [id number] Implanted:Qty: 1 on 01/14/2023 by Richmond Morales MD at [facility] Advanced Medicine Lens Left: Eye [employer] [id number] 05/10/2025 [id number] / [id number] / 0 [employer] Lens Iol Tecnis Smplcty 1-Pc Clr Riley 15.5 Diopter [id number] - [id number] - [id number] Implanted:Qty: 1 on 02/11/2023 by Richmond Morales MD at [facility] Medicine Lens Right: Eye [employer] [id number] 12/10/2024 [id number] / [id number] / Procedures Procedure Name Priority Date/Time Associated [...] tendency for uric acid stone formation. Source: [facility] Current Interpretive Data was last revised on [...] microscopic UA and culture not met. [facility] Urine 09/24/2024 2:04 PM CDT 09/24/2024 2:09 PM CDT Natalie Urrutia MD LAB MICROBIOLOGY - GEN ERAL ORDERABLES Final Result [facility] [address] [facility]. Department [place] [address] * (ABNORMAL) eGFR (09/24/2024 1:14 PM CDT) [...] ORDERABLES F inal Result Performing Organization Address [facility] de Phone Number [facility] [address] [facility] [place] [address] * Lipase (09/24/2024 1:14 PM CDT) Pathologist [facility] Lipase 56 10 - 99 Units/L Blood 09/24/2024 1:14 PM CDT 09/24/2024 1:22 PM CDT Natalie Urrutia MD LAB BLOOD ORDERABLES F inal Result Performing Organization Address [facility] de Phone Number [facility] [address] [facility] [place] [address] * (ABNORMAL) Comprehensive metabolic panel (09/24/2024 1:14 PM CDT) Pathologist [facility] Sodium 131(L) 135 - 145 mmol/L Potassium, pl 4.4 3.3 - 4.9 mmol/L [facility] Chloride 96(L) 97 - 110 mmol/L [facility] CO2 21(L) 22 - 32 mmol/L [facility] Anion gap 14 2 - 15 mmol/L [facility] BUN 27(H) 6 - 25 mg/dL [facility] Creatinine 1.60(H) 0.80 - 1.30 mg/dL [facility] Glucose 272(H) 70 - 199 mg/dL [facility] Comment: Interpretive Data Fasting glucose >/= 126 [...] MD LAB BLOOD ORDERABLES F inal Result [facility] [address] [facility]. Department of Laboratories [place], [place] [id number] * (ABNORMAL) Differential, auto (09/24/2024 12:41 PM [...] on 2017. Imm gran pct 0.3 % [facility] Comment: Interpretive Data Percent cell count reference ranges are not reported, since discordance with absolute values may lead to misinterpretation of CBC data. Current Interpretive Data was last revised on 2017. Lymphocyte pct 10.2 % [facility] Comment: Interpretive Data Percent cell count reference ranges are not reported, since discordance with absolute values may lead to misinterpretation of CBC data. Current Interpretive Data was last revised on 2017. Monocyte pct 5.4 % [facility] Comment: Interpretive Data Percent cell count reference ranges are not reported, since discordance with absolute values may lead to misinterpretation of CBC data. Current Interpretive Data was last revised on 2017. Eosinophil pct 2.4 % [facility] Comment: Interpretive Data Percent cell count reference ranges are not reported, since discordance with absolute values may lead to misinterpretation of CBC data. Current Interpretive Data was last revised on 2017. Basophil pct 0.7 % [facility] Comment: Interpretive Data Percent cell count reference ranges are not reported, since discordance with absolute values may lead to misinterpretation of CBC data. Current Interpretive Data was last revised on 2017. Blood 09/24/2024 12:4 1 PM CDT 09/24/2024 12:49 PM CDT us Natalie Urrutia MD LAB BLOOD ORDERABLES F inal Result [facility] [address] [facility] Department [place] [address] * (ABNORMAL) CBC with auto differential (09/24/2024 12:41 PM CDT) Pathologist [facility] WBC 9.20 3.80 - 9.90 K/cumm Hgb 12.1(L) 13.0 - 17.5 g/dL [facility] Hct 37.9(L) 38.9 - 50.3 % [facility] Plt 330 150 - 400 K/cumm [facility] MPV 9.8 9.1 - 12.3 fL [facility] RBC 4.53 4.30 - 5.80 M/cumm [facility] MCV 83.7 81.3 - 96.4 fL [facility] MCH 26.7(L) 27.1 - 33.3 pg [facility] MCHC 31.9(L) 32.3 - 35.7 g/dL [facility] RDW CV 14.8 11.1 - 14.9 % [facility] RDW SD 44.9 35.7 - 48.1 fL [facility] NRBC abs 0.00 0.00 - 0.01 K/cumm [facility] Blood 09/24/2024 12:4 1 PM CDT 09/24/2024 12:49 PM CDT Natalie Urrutia MD LAB BLOOD ORDERABLES F inal Result Performing Organization Address City/State/[facility] Co de Phone Number [facility] [address] [facility]. Department [place] [address] * XR Finger 5th Pinky Left (09/12/2024 [...] Andres Betancourt M.D. MF: FRANCISCO Report ID: [id number] Reading Location: [id number] Procedure Note Andres Betancourt MD - 09/12/2024 [...] Andres Betancourt M.D. MF: FRANCISCO Report ID: [id number] Reading Location: [place] [address] us Shoshana Hutchins MD IMG XR PROCEDURES [...] Andres Betancourt M.D. MF: FRANCISCO Report ID: [id number] Reading Location: [id number] Procedure Note Andres Betancourt MD - 09/12/2024 [...] Andres Betancourt M.D. MF: FRANCISCO Report ID: [id number] Reading Location: [id number] us Shoshana Hutchins MD IMG XR PROCEDURES [...] Andres Betancourt M.D. MF: FRANCISCO Report ID: [id number] Reading Location: [id number] Procedure Note Andres Betancourt MD - 09/12/2024 [...] Andres Betancourt M.D. MF: FRANCISCO Report ID: [id number] Reading Location: [id number] Shoshana Hutchins MD IMG XR PROCEDURES Final [...] Other Jm Alonso MD Final Result * XR [...] Collin Cantrell M.D. NS T: Report ID: [id number] Reading Location: [id number] Procedure Note Collin Cantrell MD - 09/06/2024 [...] Collin Cantrell M.D. NS T: Report ID: [id number] Reading Location: [id number] Desi Barney NP IMG XR PROCEDURES Final [...] signed by Collin STARKS T: Report ID: [id number] Reading Location: [id number] Procedure Note Collin Cantrell MD - 09/06/2024 [...] signed by Collin STARKS T: Report ID: [id number] Reading Location: [id number] Desi Barney NP IMG XR PROCEDURES Final [...] 4:08 AM CDT Performed at: 01 - [place] [place] [id number] [employer] Developer: Yuan Gaitan PhD, Phone: [phone] us Jm Alonso MD LAB URINE ORDERABLES [facility] - 01 * PSA screen (08/16/2021 10:37 AM CDT) Pathologist [facility] PSA 0.5 0.0 - 4.0 ng/mL [facility] - 01 Comment: Lito ECLIA methodology. According to the [employer], Serum PSA should decrease and [...] 08/17/2021 7:09 AM CDT Performed at: - [address] [id number] [employer] Developer: Yuan Gaitan PhD, Phone: [phone] us Jm Alonso MD LAB BLOOD ORDERABLES Final Re sult [facility] - 01 from Last 3 Months or Most Recently Relevant to Health Maintenance Insurance MEDIC[facility] MEDICARE [facility] FEDERAL [facility] MEDICARE MEDICARE [facility] Advance Directives For more information, please contact: [phone] * Full Code (Latest Code Status on File) Date Activated Date Inactivated Comments 02/11/2023 9:33 AM 02/11/2023 4:38 PM * Full Code Date Activated Date Inactivated Comments 01/14/2023 8:51 AM 01/14/2023 4:11 PM Care Teams Clerical Secretary Relationship Specialty Start Date End Date Jm Alonso MD PCP - General Internal Medicine 08/25/18
--- OUTSIDE RECORDS SUMMARY | 2024-10-24 15:08 | XMS_ITS | Clinical Summary ---
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
--- OUTSIDE RECORDS SUMMARY | 2024-10-24 15:08 | XMS_ITS | Encounter Summary ---
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
== END 2024-10-24 15:03 | disposition home or self-care (01) ==
PROVIDERS: PCP Internal Medicine; Visit Provider Nurse Practitioner Family
DX: N20.0 Calculus of kidney (principal); Z96.0 Presence of urogenital implants; N20.1 Calculus of ureter
CPT/HCPCS: 74176

== ENCOUNTER 2024-11-21 13:58 | Outpatient (CLI) | payer MEDICARE, BC, SELFPAY ==
--- NOTE | 2024-11-21 14:00 | ECG_ITS ---
Test Date: 2024-11-21 14:23:35 Measurements Intervals [place] Rate: 74 P: 36 MT: 161 QRS: 16 QRSD: 93 T: 49 QT: 313 QTc: 347 Interpretive Statements SINUS RHYTHM NONSPECIFIC T-WAVE ABNORMALITY Electronically Signed On 11-22-2024 17:08:35 CDT by Santino Peters D.O
--- OUTSIDE RECORDS SUMMARY | 2024-11-21 14:07 | XMS_ITS | Encounter Summary ---
Author Organization [facility] Address [address] [place] [address] Phone Care Team Providers Care Retail Field Supervisor Name Role Phone Jm Alonso MD Primary Care Provider [phone] Encounter Details Date Type Department Care Team (Late st Contact Info) Description 11/20/2024 Plan of Care Documentation [facility] Physical Therapy [address] [facility] [address] [place] [address] Social History Tobacco Use Types Packs/Day Years [...] making you feel afraid or unsafe? Denies 11/15/2024 Sex and Gender Information Value Date Recorded Sex Assigned at Not on file Legal Sex Male 11:00 AM [employer] Gender Identity Male 01/03/2020 10:22 AM CDT Sexual Orientation Choose not to disclose 2019 10:22 AM CDT documented as of this encounter Plan of Treatment Scheduled Procedures Name Priority Associated Diagnoses Date/Ti me COLONOSCOPY Encounter for screening colonoscopy documented as of this encounter Visit Diagnoses Not on filedocumented in this encounter Care Teams Retail Field Supervisor Relationship Specialty Start Date End Date Jm Alonso MD PCP - General Internal Medicine 08/25/18 documented as of this encounter
--- OUTSIDE RECORDS SUMMARY | 2024-11-21 14:07 | XMS_ITS | Clinical Summary ---
Author Organization [facility] Address [address] [place] [address] Care Team Providers Care Washery Engineer Name Role Phone Jm Alonso MD Primary Care Provider [phone] Allergies No known active allergies Medications cetirizine (ZyrTEC) 10 mg tabletIndications :Seasonal Allergic Rhinitis Take 1 tablet (10 mg total) by mouth disposal man 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 Active aspirin 81 mg enteric coated tabletIndications :prevention of thrombosis Take 1 tablet (81 mg total) by mouth every morning Active omeprazole 20 mg tablet,delayed release (DR/EC)Indication s:Treatment of Non-Bleeding Gastric Disorder Take 1 tablet (20 mg total) by mouth every morning 09/26/19 21 Active pen needle, diabetic 32 gauge x /32 needle Use to inject insulin 1 times per day. 100 each 3 10/13/19 24 Active cyanocobalamin (Vitamin B-12) 1,000 mcg tabletIndications :Prevention of Vitamin B12 Deficiency Take 1 tablet (1,000 mcg total) by mouth daily Active carbidopa-levodop a (SINEMET) 25-100 mg per tabletIndications :Parkinsonism Take 3 tablets by mouth 4 (four) times a day 1080 tablet 3 01/29/20 24 025 Active carbidopa-levodop a CR (SINEMET CR) 50-200 mg per CR tablet Take 2 tablets by mouth nightly 180 tablet 3 01/29/20 24 025 Active gabapentin (NEURONTIN) 300 mg capsule TAKE 1 CAPSULE BY MOUTH NIGHTLY 90 capsule 2 05/11/19 25 Active insulin glargine 100 unit/mL (3 mL) pen for injection Take 30 units sub q daily 45 mL 4 05/23/19 25 Active atorvastatin (LIPITOR) 20 mg tablet Take 1 tablet by mouth once daily 90 tablet 2 07/30/19 25 Active sertraline (ZOLOFT) 100 mg tablet Take 1.5 tablets (150 mg total) by mouth disposal man 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 135 tablet 3 09/06/19 25 026 Active fenofibrate (TRIGLIDE) 160 mg tablet Take 1 tablet by mouth once daily 90 tablet 09/10/19 25 Active tamsulosin (FLOMAX) 0.4 mg extended release capsule Take 1 capsule by mouth once daily 90 capsule 09/10/19 25 Active mirabegron ER (MYRBETRIQ) 50 mg tablet extended release 24 hr Take 1 tablet (50 mg total) by mouth disposal man 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 09/16/19 25 Active linaGLIPtin (Tradjenta) 5 mg tablet Take 1 tablet by mouth once daily 90 tablet 3 10/12/19 25 Active clonazePAM (KlonoPIN) 0.5 mg tabletIndications :REM sleep behavior disorder TAKE 2 TABLETS BY MOUTH ONCE DAILY AT NIGHT 180 tablet 11/01/19 25 Active fludrocortisone 0.1 mg tabletIndications :Parkinson's disease with dyskinesia and fluctuating manifestations (HCC),Neurogenic orthostatic hypotension (HCC) Take 1 tablet (0.1 mg total) by mouth daily 30 tablet 11 11/19/19 25 026 Active clonazePAM (KlonoPIN) 0.5 mg tabletIndications :REM sleep behavior disorder TAKE 2 TABLETS BY MOUTH ONCE DAILY AT NIGHT 180 tablet 07/30/19 25 025 Discontinued Active Problems Problem Noted [...] (07/25/2020): Added automatically from request for surgery [id number] 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 Once this is confirmed we can proceed with definitive therapy Type 2 diabetes mellitus wit hout complication, without long-term current use of insulin 02/29/2020 Assessment & Plan (05/23/2024 12:02 PM PAINTER SET): Increase insulin to 30 units Assessment & Plan (02/09/2024 11:53 AM CDT): Incease lantus to 26 units. May need bolus insulin Essential hypertension 02/29/2020 Assessment & Plan (05/23/2024 12:02 PM PAINTER SET): Bp at target Assessment & Plan (02/09/2024 [...] to increase the dose slightly. Parkinson disease ([facility]) 05/29/2015 Assessment & Plan (11/15/2024 10:23 AM CDT): He has parkinsonism stage 2.5 characterized by bilateral rigidity and bradykinesia, postural instability with recovery on pull test, historical feeling of internal tremor, and subjective response to levodopa, including cognitive benefit. The most likely etiology remains idiopathic Parkinson disease. He may be reasonably well-treated at this pointbut we may need to reduce dose of levodopa due to to orthostatic hypotension and dyskinesia. He would benefit from PT for gait training and fall prevention. Plan as phrased to patient and his : Continue carbidopa-levodopa 25-100mg during the day and 50-200mg CR at bedtime. Please send BP numbers and we may consider reducing the dose of carbidopa- levodopa 25-100 from 3 tabs three times daily to 2 tabs three times daily, to see if this helps with dizziness. Set alarms on your phone to stay on schedule with levodopa doses. Sit up first, then get out of bed. Avoid bending over then standing too quickly. Start PT with [facility] and send updates to us by [employer] as needed. 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 Let us know if you think a home OT visit would help for daily organization, etc. Continue clonazepam for RBD. Continue sertraline for mood. Assessment & Plan (10/04/2024 4:14 PM CDT): [...] patient. Assessment & Plan (05/23/2024 12:02 PM PAINTER SET): Hilda sees neurology Assessment & Plan (02/09/2024 [...] He has finished PT and knows of [employer] youtube channel exercises online. He is interested [...] day. Assessment & Plan (03/26/2023 7:09 PM PAINTER SET): He has parkinsonism stage 2.5 characterized on [...] more consistent with dose timing. 3. Call [facility] PT to schedule a follow up appointment. 4. I will send a referral to [facility] OT for a driving evaluation. Assessment & Plan (05/16/2022 1:12 PM PAINTER SET): He has parkinsonism stage 2.5 characterized on [...] gabapentin.. 3. Same clonazepam. 4. Start [employer] youtRooftop Down channel exercises. 5. Talk to Dr. Alonso about cutting back irbesartan to half. 6. [employer]. 7. Start PT and ST here at [facility] then get plan made for [...] exercises. Assessment & Plan (05/04/2020 12:37 PM PAINTER SET): He has parkinsonism stage 2.5 characterized on [...] order EMG/NCS of left hand. 3. Start [employer] youtRooftop Down channel exercises. 4. Be sure PMD has [...] a referral to a sleep neurologist at [facility]. They may want to order another sleep study because it has been some time since your last one. 4. I will send a referral to [facility] PT for balance and walking. [...] Encounters Date Type Department Care Team Description 11/20/2024 Plan of Care Documentation [facility] [address] [place] [phone] 11/18/2024 10:00 AM CDT Therapy [facility] [address] [place] [phone] Denise Billy, DPT Parkinson's disease with dyskinesia and fluctuating manifestations (HCC) (Primary Dx) 11/18/2024 Orders Only [facility] [address] [facility] 7th [place] [address] José Miguel Hutchins MD PhD Parkinson's disease with dyskinesia and fluctuating manifestations (HCC) (Primary Dx); Neurogenic orthostatic hypotension (HCC) 11/15/2024 1:52 PM CDT - 11/15/2024 6:51 PM CDT Emergency [facility] Emergency Department [address] [place] [address] Fall, initial encounter (Primary Dx); Orthostatic hypotension; Multiple falls Discharge Disposition: Discharge to home or self care 11/14/2024 Telephone [facility] [address] [place] [phone] Adrianne Briceño RN 11/14/2024 Orders Only [facility] [address] [place] [phone] Marcie Silver NP Parkinson's disease with dyskinesia and fluctuating manifestations (HCC) (Primary Dx) 2024 2:00 PM CDT Office Visit [facility] [address] [place] [phone] José Miguel Hutchins MD PhD Parkinson's disease with dyskinesia and fluctuating manifestations (HCC) (Primary Dx); Orthostatic hypotension; REM sleep behavior disorder; Anxiety 11/03/2024 Telephone [facility] [address] [place] [address] [address] [phone] Jm Alonso MD [facility] 10/25/2024 Orders Only [facility] [address] [place] [address] [address] [facility] [address] [place] [phone] Jm Alonso MD 10/12/2024 Orders Only [facility] [address] [place] [address] [address] [facility] [address] [place] [phone] Jm Alonso MD 10/10/2024 10:00 AM CDT Office Visit [facility] Hand Surgery [address] [place] [address] [place] [phone] Shoshana Hutchins MD Closed traumatic dislocation of proximal interphalangeal (PIP) joint of left little finger (Primary Dx) 10/10/2024 Orders Only [facility] [address] [facility] [address] [place] [address] Jm Alonso MD 09/24/2024 11:22 AM CDT - 09/24/2024 5:52 PM CDT Emergency [facility] Emergency Department [address] [place] [address] Natalie Urrutia MD Fitzmaurice, Sean C., MD Fall, initial encounter (Primary Dx); Blunt head trauma, initial encounter; Abdominal pain Discharge Disposition: Discharge to home or self care 09/24/2024 9:30 AM CDT Office Visit [facility] at [address] [phone] Briseida Bowers NP Left upper quadrant abdominal pain (Primary Dx); Left upper quadrant abdominal tenderness without rebound tenderness; Contusion of abdominal wall, initial encounter; Multiple falls 09/16/2024 9:30 AM CDT Office Visit [facility] [address] [place] [address] 7th [place] [address] Marcie Silver NP Parkinson's disease with dyskinesia and fluctuating manifestations (HCC) (Primary Dx); Levodopa-induced dyskinesia; REM sleep behavior disorder; Anxiety 09/12/2024 9:15 AM CDT Office Visit [facility] Hand Surgery [address] [facility] [address] [place] [address] Shoshana Hutchins MD Finger pain, left (Primary Dx); Closed traumatic dislocation of proximal interphalangeal (PIP) joint of left little finger; Right wrist pain 09/12/2024 7:45 AM CDT - 09/12/2024 11:59 PM CDT Hospital Encounter [facility] M[facility] 1 DIAG IMG [address] [place] [address] Finger pain, left; Right wrist pain Discharge Disposition: Discharge to home or self care 09/12/2024 Telephone [facility] Scheduling [address] [place] [address] Marcie Silver NP Scheduling Appointments 09/08/2024 2:15 PM CDT Office Visit [facility] [facility] [address] [place] [address] Jm Alonso MD Type 2 diabetes mellitus without complication, without long-term current use of insulin (HCC) (Primary Dx); Parkinson's disease with dyskinesia and fluctuating manifestations (HCC); Essential hypertension 09/06/2024 2:35 PM CDT Ancillary Procedure [facility] Imaging at [address] [phone] Injury of left little finger, initial encounter 09/06/2024 2:30 PM CDT Office Visit [facility] at [address] [phone] Desi Barney NP Injury of left little finger, initial encounter (Primary Dx); Closed traumatic dislocation of proximal interphalangeal (PIP) joint of left little finger; Displaced fracture of middle phalanx of left little finger, initial encounter for closed fracture 09/06/2024 2:10 PM CDT Ancillary Procedure [facility] Imaging at [address] [phone] Injury of left little finger, initial encounter 09/06/2024 Orders Only [facility] [facility] [address] [place] [address] Jm Alonso MD 09/06/2024 Results Follow-Up [facility] at [address] [phone] Desi Barney NP XR Finger 5Th Pinky Left 09/05/2024 Telephone [facility] 7th [place] [address] Adrianne Briceño RN from Last 3 Months Immunizations Immunization Administration [...] on file Legal Sex Male 11:00 AM PAINTER SET Gender Identity Male 01/03/2020 10:22 AM CDT Sexual Orientation Choose not to disclose 2019 10:22 AM CDT Obstetrics History Last Filed Vital Signs Vital Sign Reading Time Taken Comments Blood Pressure 90/55 11/18/2024 10:37 AM CDT Pulse 84 11/18/2024 10:37 AM CDT Temperature 36.6 C (97.9 F) 11/15/2024 1:47 PM CDT Respiratory Rate 18 11/15/2024 1:47 PM CDT Oxygen Saturation 97% 11/18/2024 10:37 AM CDT Inhaled Oxygen Concentration - - Weight 102.1 kg (225 lb) 11/15/2024 1:47 PM CDT Height 182.9 cm (6') 11/15/2024 1:47 PM CDT Body Mass Index 30.52 11/15/2024 1:47 PM CDT Plan of Treatment Scheduled Procedures [...] 08/26, 08/16/2021, Additional history exists Influenza Vaccine (#1) 2024 Hemoglobin A1C 03/11/2025 09/08/2024, 04/28, 02/09/2024, Additional history exists Colon Cancer Screening-Colonoscopy 11/08/2025 Postponed from 1956 (Patient declined, but will receive in the future) eGFR 11/15/2025 11/15/2024, 08/27, 09/29/2023, Additional history exists Medical Devices Implanted Type Area Bariatric Coordinator Device Identifier Shelf Expiration Date Model / Serial / Lot [employer] Lens Iol Tecnis Smplcty 1-Pc Clr [place] 15.5 Diopter [id number] - [id number] - [id number] Implanted:Qty: 1 on 01/14/2023 by Richmond Morales MD at [facility] Lens Left: Eye [place] [employer] [id number] 05/10/2025 [id number] / [id number] / 0 [employer] Lens Iol Tecnis Smplcty 1-Pc Clr [place] 15.5 Diopter [id number] - [id number] - [id number] Implanted:Qty: 1 on 02/11/2023 by Richmond Morales MD at [facility] Lens Right: Eye [place] [employer] [id number] 12/10/2024 [id number] / [id number] / Procedures Procedure Name Priority Date/Time Associated Diagnosis Comments CT HEAD AND CERVICAL SPINE WO CONTRAST ED 11/15/2024 2:56 PM CDT ECG 12-LEAD STAT 11/15/2024 2:51 PM CDT URINALYSIS AND REFLEX TO MICROSCOPIC AND CULTURE STAT 11/15/2024 2:45 PM CDT EGFR STAT 11/15/2024 1:51 PM CDT DIFFERENTIAL AUTO STAT 11/15/2024 1:5 1 PM CDT COMPREHENSIVE METABOLIC PANEL STAT 11/15/2024 1:51 PM CDT CBC WITH AUTO DIFFERENTIAL STAT 11/15/2024 1:51 PM CDT SCAN - RADIOLOGY/IMAGING 10/25/2024 9:10 AM CDT SCAN - RADIOLOGY/IMAGING 10/12/2024 6:54 PM CDT [...] Recently Relevant to Health Maintenance Results * CT Head and Cervical Spine WO Contrast (11/15/2024 2:56 PM CDT) Anatomical Region Laterality Modality Head and Neck N/A Computed Tomogra phy 11/15/2024 4:41 PM CDT Impressions 11/15/2024 6:05 PM CDT 1. No acute intracranial hemorrhage or large territorial infarct. Unchanged encephalomalacia in the right occipital lobe. 2. No evidence of acute fracture in the cervical spine. Dictated by: Stephen Shannon MD The radiology attending physician has personally reviewed this study, and had reviewed and/or edited this written report and agrees with it. Electronically signed by: Austin Osuna MD, PHD Narrative 11/15/2024 6:05 PM CDT EXAMINATION: 1. CT head without contrast 2. CT of the cervical spine without contrast HISTORY: Multiple falls with head pain TECHNIQUE: CT of the head was performed with images acquired from skull base to vertex without intravenous contrast. CT of the cervical spine was performed according to the standard protocol without intravenous contrast. COMPARISON: CT head cervical spine 09/24/2024 FINDINGS: HEAD: There is no acute intracranial hemorrhage. Scattered ill-defined hypodensities in the periventricular and subcortical white matter are nonspecific, however likely represent sequela chronic microvascular ischemic change. There is parenchymal volume loss with ex vacuo dilation of the ventricular system. Intracranial atherosclerotic calcifications. No mass effect or midline shift is present. Unchanged encephalomalacia in the right occipital lobe. The warren-white matter differentiation is normal. Bilateral lens replacements. The visualized portions of the mastoids are normal. The visualized portions of the paranasal sinuses are normal. No fractures are identified. CERVICAL SPINE: Straightening of the cervical spine with minimal retrolisthesis of C6 on C7. Multilevel anterior disc osteophytes. There is no acute fracture. Vertebral bodies are normal in height without compression fractures. Multilevel disc height loss, most pronounced and moderate at C6-C7. Osteoarthritic changes are present involving the anterior arch of C1 and the odontoid process of C2 vertebra with predental space narrowing, sclerosis and osteophytes. The sphenoid sinus is well aerated. Unchanged subcentimeter hypoattenuating right hemithyroid nodule. Multilevel uncovertebral and facet arthropathy throughout the cervical spine resulting in varying levels of neuroforaminal stenosis. No high-grade spinal canal stenosis. Procedure Note Austin Osuna MD PhD - 11/15/2024 EXAMINATION: 1. CT head without contrast 2. CT of the cervical spine without contrast HISTORY: Multiple falls with head pain TECHNIQUE: CT of the head was performed with images acquired from skull base to vertex without intravenous contrast. CT of the cervical spine was performed according to the standard protocol without intravenous contrast. COMPARISON: CT head cervical spine 09/24/2024 FINDINGS: HEAD: There is no acute intracranial hemorrhage. Scattered ill-defined hypodensities in the periventricular and subcortical white matter are nonspecific, however likely represent sequela chronic microvascular ischemic change. There is parenchymal volume loss with ex vacuo dilation of the ventricular system. Intracranial atherosclerotic calcifications. No mass effect or midline shift is present. Unchanged encephalomalacia in the right occipital lobe. The warren-white matter differentiation is normal. Bilateral lens replacements. The visualized portions of the mastoids are normal. The visualized portions of the paranasal sinuses are normal. No fractures are identified. CERVICAL SPINE: Straightening of the cervical spine with minimal retrolisthesis of C6 on C7. Multilevel anterior disc osteophytes. There is no acute fracture. Vertebral bodies are normal in height without compression fractures. Multilevel disc height loss, most pronounced and moderate at C6-C7. Osteoarthritic changes are present involving the anterior arch of C1 and the odontoid process of C2 vertebra with predental space narrowing, sclerosis and osteophytes. The sphenoid sinus is well aerated. Unchanged subcentimeter hypoattenuating right hemithyroid nodule. Multilevel uncovertebral and facet arthropathy throughout the cervical spine resulting in varying levels of neuroforaminal stenosis. No high-grade spinal canal stenosis. IMPRESSION: 1. No acute intracranial hemorrhage or large territorial infarct. Unchanged encephalomalacia in the right occipital lobe. 2. No evidence of acute fracture in the cervical spine. Dictated by: Stephen Shannon MD The radiology attending physician has personally reviewed this study, and had reviewed and/or edited this written report and agrees with it. Electronically signed by: Austin Osuna MD, PHD us Soraida Payne [facility]MIN[facility] IMG CT PROCEDURES Fin al Result * ECG 12-LEAD (11/15/2024 2:51 PM CDT) Narrative CONS SCIMAGE - 11/15/2024 2:51 PM CDT Denise Lai MD 11/15/2024 2:51 PM ECG 12 lead Date/Time: 11/15/2024 2:51 PM Performed by: Denise Lai MD Authorized by: Denise Lai MD Quality: Tracing quality: Limited by artifact Rate: ECG rate: 74 ECG rate assessment: normal Rhythm: Rhythm: sinus rhythm Ectopy: Ectopy: none QRS: QRS axis: Normal QRS intervals: Normal Conduction: Conduction: normal ST segments: ST segments: Normal T waves: T waves: normal Previous ECG: Previous ECG: Unavailable Interpretation: Interpretation: No acute injury pattern Recommended Follow-up: Recommended follow up: further workup in the ED us Denise Lai MD ECG ORDERABLES Final Resul t [facility] * (ABNORMAL) Urinalysis reflex to microscopic and culture Urine (11/15/2024 2:45 PM CDT) Color, ur Straw Yellow Clarity, ur Clear Clear [facility] Specific gravity, ur 1.015 1.003 - 1.030 [facility] pH, urine [...] tendency for uric acid stone formation. Source: [employer] Current Interpretive Data was last revised on 2017 Protein, ur ql Negative Negative [facility] Glucose, ur ql Trace(A) Negative [facility] Ketones, ur Negative Negative [facility] Bilirubin, ur Negative Negative [facility] Blood, ur Negative Negative [facility] Urobilinogen, ur <2.0 <2.0 mg/dL [facility] Nitrite, ur Negative Negative [facility] Leukocyte esterase, ur Negative Negative [facility] UA reflex comment Reflex conditions for microscopic UA and culture not met. [facility] Urine 11/15/2024 2:45 PM CDT 11/15/2024 2:47 PM CDT us Denise Lai MD LAB MICROBIOLOGY - GENERAL ORDERABLES Final Result Performing Organization Address City/[facility]/ZIP Co de Phone Number DELIA CARRERA [address] [facility] [place] [address] * (ABNORMAL) eGFR (11/15/2024 1:51 PM CDT) eGFR 39(L) >=60 mL/min/1. 73 m2 Comment: Interpretive Data [...] interpretive data was last reviewed 2021. Blood 11/15/2024 1:51 PM CDT 11/15/2024 2:00 PM CDT us Denise Lai MD LAB BLOOD ORDERABLES Final Result DELIA CARRERA [address] [facility]. Department [place] [address] * (ABNORMAL) Differential, auto (11/15/2024 1:51 PM CDT) Neutrophil abs 8.25(H) 1.50 - 6.50 K/cumm Imm gran abs 0.15(H) 0.00 - 0.10 K/cumm [facility] Lymphocyte abs 0.82 0.80 - 3.30 K/cumm [facility] Monocyte abs 0.55 0.20 - 0.80 K/cumm [facility] Eosinophil abs 0.46 0.00 - 0.50 K/cumm [facility] Basophil abs 0.03 0.00 - 0.10 K/cumm [facility] Neutrophil pct 80.3 % [facility] Comment: Interpretive Data Percent cell count reference ranges are not reported, since discordance with absolute values may lead to misinterpretation of CBC data. Current Interpretive Data was last revised on 2017. Imm gran pct 1.5 % [facility] Comment: Interpretive Data Percent cell count reference ranges are not reported, since discordance with absolute values may lead to misinterpretation of CBC data. Current Interpretive Data was last revised on 2017. Lymphocyte pct 8.0 % [facility] Comment: Interpretive Data Percent cell count reference ranges are not reported, since discordance with absolute values may lead to misinterpretation of CBC data. Current Interpretive Data was last revised on 2017. Monocyte pct 5.4 % [facility]IA [facility] Comment: Interpretive Data Percent cell count reference ranges are not reported, since discordance with absolute values may lead to misinterpretation of CBC data. Current Interpretive Data was last revised on 2017. Eosinophil pct 4.5 % [facility] Comment: Interpretive Data Percent cell count reference ranges are not reported, since discordance with absolute values may lead to misinterpretation of CBC data. Current Interpretive Data was last revised on 2017. Basophil pct 0.3 % [facility] Comment: Interpretive Data Percent cell count reference ranges are not reported, since discordance with absolute values may lead to misinterpretation of CBC data. Current Interpretive Data was last revised on 2017. Blood 11/15/2024 1:51 PM CDT 11/15/2024 2:00 PM CDT Denise Lai MD LAB BLOOD ORDERABLES Final Result Performing Organization Address [facility] de Phone Number DELIA CARRERA [address] [facility] [place], [place] [phone] * (ABNORMAL) CBC with auto differential (11/15/2024 1:51 PM CDT) WBC 10.26(H) 3.80 - 9.90 K/cumm Hgb 12.4(L) 13.0 - 17.5 g/dL [facility] Hct 38.6(L) 38.9 - 50.3 % [facility] Plt 311 150 - 400 K/cumm [facility] MPV 10.0 9.1 - 12.3 fL [facility] RBC 4.66 4.30 - 5.80 M/cumm [facility] MCV 82.8 81.3 - 96.[address] [facility] MCH 26.6(L) 27.1 - 33.[address] [facility] WCH MCHC 32.1(L) 32.3 - 35.7 g/dL [facility] RDW CV 14.4 11.1 - 14.9 % [facility] RDW SD 43.5 35.7 - 48.1 fL [facility] NRBC abs 0.00 0.00 - 0.01 K/cumm [facility] Blood 11/15/2024 1:51 PM CDT 11/15/2024 2:00 PM CDT Denise Lai MD LAB BLOOD ORDERABLES Final Result Performing Organization Address [facility] Co de Phone Number DELIA CARRERA [address] [place] [employer]. [facility] [place], [place] [phone] * (ABNORMAL) Comprehensive metabolic panel (11/15/2024 1:51 PM CDT) Sodium 135 135 - 145 mmol/L Potassium, pl 4.6 3.3 - 4.9 mmol/L [facility] Chloride 101 97 - 110 mmol/L [facility] CO2 22 22 - 32 mmol/L [facility] Anion gap 12 2 - 15 mmol/L [facility] BUN 28(H) 6 - 25 mg/dL [facility] Creatinine 1.84(H) 0.80 - 1.30 mg/dL [facility] Glucose 164 70 - 199 mg/dL [facility] Comment: [...] interpretive data was last revised 2022. Calcium 9.6 8.5 - 10.3 mg/dL [facility] Bilirubin, total 0.5 0.1 - 1.2 mg/dL [facility] Protein, pl 7.2 6.5 - 8.5 g/dL [facility] Albumin 3.9 3.5 - 5.0 g/dL [facility] Alk phos 97 40 - 130 Units/L [facility] ALT <5(L) 7 - 55 Units/L [facility] AST 19 10 - 50 Units/L [facility] Blood 11/15/2024 1:51 PM CDT 11/15/2024 2:00 PM CDT us Denise Lai MD LAB BLOOD ORDERABLES Final Result DELIA KNAPP [address] [facility]. Department [place] [address] * SCAN - RADIOLOGY/IMAGING (10/25/2024 9:10 AM CDT) Anatomical Region Laterality Modality Other us Jm Alonso MD Final Result * SCAN - RADIOLOGY/IMAGING (10/12/2024 6:54 PM CDT) Anatomical Region Laterality Modality Other Result Murali Alonso MD Final Result * SCAN - LABS (10/10/2024 5:00 PM CDT) Result Murali Alonso MD Final Result * SCAN - RADIOLOGY/IMAGING (10/10/2024 4:42 PM CDT) Anatomical Region Laterality Modality Other Result Murali Alonso MD Final Result * SCAN - RADIOLOGY/IMAGING (10/10/2024 4:30 PM CDT) Anatomical Region Laterality Modality Other Result Murali Alonso MD Final Result * CT Recon [...] The abdominal aorta appears normal. Procedure Note Nydai Ryan MD - 09/24/2024 EXAMINATION: 1. CT [...] to the emergency room attending physician Dr. Baldwni at 6:23 PM. Electronically signed by: Terrance [...] tendency for uric acid stone formation. Source: [employer] Current Interpretive Data was last revised on [...] GEN ERAL ORDERABLES Final Result DELIA CARRERA [address] [facility]. Department [place] [address] * (ABNORMAL) eGFR (09/24/2024 1:14 PM CDT) [...] ORDERABLES F inal Result Performing Organization Address [facility] Co de Phone Number DELIA REEVESWCH [address] [employer]. [facility] [place] [address] * Lipase (09/24/2024 1:14 PM CDT) Pathologist [facility] Lipase 56 10 - 99 Units/L Blood 09/24/2024 1:14 PM CDT 09/24/2024 1:22 PM CDT Natalie Urrutia MD LAB BLOOD ORDERABLES F inal Result Performing Organization Address [facility] de Phone Number [facility] [address] [employer]. [place] [address] * (ABNORMAL) Comprehensive metabolic panel (09/24/2024 1:14 PM CDT) Pathologist [facility] Sodium 131(L) 135 - 145 mmol/L Potassium, pl 4.4 3.3 - 4.9 mmol/L [facility] Chloride 96(L) 97 - 110 mmol/L [facility] CO2 21(L) 22 - 32 mmol/L [facility] Anion gap 14 2 - 15 mmol/L [facility] BUN 27(H) 6 - 25 mg/dL [facility] Creatinine 1.60(H) 0.80 - 1.30 mg/dL [facility] Glucose 272(H) 70 - 199 mg/dL [facility] Comment: Interpretive Data Fasting glucose >/= 126 [...] LAB BLOOD ORDERABLES F inal Result [facility] [address] [facility]. Department [place] [address] * (ABNORMAL) Differential, auto (09/24/2024 12:41 PM [...] on 2017. Lymphocyte pct 10.2 % [facility] Comment: Interpretive Data Percent [...] on 2017. Basophil pct 0.7 % DELIA KNAPP Comment: Interpretive Data Percent cell count reference ranges are not reported, since discordance with absolute values may lead to misinterpretation of CBC data. Current Interpretive Data was last revised on 2017. Blood 09/24/2024 12:4 1 PM CDT 09/24/2024 12:49 PM CDT us Natalie Urrutia MD LAB BLOOD ORDERABLES F inal Result [facility] [address] [facility] Department of Laboratories [place], [place] [phone] * (ABNORMAL) CBC with auto differential (09/24/2024 12:41 PM CDT) Pathologist [facility] WBC 9.20 3.80 - 9.90 K/cumm Hgb 12.1(L) 13.0 - 17.5 g/dL [facility] Hct 37.9(L) 38.9 - 50.3 % [facility] Plt 330 150 - 400 K/cumm [facility] MPV 9.8 9.1 - 12.3 fL [facility] RBC 4.53 4.30 - 5.80 M/cumm [facility] MCV 83.7 81.3 - 96.4 fL [facility] MCH 26.7(L) 27.1 - 33.3 pg [facility] MCHC 31.9(L) 32.3 - 35.7 g/dL [facility] RDW CV 14.8 11.1 - 14.9 % [facility] RDW SD 44.9 35.7 - 48.1 fL [facility] NRBC abs 0.00 0.00 - 0.01 K/cumm [facility] Blood 09/24/2024 12:4 1 PM CDT 09/24/2024 12:49 PM CDT us Natalie Urrutia MD LAB BLOOD ORDERABLES F inal Result DEL[facility] [address] [facility]. [place] [address] * XR Finger 5th Pinky Left (09/12/2024 [...] Andres Betancourt M.D. MF: FRANCISCO Report ID: [id number] Reading Location: [id number] Procedure Note Andres Betancourt MD - 09/12/2024 [...] Andres Betancourt M.D. MF: FRANCISCO Report ID: [id number] Reading Location: [id number] us Shoshana Hutchins MD IMG XR PROCEDURES [...] Andres Betancourt M.D. MF: FRANCISCO Report ID: [id number] Reading Location: [id number] Procedure Note Andres Betancourt MD - 09/12/2024 [...] Andres Betancourt M.D. MF: FRANCISCO Report ID: [id number] Reading Location: [id number] us Shoshana Hutchins MD IMG XR PROCEDURES [...] Andres Betancourt M.D. MF: FRANCISCO Report ID: [id number] Reading Location: [id number] Procedure Note Andres Betancourt MD - 09/12/2024 [...] Andres Betancourt M.D. MF: FRANCISCO Report ID: [id number] Reading Location: [id number] Shoshana Hutchins MD IMG XR PROCEDURES Final [...] Collin Cantrell M.D. NS T: Report ID: [id number] Reading Location: [id number] Procedure Note Collin Cantrell MD - 09/06/2024 [...] signed by Collin STARKS T: Report ID: [id number] Reading Location: [id number] Dsei Barney NP IMG XR PROCEDURES Final Re [...] signed by Collin STARKS T: Report ID: [id number] Reading Location: [id number] Procedure Note Collin Cantrell MD - 09/06/2024 [...] signed by Collin STARKS T: Report ID: [id number] Reading Location: [id number] Desi Barney NP IMG XR PROCEDURES Final [...] - 09/30/2023 4:08 AM CDT Performed at: [address] [place] [id number] Customs Manager: Yuan Gaitan PhD, Phone: [phone] Jm Alonso MD LAB URINE ORDERABLES Final Re sult [facility] - 01 * PSA screen (08/16/2021 10:37 AM CDT) Pathologist [facility] PSA 0.5 0.0 - 4.0 ng/mL [facility] - 01 Comment: Lito ECLIA methodology. According to the [employer], Serum PSA should decrease and [...] - 08/17/2021 7:09 AM CDT Performed at: [address] [place] [id number] Customs Manager: Yuan Gaitan PhD, Phone: [phone] Jm Alonso MD LAB BLOOD ORDERABLES Final Re [facility] Organization Address City/State/ZIP Co de Phone Number [facility] - 01 from Last 3 Months or Most Recently Relevant to Health Maintenance Insurance MEDICARE [facility] FEDERAL MEDICARE [facility] FEDERAL [facility] MEDICARE MEDICARE 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
--- OUTSIDE RECORDS SUMMARY | 2024-11-21 14:07 | XMS_ITS | Clinical Summary ---
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
--- OUTSIDE RECORDS SUMMARY | 2024-11-21 14:07 | XMS_ITS | Encounter Summary ---
Author Organization [facility] Address 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 [id number] [email or web address] Study Patient: Susan Ledezma MRN: Study ID: ADULT STRESS ECH Gender: M : 1955 Age: 51 years Race: 1 Room: Bed: Height: Study Date: October 18, 2007 Patient status: Inpatient Weight: Access. #: [id number] POC: Ordering: Jamie Riley Attending MD: Jamie [...] peak heart [place] blood [place] [address]. - There was no chest pain during [...] 09:54:58 Procedure Note Provider, Historical - 10/18/2007 [facility] [address] [place] [address] [email or web address] Study Patient: Susan Ledezma MRN: Study ID: ADULT STRESS ECH Gender: M : 1955 Age: 51 years Race: 1 Room: Bed: Height: Study Date: October 18, 2007 Patient status: Inpatient Weight: Access. #: [id number] POC: Ordering: Jamie Riley Attending MD: Jamie [...] the peak heart rate and blood pressurewas [address]1563. - There was no chest pain during [...] CDT) SODIUM 135 135 - 145 mmol/L [facility] CALCIUM 8.5 8.4 - 10.2 mg/dL [facility] CO2 25 22 - 30 mmol/L [facility] CREATININE 1.19(H) 0.67 - 1.17 mg/dL [facility] POTASSIUM 4.6 3.5 - 4.9 mmol/L [facility] BUN 20 6 - 20 mg/dL [facility] CHLORIDE 99 96 - 108 mmol/L [facility] GLUCOSE 128(H) 65 - 99 mg/dL [facility] GFR, >60 >=60 mL/min/1. 7 sq meter [facility] GFR >60 >=60 mL/min/1. 7 sq meter [facility] Comment: Modification of Diet in Renal Disease (MDRD) study formula. Estimated GFR rate interpretative information for both Americans and non- Americans is available on the [facility] Intranet at: [email or web address] Select: Lab Policies and Procedures Select: Reference Ranges - GFR Blood specimen (specimen) 10/18/2007 6:57 AM CDT 10/18/2007 7:08 AM CDT Result [facility] Jamie hCen MD CHEMISTRY ORDERABLES Edite d Performing Organization Address [facility] Co de Phone Number [facility] CLIA# [id number] [address] [place] [address] * D-DIMER (10/17/2007 5:34 PM CDT) D-DIMER QUANT <0.22 <=0.42 ug/mL FEU [facility] Comment: DVT Screen reference range <0.45 [...] ORDERABLES Sania l Result Performing Organization Address [facility] Co de Phone Number [facility] CLIA# [id number] [address] [place] [address] * TROPONIN (10/17/2007 6:15 AM CDT) Pathologist [facility] TROPONIN T <0.01 <=0.03 ng/mL [facility] TROPONIN T INTERP Negative [facility] Blood specimen (specimen) 10/17/2007 6:15 AM CDT 10/17/2007 6:19 AM CDT us Jamie Chen MD CHEMISTRY ORDERABLES Edite d [facility] CLIA# [id number] [address] [place] [address] * (ABNORMAL) COMPREHENSIVE METABOLIC PANEL (10/16/2007 10:26 PM CDT) [facility] CALCIUM 9.1 8.4 - 10.2 mg/dL [facility] CO2 22 22 - 30 mmol/L [facility] ALBUMIN 4.4 3.4 - 4.8 g/dL [facility] POTASSIUM See note. 3.5 - 4.9 mmol/L [facility] Comment: Gross hemolysis present. Result unreliable. K not reported per . Gross hemolysis present. Result unreliable. CREATININE 1.10 0.67 - 1.17 mg/dL [facility] SODIUM 134(L) 135 - 145 mmol/L [facility] ALT 18 0 - 41 U/L [facility] Comment: Hemolyzed: Result may be falsely elevated. ALKALINE PHOSPHATASE 65 40 - 129 U/L [facility] BILIRUBIN TOTAL 0.5 0.2 - 1.0 mg/dL [facility] TOTAL PROTEIN 7.5 6.3 - 8.6 g/dL [facility] CHLORIDE 101 96 - 108 mmol/L [facility] GLUCOSE 174(H) 65 - 99 mg/dL [facility] AST 36 12 - 38 U/L [facility] Comment: Hemolyzed: Result may be falsely elevated. BUN 19 6 - 20 mg/dL [facility] GFR, >60 >=60 mL/min/1. 7 sq meter [facility] GFR >60 >=60 mL/min/1. 7 sq meter [facility] Comment: Modification of Diet in Renal Disease (MDRD) study formula. Estimated GFR rate interpretative information for both Americans and non- Americans is available on the [facility] Intranet at: [email or web address] Select: Lab Policies and Procedures Select: Reference Ranges - GFR Blood specimen (specimen) 10/16/2007 10:26 PM CDT 10/16/2007 10:34 PM CDT Mohsen Garcia MD CHEMISTRY ORDERABLES Edited [facility] CLIA# [id number] [address] [place] [address] * TROPONIN (W/REFLEX CKMB/CK) (10/16/2007 10:26 PM CDT) TROPONIN T <0.01 <=0.03 ng/mL [facility] TROPONIN T INTERP Negative [facility] Blood specimen (specimen) 10/16/2007 10:26 PM CDT 10/16/2007 10:34 PM CDT Mohsen Garcia MD CHEMISTRY ORDERABLES Edited [facility] CLIA# [id number] [address] [place] [address] * CBC WITH DIFFERENTIAL (10/16/2007 10:26 PM CDT) MPV 10.7 9.3 - 12.4 fL [facility] HEMATOCRIT 43.4 40.0 - 48.0 % [facility] RDW-STDEV 41.3 37.1 - 48.7 fL [facility] RBC 5.09 4.50 - 5.40 M/uL [facility] MCHC 35.3 31.5 - 35.5 % [facility] MCV 85.3 82.0 - 99.0 fL [facility] PLATELETS 275 140 - 350 K/uL [facility] HEMOGLOBIN 15.3 13.6 - 16.5 g/dL [facility] RDW 13.3 11.5 - 14.5 % [facility] WBC 8.7 4.0 - 9.8 K/uL [facility] MCH 30.1 27.2 - 32.6 pg [facility] BASOPHILS 1 0 - 2 % [facility] BASOPHILS ABSOLUTE 0.05 0.00 - 0.20 K/uL [facility] MONOCYTES 8 3 - 13 % [facility] MONOCYTE ABSOLUTE 0.68 0.10 - 1.30 K/uL [facility] NEUTROPHILS 65 45 - 70 % [facility] NEUTROPHIL ABSOLUTE 5.65 1.90 - 7.00 K/uL [facility] EOSINOPHILS 2 0 - 7 % [facility] EOSINOPHIL ABSOLUTE 0.15 0.00 - 0.70 K/uL [facility] LYMPHOCYTES 25 16 - 45 % [facility] LYMPHOCYTE ABSOLUTE 2.15 0.70 - 4.50 K/uL [facility] Blood specimen (specimen) 10/16/2007 10:26 PM CDT 10/16/2007 10:34 PM CDT us Mohsen Garcia MD HEMATOLOGY ORDERABLES Edited INTERFACE SYSTEM Refer to clinic/hospital department [facility] CLIA# [id number] [address] [place] [address] * XR CHEST PA OR AP (10/16/2007 10:25 PM CDT) Anatomical Region Laterality Modality Chest Other 10/16/2007 10:2 5 PM CDT Narrative 10/17/2007 5:13 PM CDT [facility] [address] [place], [place] [address] Admit Date: 10/17/2007 SUSAN LEDEZMA Sex: M Admit Prov: JAMIE CHEN Date: 1955 Primary Care Prov: CMRN: [id number] Room: [address] [place] [address] SSN: [id number] IMAGING SERVICES Ordering Prov: N/A Accession Number: [id number] Interpretation Chest, portable AP semierect, 10/16/2007 at [...] Historical - 10/17/2007 [facility] [address] [place], [place] [address] Admit Date: 10/17/2007 SUSAN LEDEZMA Sex: M Admit Prov: JAMIE CHEN Date: 1955 Primary Care Prov: CMRN: [id number] Room: [address] [place] [address] SSN: [id number] IMAGING SERVICES Ordering Prov: N/A Interpretation Chest, [...]
--- OUTSIDE RECORDS SUMMARY | 2024-11-21 14:07 | XMS_ITS | Referral Summary ---
Author Organization [facility] Address [address] [place] [address] Care Team Providers Care Homicide Squad Lieutenant Name Role Phone Jm Alonso MD Primary Care Provider [phone] Encounters Date Type Department Care Team Description 11/20/[address] [facility] Physical Therapy [address] [place] [phone] 11/18/[address] [facility] Movement Disorders [address] [place] [phone] José Miguel Hutchins MD PhD Parkinson's disease with dyskinesia and fluctuating manifestations (HCC) (Primary Dx); Neurogenic orthostatic hypotension (HCC) 11/18/2024 10:[address] [facility] Physical Therapy [address] [place] [phone] Denise Billy, DPT Parkinson's disease with dyskinesia and fluctuating manifestations (HCC) (Primary Dx) 11/15/2024 1:52 PM CDT - 11/15/2024 6:51 PM CDT Emergency [facility] Emergency Department [address] [place] [address] Fall, initial encounter (Primary Dx); Orthostatic hypotension; Multiple falls Discharge Disposition: Discharge to home or self care 11/14/[address] [facility] Movement Disorders [address] [place] [phone] Adrianne Briceño RN 11/14/[address] [facility] Movement Disorders [address] [place] [address] 7th [place] [address] Marcie Silver NP Parkinson's disease with dyskinesia and fluctuating manifestations (HCC) (Primary Dx) 2024 2:00 PM CDT Office Visit [facility] Movement Disorders [address] [facility] 7th [place] [address] José Miguel Hutchins MD PhD Parkinson's disease with dyskinesia and fluctuating manifestations (HCC) (Primary Dx); Orthostatic hypotension; REM sleep behavior disorder; Anxiety 11/03/2024 Telephone [facility] [address] [place] [address] [address] [place] [address] [facility] medical 10/25/2024 Orders Only [facility] [address] [place] [address] [phone] Jm Alonso MD 10/12/2024 Orders Only [facility] [address] [place] [address] [address] [place] [phone] Jm Alonso MD 10/10/2024 Orders Only [facility] [address] [place] [address] [address] [place] [phone] Jm Alonso MD 10/10/2024 10:00 AM CDT Office Visit [facility] Medical Group Hand Surgery [address] [place] [phone] Shoshana Hutchins MD Closed traumatic dislocation of proximal interphalangeal (PIP) joint of left little finger (Primary Dx) 09/24/2024 11:22 AM CDT - 09/24/2024 5:52 PM CDT Emergency [facility] Emergency Department [address] [place] [address] Natalie Urrutia MD Fitzmaurice, Sean C., MD Fall, initial encounter (Primary Dx); Blunt head trauma, initial encounter; Abdominal pain Discharge Disposition: Discharge to home or self care 09/24/2024 9:30 AM CDT Office Visit [facility] Medical Group [facility] Care at [address] [phone] Briseida Bowers NP Left upper quadrant abdominal pain (Primary Dx); Left upper quadrant abdominal tenderness without rebound tenderness; Contusion of abdominal wall, initial encounter; Multiple falls 09/16/2024 9:30 AM CDT Office Visit [facility] Movement Disorders [address] [facility] 7th [place] [address] Marcie Silver NP Parkinson's disease with dyskinesia and fluctuating manifestations (HCC) (Primary Dx); Levodopa-induced dyskinesia; REM sleep behavior disorder; Anxiety 09/12/[address] [facility] Scheduling [facility] [place] [address] Marcie Silver NP Scheduling Appointments 09/12/2024 7:45 AM CDT - 09/12/2024 11:59 PM CDT Hospital Encounter [facility] MOB 1 DIAG IMG [address] [place] [phone] Finger pain, left; Right wrist pain Discharge Disposition: Discharge to home or self care 09/12/2024 9:15 AM CDT Office Visit [facility] Medical Group Hand Surgery [address] [place] [address] [address] [place] [phone] Shoshana Hutchins MD Finger pain, left (Primary Dx); Closed traumatic dislocation of proximal interphalangeal (PIP) joint of left little finger; Right wrist pain 09/08/2024 2:15 PM CDT Office Visit [facility] [address] [place] [address] [address] [place] [address] Jm Alonso MD Type 2 diabetes mellitus without complication, without long-term current use of insulin (HCC) (Primary Dx); Parkinson's disease with dyskinesia and fluctuating manifestations (HCC); Essential hypertension 09/06/2024 Orders Only [facility] [address] [place] [address] [address] [place] [address] Jm Alonso MD 09/06/2024 Results Follow-Up [facility] Medical Group Convenient Care at [address] [phone] Desi Barney NP XR Finger 5Th Pinky Left 09/06/2024 2:35 PM CDT Ancillary Procedure [facility] Medical [facility] Imaging at [address] [phone] Injury of left little finger, initial encounter 09/06/2024 2:10 PM CDT Ancillary Procedure [facility] Group Imaging at [address] [phone] Injury of left little finger, initial encounter 09/06/2024 2:30 PM CDT Office Visit [facility] Medical Group Convenient Care at [address] [phone] Desi Barney, ROSA Injury of left little finger, initial encounter (Primary Dx); Closed traumatic dislocation of proximal interphalangeal (PIP) joint of left little finger; Displaced fracture of middle phalanx of left little finger, initial encounter for closed fracture 09/05/[address] [facility] Movement Disorders [address] [facility] 7th [place] [address] Adrianne Briceño RN from Last 3 Months Allergies No known active allergies Medications cetirizine (ZyrTEC) 10 mg tabletIndications :Seasonal Allergic Rhinitis Take 1 tablet (10 mg total) by mouth chemical compounder 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 Active aspirin 81 mg enteric [...] 1.5 tablets (150 mg total) by mouth chemical compounder 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 135 tablet 3 09/06/19 25 026 Active fenofibrate (TRIGLIDE) 160 mg tablet Take 1 tablet by mouth once daily 90 tablet 09/10/19 25 Active tamsulosin (FLOMAX) 0.4 mg extended release capsule Take 1 capsule by mouth once daily 90 capsule 09/10/19 25 Active mirabegron ER (MYRBETRIQ) 50 mg tablet extended release 24 hr Take 1 tablet (50 mg total) by mouth chemical compounder 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 09/16/19 25 Active linaGLIPtin (Tradjenta) [...] (07/25/2020): Added automatically from request for surgery [id number] 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 Once this is confirmed we can proceed with definitive therapy Type 2 diabetes mellitus wit hout complication, without long-term current use of insulin 02/29/2020 Assessment & Plan (05/23/2024 12:02 PM STATION INSTALLER AND REPAIRER): Increase insulin to 30 units Assessment & Plan (02/09/2024 11:53 AM CDT): Incease lantus to 26 units. May need bolus insulin Essential hypertension 02/29/2020 Assessment & Plan (05/23/2024 12:02 PM STATION INSTALLER AND REPAIRER): Bp at target Assessment & Plan (02/09/2024 [...] to increase the dose slightly. Parkinson disease ([facility]) 05/29/2015 Assessment & Plan (11/15/2024 [...] [employer] and send updates to us by [employer] as needed. 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 Let [...] willing to resume PT and knows of [email or web address] youtube channel exercises online. He has completed [...] patient. Assessment & Plan (05/23/2024 12:02 PM STATION INSTALLER AND REPAIRER): sandee Stevens neurology Assessment & Plan (02/09/2024 [...] day. Assessment & Plan (03/26/2023 7:09 PM STATION INSTALLER AND REPAIRER): He has parkinsonism stage 2.5 characterized on [...] gabapentin.. 3. Same clonazepam. 4. Start APDA youtOptireno channel exercises. 5. Start PT, rx given. [...] more consistent with dose timing. 3. Call [facility] PT to schedule a follow up appointment. 4. I will send a referral to [facility] OT for a driving evaluation. Assessment & Plan (05/16/2022 1:12 PM STATION INSTALLER AND REPAIRER): He has parkinsonism stage 2.5 characterized on [...] about cutting back irbesartan to half. 6. Project [employer] PD Voice Project. 7. Start PT and ST here at [facility] then get plan made for PT and [...] exercises. Assessment & Plan (05/04/2020 12:37 PM STATION INSTALLER AND REPAIRER): He has parkinsonism stage 2.5 characterized on [...] a referral to a sleep neurologist at [facility]. They may want to order another sleep study because it has been some time since your last one. 4. I will send a referral to [facility] PT for balance and walking. 5. [...] on file Legal Sex Male 11:00 AM STATION INSTALLER AND REPAIRER Gender Identity Male 01/03/2020 10:22 AM CDT [...] screening colonoscopy Medical Devices Implanted Type Area Doctor Of Nursing Practice Device Identifier Shelf Expiration Date Model / Serial / Lot Tipzu Lens Iol Tecnis Smplcty 1-Pc Clr [place] 15.5 Diopter [id number] - [id number] - [id number] Implanted:Qty: 1 on 01/14/2023 by Richmond Morales MD at [facility] Lens Left: Eye [employer] [id number] 05/10/2025 [id number] / [id number] / 0 [employer] Lens Iol Tecshasta Smplcty 1-Pc Clr [place] 15.5 Diopter [id number] - [id number] - [id number] Implanted:Qty: 1 on 02/11/2023 by Richmond Morales MD at [facility] Medicine Lens Right: Eye [employer] [id number] 12/10/2024 [id number] / [id number] / Procedures Procedure Name Priority Date/Time Associated [...] by: Austin Osuna MD, PHD us Soraida Connorszabemonica Payne SHIELD INSTALLER IMG CT PROCEDURES Fin al Result * [...] MD ECG ORDERABLES Final Resul t CONS SCILAGE * (ABNORMAL) Urinalysis reflex to microscopic and [...] tendency for uric acid stone formation. Source: [facility] Current Interpretive Data was last revised on [...] and culture not met. [facility] Urine 11/15/2024 2:45 PM CDT 11/15/2024 2:47 PM CDT Denise Lai MD LAB MICROBIOLOGY - GENERAL ORDERABLES Final Result Performing Organization Address City/State/ZIP Co co Phone Number DELIA CARRERA [address] [facility]. [place] [address] * (ABNORMAL) eGFR (11/15/2024 1:51 PM CDT) [...] LAB BLOOD ORDERABLES Final Result DELIA CARRERA [address] [facility]. [place] [address] * (ABNORMAL) Differential, auto (11/15/2024 1:51 PM CDT) Neutrophil abs 8.25(H) 1.50 - 6.50 K/cumm Imm gran abs 0.15(H) 0.00 - 0.10 K/cumm [facility] Lymphocyte abs 0.82 0.80 - 3.30 K/cumm [facility] Monocyte abs 0.55 0.20 - 0.80 K/cumm [facility] Eosinophil abs 0.46 0.00 - 0.50 K/cumm [facility] Basophil abs 0.03 0.00 - 0.10 K/cumm [facility] Neutrophil pct 80.3 % [facility] Comment: Interpretive Data Percent cell count reference ranges are not reported, since discordance with absolute values may lead to misinterpretation of CBC data. Current Interpretive Data was last revised on 2017. Imm gran pct 1.5 % DELIA KNAPP Comment: Interpretive Data Percent cell count reference ranges are not reported, since discordance with absolute values may lead to misinterpretation of CBC data. Current Interpretive Data was last revised on 2017. Lymphocyte pct 8.0 % DELIA KNAPP Comment: Interpretive Data Percent [...] on 2017. Eosinophil pct 4.5 % [facility] Comment: Interpretive Data Percent cell count reference ranges are not reported, since discordance with absolute values may lead to misinterpretation of CBC data. Current Interpretive Data was last revised on 2017. Basophil pct 0.3 % [facility] Comment: Interpretive Data Percent cell count reference ranges are not reported, since discordance with absolute values may lead to misinterpretation of CBC data. Current Interpretive Data was last revised on 2017. Blood 11/15/2024 1:51 PM CDT 11/15/2024 2:00 PM CDT Denise Lai MD LAB BLOOD ORDERABLES Final Result [facility] [address] [facility] [place] [address] * (ABNORMAL) CBC with auto differential (11/15/2024 1:51 PM CDT) WBC 10.26(H) 3.80 - 9.90 K/cumm Hgb 12.4(L) 13.0 - 17.5 g/dL [facility] Hct 38.6(L) 38.9 - 50.3 % [facility] Plt 311 150 - 400 K/cumm [facility] MPV 10.0 9.1 - 12.3 fL [facility] RBC 4.66 4.30 - 5.80 M/cumm [facility] MCV 82.8 81.3 - 96.4 fL [facility] MCH 26.6(L) 27.1 - 33.3 pg [facility] MCHC 32.1(L) 32.3 - 35.7 g/dL [facility] RDW CV 14.4 11.1 - 14.9 % [facility] RDW SD 43.5 35.7 - 48.1 fL [facility] NRBC abs 0.00 0.00 - 0.01 K/cumm [facility] Blood 11/15/2024 1:51 PM CDT 11/15/2024 2:00 PM CDT Denise Lai MD LAB BLOOD ORDERABLES Final Result [facility] [address] [address] [facility]. [place] [address] * (ABNORMAL) Comprehensive metabolic panel (11/15/2024 1:51 [...] MD LAB BLOOD ORDERABLES Final Result DELIA [facility] [address] [facility] [address] * SCAN - RADIOLOGY/IMAGING (10/25/2024 9:10 AM [...] or aggressive osseous abnormalities. Procedure Note Terrance Vitael MD - 09/24/2024 EXAMINATION: Computed tomography of [...] tendency for uric acid stone formation. Source: [facility] Laboratories Current Interpretive Data was last revised [...] GEN ERAL ORDERABLES Final Result DELIA CARRERA [address] [facility]. [place] [address] * (ABNORMAL) eGFR (09/24/2024 1:14 PM CDT) [...] ORDERABLES F inal Result Performing Organization Address [facility] de Phone Number [facility] [address] [facility] [place] [address] * Lipase (09/24/2024 1:14 PM CDT) Pathologist [facility] Lipase 56 10 - 99 Units/L Blood 09/24/2024 1:14 PM CDT 09/24/2024 1:22 PM CDT Natalie Urrutia MD LAB BLOOD ORDERABLES F inal Result Performing Organization Address [facility] de Phone Number [facility] [address] [facility] [place] [address] * (ABNORMAL) Comprehensive metabolic panel (09/24/2024 1:14 PM CDT) Pathologist [facility] Sodium 131(L) 135 - 145 mmol/L Potassium, pl 4.4 3.3 - 4.9 mmol/L [facility] Chloride 96(L) 97 - 110 mmol/L [facility] CO2 21(L) 22 - 32 mmol/L [facility] Anion gap 14 2 - 15 mmol/L [facility] BUN 27(H) 6 - 25 mg/dL [facility] Creatinine 1.60(H) 0.80 - 1.30 mg/dL [facility] Glucose 272(H) 70 - 199 mg/dL [facility] Comment: Interpretive Data Fasting glucose >/= 126 [...] MD LAB BLOOD ORDERABLES F inal Result [facility] [address] [facility]. [place] [address] * (ABNORMAL) Differential, auto (09/24/2024 12:41 PM [...] 2017. Imm gran pct 0.3 % [facility] Comment: Interpretive Data Percent [...] on 2017. Eosinophil pct 2.4 % [facility] Comment: Interpretive Data Percent cell count reference ranges are not reported, since discordance with absolute values may lead to misinterpretation of CBC data. Current Interpretive Data was last revised on 2017. Basophil pct 0.7 % DELIA REEVESDUNIA Comment: Interpretive Data Percent cell count reference ranges are not reported, since discordance with absolute values may lead to misinterpretation of CBC data. Current Interpretive Data was last revised on 2017. Blood 09/24/2024 12:4 1 PM CDT 09/24/2024 12:49 PM CDT us Natalie Urrutia MD LAB BLOOD ORDERABLES F inal Result [facility] [address] [facility]. [place] [address] * (ABNORMAL) CBC with auto differential (09/24/2024 12:41 PM CDT) Pathologist [facility] WBC 9.20 3.80 - 9.90 K/cumm Hgb 12.1(L) 13.0 - 17.5 g/dL [facility] Hct 37.9(L) 38.9 - 50.3 % [facility] Plt 330 150 - 400 K/cumm [facility] MPV 9.8 9.1 - 12.3 fL DELIA [...] ORDERABLES F inal Result Performing Organization Address City/State/[facility] Co co Phone Number DELIA CARRERA [address] [facility] [address] * XR Finger 5th Pinky Left (09/12/2024 [...] Andres Betancourt M.D. MF: FRANCISCO Report ID: [id number] Reading Location: [id number] Procedure Note Andres Betancourt MD - 09/12/2024 [...] Andres Betancourt M.D. MF: FRANCISCO Report ID: [id number] Reading Location: [place] [address] us Shoshana Hutchins MD IMG XR PROCEDURES [...] Andres Betancourt M.D. MF: FRANCISCO Report ID: [id number] Reading Location: [id number] Procedure Note Andres Betancourt MD - 09/12/2024 [...] Andres Betancourt M.D. MF: FRANCISCO Report ID: [id number] Reading Location: [id number] us Shoshana Hutchins MD IMG XR PROCEDURES [...] Andres Betancourt M.D. MF: FRANCISCO Report ID: [id number] Reading Location: [id number] Procedure Note Andres Betancourt MD - 09/12/2024 [...] Andres Betancourt M.D. MF: FRANCISCO Report ID: [id number] Reading Location: [id number] Shoshana Hutchins MD IMG XR PROCEDURES Final [...] Collin Cantrell M.D. NS T: Report ID: [id number] Reading Location: [id number] Procedure Note Collin Cantrell MD - 09/06/2024 [...] Collin Cantrell M.D. NS T: Report ID: [id number] Reading Location: [id number] Desi Barney NP IMG XR PROCEDURES Final [...] signed by Collin STARKS T: Report ID: [id number] Reading Location: [id number] Procedure Note Collin Cantrell MD - 09/06/2024 [...] signed by Collin STARKS T: Report ID: [id number] Reading Location: [id number] Desi Barney NP IMG XR PROCEDURES Final [...] 4:08 AM CDT Performed at: 01 - [place] [address] Accredited Pharmacy Technician: Yuan Gaitan PhD, Phone: [phone] us Jm Alonso MD LAB URINE ORDERABLES Final [facility] - 01 * PSA screen (08/16/2021 10:37 AM CDT) PSA 0.5 0.0 - 4.0 ng/mL [facility] - 01 Comment: Lito ECLIA methodology. According to the [place] [employer], Serum PSA should decrease and [...] - 08/17/2021 7:09 AM CDT Performed at: [address] [id number] Accredited Pharmacy Technician: Yuan Gaitan PhD, Phone: [phone] us Jm Alonso MD LAB BLOOD ORDERABLES Final Re sult [facility] - 01 from Last 3 Months or Most Recently Relevant to Health Maintenance Insurance MEDICARE [facility] MEDICARE [facility] FEDERAL [facility] MEDICARE MEDICARE [facility] Advance Directives For more information, please contact: [phone] * Full Code (Latest Code Status on File) Date Activated Date Inactivated Comments 02/11/2023 9:33 AM 02/11/2023 4:38 PM * Full Code Date Activated Date Inactivated Comments 01/14/2023 8:51 AM 01/14/2023 4:11 PM Care Teams Homicide Squad Lieutenant Relationship Specialty Start Date End Date Jm Alonso MD PCP - General Internal Medicine 08/25/18
[2024-11-21 15:25] LABS: Anion Gap 10 mmol/L (4-12); Blood Urea Nitrogen 30 mg/dL (9-20); Calcium 9.0 mg/dL (8.4-10.2); Carbon Dioxide 22 mmol/L (22-30); Chloride 102 mmol/L (98-107); Estimated Glomerular Filt Rate 33; Glucose 207 mg/dL (65-110); Potassium 4.1 mmol/L (3.4-5.0); Sodium 134 mmol/L (137-145)
== END 2024-11-21 13:59 | disposition home or self-care (01) ==
LOC: ANHSURGERY 14:03
PROVIDERS: Anesthesiology; PCP Internal Medicine; Visit Provider Urology
DX: Z01.818 Encounter for other preprocedural examination (principal); E11.9 Type 2 diabetes mellitus without complications
CPT/HCPCS: 36415; 80048; 93005

== ENCOUNTER 2024-11-24 00:20 | Day surgery (SDC) | payer MEDICARE, BC, SELFPAY ==
--- NOTE | 2024-11-17 14:05 | P.HP_ITS ---
History of Present Illness History of Present Illness Consent: Risks, benefits, and alternatives have been discussed and questions answered. Patient agrees to proceed with procedure. Chief complaint: Left Ureteral Stone Narrative: Susan Ledezma is a 69 year old male with history of recurrent urolithiasis. Has seen our HERI's intermittently with intermittent stone pain. In ER at 10/23 with 4mm obstructing left distal ureteral stone and bilat. non-obstructing renal stone. Review of Systems Cardiovascular: Cardiovascular: Denies chest pain, Denies lightheadedness, Denies palpitations and Denies dyspnea Respiratory: Respiratory: Denies dyspnea Gastrointestinal: Gastrointestinal: Denies diarrhea, Denies nausea and Denies vomiting Genitourinary: Genitourinary: Denies hematuria and Denies dysuria Endocrine: Endocrine: Denies palpitations PMF Past Medical History Medical History Diabetes Parkinson's disease Family History Family History Other Unknown family medical history Social History Social History Smoking status: Never smoker Second hand tobacco smoke exposure: No Alcohol intake: current Drinks per week: 1 Substance use: never Do You Feel Safe in your Home?: Yes Lack of Transportation: No Lack of Food: Never True Current Housing: I Have Housing Concerned About Future Housing: No Difficulty Paying Gas/Electric Bills: No Difficulty Paying for Meds: No Currently Unemployed: No Education: Decline to Answer Difficulty w/ Childcare or Family Care: No Spiritual care concerns: No Meds Home Medications and Allergies Home Medications ?Medication ?Instructions ?Recorded ?Confirmed ?Type Adult Aspirin EC Low Strength 81 mg PO DAILY 09/24/23 10/22/24 History atorvastatin 20 mg tablet 20 mg PO DAILY 09/24/23 10/22/24 History carbidopa 25 mg-levodopa 100 mg 25 - 100 tablet PO TID 09/24/23 10/22/24 History tablet (Sinemet) carbidopa ER 50 mg-levodopa 200 mg 50 - 200 tablet PO HS 09/24/23 10/22/24 History tablet,extended release cetirizine 10 mg PO DAILY 09/24/23 10/22/24 History clonazepam 0.5 mg tablet 0.5 mg PO HS 09/24/23 10/22/24 History fenofibrate 160 mg tablet 160 mg PO DAILY 09/24/23 10/22/24 History gabapentin 300 mg capsule 300 mg PO HS 09/24/23 10/22/24 History omeprazole 20 mg PO DAILY 09/24/23 10/22/24 History sertraline 100 mg tablet 100 mg PO DAILY 09/24/23 09/24/23 History tamsulosin 0.4 mg capsule 0.4 mg PO DAILY 09/24/23 09/24/23 History insulin glargine-yfgn 100 unit/mL unit subcut 10/22/24 History (3 mL) subcutaneous pen linagliptin 5 mg tablet (Tradjenta) mg 10/22/24 History mirabegron 50 mg tablet,extended mg PO 10/22/24 History release 24 hr Allergies Allergy/AdvReac Type Severity Reaction Status Date / Time No Known Allergies Allergy Verified 10/22/24 19:51 Exam Const: General: no acute distress Resp: Effort & Inspection: normal respiratory effort GI: Inspection: non-distended GI Palp: No abdominal tenderness and No Guarding due to palpation present (GI) Auscultation: normal bowel sounds Assessment and Plan Assessment and plan (1) Left ureteral stone: Code(s): N20.1 - Calculus of ureter Status: Acute (2) Bilateral renal stones: Code(s): N20.0 - Calculus of kidney Status: Acute Assessment and Plan: * Cystoscopy, left ureteroscopy with stone extraction, possible laser lithotripsy, RPG and stent placement. He's aware that we will not address bilat. renal stones at this time.
--- NOTE | 2024-11-21 12:36 | PC.NURSE ---
Report to the Outpatient Waiting Room, entrance under the green pavilion located off [facility], at time __11 AM on date __11/24/24 . Planned Procedure Time: _1:00 PM .? Time changes happen often and if your time is changed the preop area will call you the afternoon before. - You and your visitor will be asked to self-screen and do not enter if you have any COVID symptoms. Please call surgeon if you need to reschedule. - A mask is optional within the hospital at this time. Patients may have clear liquids (water, carbonated beverages, clear teas, apple juice) until 3 hours prior to surgery ( 10 AM) with a maximum of 20 ounces. - No food from midnight until time of surgery and no smoking, or chewing tobacco (or any form of nicotine). No chewing gum, candy or mints. Take only the following medications with a SIP of water on the morning of surgery: _TAKE 1/2 OF AM INSULIN, CARBIDOPA-LEVODOPA_SERTRALINE DO NOT STOP ANY OF YOUR OTHER PRESCRIPTION MEDICATIONS PRIOR TO SURGERY EXCEPT THE FOLLOWING Hold all vitamins and supplements for 3 days per anesthesiologist. Medications to discontinue per physician ____WIFE STATES LAST DOSE ASPIRIN 11/16/24 PER LEONILA Please no make-up, nail upper sorbian, hairspray, perfume, deodorant, or body powder the day of surgery.? No jewelry (including any body piercings) or valuables the day of surgery, leave them at home.? Please take a shower or bath the night before, or the morning of, surgery with an antibacterial soap.? Wear comfortable, loose fitting clothing.? Children are encouraged to wear pajamas. - Jewelry must be removed prior to entering the operating room.? Rings and piercings that are not removed may be cut off. - The hospital will not accept responsibility for valuables.? - Please leave all valuables, including medications, at home the day of surgery. If you are going home after surgery, a licensed swing driver must drive you home.? - NO public transportation without another adult if you receive anesthesia. - We recommend that an adult stay with you for 24 hours following discharge. - We also recommend that you do not drive, make important decision, drink alcoholic beverages, or take any drugs that were not prescribed by your health care provider for at least 24 hours after your discharge time. For Pediatric surgeries, we recommend two adults accompany the child home. Follow any additional instructions given to you from your surgeon. Telephone instructions given to __WIFE and asked if any additional questions and then verbalized understanding. Patient advised to call surgeon office or pre surgery nurse liaison [phone] if any additional questions.
[2024-11-21 12:59] VITALS: BMI 30.5
[2024-11-24] VITALS (8 sets, daily range): BP systolic 131–162; BP diastolic 63–78; PULSE 63–77; RESP 12–16; TEMP 36.2–36.8; O2SAT 98–100; BMI 27.8
--- NOTE | ~2024-11-24 | XR_ITS ---
XR retrograde pyelogram LT Indication: Left retrograde pyelogram TECHNIQUE: Fluoroscopy used during left retrograde pyelogram performed by [Kt Epps MD ] on 11/24/2024. 16 seconds with 64 fluoroscopic images images captured. FINDINGS: Correlate with procedure note. IMPRESSION: Fluoroscopy used during left retrograde pyelogram. Reviewed, dictated and finalized at location B.
--- OUTSIDE RECORDS SUMMARY | 2024-11-24 00:23 | XMS_ITS | Continuity of Care Document ---
Author Organization [employer] [place] Address [address] [facility] [address] [facility] [address] [place] [address] Phone Care Team Providers Care Honeycomb Decapper Name Role Phone Lucy Dang OT Unavailable [...] Diagnoses Date Provider Providers Copied on Encounter [place], [place], [place], [id number], [place] tel:[phone] Coy No Information Laurence Ayala. . [facility], [place], [place], [id number], [place] tel:[phone] Coy No Information Sep-1 2- 5 Dang Lucy. . Referring Provider: Shoshana Hutchins, [address] [place] [address], [place], [address] . tel:[phone] [facility] [address], [place], [place], [address], [place] tel:[phone] Coy No Information Guille-0 5- 5 Dang Lucy. . Referring Provider: Shoshana Hutchins, [address] [place] [address], [place], [address] . tel:[phone] [place], [place] [address], [place], [place], [id number], tel:[phone] Coy No Information 0 3- 5 Dang Lucy. . Referring Provider: Shoshana Hutchins, [address] [place] [address], [place], [address] . tel:[phone] [place] [address] [address], [place], [place], [address], [place] tel:[phone] Coy No Information August-2 5 Dang Lucy. . Referring Provider: Shoshana Hutchins [address] [place] [address], [place], [address] . tel:[phone] [place] [address], [place], [place], [address], [place] tel:[phone] Coy No Information August-2 5 Dang Lucy. . Referring Provider: Shoshana Hutchins [address] [place] [address], [place], [address] . tel:[phone] [facility], [address], [place], [place], [address], [place] tel:[phone] Coy No Information 5 Dang Lucy. . Referring Provider: Shoshana Hutchins, [address], [place], [address] . tel:[phone] [facility], [place], [place], [address], [place] tel:[phone] Coy No Information Dec-3 4 Dang Lucy. . Referring Provider: Fadi Martinez, [address] [facility] [address], [place], [address]. tel:[phone] [facility] [address], [place], [place], [address], [place] tel:[phone] Coy No Information Mar-3 4 [place]. . Referring Provider: José Miguel Michaels, [address] [place] [address], [address]. tel:[phone] [facility], [place], [place], [address], [place] tel:[phone] Coy No Information Mar-2 4 Dang Lucy. . Referring Provider: Fadi Martinez, [address] [facility] [address], [place], [address]. tel:[phone] [facility], [place], [place], [address], [place] tel:[phone] Coy No Information Dec-2 4 [place]. . Referring Provider: José Miguel Michaels, [address] [place] [address], [address]. tel:[phone] [facility], [place], [place], [address], [place] tel:[phone] Coy No Information Dec-2 4 Dang Lucy. . Referring Provider: Fadi Martinez, [address] [facility] [address], [place], [address]. tel:[phone] [facility], [address], [place], [place], [address], [place] tel:[phone] Coy No Information 4 [place]. . Referring Provider: José Miguel Michaels, [address] [place] [address], [address]. tel:[phone] [facility] [address], [place], [place], [address], [place] tel:[phone] Coy No Information 4 Dean Aparicio. . Referring Provider: Fadi Martinez, [address] [facility] [address], [place], [address]. tel:[phone] [facility] [address], [place], [place], [address], [place] tel:[phone] Coy No Information 4 [place]. . Referring Provider: José Miguel Michaels, [address] [place] [address], [address]. tel:[phone] [facility] [address] [facility], [place], [place], [address], [place] tel:[phone] Coy No Information 4 [place]. . Referring Provider: José Miguel Michaels, [address] [place] [address], [address]. tel:[phone] [facility] [address], [place], [place], [address], [place] tel:[phone] Coy No Information 4 Dang Lucy. . Referring Provider: Fadi Martinez, [address] [facility] [address], [place], [address]. tel:[phone] [facility], [address], [place], [place], [address], [place] tel:[phone] Coy No Information Mar- 4 Dang Lucy. . Referring Provider: Fadi Martinez, [address] [facility] [address], [place], [address]. tel:[phone] [facility] [address], [place], [place], [address], [place] tel:[phone] Coy No Information Dec-1 2- 4 [place]. . Referring Provider: José Miguel Michaels, [address] [place] [address], [address]. tel:[phone] [facility], [address], [place], [place], [address], [place] tel:[phone] Coy No Information Dec-0 9 4 [place]. . Referring Provider: José Miguel Michaels, [address] [place] [address], [address]. tel:[phone] [facility] [address], [place], [place], [address], [place] tel:[phone] Coy No Information Dec-0 - 4 [place], [place], [place]. Referring Provider: José Miguel Michaels, [address] [place] [address], [address]. tel:[phone] [facility], [place], [place], [address], [place] tel:[phone] Coy No Information Dec-0 4 Dang Lucy. . Referring Provider: Fadi Martinez, [address] [facility] [address], [place], [address]. tel:[phone] [facility], [address], [place], [place], [address], [place] tel:[phone] Coy No Information Feb-2 - 4 Dang Lucy. . Referring Provider: Fadi Martinez, [address] [facility] [address], [place], [address]. tel:[phone] [facility], [place], [place], [address], [place] tel:[phone] Coy No Information 4 Dang Lucy. . Referring Provider: Fadi Martinez, [address] [facility] [address], [place], [address]. tel:[phone] [facility], [address], [place], [place], [address], [place] tel:[phone] Coy No Information 4 Dang Lucy. . Referring Provider: Fadi Martinez, [address] [facility] [address], [place], [address]. tel:[phone] [facility] [address], [place], [place], [address], [place] tel:[phone] Coy No Information 0 4 Dang Lucy. . Referring Provider: Fadi Martinez, [address] [facility] [address], [place], [address]. tel:[phone] [facility], [address], [place], [place], [address], [place] tel:[phone] Coy No Information 0 4 Dang Lucy. . Referring Provider: Fadi Martinez, [address] [facility] [address], [place], [address]. tel:[phone] [facility] [address], [place], [place], [address], [place] tel:[phone] Coy No Information 4 Dang Lucy. . Referring Provider: Fadi Martinez, [address] [facility] [address], [place], [address]. tel:[phone] [facility], [place], [place], [address], [place] tel:[phone] Coy No Information 4 Dang Lucy. . Referring Provider: Fadi Martinez, [address] [facility] [address], [place], [address]. tel:[phone] [facility] [address], [place], [place], [address], [place] tel:[phone] Coy No Information 4 Dang Lucy. . Referring Provider: Fadi Martinez, [address] [facility] [address], [place], [address]. tel:[phone] [facility] [address], [place], [place], [address], [place] tel:[phone] Coy No Information 4 Dang Lucy. . Referring Provider: Fadi Martinez, [address] [place] [address] [address], [place], [address]. tel:[phone] [facility] [address] [facility], [place], [place], [address], tel:[phone] Coy No Information 4 Dang Lucy. . Referring Provider: Fadi Martinez, [address] [place] [address] [address], [place], [address]. tel:[phone] Family History Family Member Type Diagnosis Age At Onset No Information Payers Payer name Insurance type Covered republican ID Authorjasmina tialyse(s) Medicare [place] [id number] Social History Type Description Quantity Date Captured [...]
--- OUTSIDE RECORDS SUMMARY | 2024-11-24 00:23 | XMS_ITS | Encounter Summary ---
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 Gender Identity Male 01/03/2020 10:22 AM CDT Sexual Orientation Choose not to disclose 2019 10:22 AM CDT documented as of this encounter Plan of Treatment Scheduled Procedures Name Priority Associated Diagnoses Date/Ti me COLONOSCOPY Encounter for screening colonoscopy documented as of this encounter Procedures Procedure Name Priority Date/Time Associated Diagnosis Comments SCAN - LABS 11/21/2024 4:05 PM CDT documented in this encounter Results * SCAN - LABS (11/21/2024 4:05 PM CDT) us Jm Alonso MD Final Result documented in this encounter Visit Diagnoses Not on filedocumented in this encounter Care Teams Pot Filler Relationship Specialty Start Date End Date Jm Alonso MD PCP - General Internal Medicine 08/25/18 documented as of this encounter
--- OUTSIDE RECORDS SUMMARY | 2024-11-24 00:24 | XMS_ITS | Referral Summary ---
Author Organization [facility] Address [address] [place] [address] Care Team Providers Care Supervisor Billposting Name Role Phone Jm Alonso MD Primary Care Provider [phone] Encounters Date Type Department Care Team Description 11/21/2024 Orders Only [facility] [address] [facility] [address] [facility] 1 [place] [phone] Jm Alonso MD 11/21/2024 Telephone [facility] Movement Disorders [facility] [address] [phone] Supriya Javier RN 11/20/2024 Plan of Care Documentation [facility] Physical Therapy [address] [place] [phone] 11/18/2024 Orders Only [facility] Movement Disorders [facility] [address] [phone] José Miguel Hutchins MD PhD Parkinson's disease with dyskinesia and fluctuating manifestations (HCC) (Primary Dx); Neurogenic orthostatic hypotension (HCC) 11/18/2024 10:00 AM CDT Therapy [facility] Physical Therapy [address] [place] [phone] Denise Billy DPT Parkinson's disease with dyskinesia and fluctuating manifestations (HCC) (Primary Dx) 11/15/2024 1:52 PM CDT - 11/15/2024 6:51 PM CDT Emergency [facility] Emergency Department [address] [address] Fall, initial encounter (Primary Dx); Orthostatic hypotension; Multiple falls Discharge Disposition: Discharge to home or self care 11/14/2024 Telephone [facility] Movement Disorders [address] [place] [phone] Adrianne Briceño RN 11/14/2024 Orders Only [facility] Movement Disorders [address] [place] [phone] Marcie Silver NP Parkinson's disease with dyskinesia and fluctuating manifestations (HCC) (Primary Dx) 2024 2:00 PM CDT Office Visit [facility] Movement Disorders [address] [place] [phone] José Miguel Hutchins MD PhD Parkinson's disease with dyskinesia and fluctuating manifestations (HCC) (Primary Dx); Orthostatic hypotension; REM sleep behavior disorder; Anxiety 11/03/2024 Telephone [facility] [address] [place] [address] [phone] Jm Alonso MD [facility] 10/25/2024 Orders Only [facility] [address] [place] [address] [address] [phone] Jm Alonso MD 10/12/2024 Orders Only [facility] [address] [place] [address] [address] [phone] Jm Alonso MD 10/10/2024 Orders Only [facility] [address] [place] [address] [address] [phone] Jm Alonso MD 10/10/2024 10:00 AM CDT Office Visit [facility] Hand Surgery [address] [place] [phone] Shoshana Hutchins MD Closed traumatic dislocation of proximal interphalangeal (PIP) joint of left little finger (Primary Dx) 09/24/2024 11:22 AM CDT - 09/24/2024 5:52 PM CDT Emergency [facility] Emergency Department [address] [address] Natalie Urrutia MD Fitzmaurice, Sean C., MD Fall, initial encounter (Primary Dx); Blunt head trauma, initial encounter; Abdominal pain Discharge Disposition: Discharge to home or self care 09/24/2024 9:30 AM CDT Office Visit [facility] Medical Group [facility] Care at [address] [phone] Briseida Bowers NP Left upper quadrant abdominal pain (Primary Dx); Left upper quadrant abdominal tenderness without rebound tenderness; Contusion of abdominal wall, initial encounter; Multiple falls 09/16/2024 9:30 AM CDT Office Visit [facility] Movement Disorders [address] [facility] Medicine 7th [place] [phone] Marcie Silver NP Parkinson's disease with dyskinesia and fluctuating manifestations (HCC) (Primary Dx); Levodopa-induced dyskinesia; REM sleep behavior disorder; Anxiety 09/12/2024 Telephone [facility] Scheduling [address] [place] [address] Marcie Silver NP Scheduling Appointments 09/12/2024 7:45 AM CDT - 09/12/2024 11:59 PM CDT Hospital Encounter [facility] 1 DIAG IMG [address] [place] [address] Finger pain, left; Right wrist pain Discharge Disposition: Discharge to home or self care 09/12/2024 9:15 AM CDT Office Visit [facility] Hand Surgery [address] [facility] [address] [place] [phone] Shoshana Hutchins MD Finger pain, left (Primary Dx); Closed traumatic dislocation of proximal interphalangeal (PIP) joint of left little finger; Right wrist pain 09/08/2024 2:15 PM CDT Office Visit [facility] [address] [facility] [address] [phone] Jm Alonso MD Type 2 diabetes mellitus without complication, without long-term current use of insulin (HCC) (Primary Dx); Parkinson's disease with dyskinesia and fluctuating manifestations (HCC); Essential hypertension 09/06/2024 Orders Only [facility] [address] [facility] [address] [facility] [address] [place] [phone] Jm Alonso MD 09/06/2024 Results Follow-Up [facility] Convenient Care at [address] [phone] Desi Barney NP XR Finger [address] Pinky Left 09/06/2024 2:35 PM CDT Ancillary Procedure [facility] Imaging at [address] [phone] Injury of left little finger, initial encounter 09/06/2024 2:10 PM CDT Ancillary Procedure [facility] Medical [facility] Imaging at [address] [phone] Injury of left little finger, initial encounter 09/06/2024 2:30 PM CDT Office Visit [facility] Convenient Care at [address] [phone] Desi Barney, ROSA Injury of left little finger, initial encounter (Primary Dx); Closed traumatic dislocation of proximal interphalangeal (PIP) joint of left little finger; Displaced fracture of middle phalanx of left little finger, initial encounter for closed fracture 09/05/2024 Telephone [facility] Movement Disorders [address] [place] [address] 7th [place] [phone] Adrianne Briceño RN from Last 3 Months Allergies No known active allergies Medications cetirizine (ZyrTEC) 10 mg tabletIndications :Seasonal Allergic Rhinitis Take 1 tablet (10 mg total) by mouth telephone messenger 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 Active aspirin 81 mg enteric [...] 1.5 tablets (150 mg total) by mouth telephone messenger 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 135 tablet 3 09/06/19 25 026 Active fenofibrate (TRIGLIDE) 160 mg tablet Take 1 tablet by mouth once daily 90 tablet 09/10/19 25 Active tamsulosin (FLOMAX) 0.4 mg extended release capsule Take 1 capsule by mouth once daily 90 capsule 09/10/19 25 Active mirabegron ER (MYRBETRIQ) 50 mg tablet extended release 24 hr Take 1 tablet (50 mg total) by mouth telephone messenger 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 09/16/19 25 Active linaGLIPtin (Tradjenta) [...] (07/25/2020): Added automatically from request for surgery [id number] 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 Once this is confirmed we can proceed with definitive therapy Type 2 diabetes mellitus wit hout complication, without long-term current use of insulin 02/29/2020 Assessment & Plan (05/23/2024 12:02 PM SURVEY TECHNICIAN): Increase insulin to 30 units Assessment & Plan (02/09/2024 11:53 AM CDT): Incease lantus to 26 units. May need bolus insulin Essential hypertension 02/29/2020 Assessment & Plan (05/23/2024 12:02 PM SURVEY TECHNICIAN): Bp at target Assessment & Plan (02/09/2024 [...] to increase the dose slightly. Parkinson disease ([facility]) 05/29/2015 Assessment & Plan (11/15/2024 10:23 AM [...] [employer] and send updates to us by [employer] as needed. 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 Let [...] willing to resume PT and knows of [place] [employer] channel exercises online. He has completed ST [...] patient. Assessment & Plan (05/23/2024 12:02 PM SURVEY TECHNICIAN): Hilda sees neurology Assessment & Plan (02/09/2024 [...] day. 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 3. Call [facility] PT to schedule a follow up appointment. 4. I will send a referral to [facility] OT for a driving evaluation. Assessment & Plan (05/16/2022 1:12 PM SURVEY TECHNICIAN): He has parkinsonism stage 2.5 characterized on [...] about cutting back irbesartan to half. 6. [employer] [facility]. 7. Start PT and ST here [...] exercises. Assessment & Plan (05/04/2020 12:37 PM SURVEY TECHNICIAN): He has parkinsonism stage 2.5 characterized on [...] a referral to a sleep neurologist at [facility]. They may want to order another sleep study because it has been some time since your last one. 4. I will send a referral to [facility] PT for balance and walking. [...] on file Legal Sex Male 11:00 AM SURVEY TECHNICIAN Gender Identity Male 01/03/2020 10:22 AM [...] screening colonoscopy Medical Devices Implanted Type Area Television Installer Helper Device Identifier Shelf Expiration Date Model / Serial / Lot [employer] Lens Iol Tecnis Smplcty 1-Pc Clr [place] 15.5 Diopter [id number] - [id number] - [id number] Implanted:Qty: 1 on 01/14/2023 by Richmond Morales MD at [facility] Lens Left: Eye [employer] [id number] 05/10/2025 [id number] / [id number] / 0 [place] [employer] Lens Iol Tecnis Smplcty 1-Pc Clr [place] 15.5 Diopter [id number] - [id number] - [id number] Implanted:Qty: 1 on 02/11/2023 by Richmond Morales MD at [facility] Lens Right: Eye [employer] [id number] 12/10/2024 [id number] / [id number] / Procedures Procedure Name Priority Date/Time Associated Diagnosis Comments SCAN - LABS 11/21/2024 4:[address] HEAD AND CERVICAL SPINE [...] Health Maintenance Results * SCAN - LABS (11/21/2024 4:05 PM CDT) us Jm Alonso MD Final Result * CT Head and Cervical Spine [...] signed by: Austin Osuna MD, PHD us July Robyn Payne NP IMG CT PROCEDURES Fin al Result * [...] MD ECG ORDERABLES Final Resul t CONS SCIALISTAIR * (ABNORMAL) Urinalysis reflex to microscopic and [...] tendency for uric acid stone formation. Source: [facility] Current Interpretive Data was last revised on [...] LAB MICROBIOLOGY - GENERAL ORDERABLES Final Result [facility] [address] [facility]. Department [place] [address] * (ABNORMAL) eGFR (11/15/2024 1:51 PM CDT) [...] MD LAB BLOOD ORDERABLES Final Result [facility] [address] [facility]. Department [place] [address] * (ABNORMAL) Differential, auto (11/15/2024 1:51 PM CDT) Neutrophil abs 8.25(H) 1.50 - 6.50 K/cumm Imm gran abs 0.15(H) 0.00 - 0.10 K/cumm [facility] Lymphocyte abs 0.82 0.80 - 3.30 K/cumm [facility] Monocyte abs 0.55 0.20 - 0.80 K/cumm [facility] Eosinophil abs 0.46 0.00 - 0.50 K/cumm [facility] Basophil abs 0.03 0.00 - 0.10 K/cumm [facility] Neutrophil pct 80.3 % [facility]IA [facility] Comment: Interpretive Data Percent cell count reference ranges are not reported, since discordance with absolute values may lead to misinterpretation of CBC data. Current Interpretive Data was last revised on 2017. Imm gran pct 1.5 % [facility] Comment: Interpretive Data Percent cell count reference ranges are not reported, since discordance with absolute values may lead to misinterpretation of CBC data. Current Interpretive Data was last revised on 2017. Lymphocyte pct 8.0 % [facility] Comment: Interpretive Data Percent cell count reference ranges are not reported, since discordance with absolute values may lead to misinterpretation of CBC data. Current Interpretive Data was last revised on 2017. Monocyte pct 5.4 % [facility] Comment: Interpretive Data Percent cell count reference ranges are not reported, since discordance with absolute values may lead to misinterpretation of CBC data. Current Interpretive Data was last revised on 2017. Eosinophil pct 4.5 % [facility] Comment: Interpretive Data Percent cell count reference ranges are not reported, since discordance with absolute values may lead to misinterpretation of CBC data. Current Interpretive Data was last revised on 2017. Basophil pct 0.3 % [facility] Comment: Interpretive Data Percent cell count reference ranges are not reported, since discordance with absolute values may lead to misinterpretation of CBC data. Current Interpretive Data was last revised on 2017. Blood 11/15/2024 1:51 PM CDT 11/15/2024 2:00 PM CDT us Denise Lai MD LAB BLOOD ORDERABLES Final Result [facility] [address] [facility]. Department [place] [address] * (ABNORMAL) CBC with auto differential (11/15/2024 1:51 PM CDT) WBC 10.26(H) 3.80 - 9.90 K/cumm Hgb 12.4(L) 13.0 - 17.5 g/dL [facility]IA [facility] Hct 38.6(L) 38.9 - 50.3 % DELIA [facility] Plt 311 150 - 400 K/cumm DELIA [facility] MPV 10.0 9.1 - 12.3 fL [facility] RBC 4.66 4.30 - 5.80 M/cumm DELIA [facility] MCV 82.8 81.3 - 96.4 fL [facility] MCH 26.6(L) 27.1 - 33.3 pg [facility] MCHC 32.1(L) 32.3 - 35.7 g/dL [facility] RDW CV 14.4 11.1 - 14.9 % [facility]IA [facility] RDW SD 43.5 35.7 - 48.1 fL [facility] NRBC abs 0.00 0.00 - 0.01 K/cumm [facility] Blood 11/15/2024 1:51 PM CDT 11/15/2024 2:00 PM CDT us Denise Lai MD LAB BLOOD ORDERABLES Final Result [facility] [address] [facility]. Department [place] [address] * (ABNORMAL) Comprehensive metabolic panel (11/15/2024 1:51 PM CDT) Sodium 135 135 - 145 mmol/L Potassium, pl 4.6 3.3 - 4.9 mmol/L [facility] Chloride 101 97 - 110 mmol/L [facility] CO2 22 22 - 32 mmol/L [facility] Anion gap 12 2 - 15 mmol/L [facility] BUN 28(H) 6 - 25 mg/dL [facility] Creatinine 1.84(H) 0.80 - 1.30 mg/dL [facility] Glucose 164 70 - 199 mg/dL [facility] Comment: Interpretive Data Fasting glucose >/= [...] MD LAB BLOOD ORDERABLES Final Result [facility] [address] [facility]. Department [place] [address] * SCAN - RADIOLOGY/IMAGING (10/25/2024 9:10 AM [...] at 6:23 PM. Electronically signed by: Terrance Thornburgh, M.D. Natalie Urrutia MD IMG CT PROCEDURES [...] tendency for uric acid stone formation. Source: [facility] Current Interpretive Data was last revised on [...] 2:04 PM CDT 09/24/2024 2:09 PM CDT Naatlie Urrutia MD LAB MICROBIOLOGY - GEN ERAL ORDERABLES Final Result [facility] [address] [facility]. [place] [address] * (ABNORMAL) eGFR (09/24/2024 1:14 PM CDT) [...] ORDERABLES F inal Result Performing Organization Address [facility] Co de Phone Number [facility] [address] [address]. Department [employer] [place], [place] [id number] * Lipase (09/24/2024 1:14 PM CDT) Pathologist [facility] Lipase 56 10 - 99 Units/L Blood 09/24/2024 1:14 PM CDT 09/24/2024 1:22 PM CDT Natalie Urrutia MD LAB BLOOD ORDERABLES F inal Result Performing Organization Address [facility] Co de Phone Number [facility] [address] [facility] [employer] [place], [place] [id number] * (ABNORMAL) Comprehensive metabolic panel (09/24/2024 1:14 PM CDT) Pathologist [facility] Sodium 131(L) 135 - 145 mmol/L Potassium, pl 4.4 3.3 - 4.9 mmol/L [facility] Chloride 96(L) 97 - 110 mmol/L [facility] [...] BLOOD ORDERABLES F inal Result [facility]IA [facility] [address] [facility]. Department [place] [address] * (ABNORMAL) Differential, auto (09/24/2024 12:41 PM CDT) Neutrophil abs 7.45(H) 1.50 - 6.50 K/cumm Imm gran abs 0.03 0.00 - 0.10 K/cumm [facility] Lymphocyte abs 0.94 0.80 - 3.30 K/cumm [facility] Monocyte abs 0.50 0.20 - 0.80 K/cumm [facility] Eosinophil abs 0.22 0.00 - 0.50 K/cumm [facility] Basophil abs 0.06 0.00 - 0.10 K/cumm [facility] Neutrophil pct 81.0 % [facility] Comment: Interpretive Data Percent cell count reference ranges are not reported, since discordance with absolute values may lead to misinterpretation of CBC data. Current Interpretive Data was last revised on 2017. Imm gran pct 0.3 % [facility] Comment: Interpretive Data Percent cell count reference ranges are not reported, since discordance with absolute values may lead to misinterpretation of CBC data. Current Interpretive Data was last revised on 2017. Lymphocyte pct 10.2 % [facility] Comment: Interpretive Data Percent cell count reference ranges are not reported, since discordance with absolute values may lead to misinterpretation of CBC data. Current Interpretive Data was last revised on 2017. Monocyte pct 5.4 % [facility] Comment: Interpretive Data Percent cell count reference ranges are not reported, since discordance with absolute values may lead to misinterpretation of CBC data. Current Interpretive Data was last revised on 2017. Eosinophil pct 2.4 % [facility] Comment: Interpretive Data Percent cell count reference ranges are not reported, since discordance with absolute values may lead to misinterpretation of CBC data. Current Interpretive Data was last revised on 2017. Basophil pct 0.7 % [facility] Comment: Interpretive Data Percent cell count reference ranges are not reported, since discordance with absolute values may lead to misinterpretation of CBC data. Current Interpretive Data was last revised on 2017. Blood 09/24/2024 12:4 1 PM CDT 09/24/2024 12:49 PM CDT Natalie Urrutia MD LAB BLOOD ORDERABLES F inal Result [facility]IA [facility] [address] [place] [employer]. Department [place] [address] * (ABNORMAL) CBC with auto differential (09/24/2024 12:41 PM CDT) WBC 9.20 3.80 - 9.90 K/cumm Hgb 12.1(L) 13.0 - 17.5 g/dL [facility] Hct 37.9(L) 38.9 - 50.3 % [facility] Plt 330 150 - 400 K/cumm [facility] MPV 9.8 9.1 - 12.3 fL [facility] RBC 4.53 4.30 - 5.80 M/cumm [facility] MCV 83.7 81.3 - 96.4 fL [facility] MCH 26.7(L) 27.1 - 33.3 pg [facility] MCHC 31.9(L) 32.3 - 35.7 g/dL [facility] RDW CV 14.8 11.1 - 14.9 % [facility] RDW SD 44.9 35.7 - 48.1 fL [facility] NRBC abs 0.00 0.00 - 0.01 K/cumm [facility] Blood 09/24/2024 12:4 1 PM CDT 09/24/2024 12:49 PM CDT Natalie Urrutia MD LAB BLOOD ORDERABLES F inal Result Performing Organization Address [facility] Co de Phone Number [facility]IA [facility] [address] [place] [employer]. [place] [address] * XR Finger 5th Pinky Left (09/12/2024 [...] Andres Betancourt M.D. MF: FRANCISCO Report ID: [id number] Reading Location: [id number] Procedure Note Andres Betancourt MD - 09/12/2024 [...] Andres Betancourt M.D. MF: FRANCISCO Report ID: [id number] Reading Location: [id number] us Shoshana Hutchins MD IMG XR PROCEDURES [...] Andres Betancourt M.D. MF: FRANCISCO Report ID: [id number] Reading Location: [id number] Procedure Note Andres Betancourt MD - 09/12/2024 [...] Andres Betancourt M.D. MF: FRANCISCO Report ID: [id number] Reading Location: [id number] us Shoshana Hutchins MD IMG XR PROCEDURES [...] Andres Betancourt M.D. MF: FRANCISCO Report ID: [id number] Reading Location: [id number] Procedure Note Andres Betancourt MD - 09/12/2024 [...] Andres Betancourt M.D. MF: FRANCISCO Report ID: [id number] Reading Location: [place] [address] Shoshana Hutchins MD IMG XR PROCEDURES Final [...] Collin Cantrell M.D. NS T: Report ID: [id number] Reading Location: [id number] Procedure Note Collin Cantrell MD - 09/06/2024 [...] Collin Cantrell M.D. NS T: Report ID: [id number] Reading Location: [id number] Desi Barney NP IMG XR PROCEDURES Final [...] signed by Collin STARKS T: Report ID: [id number] Reading Location: [id number] Procedure Note Collin Cantrell MD - 09/06/2024 [...] signed by Collin STARKS T: Report ID: [id number] Reading Location: [place] [address] Desi Barney SUBSTANCE ABUSE CLINICIAN IMG XR PROCEDURES Final Re sult * [...] - 09/30/2023 4:08 AM CDT Performed at: [facility] [id number] Underwater Trapper: Yuan Gaitan PhD, Phone: [phone] Jm Alonso MD LAB URINE ORDERABLES Final Re sult [facility] - 01 * PSA screen (08/16/2021 10:37 AM CDT) [facility] Signature PSA 0.5 0.0 - 4.0 ng/mL [facility] - Comment: Lito ECLIA methodology. According to the [place] [employer], Serum PSA should decrease and [...] 08/17/2021 7:09 AM CDT Performed at: - [address] [id number] Underwater Trapper: Yuan Gaitan PhD, Phone: [phone] us Jm Alonso MD LAB BLOOD ORDERABLES Final Re sult [facility] - 01 from Last 3 Months or Most Recently Relevant to Health Maintenance Insurance MEDICARE [facility] MEDICARE [facility] FEDERAL [facility] MEDICARE MEDICARE [facility] Advance Directives For more information, please contact: [phone] * Full Code (Latest Code Status on File) Date Activated Date Inactivated Comments 02/11/2023 9:33 AM 02/11/2023 4:38 PM * Full Code Date Activated Date Inactivated Comments 01/14/2023 8:51 AM 01/14/2023 4:11 PM Care Teams Supervisor Billposting Relationship Specialty Start Date End Date Jm Alonso MD PCP - General Internal Medicine 08/25/18
--- OUTSIDE RECORDS SUMMARY | 2024-11-24 00:24 | XMS_ITS | Clinical Summary ---
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
--- OUTSIDE RECORDS SUMMARY | 2024-11-24 00:24 | XMS_ITS | Encounter Summary ---
Author Organization [employer] Address 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 [id number] [email or web address] Patient: Susan Ledezma MRN: Study ID: ADULT STRESS ECH Gender: M : 1955 Age: 51 years Race: 1 Room: Bed: Height: Study Date: October 18, 2007 Patient status: Inpatient Weight: Access. #: [id number] POC: Ordering: Jamie Riley Attending MD: Jamie [...] peak heart rate [place] blood pressure [place] [address]. - There was no chest pain during [...] Historical - 10/18/2007 [facility] [address] [place] [address] [email or web address] Study Patient: Susan Ledezma MRN: Study ID: ADULT STRESS ECH Gender: M : 1955 Age: 51 years Race: 1 Room: Bed: Height: Study Date: October 18, 2007 Patient status: Inpatient Weight: Access. #: [id number] POC: Ordering: Jamie Riley Attending MD: Jamie [...] the peak heart rate and blood pressurewas 12739. - There was no chest pain during [...] - 145 mmol/L [facility] CALCIUM 8.5 8.4 - 10.2 mg/dL [facility] CO2 25 22 - 30 mmol/L [facility] CREATININE 1.19(H) 0.67 - 1.17 mg/dL [facility] POTASSIUM 4.6 3.5 - 4.9 mmol/L [facility] BUN 20 6 - 20 mg/dL [facility] CHLORIDE 99 96 - 108 mmol/L [facility] GLUCOSE 128(H) 65 - 99 mg/dL [facility] GFR, >60 >=60 mL/min/1. 7 sq meter [facility] GFR >60 >=60 mL/min/1. 7 sq meter [facility] Comment: Modification of Diet in Renal Disease (MDRD) study formula. Estimated GFR rate interpretative information for both Americans and non- Americans is available on the [facility] Intranet at: [email or web address] Select: Lab Policies and Procedures Select: Reference Ranges - GFR Blood specimen (specimen) 10/18/2007 6:57 AM CDT 10/18/2007 7:08 AM CDT Result [facility] Jamie Chen MD CHEMISTRY ORDERABLES Edite d Performing Organization Address [facility] Co de Phone Number [facility] CLIA# [id number] [address] [place] [address] * D-DIMER (10/17/2007 5:34 PM CDT) D-DIMER QUANT <0.22 <=0.42 ug/mL FEU [facility] Comment: DVT Screen reference range <0.45 [...] ORDERABLES Sania l Result Performing Organization Address [facility] Co de Phone Number [facility] CLIA# [id number] [address] [place] [address] * TROPONIN (10/17/2007 6:15 AM CDT) Pathologist [facility] TROPONIN T <0.01 <=0.03 ng/mL [facility] TROPONIN T INTERP Negative [facility] Blood specimen (specimen) 10/17/2007 6:15 AM CDT 10/17/2007 6:19 AM CDT us Jamie Chen MD CHEMISTRY ORDERABLES Edite d [facility] CLIA# [id number] [address] [place] [address] * (ABNORMAL) COMPREHENSIVE METABOLIC PANEL (10/16/2007 10:26 PM CDT) [facility] CALCIUM 9.1 8.4 - 10.2 mg/dL [facility] CO2 22 22 - 30 mmol/L [facility] ALBUMIN 4.4 3.4 - 4.8 g/dL [facility] POTASSIUM See note. 3.5 - 4.9 mmol/L [facility] Comment: Gross hemolysis present. Result unreliable. K not reported per . Gross hemolysis present. Result unreliable. CREATININE 1.10 0.67 - 1.17 mg/dL [facility] SODIUM 134(L) 135 - 145 mmol/L [facility] ALT 18 0 - 41 U/L [facility] Comment: Hemolyzed: Result may be falsely elevated. ALKALINE PHOSPHATASE 65 40 - 129 U/L [facility] BILIRUBIN TOTAL 0.5 0.2 - 1.0 mg/dL [facility] TOTAL PROTEIN 7.5 6.3 - 8.6 g/dL [facility] CHLORIDE 101 96 - 108 mmol/L [facility] GLUCOSE 174(H) 65 - 99 mg/dL [facility] AST 36 12 - 38 U/L [facility] Comment: Hemolyzed: Result may be falsely elevated. BUN 19 6 - 20 mg/dL [facility] GFR, >60 >=60 mL/min/1. 7 sq meter [facility] GFR >60 >=60 mL/min/1. 7 sq meter [facility] Comment: Modification of Diet in Renal Disease (MDRD) study formula. Estimated GFR rate interpretative information for both Americans and non- Americans is available on the [facility] Intranet at: [email or web address] Select: Lab Policies and Procedures Select: Reference Ranges - GFR Blood specimen (specimen) 10/16/2007 10:26 PM CDT 10/16/2007 10:34 PM CDT Mohsen Garcia MD CHEMISTRY ORDERABLES Edited [facility] CLIA# [id number] [address] [place] [address] * TROPONIN (W/REFLEX CKMB/CK) (10/16/2007 10:26 PM CDT) TROPONIN T <0.01 <=0.03 ng/mL [facility] TROPONIN T INTERP Negative [facility] Blood specimen (specimen) 10/16/2007 10:26 PM CDT 10/16/2007 10:34 PM CDT Mohsen Garcia MD CHEMISTRY ORDERABLES Edited [facility] CLIA# [id number] [address] [place] [address] * CBC WITH DIFFERENTIAL (10/16/2007 10:26 PM CDT) MPV 10.7 9.3 - 12.4 fL [facility] HEMATOCRIT 43.4 40.0 - 48.0 % [facility] RDW-STDEV 41.3 37.1 - 48.7 fL [facility] RBC 5.09 4.50 - 5.40 M/uL [facility] MCHC 35.3 31.5 - 35.5 % [facility] MCV 85.3 82.0 - 99.0 fL [facility] PLATELETS 275 140 - 350 K/uL [facility] HEMOGLOBIN 15.3 13.6 - 16.5 g/dL [facility] RDW 13.3 11.5 - 14.5 % [facility] WBC 8.7 4.0 - 9.8 K/uL [facility] MCH 30.1 27.2 - 32.6 pg [facility] BASOPHILS 1 0 - 2 % [facility] BASOPHILS ABSOLUTE 0.05 0.00 - 0.20 K/uL [facility] MONOCYTES 8 3 - 13 % [facility] MONOCYTE ABSOLUTE 0.68 0.10 - 1.30 K/uL [facility] NEUTROPHILS 65 45 - 70 % [facility] NEUTROPHIL ABSOLUTE 5.65 1.90 - 7.00 K/uL [facility] EOSINOPHILS 2 0 - 7 % [facility] EOSINOPHIL ABSOLUTE 0.15 0.00 - 0.70 K/uL [facility] LYMPHOCYTES 25 16 - 45 % [facility] LYMPHOCYTE ABSOLUTE 2.15 0.70 - 4.50 K/uL [facility] Blood specimen (specimen) 10/16/2007 10:26 PM CDT 10/16/2007 10:34 PM CDT us Mohsen Garcia MD HEMATOLOGY ORDERABLES Edited INTERFACE SYSTEM Refer to clinic/hospital department [facility] CLIA# [id number] [address] [place] [address] * XR CHEST PA OR AP (10/16/2007 10:25 PM CDT) Anatomical Region Laterality Modality Chest Other 10/16/2007 10:2 5 PM CDT Narrative 10/17/2007 5:13 PM CDT [facility] [address] [place], [place] [address] Admit Date: 10/17/2007 SUSAN LEDEZMA Sex: M Admit Prov: JAMIE CHEN Date: 1955 Primary Care Prov: CMRN: [id number] Room: [address] [place] [address] SSN: [id number] IMAGING SERVICES Ordering Prov: N/A Accession Number: [id number] Interpretation Chest, portable AP semierect, 10/16/2007 at [...] AMK Procedure Note Provider, Historical - 10/17/2007 [facility] [address] [place], [place] [address] Admit Date: 10/17/2007 SUSAN LEDEZMA Sex: M Admit Prov: JAMIE CHEN Date: 1955 Primary Care Prov: CMRN: [id number] Room: [address] [place] [address] SSN: [id number] IMAGING SERVICES Ordering Prov: N/A Interpretation Chest, [...]
--- OUTSIDE RECORDS SUMMARY | 2024-11-24 00:24 | XMS_ITS | Clinical Summary ---
Author Organization [facility] Address [address] [place] [address] Care Team Providers Care Civil Engineer Helper Name Role Phone Jm Alonso MD Primary Care Provider [phone] Allergies No known active allergies Medications cetirizine (ZyrTEC) 10 mg tabletIndications :Seasonal Allergic Rhinitis Take 1 tablet (10 mg total) by mouth web master 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 Active aspirin 81 mg enteric [...] 1.5 tablets (150 mg total) by mouth web master 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 135 tablet 3 09/06/19 25 026 Active fenofibrate (TRIGLIDE) 160 mg tablet Take 1 tablet by mouth once daily 90 tablet 09/10/19 25 Active tamsulosin (FLOMAX) 0.4 mg extended release capsule Take 1 capsule by mouth once daily 90 capsule 09/10/19 25 Active mirabegron ER (MYRBETRIQ) 50 mg tablet extended release 24 hr Take 1 tablet (50 mg total) by mouth web master 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 09/16/19 25 Active linaGLIPtin (Tradjenta) [...] (07/25/2020): Added automatically from request for surgery [id number] 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 Once this is confirmed we can proceed with definitive therapy Type 2 diabetes mellitus wit hout complication, without long-term current use of insulin 02/29/2020 Assessment & Plan (05/23/2024 12:02 PM TRAILER SECTIONS ASSEMBLER): Increase insulin to 30 units Assessment & Plan (02/09/2024 11:53 AM CDT): Incease lantus to 26 units. May need bolus insulin Essential hypertension 02/29/2020 Assessment & Plan (05/23/2024 12:02 PM TRAILER SECTIONS ASSEMBLER): Bp at target Assessment & Plan [...] to increase the dose slightly. Parkinson disease ([facility]) 05/29/2015 Assessment & Plan (11/15/2024 [...] [employer] and send updates to us by NotesFirst as needed. 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 Let [...] patient. Assessment & Plan (05/23/2024 12:02 PM TRAILER SECTIONS ASSEMBLER): Hilda sees neurology Assessment & Plan (02/09/2024 [...] He has finished PT and knows of [employer] youtube channel exercises online. He is interested [...] day. Assessment & Plan (03/26/2023 7:09 PM TRAILER SECTIONS ASSEMBLER): He has parkinsonism stage 2.5 characterized [...] more consistent with dose timing. 3. Call [facility] PT to schedule a follow up appointment. 4. I will send a referral to [facility] OT for a driving evaluation. Assessment & Plan (05/16/2022 1:12 PM TRAILER SECTIONS ASSEMBLER): He has parkinsonism stage 2.5 characterized [...] gabapentin.. 3. Same clonazepam. 4. Start APDA youtClickable channel exercises. 5. Talk to Dr. Alonso about cutting back irbesartan to half. 6. [employer] Project. 7. Start PT and ST here at [facility] then get plan made for [...] exercises. Assessment & Plan (05/04/2020 12:37 PM TRAILER SECTIONS ASSEMBLER): He has parkinsonism stage 2.5 characterized [...] order EMG/NCS of left hand. 3. Start [employer]able channel exercises. 4. Be sure PMD has [...] a referral to a sleep neurologist at [facility]. They may want to order another sleep study because it has been some time since your last one. 4. I will send a referral to [facility] PT for balance and walking. 5. [...] Department Care Team Description 11/21/2024 Orders Only [facility] [address] [facility] [address] [place] [phone] Jm Alonso MD 11/21/2024 Telephone [facility] Movement Disorders [address] [facility] 7th [place] [phone] Supriya Javier RN 11/20/2024 Plan of Care Documentation [facility] Physical Therapy [address] [place] [phone] 11/18/2024 10:00 AM CDT Therapy [facility] [address] [place] [phone] Denise Billy, DPT Parkinson's disease with dyskinesia and fluctuating manifestations (HCC) (Primary Dx) 11/18/2024 Orders Only [facility] Movement Disorders [address] [place] [phone] José Miguel Hutchins MD PhD Parkinson's disease with dyskinesia and fluctuating manifestations (HCC) (Primary Dx); Neurogenic orthostatic hypotension (HCC) 11/15/2024 1:52 PM CDT - 11/15/2024 6:51 PM CDT Emergency [facility] [address] [place] [address] Fall, initial encounter (Primary Dx); Orthostatic hypotension; Multiple falls Discharge Disposition: Discharge to home or self care 11/14/2024 Telephone [facility] [address] [place] [phone] Adrianne Briceño RN 11/14/2024 Orders Only [facility] [address] [place] [phone] Marcie Silver NP Parkinson's disease with dyskinesia and fluctuating manifestations (HCC) (Primary Dx) 2024 2:00 PM CDT Office Visit [facility] [address] [place] [phone] José Miguel Hutchins MD PhD Parkinson's disease with dyskinesia and fluctuating manifestations (HCC) (Primary Dx); Orthostatic hypotension; REM sleep behavior disorder; Anxiety 11/03/2024 Telephone [facility] [facility] [address] [place] [phone] Jm Alonso MD [facility] medical 10/25/2024 Orders Only [facility] [address] [place] [phone] Jm Alonso MD 10/12/2024 Orders Only [facility] [address] [facility] 1 [place] [address] Jm Alonso MD 10/10/2024 10:00 AM CDT Office Visit [facility] [address] [place] [address] [address] [place] [phone] Shoshana Hutchins MD Closed traumatic dislocation of proximal interphalangeal (PIP) joint of left little finger (Primary Dx) 10/10/2024 Orders Only [facility] [address] [place] [address] [address] [facility] 1 [place] [address] Jm Alonso MD 09/24/2024 11:22 AM CDT - 09/24/2024 5:52 PM CDT Emergency [facility] [address] [place] [address] Natalie Urrutia MD Fitzmaurice, Sean C., MD Fall, initial encounter (Primary Dx); Blunt head trauma, initial encounter; Abdominal pain Discharge Disposition: Discharge to home or self care 09/24/2024 9:30 AM CDT Office Visit [facility] Care at [address] [phone] Briseida Bowers NP Left upper quadrant abdominal pain (Primary Dx); Left upper quadrant abdominal tenderness without rebound tenderness; Contusion of abdominal wall, initial encounter; Multiple falls 09/16/2024 9:30 AM CDT Office Visit [facility] Movement Disorders [address] [place] [address] Medicine 7th [place] [address] Marcie Silver NP Parkinson's disease with dyskinesia and fluctuating manifestations (HCC) (Primary Dx); Levodopa-induced dyskinesia; REM sleep behavior disorder; Anxiety 09/12/2024 9:15 AM CDT Office Visit [facility] [address] [place] [address] [place] [phone] Shoshana Hutchins MD Finger pain, left (Primary Dx); Closed traumatic dislocation of proximal interphalangeal (PIP) joint of left little finger; Right wrist pain 09/12/2024 7:45 AM CDT - 09/12/2024 11:59 PM CDT Hospital Encounter [facility] MOB 1 DIAG IMG [address] [place] [address] Finger pain, left; Right wrist pain Discharge Disposition: Discharge to home or self care 09/12/2024 Telephone [facility] Scheduling [address] [place], [place] [phone] Marcie Silver NP Scheduling Appointments 09/08/2024 2:15 PM CDT Office Visit [facility] [address] [place] [address] Jm Alonso MD Type 2 diabetes mellitus without complication, without long-term current use of insulin (HCC) (Primary Dx); Parkinson's disease with dyskinesia and fluctuating manifestations (HCC); Essential hypertension 09/06/2024 2:35 PM CDT Ancillary Procedure [facility] Imaging at [address] [phone] Injury of left little finger, initial encounter 09/06/2024 2:30 PM CDT Office Visit [facility]ient Care at [address] [phone] Desi Barney NP Injury of left little finger, initial encounter (Primary Dx); Closed traumatic dislocation of proximal interphalangeal (PIP) joint of left little finger; Displaced fracture of middle phalanx of left little finger, initial encounter for closed fracture 09/06/2024 2:10 PM CDT Ancillary Procedure [facility] Imaging at [address] [phone] Injury of left little finger, initial encounter 09/06/2024 Orders Only [facility] [address] [place] [address] [address] [place] [address] Jm Alonso MD 09/06/2024 Results Follow-Up [facility] at [address] [phone] Desi Barney NP XR Finger 5Th Pinky Left 09/05/2024 Telephone [facility] Movement Disorders [address] [facility] 7th [place] [address] Adrianne Briceño, SAMANTHA from Last 3 Months Immunizations Immunization Administration [...] on file Legal Sex Male 11:00 AM TRAILER SECTIONS ASSEMBLER Gender Identity Male 01/03/2020 10:22 AM [...] history exists Medical Devices Implanted Type Area Personnel Associate Device Identifier Shelf Expiration Date Model / Serial / Lot [employer] Lens Iol Tecnis Smplcty 1-Pc Clr [place] 15.5 Diopter [id number] - [id number] - [id number] Implanted:Qty: 1 on 01/14/2023 by Richmond Morales MD at [facility] Lens Left: Eye [employer] [id number] 05/10/2025 [id number] / [id number] / 0 [employer] Lens Iol Tecshasta Smplcty 1-Pc Clr [place] 15.5 Diopter [id number] - [id number] - [id number] Implanted:Qty: 1 on 02/11/2023 by Richmond Morales MD at [facility] Lens Right: Eye [employer] [id number] 12/10/2024 [id number] / [id number] / Procedures Procedure Name Priority Date/Time Associated [...] SCAN - LABS (11/21/2024 4:05 PM CDT) Jm Alonso MD Final Result * CT [...] Osuna MD, PHD us July Robyn Payne SOFTWARE ENGINEER BACKEND IMG CT PROCEDURES Fin al Result * [...] MD ECG ORDERABLES Final Resul t CONS SCIMAGE * (ABNORMAL) Urinalysis reflex to microscopic and [...] tendency for uric acid stone formation. Source: [facility] Current Interpretive Data was last revised on [...] MICROBIOLOGY - GENERAL ORDERABLES Final Result [facility] CARRER[facility] [address] [facility]. [place] [address] * (ABNORMAL) eGFR (11/15/2024 1:51 PM CDT) [...] MD LAB BLOOD ORDERABLES Final Result [facility] [address] [facility]. [place] [address] * (ABNORMAL) Differential, auto (11/15/2024 1:51 PM [...] K/cumm [facility] Neutrophil pct 80.3 % [facility] Comment: Interpretive Data Percent cell count reference ranges are not reported, since discordance with absolute values may lead to misinterpretation of CBC data. Current Interpretive Data was last revised on 2017. Imm gran pct 1.5 % [facility] Comment: Interpretive Data Percent cell count reference ranges are not reported, since discordance with absolute values may lead to misinterpretation of CBC data. Current Interpretive Data was last revised on 2017. Lymphocyte pct 8.0 % [facility] Comment: Interpretive Data Percent cell count reference ranges are not reported, since discordance with absolute values may lead to misinterpretation of CBC data. Current Interpretive Data was last revised on 2017. Monocyte pct 5.4 % [facility] Comment: Interpretive Data Percent cell count reference ranges are not reported, since discordance with absolute values may lead to misinterpretation of CBC data. Current Interpretive Data was last revised on 2017. Eosinophil pct 4.5 % [facility] Comment: Interpretive Data Percent cell count reference ranges are not reported, since discordance with absolute values may lead to misinterpretation of CBC data. Current Interpretive Data was last revised on 2017. Basophil pct 0.3 % [facility] Comment: Interpretive Data Percent cell count reference ranges are not reported, since discordance with absolute values may lead to misinterpretation of CBC data. Current Interpretive Data was last revised on 2017. Blood 11/15/2024 1:51 PM CDT 11/15/2024 2:00 PM CDT us Denise Lai MD LAB BLOOD ORDERABLES Final Result [facility] [address] [facility] Department [place] [address] * (ABNORMAL) CBC with auto differential (11/15/2024 1:51 PM CDT) WBC 10.26(H) 3.80 - 9.90 K/cumm Hgb 12.4(L) 13.0 - 17.5 g/dL [facility] Hct 38.6(L) 38.9 - 50.3 % [facility] Plt 311 150 - 400 K/cumm [facility] MPV 10.0 9.1 - 12.3 fL [facility] RBC 4.66 4.30 - 5.80 M/cumm [facility] MCV 82.8 81.3 - 96.4 fL [facility] MCH 26.6(L) 27.1 - 33.3 pg [facility] MCHC 32.1(L) 32.3 - 35.7 g/dL [facility] RDW CV 14.4 11.1 - 14.9 % [facility] RDW SD 43.5 35.7 - 48.1 fL [facility] NRBC abs 0.00 0.00 - 0.01 K/cumm [facility] Blood 11/15/2024 1:51 PM CDT 11/15/2024 2:00 PM CDT us Denise Lai MD LAB BLOOD ORDERABLES Final Result [facility]IA CARRERA [address] [facility]. [place] [address] * (ABNORMAL) Comprehensive metabolic panel (11/15/2024 1:51 [...] [facility] AST 19 10 - 50 Units/L [facility] Blood 11/15/2024 1:51 PM CDT 11/15/2024 2:00 PM CDT us Denise Lai MD LAB BLOOD ORDERABLES Final Result [facility] CARR[facility] [address] [facility]. [place] [address] * SCAN - RADIOLOGY/IMAGING (10/25/2024 9:10 AM [...] tendency for uric acid stone formation. Source: [facility] Current Interpretive Data was last revised on [...] GEN ERAL ORDERABLES Final Result [facility]IA REEVES[facility] [address] [facility]. [place] [address] * (ABNORMAL) eGFR (09/24/2024 1:14 PM CDT) [...] ORDERABLES F inal Result Performing Organization Address [facility]/ZIP Co de Phone Number [facility] [address] [address] [employer] [facility] [employer] [place], [place] [phone] * Lipase (09/24/2024 1:14 PM CDT) Pathologist [facility] Lipase 56 10 - 99 Units/L Blood 09/24/2024 1:14 PM CDT 09/24/2024 1:22 PM CDT Natalie Urrutia MD LAB BLOOD ORDERABLES F inal Result Performing Organization Address [facility] de Phone Number [facility] [address] [employer] TechnologiesSil[facility] [place], [place] [phone] * (ABNORMAL) Comprehensive metabolic panel (09/24/2024 1:14 PM CDT) Sodium 131(L) 135 - 145 mmol/L Potassium, pl 4.4 3.3 - 4.9 mmol/L [facility] Chloride 96(L) 97 - 110 mmol/L [facility] CO2 21(L) 22 - 32 mmol/L [facility] Anion gap 14 2 - 15 mmol/L [facility] BUN 27(H) 6 - 25 mg/dL [facility] Creatinine 1.60(H) 0.80 - 1.30 mg/dL [facility] Glucose 272(H) 70 - 199 mg/dL [facility] Comment: Interpretive Data Fasting glucose >/= [...] Calcium 8.7 8.5 - 10.3 mg/dL [facility] Bilirubin, total 0.3 0.1 - 1.2 mg/dL [facility] Protein, pl 6.7 6.5 - 8.5 g/dL [facility] Albumin 4.2 3.5 - 5.0 g/dL [facility] Alk phos 80 40 - 130 Units/L [facility] ALT <5(L) 7 - 55 Units/L [facility] AST 18 10 - 50 Units/L [facility] Blood 09/24/2024 1:14 PM CDT 09/24/2024 1:22 PM CDT Natalie Urrutia MD LAB BLOOD ORDERABLES F inal Result [facility] [address] [facility] Department [place] [address] * (ABNORMAL) Differential, auto (09/24/2024 12:41 PM CDT) Pathologist [facility] Neutrophil abs 7.45(H) 1.50 - 6.50 K/cumm Imm gran abs 0.03 0.00 - 0.10 K/cumm [facility] Lymphocyte abs 0.94 0.80 - 3.30 K/cumm [facility] Monocyte abs 0.50 0.20 - 0.80 K/cumm [facility] Eosinophil abs 0.22 0.00 - 0.50 K/cumm [facility] Basophil abs 0.06 0.00 - 0.10 K/cumm [facility] Neutrophil pct 81.0 % [facility] Comment: Interpretive Data Percent cell count reference ranges are not reported, since discordance with absolute values may lead to misinterpretation of CBC data. Current Interpretive Data was last revised on 2017. Imm gran pct 0.3 % [facility] Comment: Interpretive Data Percent cell count reference ranges are not reported, since discordance with absolute values may lead to misinterpretation of CBC data. Current Interpretive Data was last revised on 2017. Lymphocyte pct 10.2 % [facility] Comment: Interpretive Data Percent [...] on 2017. Eosinophil pct 2.4 % [facility] Comment: Interpretive Data Percent cell count reference ranges are not reported, since discordance with absolute values may lead to misinterpretation of CBC data. Current Interpretive Data was last revised on 2017. Basophil pct 0.7 % [facility] Comment: Interpretive Data Percent cell count reference ranges are not reported, since discordance with absolute values may lead to misinterpretation of CBC data. Current Interpretive Data was last revised on 2017. Blood 09/24/2024 12:4 1 PM CDT 09/24/2024 12:49 PM CDT us Natalie Urrutia MD LAB BLOOD ORDERABLES F inal Result [facility] [address] [facility]. [place] [address] * (ABNORMAL) CBC with auto differential (09/24/2024 12:41 PM CDT) WBC 9.20 3.80 - 9.90 K/cumm Hgb 12.1(L) 13.0 - 17.5 g/dL [facility] Hct 37.9(L) 38.9 - 50.3 % [facility] REEVESW Plt 330 150 - 400 K/cumm DELIA REEVESDUNIA MPV 9.8 9.1 - 12.3 fL [facility] RBC 4.53 4.30 - 5.80 M/cumm [facility] REEVESW MCV 83.7 81.3 - 96.4 fL [facility] MCH 26.7(L) 27.1 - 33.3 pg [facility] MCHC 31.9(L) 32.3 - 35.7 g/dL [facility] RDW CV 14.8 11.1 - 14.9 % [facility] RDW SD 44.9 35.7 - 48.1 fL [facility] NRBC abs 0.00 0.00 - 0.01 K/cumm [facility] Blood 09/24/2024 12:4 1 PM CDT 09/24/2024 12:49 PM CDT us Natalie Urrutia MD LAB BLOOD ORDERABLES F inal Result [facility]IA [facility]NAPPCH [address] [facility]. [place] [address] * XR Finger 5th Pinky Left (09/12/2024 [...] Andres Betancourt M.D. MF: FRANCISCO Report ID: [id number] Reading Location: [id number] Procedure Note Andres Betancourt MD - 09/12/2024 [...] Andres Betancourt M.D. MF: FRANCISCO Report ID: [id number] Reading Location: [id number] us Shoshana Hutchins MD IMG XR PROCEDURES [...] Andres Betancourt M.D. MF: FRANCISCO Report ID: [id number] Reading Location: [id number] Procedure Note Andres Betancourt MD - 09/12/2024 [...] Andres Betancourt M.D. MF: FRANCISCO Report ID: [id number] Reading Location: [id number] us Shoshana Hutchins MD IMG XR PROCEDURES [...] Andres Betancourt M.D. MF: FRANCISCO Report ID: [id number] Reading Location: [id number] Procedure Note Andres Betancourt MD - 09/12/2024 [...] Andres Betancourt M.D. MF: FRANCISCO Report ID: [id number] Reading Location: [place] [address] Shoshana Hutchins MD IMG XR PROCEDURES Final [...] Collin Cantrell M.D. NS T: Report ID: [id number] Reading Location: [id number] Procedure Note Collin Cantrell MD - 09/06/2024 [...] Collin Cantrell M.D. NS T: Report ID: [id number] Reading Location: [id number] Desi Barney NP IMG XR PROCEDURES Final [...] Collin Cantrell M.D. NS T: Report ID: [id number] Reading Location: [id number] Procedure Note Collin Cantrell MD - 09/06/2024 [...] Collin Cantrell M.D. NS T: Report ID: [id number] Reading Location: [id number] Desi Barney SOFTWARE ENGINEER BACKEND IMG XR PROCEDURES Final Re sult * POCT lipid panel (2023 11:14 AM CDT) Cholesterol, POC 112 mg/dL HDL, POC 47 mg/dL Triglycerides, POC 66 mg/dL LDL Cholesterol POC 5 mg/dL Chol/HDL Ratio, POC 2.4 Non-HDL Cholesterol, POC 65 mg/dL Cholesterol Total, POC 112 mg/dL Capillary blood 2023 1 1:14 AM CDT mJ Alonso MD POINT OF CARE TEST ORDERABLES [...] - 09/30/2023 4:08 AM CDT Performed at: [address] [place] [id number] Water/Wastewater Project Engineer: Yuan Gaitan PhD, Phone: [phone] Jm Alonso MD LAB URINE ORDERABLES Final Re sult [facility] - 01 * PSA screen (08/16/2021 [...] 08/17/2021 7:09 AM CDT Performed at: - [facility] [id number] Water/Wastewater Project Engineer: Yuan Gaitan PhD, Phone: [phone] us Jm Alonso MD LAB BLOOD ORDERABLES Final Re sult [facility] - 01 from Last 3 Months or Most Recently Relevant to Health Maintenance [place] [address] [facility] MEDIC[facility] MEDICARE MEDICARE [facility] Advance Directives For more information, please contact: [phone] * Full Code (Latest Code Status on File) Date Activated Date Inactivated Comments 02/11/2023 9:33 AM 02/11/2023 4:38 PM * Full Code Date Activated Date Inactivated Comments 01/14/2023 8:51 AM 01/14/2023 4:11 PM Care Teams Civil Engineer Helper Relationship Specialty Start Date End Date Jm Alonso MD PCP - General Internal Medicine 08/25/18
--- NOTE | 2024-11-24 06:04 | WPDHPUPDATE1 ---
History and Physical Update Update Date/Time: 11/24/24 06:04 History and Physical has been reviewed, including an updated exam of the patient. There are NO changes in the patient's condition. Risks, benefits, and alternatives have been discussed and questions answered. Patient agrees to proceed with procedure.
[2024-11-24] MEDS: LACTATED RINGERS 1,000 ML 30 ML IV CONT (11:20)
--- NOTE | 2024-11-24 12:28 | P.PNAN_ITS ---
Anes - Initial Pre Proc Eval Procedure: Operation Date: 11/24/24 12:30 Proposed Procedures p Cystoscopy Left Ureteroscopy, Left Retrograde Pyelogram, Possible Holmium Laser Lithotripsy, Left Stone Extraction, Possible Left Stent Insertion - Kt Epps MD Date/Time: 11/24/24 12:28 Surgeon: Kt Epps MD Pre Op Diagnosis: Left Ureteral Stone Patient Data Age: 69 Gender: M Height: 1.83 m Weight: 92.9 kg Last Vital Signs Temp 98.2 F 11/24/24 10:31 Pulse 77 11/24/24 10:31 Resp 16 11/24/24 10:31 BP 131/63 11/24/24 10:31 Pulse Ox 98 11/24/24 10:31 Allergies Allergy/AdvReac Type Severity Reaction Status Date / Time No Known Allergies Allergy Verified 11/24/24 11:31 Home Medications ?Medication ?Instructions ?Recorded ?Confirmed ?Type Adult Aspirin EC Low Strength 81 mg PO DAILY 09/24/23 11/24/24 History atorvastatin 20 mg tablet 20 mg PO DAILY 09/24/23 11/21/24 History carbidopa 25 mg-levodopa 100 mg 25 - 100 tablet PO TID 09/24/23 11/24/24 History tablet (Sinemet) carbidopa ER 50 mg-levodopa 200 mg 50 - 200 tablet PO HS 09/24/23 11/21/24 History tablet,extended release cetirizine 10 mg PO DAILY 09/24/23 11/21/24 History clonazepam 0.5 mg tablet 0.5 mg PO HS 09/24/23 11/21/24 History fenofibrate 160 mg tablet 160 mg PO DAILY 09/24/23 11/21/24 History gabapentin 300 mg capsule 300 mg PO 09/24/23 11/21/24 History omeprazole 20 mg PO DAILY 09/24/23 11/21/24 History sertraline 100 mg tablet 100 mg PO DAILY 09/24/23 11/24/24 History tamsulosin 0.4 mg capsule 0.4 mg PO DAILY 09/24/23 11/21/24 History insulin glargine-yfgn 100 unit/mL 30 unit subcut QA 10/22/24 11/24/24 History (3 mL) subcutaneous pen linagliptin 5 mg tablet (Tradjenta) 5 mg PO COUNT INCLUDES THE [facility] 10/22/24 11/21/24 History mirabegron 50 mg tablet,extended 50 mg PO HS 10/22/24 11/21/24 History release 24 hr Laboratory Tests 11/24/24 10:59 POC Capillary Glucose 136 H mg/dl (65-105) Patient hx anesthesia problems: none Family hx anesthesia problems: none Results Review: All pre-operative results and documents have been reviewed as part of the pre- operative evaluation. PMFSH Past Medical History Medical History Diabetes Parkinson's disease Family History Family History Other Unknown family medical history Social History Social History Smoking status: Never smoker Second hand tobacco smoke exposure: No Alcohol intake: current Drinks per week: 1 Substance use: never Do You Feel Safe in your Home?: Yes Lack of Transportation: No Lack of Food: Never True Current Housing: I Have Housing Concerned About Future Housing: No Difficulty Paying Gas/Electric Bills: No Difficulty Paying for Meds: No Currently Unemployed: No Education: Decline to Answer Difficulty w/ Childcare or Family Care: No Living arrangements: with family Spiritual care concerns: No Anes - Eval Final PreProcedure Day of Procedure 11/24/24 12:28 Patient weight: normal Heart: regular rate and rhythm Lungs: clear to auscultation Airway: Mallampati scale class II Neurological: alert and oriented Last oral intake: >/= 8 hours ASA classification: III Emergent: no Anesthetic plan: proceed Anesthesia type and monitoring: general LMA and standard monitoring Results Review: All pre-operative results and documents have been reviewed as part of the pre- operative evaluation. Informed Consent: The patient's anesthetic plan and its attendant risks and benefits were discussed with the patient/family/POA. Questions were solicited and answers provided to the satisfaction of the patient/family/POA.
[2024-11-24] MEDS: ceFAZolin 2 GM in SODIUM CHLORIDE 0.9% IV 50 ML 100 ML IVPB (12:36)
[2024-11-24] MEDS: LIDOCAINE 2% GEL UROJET 10 ML PKG MUCOUS MEM (12:59)
--- NOTE | 2024-11-24 13:00 | S_PTH ---
PATIENT: Susan Ledezma LOC: [facility] U#:[id number] AGE/SX: 69/M ROOM: RE11/24/[address]: Kt Epps MD : [id number] BED: DIS: 11/24/2024 SPEC #: [id number] RECD: 11/24/24 14:35 STATUS: MARTINA REQ #: [id number] GRICELDA: 11/24/24 13:[address]: Kt Epps DEPT: [facility] Surgical RECD BY: Joana Penaloza ENTERED: 11/24/24 14:36 SP TYPE: Surgical OTHR DR: Jm Alonso, Tissues: A - Stone Procedures: Gross Exam Level 1 Crystalline Analysis
--- NOTE | 2024-11-24 13:13 | W.PM.PROC2 ---
Procedure Note - Detailed Date of Procedure 11/24/24 Pre-op Diagnosis Left Ureteral Stone Post-op Diagnosis Same Procedure Performed The patient was brought to the operative suite where he is prepped and draped in a routine sterile fashion while in the dorsal lithotomy position after the uneventful induction of a general LMA anesthetic. A 19F rigid cystoscope was placed in the bladder. There are no urethral strictures. His prostatic urethra measures, approximately, 3.0cm with a moderate median lobe enlargement. The bladder mucosa was endoscopically normal without hyperemia or neoplasm. There was a single, orthotopic ureteral orifice bilaterally. A 0.035 glidewire was advanced into the left renal pelvis under fluoroscopy. The distal ureter was dilated with an 8F/10F ureteral dilator. Ureteroscopy was undertaken with a short, tapered, semi-rigid ureteroscope and the stone was extracted with ease using a 1.9F Escape disposable stone basket. Due to the ease of this manipulation I opted not to place a ureteral stent. The patient's bladder was emptied and was taken to the recovery room having tolerated this procedure well. Surgeon Kt Epps MD Anesthesia General Description of Procedure The patient was brought to the operative suite where he is prepped and draped in a routine sterile fashion while in the dorsal lithotomy position after the uneventful induction of a general LMA anesthetic. A 19F rigid cystoscope was placed in the bladder. There are no urethral strictures. His prostatic urethra measures, approximately, 3.0cm with a moderate median lobe enlargement. The bladder mucosa was endoscopically normal without hyperemia or neoplasm. There was a single, orthotopic ureteral orifice bilaterally. A 0.035 glidewire was advanced into the left renal pelvis under fluoroscopy. The distal ureter was dilated with an 8F/10F ureteral dilator. Ureteroscopy was undertaken with a short, tapered, semi-rigid ureteroscope and the stone was extracted with ease using a 1.9F Escape disposable stone basket. Due to the ease of this manipulation I opted not to place a ureteral stent. The patient's bladder was emptied and was taken to the recovery room having tolerated this procedure well. Drains No Packing No Pathology None sent
[2024-11-24] MEDS: oxyCODONE HCL (*CRX) 5 MG TAB IR PO (14:30)
== END 2024-11-24 15:24 | disposition home or self-care (01) ==
PROVIDERS: PCP Internal Medicine; Visit Provider Urology
PROC: (CPT 52352; principal; 2024-11-24 12:30)
DX: N20.1 Calculus of ureter (principal); N40.0 Benign prostatic hyperplasia without lower urinary tract symptoms; E11.9 Type 2 diabetes mellitus without complications; G20.A1 Parkinson's disease without dyskinesia, without mention of fluctuations
CPT/HCPCS: 52352; 74420; 82365; 82948; 88300; J0690; A9270; C1769; J1885; J2003; J2250; J2405; J2704; J3010; J7120; Q9966

== ENCOUNTER 2025-01-06 16:22 | Emergency (ER) | payer MEDICARE, BC, SELFPAY ==
--- NOTE | ~2025-01-06 | XR_ITS ---
EXAMINATION: XR chest 2V, 01/06/2025 18:00 CDT HISTORY: Dizzy COMPARISON: No comparisons available. Technique: 2 views obtained. Findings: The lungs are clear, no effusion. No pneumothorax. Heart is normal size. Mediastinal and hilar contours are within normal limits. Bony thorax no acute abnormality. Impression: No acute cardiopulmonary abnormality. Reviewed, dictated and finalized at location A. Impression: No acute cardiopulmonary abnormality.
--- NOTE | ~2025-01-06 | CT_ITS ---
EXAMINATION: CT brain wo con DATE: 01/06/2025 20:46 INDICATION: Status post fall. TECHNIQUE: Computed tomography (CT) of the head was performed without intravenous contrast. The dose-length product was 681.00 mGy-cm. Automated exposure control and iterative reconstruction technique were employed. COMPARISON: Comparison to multiple prior studies sequentially, with oldest reviewed study dated 09/06/2024. FINDINGS: There is a chronic infarction of the right posterior parietal/occipital lobe. No ventriculomegaly or midline shift. Basilar cisterns are patent. There is intracranial atherosclerosis. No acute infarction, hemorrhage, mass or mass effect. Paranasal sinuses and mastoids are pneumatized. IMPRESSION: 1. No acute intracranial abnormality. 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 Reviewed, dictated and finalized at location O. IMPRESSION: 1. No acute intracranial abnormality. 2: Chronic right posterior parietal/occipital lobe infarction with encephaloma lacia.
[2025-01-06 16:20] VITALS: BP 117/61; PULSE 82; RESP 15; TEMP 36.7; O2SAT 95
[2025-01-06] MEDS: SODIUM CHLORIDE 0.9% IV 1,000 ML 999 ML IV CONT (17:30)
--- OUTSIDE RECORDS SUMMARY | 2025-01-06 17:45 | XMS_ITS | Clinical Summary ---
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
--- OUTSIDE RECORDS SUMMARY | 2025-01-06 17:45 | XMS_ITS | Clinical Summary ---
Author Organization [facility] Address [address] [place] [address] Care Team Providers Care Financial Planning Assistant Name Role Phone Jm Alonso MD Primary Care Provider [phone] Allergies No known active allergies Medications cetirizine (ZyrTEC) 10 mg tabletIndications :Seasonal Allergic Rhinitis Take 1 tablet (10 mg total) by mouth labor relations director 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 Active aspirin 81 mg enteric [...] total) by mouth daily Active carbidopa-levodop a CR (SINEMET CR) 50-200 mg per CR tablet Take 2 tablets by mouth nightly 180 tablet 3 01/29/20 24 2024 Active gabapentin (NEURONTIN) 300 mg capsule TAKE [...] 1.5 tablets (150 mg total) by mouth labor relations director 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 135 tablet 3 09/06/19 25 2025 Active fenofibrate (TRIGLIDE) 160 mg tablet Take 1 tablet by mouth once daily 90 tablet 09/10/19 25 Active mirabegron ER (MYRBETRIQ) 50 mg tablet extended release 24 hr Take 1 tablet (50 mg total) by mouth labor relations director 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 09/16/19 25 Active linaGLIPtin (Tradjenta) [...] mouth daily 30 tablet 11 11/19/19 25 2025 Active carbidopa-levodop a (SINEMET) 25-100 mg per tabletIndications :Parkinsonism Take 2 tablets by mouth 3 (three) times a day 12/07/19 25 2025 Active tamsulosin (FLOMAX) 0.4 mg extended release capsule Take 1 capsule by mouth once daily 90 capsule 01/04/20 25 Active midodrine (PROAMATINE) 5 mg tabletIndications :Symptomatic Orthostatic Hypotension Take 1 tablet (5 mg total) by mouth daily 30 tablet 01/04/20 25 2024 Active tamsulosin (FLOMAX) 0.4 mg extended release capsule Take 1 capsule by mouth once daily 90 capsule 09/10/19 25 2024 Discontinued midodrine (PROAMATINE) 5 mg tabletIndications :Symptomatic Orthostatic Hypotension Take 1 tablet (5 mg total) by mouth daily 12/08/19 25 2024 Discontinued(R aryan) Active Problems Problem Noted Date Diagnosed Date Abrasion of knee, left 12/23/2024 Bilateral renal stones 12/23/2024 Contusion of rib on left side 12/23/2024 Fall 12/23/2024 Hearing loss, bilateral 12/23/2024 Impacted cerumen of both ears 12/23/2024 Left ureteral stone 12/23/2024 Recurrent falls 12/23/2024 Superficial abrasion 12/23/2024 Diabetes 12/23/2024 Hypoglycemia secondary to sulfonylurea Parkinson's disease, unspeci fied whether dyskinesia present, unspecified whether manifestations fluctuate 12/02/2024 Orthostatic hypotension 10/04/2024 Nuclear sclerotic cataract of [...] (07/25/2020): Added automatically from request for surgery [id number] 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 Once this is confirmed we can proceed with definitive therapy Type 2 diabetes mellitus wit hout complication, without long-term current use of insulin 02/29/2020 Assessment & Plan (05/23/2024 12:02 PM CONTROL SYSTEMS TECHNICIAN): Increase insulin to 30 units Assessment & Plan (02/09/2024 11:53 AM CDT): Incease lantus to 26 units. May need bolus insulin Essential hypertension 02/29/2020 Assessment & Plan (05/23/2024 12:02 PM CONTROL SYSTEMS TECHNICIAN): Bp at target Assessment & Plan [...] to increase the dose slightly. Parkinson disease ([facility]) 05/29/2015 Assessment & Plan (11/15/2024 10:23 AM [...] [employer] and send updates to us by [employer] as needed. 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 Let [...] willing to resume PT and knows of [employer] youtube channel exercises online. He has completed [...] patient. Assessment & Plan (05/23/2024 12:02 PM CONTROL SYSTEMS TECHNICIAN): sandee Stevens neurology Assessment & Plan (02/09/2024 [...] day. Assessment & Plan (03/26/2023 7:09 PM CONTROL SYSTEMS TECHNICIAN): He has parkinsonism stage 2.5 characterized [...] more consistent with dose timing. 3. Call [facility] PT to schedule a follow up appointment. 4. I will send a referral to [facility] OT for a driving evaluation. Assessment & Plan (05/16/2022 1:12 PM CONTROL SYSTEMS TECHNICIAN): He has parkinsonism stage 2.5 characterized [...] about cutting back irbesartan to half. 6. [facility] PD Voice Project. 7. Start PT and ST here at [facility] then get plan made for [...] exercises. Assessment & Plan (05/04/2020 12:37 PM CONTROL SYSTEMS TECHNICIAN): He has parkinsonism stage 2.5 characterized [...] a referral to a sleep neurologist at [facility]. They may want to order another sleep study because it has been some time since your last one. 4. I will send a referral to [facility] PT for balance and walking. 5. Increase clonazepam to 2 tablets at bedtime (1mg total). I sent renewal prescription 6. Our office to look for [employer] parking application which they will send for [...] Encounters Date Type Department Care Team Description 12/23/2024 3:30 PM CDT Office Visit [facility] Medical Group [facility] Care at [address] [phone] Yovana Cheek NP Bilateral impacted cerumen (Primary Dx) 12/07/2024 Telephone [facility] Medicine Movement Disorders [address] [facility] [address] [place] [phone] Supriya Javier RN 12/02/2024 1:21 PM CDT - 12/06/2024 1:07 PM CDT Hospital Encounter [facility] [address] [place] [phone] Cristina Dozier MD PhD Kareem, Huber Weaver MD PhD Parkinson's disease, unspecified whether dyskinesia present, unspecified whether manifestations fluctuate (HCC) (Primary Dx) Discharge Disposition: Discharge to [facility] 11/28/2024 2:00 PM CDT Therapy [facility] Physical [id number] [address] [phone] Lois Eid PTA Parkinson's disease with dyskinesia and fluctuating manifestations (HCC) (Primary Dx) 11/28/2024 Telephone [facility] Medicine Movement Disorders [facility] [address] [phone] Adrianne Briceño RN 11/25/2024 Orders Only [facility] [address] [place] [address] [place] [phone] Jm Alonso MD 11/24/2024 Orders Only [facility] [address] [place] [address] [address] [place] [phone] Jm Alonso MD 11/21/2024 Orders Only [facility] [address] [facility] [address] [place] [address] Jm Alonso MD 11/21/2024 Telephone [facility] Medicine Movement Disorders [address] [phone] Supriya Javier RN 11/20/2024 Plan of Care Documentation [facility] Physical Therapy [address] [place] [address] [address] [place] [address] 11/18/2024 10:00 AM CDT Therapy [facility] Physical Therapy [address] [place] [phone] Denise Billy, DPT Parkinson's disease with dyskinesia and fluctuating manifestations (HCC) (Primary Dx) 11/18/2024 Orders Only [facility] Medicine Movement Disorders [address] [place] [phone] José Miguel Hutchins MD PhD Parkinson's disease with dyskinesia and fluctuating manifestations (HCC) (Primary Dx); Neurogenic orthostatic hypotension (HCC) 11/15/2024 1:52 PM CDT - 11/15/2024 6:51 PM CDT Emergency [facility] [address] [place] [address] Fall, initial encounter (Primary Dx); Orthostatic hypotension; Multiple falls Discharge Disposition: Discharge to home or self care 11/14/2024 Telephone [facility] Medicine Movement Disorders [facility] [address] [phone] Adrianne Briceño RN 11/14/2024 Orders Only [facility] Medicine Movement Disorders [address] [place] [phone] Marcie Silver NP Parkinson's disease with dyskinesia and fluctuating manifestations (HCC) (Primary Dx) 2024 2:00 PM CDT Office Visit [facility] Medicine Movement Disorders [address] [place] [phone] José Miguel Hutchins MD PhD Parkinson's disease with dyskinesia and fluctuating manifestations (HCC) (Primary Dx); Orthostatic hypotension; REM sleep behavior disorder; Anxiety 11/03/2024 Telephone [facility] [address] [facility] [address] [place] [phone] Jm [facility] MD [facility] 10/25/2024 Orders Only [facility] [address] [place] [phone] Jm Alonso MD 10/12/2024 Orders Only [facility] [address] [place] [address] [place] [phone] Jm Alonso MD 10/10/2024 10:00 AM CDT Office Visit [facility] Medical Group Hand Surgery [address] [place] [phone] Shoshana Hutchins MD Closed traumatic dislocation of proximal interphalangeal (PIP) joint of left little finger (Primary Dx) 10/10/2024 Orders Only [facility] [address] [place] [phone] Jm Alonso MD from Last 3 Months Immunizations Immunization Administration [...] making you feel afraid or unsafe? Denies 12/02/2024 Sex and Gender Information Value Date Recorded Sex Assigned at Not on file Legal Sex Male 11:00 AM CONTROL SYSTEMS TECHNICIAN Gender Identity Male 01/03/2020 10:22 AM CDT Sexual Orientation Choose not to disclose 2019 10:22 AM CDT Obstetrics History Last Filed Vital Signs Vital Sign Reading Time Taken Comments Blood Pressure 122/78 12/23/2024 3:26 PM CDT Pulse 78 12/23/2024 3:26 PM CDT Temperature 36.7 C (98.1 F) 12/23/2024 3:26 PM CDT Respiratory Rate 20 12/23/2024 3:26 PM CDT Oxygen Saturation 98% 12/23/2024 3:26 PM CDT Inhaled Oxygen Concentration - - Weight 95.3 kg (210 lb) 12/23/2024 3:26 PM CDT Height 182.9 cm (6') 12/02/2024 3:40 PM CDT Body Mass Index 28.48 12/02/2024 3:40 PM CDT Plan of Treatment Scheduled Procedures [...] 05/16/2022 Prostate Cancer Screening-PSA 08/17/2023 08/16/2021, 02/29/2020 Albumin Creatinine Ratio, Urine 09/28/2024 09/29/2023 Covid-19 Vaccine ( season) 2024 04/29/2024, 05/22/2023, 10/21/2021, Additional history exists Influenza Vaccine (#1) 2024 Hemoglobin A1C 06/04/2025 12/02/2024, 08/25, 05/23/2024, Additional history exists Colon Cancer Screening-Colonoscopy 11/08/2025 Postponed from 1956 (Patient declined, but will receive in the future) Lipid Panel 12/02/2025 12/02/2024, 10/25, 09/17/2022, Additional history exists eGFR 12/05/2025 12/05/2024, 11/25, 12/03/2024, Additional history exists Fall Risk Assessment 12/06/2025 12/06/2024 Medical Devices Implanted Type Area Vehicle Safety Inspector Device Identifier Shelf Expiration Date Model / Serial / Lot [employer] Lens Iol Tecnis Smplcty 1-Pc Clr [place] 15.5 Diopter [id number] - [id number] - [id number] Implanted:Qty: 1 on 01/14/2023 by Richmond Morales MD at [facility] Lens Left: Eye [employer] [place] [employer] [id number] 05/10/2025 [id number] / [id number] / 0 [employer] Lens Iol Tecnis Smplcty 1-Pc Clr [place] 15.5 Diopter [id number] - [id number] - [id number] Implanted:Qty: 1 on 02/11/2023 by Richmond Morales MD at [facility] Lens Right: Eye [employer] [id number] 12/10/2024 [id number] / [id number] / Procedures Procedure Name Priority Date/Time Associated Diagnosis Comments SC REMOVAL IMPACTED CERUMEN INSTRUMENTATION UNILAT Routine 12/23/2024 3:30 PM CDT Bilateral impacted cerumen POCT GLUCOSE DEVICE Routine 12/06/2024 7 :47 AM CDT EGFR Routine 12/05/2024 10:23 PM CDT CBC WITHOUT DIFFERENTIAL Routine 12/05/2024 10:23 PM CDT BASIC METABOLIC PANEL Routine 12/05/2024 10:23 PM CDT POCT GLUCOSE DEVICE Routine 12/05/2024 8 :26 PM CDT POCT GLUCOSE DEVICE Routine 12/05/2024 4 :37 PM CDT POCT GLUCOSE DEVICE Routine 12/05/2024 11:54 AM CDT POCT GLUCOSE DEVICE Routine 12/05/2024 7 :54 AM CDT POCT GLUCOSE DEVICE Routine 12/05/2024 3 :43 AM CDT POCT GLUCOSE DEVICE Routine 12/05/2024 12:22 AM CDT EGFR Routine 12/04/2024 9:23 PM CDT CBC WITHOUT DIFFERENTIAL Routine 12/04/2024 9:23 PM CDT BASIC METABOLIC PANEL Routine 12/04/2024 9:23 PM CDT POCT GLUCOSE DEVICE Routine 12/04/2024 8 :10 PM CDT POCT GLUCOSE DEVICE Routine 12/04/2024 4 :17 PM CDT POCT GLUCOSE DEVICE Routine 12/04/2024 11:28 AM CDT POCT GLUCOSE DEVICE Routine 12/04/2024 7 :29 AM CDT POCT GLUCOSE DEVICE Routine 12/04/2024 3 :10 AM CDT EGFR Routine 12/03/2024 8:58 PM CDT CBC WITHOUT DIFFERENTIAL Routine 12/03/2024 8:58 PM CDT BASIC METABOLIC PANEL Routine 12/03/2024 8:58 PM CDT POCT GLUCOSE DEVICE Routine 12/03/2024 7 :56 PM CDT POCT GLUCOSE DEVICE Routine 12/03/2024 4 :56 PM CDT POCT GLUCOSE DEVICE Routine 12/03/2024 11:01 AM CDT BLOOD CULTURE Routine 12/03/2024 10:08 AM CDT BLOOD CULTURE Routine 12/03/2024 10:08 AM CDT POCT GLUCOSE DEVICE Routine 12/03/2024 7 :13 AM CDT POCT GLUCOSE DEVICE Routine 12/02/2024 9 :07 PM CDT URINALYSIS AND REFLEX TO MICROSCOPIC AND CULTURE STAT 12/02/2024 8:54 PM CDT POCT GLUCOSE DEVICE Routine 12/02/2024 7 :40 PM CDT POCT GLUCOSE DEVICE Routine 12/02/2024 6 :09 PM CDT XR CHEST 1 VIEW ED Urgent/IP Urgent 12/02/2024 4:31 PM CDT POCT GLUCOSE DEVICE Routine 12/02/2024 3 :[address] HEAD AND CERVICAL SPINE WO CONTRAST ED 12/02/2024 1:58 PM CDT THYROID FUNCTION CASCADE STAT 12/02/2024 1:44 PM CDT PHOSPHORUS STAT 12/02/2024 1:44 PM CDT MAGNESIUM STAT 12/02/2024 1:44 PM CDT LIPID PANEL STAT 12/02/2024 1:43 PM CDT HEMOGLOBIN A1C STAT 12/02/2024 1:43 PM CDT EGFR STAT 12/02/2024 1:43 PM CDT DIFFERENTIAL AUTO STAT 12/02/2024 1:4 3 PM CDT COMPREHENSIVE METABOLIC PANEL STAT 12/02/2024 1:43 PM CDT CBC WITH AUTO DIFFERENTIAL STAT 12/02/2024 1:43 PM CDT SCAN - PATHOLOGY 11/25/2024 9:58 AM CDT SCAN - LABS 11/24/2024 3:18 PM CDT SCAN - LABS 11/24/2024 3:00 PM CDT SCAN - RADIOLOGY/IMAGING 11/24/2024 2:06 PM CDT SCAN - LABS 11/21/2024 4:05 PM CDT [...] SCAN - RADIOLOGY/IMAGING 10/10/2024 4:30 PM CDT ALBUMIN CREATININE RATIO, URINE Routine 09/29/2023 11:20 AM CDT Stage 3b chronic kidney disease (HCC) PSA SCREEN Routine 08/16/2021 10:37 AM CDT Type 2 diabetes mellitus without complication, without long-term current use of insulin (HCC) Hyperlipidemia, unspecified hyperlipidemia type Colon cancer screening Parkinson disease (HCC) from Last 3 Months or Most Recently Relevant to Health Maintenance Results * SC REMOVAL IMPACTED CERUMEN INSTRUMENTATION UNILAT (12/23/2024 3:30 PM CDT) Narrative Yovana Cheek NP - 12/23/2024 3:30 PM CDT Yovana Cheek NP 12/23/2024 3:59 PM Ear Cerumen Removal Performed by: Yovana [...] magnification: Otoscope Inspection: TM intact Hearing quality: Improved Patient tolerance: Patient tolerated the procedure well with no immediate complications Bilateral ear canals and TMs are within normal limits after cerumen was removed us Yovana Cheek SCOURING PADS SUPERVISOR IN CLINIC/BEDSIDE ORDERABLES F inal Result * POCT glucose (12/06/2024 7:47 AM CDT) Glucose, POC 123 70 - 199 mg/dL Blood 12/06/2024 7:47 AM CDT 12/06/2024 7:47 AM CDT us Huber Serna MD PhD LAB POCT ORDER THAIS - DEVICE Final Result [facility] [place] [address] * (ABNORMAL) eGFR (12/05/2024 10:23 PM CDT) [facility] eGFR 48(L) >=60 mL/min/1. 73 m2 Comment: Interpretive Data [...] interpretive data was last reviewed 2021. Blood 12/05/2024 10:2 3 PM CDT 12/05/2024 11:30 PM CDT Huber Serna MD PhD LAB BLOOD NICKI HERNANDEZ Final Result [facility] Department [place] [address] * (ABNORMAL) CBC without differential (12/05/2024 10:23 PM CDT) [facility] WBC 9.40 3.80 - 9.90 K/cumm Hgb 11.6(L) 13.0 - 17.5 g/dL [facility] Hct 36.4(L) 38.9 - 50.3 % [facility] Plt 311 150 - 400 K/cumm [facility] MPV 10.5 9.1 - 12.3 fL [facility] RBC 4.39 4.30 - 5.80 M/cumm [facility] MCV 82.9 81.3 - 96.4 fL [facility] MCH 26.4(L) 27.1 - 33.3 pg [facility] MCHC 31.9(L) 32.3 - 35.7 g/dL [facility] RDW CV 14.5 11.1 - 14.9 % [facility] RDW SD 43.9 35.7 - 48.1 fL [facility] NRBC abs 0.00 0.00 - 0.01 K/cumm [facility] Blood 12/05/2024 10:2 3 PM CDT 12/05/2024 11:30 PM CDT Huber Serna MD PhD LAB BLOOD ORDE DAVID Final Result [facility] Department [place] [address] * (ABNORMAL) Basic metabolic panel (12/05/2024 10:23 PM CDT) Pathologist [facility] Sodium 137 135 - 145 mmol/L Potassium, pl 4.0 3.3 - 4.9 mmol/L [facility] Chloride 102 97 - 110 mmol/L [facility] CO2 26 22 - 32 mmol/L [facility] Anion gap 9 2 - 15 mmol/L [facility] BUN 20 6 - 25 mg/dL [facility] Creatinine 1.55(H) 0.80 - 1.30 mg/dL [facility] Glucose 101 70 - 199 mg/dL [facility] Comment: Interpretive Data Fasting glucose >/= [...] interpretive data was last revised 2022. Calcium 10.1 8.5 - 10.3 mg/dL [facility] Blood 12/05/2024 10:2 3 PM CDT 12/05/2024 11:30 PM CDT us Huber Serna MD PhD LAB BLOOD ORDE RABLES Final Result Performing Organization Address [facility] Co de Phone Number [facility] [place] [address] * (ABNORMAL) POCT glucose (12/05/2024 8:26 PM CDT) Glucose, POC 210(H) 70 - 199 mg/dL Blood 12/05/2024 8:26 PM CDT 12/05/2024 8:26 PM CDT us Huber Serna MD PhD LAB POCT ORDER THAIS - DEVICE Final Result Performing Organization Address [facility] de Phone Number [facility] Department [place] [employer] [place] [address] * POCT glucose (12/05/2024 4:37 PM CDT) Glucose, POC 187 70 - 199 mg/dL Blood 12/05/2024 4:37 PM CDT 12/05/2024 4:37 PM CDT us Huber Serna MD PhD LAB POCT ORDER THAIS - DEVICE Final Result Performing Organization Address [facility] de Phone Number [facility] [place] [place] [address] * POCT glucose (12/05/2024 11:54 AM CDT) Glucose, POC 198 70 - 199 mg/dL Blood 12/05/2024 11:5 4 AM CDT 12/05/2024 11:54 AM CDT us Huber Serna MD PhD LAB POCT ORDER THAIS - DEVICE Final Result Performing Organization Address [facility] de Phone Number [facility] [place] [address] * POCT glucose (12/05/2024 7:54 AM CDT) Glucose, POC 121 70 - 199 mg/dL Blood 12/05/2024 7:54 AM CDT 12/05/2024 7:54 AM CDT us Huber Serna MD PhD LAB POCT ORDER THAIS - DEVICE Final Result Performing Organization Address [facility] de Phone Number [facility] [place] [address] * POCT glucose (12/05/2024 3:43 AM CDT) Glucose, POC 143 70 - 199 mg/dL Blood 12/05/2024 3:43 AM CDT 12/05/2024 3:43 AM CDT us Huber Serna MD PhD LAB POCT ORDER THAIS - DEVICE Final Result Performing Organization Address [facility] de Phone Number [facility] [place] [address] * (ABNORMAL) POCT glucose (12/05/2024 12:22 AM CDT) Glucose, POC 220(H) 70 - 199 mg/dL Blood 12/05/2024 12:2 2 AM CDT 12/05/2024 12:22 AM CDT us Huber Serna MD PhD LAB POCT ORDER THAIS - DEVICE Final Result Performing Organization Address [facility]/State/ZIP Co de Phone Number [facility] [place] [address] * (ABNORMAL) eGFR (12/04/2024 9:23 PM CDT) Pathologist [facility] eGFR 52(L) >=60 mL/min/1. 73 m2 Comment: Interpretive Data [...] interpretive data was last reviewed 2021. Blood 12/04/2024 9:23 PM CDT 12/04/2024 10:32 PM CDT Huber Serna MD PhD LAB BLOOD NICKI HERNANDEZ Final Result [facility] [place] [address] * (ABNORMAL) CBC without differential (12/04/2024 9:23 PM CDT) Pathologist [facility] WBC 8.82 3.80 - 9.90 K/cumm Hgb 12.8(L) 13.0 - 17.5 g/dL [facility] Hct 39.3 38.9 - 50.3 % [facility] Plt 334 150 - 400 K/cumm [facility] MPV 10.3 9.1 - 12.3 fL [facility] RBC 4.81 4.30 - 5.80 M/cumm [facility] MCV 81.7 81.3 - 96.4 fL [facility] MCH 26.6(L) 27.1 - 33.3 pg [facility] MCHC 32.6 32.3 - 35.7 g/dL [facility] RDW CV 14.4 11.1 - 14.9 % [facility] RDW SD 42.5 35.7 - 48.1 fL [facility] NRBC abs 0.00 0.00 - 0.01 K/cumm [facility] Blood 12/04/2024 9:23 PM CDT 12/04/2024 10:32 PM CDT Huber Serna MD PhD LAB BLOOD ORDE DAVID Final Result [facility] Department [place] [address] * (ABNORMAL) Basic metabolic panel (12/04/2024 9:23 PM CDT) Sodium 138 135 - 145 mmol/L Potassium, pl 4.0 3.3 - 4.9 mmol/L [facility] Chloride 102 97 - 110 mmol/L [facility] CO2 27 22 - 32 mmol/L [facility] Anion gap 9 2 - 15 mmol/L [facility] BUN 22 6 - 25 mg/dL [facility] Creatinine 1.46(H) 0.80 - 1.30 mg/dL [facility] Glucose 179 70 - 199 mg/dL [facility] Comment: Interpretive Data Fasting glucose >/= [...] interpretive data was last revised 2022. Calcium 9.7 8.5 - 10.3 mg/dL [facility] Blood 12/04/2024 9:23 PM CDT 12/04/2024 10:32 PM CDT us Huber Serna MD PhD LAB BLOOD ORDE RABLES Final Result Performing Organization Address [facility] Co de Phone Number [facility] [place] [employer] [place] [address] * POCT glucose (12/04/2024 8:10 PM CDT) Glucose, POC 169 70 - 199 mg/dL Blood 12/04/2024 8:10 PM CDT 12/04/2024 8:10 PM CDT us Huber Serna MD PhD LAB POCT ORDER THAIS - DEVICE Final Result Performing Organization Address [facility] de Phone Number [facility] [place] [address] * (ABNORMAL) POCT glucose (12/04/2024 4:17 PM CDT) Glucose, POC 225(H) 70 - 199 mg/dL Blood 12/04/2024 4:17 PM CDT 12/04/2024 4:17 PM CDT us Huber Serna MD PhD LAB POCT ORDER THAIS - DEVICE Final Result Performing Organization Address [facility] de Phone Number [facility] [place] [address] * (ABNORMAL) POCT glucose (12/04/2024 11:28 AM CDT) Glucose, POC 281(H) 70 - 199 mg/dL Blood 12/04/2024 11:2 8 AM CDT 12/04/2024 11:28 AM CDT us Huber Serna MD PhD LAB POCT ORDER THAIS - DEVICE Final Result Performing Organization Address [facility] de Phone Number [facility] [employer] [place] [address] * POCT glucose (12/04/2024 7:29 AM CDT) Glucose, POC 108 70 - 199 mg/dL Blood 12/04/2024 7:29 AM CDT 12/04/2024 7:29 AM CDT us Huber Serna MD PhD LAB POCT ORDER THAIS - DEVICE Final Result Performing Organization Address [facility] de Phone Number [facility] Department [place] [employer] [place] [address] * POCT glucose (12/04/2024 3:10 AM CDT) Glucose, POC 130 70 - 199 mg/dL Blood 12/04/2024 3:10 AM CDT 12/04/2024 3:10 AM CDT us Huber Serna MD PhD LAB POCT ORDER THAIS - DEVICE Final Result Performing Organization Address [facility] de Phone Number [facility] [place] [place] [address] * (ABNORMAL) eGFR (12/03/2024 8:58 PM CDT) eGFR 44(L) >=60 mL/min/1. 73 m2 Comment: Interpretive Data [...] interpretive data was last reviewed 2021. Blood 12/03/2024 8:58 PM CDT 12/03/2024 9:31 PM CDT Huber Serna MD PhD LAB BLOOD NICKI HERNANDEZ Final Result [facility] [place] [address] * (ABNORMAL) CBC without differential (12/03/2024 8:58 PM CDT) WBC 7.61 3.80 - 9.90 K/cumm Hgb 11.8(L) 13.0 - 17.5 g/dL [facility] Hct 35.6(L) 38.9 - 50.3 % [facility] Plt 348 150 - 400 K/cumm [facility] MPV 9.7 9.1 - 12.3 fL [facility] RBC 4.37 4.30 - 5.80 M/cumm [facility] MCV 81.5 81.3 - 96.4 fL [facility] MCH 27.0(L) 27.1 - 33.3 pg [facility] MCHC 33.1 32.3 - 35.7 g/dL [facility] RDW CV 14.5 11.1 - 14.9 % [facility] RDW SD 43.1 35.7 - 48.1 fL [facility] NRBC abs 0.00 0.00 - 0.01 K/cumm [facility] Blood 12/03/2024 8:5 8 PM CDT 12/03/2024 9:31 PM CDT Huber Serna MD PhD LAB BLOOD ORDRomelia HERNANDEZ Final Result [facility] Department [place] [address] * (ABNORMAL) Basic metabolic panel (12/03/2024 8:58 PM CDT) [facility] Sodium 136 135 - 145 mmol/L Potassium, pl 3.9 3.3 - 4.9 mmol/L [facility] Chloride 101 97 - 110 mmol/L [facility] CO2 27 22 - 32 mmol/L [facility] Anion gap 8 2 - 15 mmol/L [facility] BUN 25 6 - 25 mg/dL [facility] Creatinine 1.68(H) 0.80 - 1.30 mg/dL [facility] Glucose 234(H) 70 - 199 mg/dL [facility] Comment: Interpretive Data Fasting glucose >/= [...] interpretive data was last revised 2022. Calcium 9.2 8.5 - 10.3 mg/dL [facility] Blood 12/03/2024 8:58 PM CDT 12/03/2024 9:31 PM CDT Huber Serna MD PhD LAB BLOOD NICKI HERNANDEZ Final Result Performing Organization Address City/[facility]/ZIP Co de Phone Number [facility] [place] [address] * (ABNORMAL) POCT glucose (12/03/2024 7:56 PM CDT) Glucose, POC 240(H) 70 - 199 mg/dL Blood 12/03/2024 7:56 PM CDT 12/03/2024 7:56 PM CDT us Huber Serna MD PhD LAB POCT ORDER THAIS - DEVICE Final Result Performing Organization Address City/[facility] [place] [address] * (ABNORMAL) POCT glucose (12/03/2024 4:56 PM CDT) Glucose, POC 204(H) 70 - 199 mg/dL Blood 12/03/2024 4:56 PM CDT 12/03/2024 4:56 PM CDT us Huber Serna MD PhD LAB POCT ORDER THAIS - DEVICE Final Result Performing Organization Address City/[facility] [place] [address] * POCT glucose (12/03/2024 11:01 AM CDT) Glucose, POC 149 70 - 199 mg/dL Blood 12/03/2024 11:0 1 AM CDT 12/03/2024 11:01 AM CDT us Huber Serna MD PhD LAB POCT ORDER THAIS - DEVICE Final Result Performing Organization Address City/[facility] Co de Phone Number [facility] [place] [address] * Blood culture Blood (12/03/2024 10:08 AM CDT) Report Final Report: No growth Blood 12/03/2024 10:0 8 AM CDT 12/03/2024 10:29 AM CDT Narrative DELIA REEVES - 12/07/2024 12:00 PM CDT From a different site than #1. Collection->Peripheral 1. Blood cultures are incubated for 4 days on a continuously monitored blood culture system. The first report of a negative culture is issued within 24 hours of receipt of the specimen in the laboratory. 2. Positive culture results are reported as soon as they are detected. 3. The most important factor for detection of microbes in the setting of bloodstream infection is the volume of blood submitted for culture. Failure to collect an optimal blood volume can result in false negative blood cultures. 4. For pediatric patients, the recommended blood volume to collect follows a weight based strategy. See the electronic test catalog for collection instructions. 5. For positive blood cultures, a rapid molecular test may be performed for organism identification using the griselda ePlex blood culture identification panel for gram positive (BCID-GP) and gram negative (BCID-GN) organisms. This nucleic acid amplification test detects microbial DNA in positive blood culture broth. This assay has been cleared by the [place] Food and Drug Administration and its performance characteristics have been verified by the [facility] Microbiology Laboratory. For questions about this culture, contact the Microbiology Laboratory at [phone]. Interpretive data was last revised on 24. Huber Serna MD PhD LAB MICROBIOLO GY - GENERAL ORDERABLES Final Result [facility] [place] [address] * Blood culture Blood (12/03/2024 10:08 AM CDT) Report Final Report: No growth Blood 12/03/2024 10:0 8 AM CDT 12/03/2024 10:28 AM CDT Narrative DELIA REEVES - 12/07/2024 12:00 PM CDT Collection->Peripheral 1. Blood cultures are incubated for 4 days on a continuously monitored blood culture system. The first report of a negative culture is issued within 24 hours of receipt of the specimen in the laboratory. 2. Positive culture results are reported as soon as they are detected. 3. The most important factor for detection of microbes in the setting of bloodstream infection is the volume of blood submitted for culture. Failure to collect an optimal blood volume can result in false negative blood cultures. 4. For pediatric patients, the recommended blood volume to collect follows a weight based strategy. See the electronic test catalog for collection instructions. 5. For positive blood cultures, a rapid molecular test may be performed for organism identification using the griselda ePlex blood culture identification panel for gram positive (BCID-GP) and gram negative (BCID-GN) organisms. This nucleic acid amplification test detects microbial DNA in positive blood culture broth. This assay has been cleared by the [place] Food and Drug Administration and its performance characteristics have been verified by the [facility] Microbiology Laboratory. For questions about this culture, contact the Microbiology Laboratory at [phone]. Interpretive data was last revised on 24. us Huber Serna MD PhD LAB MICROBIOLO GY - GENERAL ORDERABLES Final Result [facility] Department [place] [employer] [place] [address] * POCT glucose (12/03/2024 7:13 AM CDT) [facility] Signature Glucose, POC 102 70 - 199 mg/dL Blood 12/03/2024 7:13 AM CDT 12/03/2024 7:13 AM CDT Huber Serna MD PhD LAB POCT ORDER THAIS - DEVICE Final Result Performing Organization Address City/[facility]/ZIP Co de Phone Number [facility] Department [place] [address] * (ABNORMAL) POCT glucose (12/02/2024 9:07 PM CDT) Glucose, POC 204(H) 70 - 199 mg/dL Blood 12/02/2024 9:07 PM CDT 12/02/2024 9:07 PM CDT us Huber Serna MD PhD LAB POCT ORDER THAIS - DEVICE Final Result Performing Organization Address [facility]/ZIP Co de Phone Number [facility] [place] [address] * (ABNORMAL) Urinalysis reflex to microscopic and culture Urine, bladder (12/02/2024 8:54 PM CDT) Color, ur Straw Yellow Clarity, ur Clear Clear [facility] Specific gravity, ur 1.021 1.003 - 1.030 [facility] pH, urine 6.5 [facility] Comment: Interpretive Data U rine pH is affected by diet, medications, systemic acid-base disturbances, and renal tubular function. pH may affect urinary stone formation. For example, urine pH below 6.0 may help reduce the tendency for calcium phosphate stones and pH greater than 6.0 may reduce the tendency for uric acid stone formation. Source: [facility] Current Interpretive Data was last revised on 2017 Protein, ur ql Trace Negative [facility] Glucose, ur ql 3+(A) Negative [facility] Ketones, ur Negative Negative [facility] Bilirubin, ur Negative Negative [facility] Blood, ur Negative Negative [facility] Urobilinogen, ur <2.0 <2.0 mg/dL [facility] Nitrite, ur Negative Negative [facility] Leukocyte esterase, ur Negative Negative [facility] UA reflex comment Reflex conditions for microscopic UA and culture not met. [facility] Urine, bladder 12/02/2024 8: 54 PM CDT 12/02/2024 9:30 PM CDT Huber Serna MD PhD LAB MICROBIOLO GY - GENERAL ORDERABLES Final Result Performing Organization Address [facility] Co de Phone Number [facility] Department [place] [address] * POCT glucose (12/02/2024 7:40 PM CDT) Glucose, POC 197 70 - 199 mg/dL Blood 12/02/2024 7:40 PM CDT 12/02/2024 7:40 PM CDT us Huber Serna MD PhD LAB POCT ORDER THAIS - DEVICE Final Result Performing Organization Address City/[facility] Co de Phone Number [facility] [place] [address] * (ABNORMAL) POCT glucose (12/02/2024 6:09 PM CDT) Glucose, POC 201(H) 70 - 199 mg/dL Blood 12/02/2024 6:09 PM CDT 12/02/2024 6:09 PM CDT us Huber Serna MD PhD LAB POCT ORDER THAIS - DEVICE Final Result Performing Organization Address City/[facility] Co de Phone Number [facility] [place] [address] * XR Chest 1 View (12/02/2024 4:31 PM CDT) Anatomical Region Laterality Modality Body, Chest N/A Computed Radiogr aphy 12/02/2024 5:45 PM CDT Impressions 12/02/2024 5:45 PM CDT No prior chest radiographs are available for comparison. Lung volumes are small. No pulmonary infiltrates. The superior mediastinum is widened, likely related to fat infiltration as suggested on a CT scan of 09/24/2024. Electronically signed by: Ignacio Wade M.D. Narrative 12/02/2024 5:45 PM CDT EXAMINATION: 1 view chest radiograph Procedure Note Ignacio Wade MD - 12/02/2024 EXAMINATION: 1 view chest radiograph IMPRESSION: No prior chest radiographs are available for comparison. Lung volumes are small. No pulmonary infiltrates. The superior mediastinum is widened, likely related to fat infiltration as suggested on a CT scan of 09/24/2024. Electronically signed by: Ignacio Wade M.D. Huber Serna MD PhD IMG XR PROCEDU RES Final Result * POCT glucose (12/02/2024 3:14 PM CDT) Glucose, POC 144 70 - 199 mg/dL Blood 12/02/2024 3:14 PM CDT 12/02/2024 3:14 PM CDT Huber Serna MD PhD LAB POCT ORDER THAIS - DEVICE Final Result [facility] Department [place] [address] * CT Head and Cervical Spine WO Contrast (12/02/2024 1:58 PM CDT) Anatomical Region Laterality Modality Head and Neck N/A Computed Tomogra phy 12/02/2024 2:34 PM CDT Impressions 12/02/2024 6:42 PM CDT 1. No acute intracranial process. 2. No evidence of acute fracture in the cervical spine. Dictated by: Jen Vann M.D. The radiology attending physician has personally reviewed this study, and had reviewed and/or edited this written report and agrees with it. Electronically signed by: Rigoberto Ace MD Narrative 12/02/2024 6:42 PM CDT EXAMINATION: 1. CT head without contrast 2. CT of the cervical spine without contrast HISTORY: 69-year-old male with Parkinson's, increasing weakness and falls TECHNIQUE: CT of the head was performed with images acquired from skull base to vertex without intravenous contrast. CT of the cervical spine was performed according to the standard protocol without intravenous contrast. COMPARISON: CT head and cervical spine dated 11/15/2024. FINDINGS: HEAD: There is unchanged right occipital lobe encephalomalacia. There is no acute intracranial hemorrhage. Prominence of ventricles and sulci consistent with global volume loss. No mass effect or midline shift is present. Atherosclerotic calcifications of the bilateral carotid siphons. Bilateral lens replacements. The visualized portions of the mastoids are normal. The visualized portions of the paranasal sinuses are normal. No fractures are identified. CERVICAL SPINE: Straightening of the cervical lordosis. Trace C6-C7 retrolisthesis. There is no acute fracture. Vertebral bodies are normal in height without compression fractures. Multilevel degenerative disc disease with disc height loss most significant at C6-C7. The craniocervical junction is normal. No soft tissue abnormality is identified. 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 Multilevel facet and uncovertebral arthropathy with no high-grade spinal canal stenosis at any level and up to severe neural foraminal narrowing at C5-C6 on the left. Procedure Note Rigoberto Ace MD - 12/02/2024 EXAMINATION: 1. CT head without contrast 2. CT of the cervical spine without contrast HISTORY: 69-year-old male with Parkinson's, increasing weakness and falls TECHNIQUE: CT of the head was performed with images acquired from skull base to vertex without intravenous contrast. CT of the cervical spine was performed according to the standard protocol without intravenous contrast. COMPARISON: CT head and cervical spine dated 11/15/2024. FINDINGS: HEAD: There is unchanged right occipital lobe encephalomalacia. There is no acute intracranial hemorrhage. Prominence of ventricles and sulci consistent with global volume loss. No mass effect or midline shift is present. Atherosclerotic calcifications of the bilateral carotid siphons. Bilateral lens replacements. The visualized portions of the mastoids are normal. The visualized portions of the paranasal sinuses are normal. No fractures are identified. CERVICAL SPINE: Straightening of the cervical lordosis. Trace C6-C7 retrolisthesis. There is no acute fracture. Vertebral bodies are normal in height without compression fractures. Multilevel degenerative disc disease with disc height loss most significant at C6-C7. The craniocervical junction is normal. No soft tissue abnormality is identified. 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 Multilevel facet and uncovertebral arthropathy with no high-grade spinal canal stenosis at any level and up to severe neural foraminal narrowing at C5-C6 on the left. IMPRESSION: 1. No acute intracranial process. 2. No evidence of acute fracture in the cervical spine. Dictated by: Jen Vann M.D. The radiology attending physician has personally reviewed this study, and had reviewed and/or edited this written report and agrees with it. Electronically signed by: Rigoberto Ace MD Ayleen Vincent MD IMG CT PROCEDURES Final Result * Thyroid Function [place] (12/02/2024 1:44 PM CDT) Pathologist [facility] TSH 1.18 0.30 - 4.20 mcIUnit/mL Blood 12/02/2024 1:44 PM CDT 12/02/2024 1:55 PM CDT Ayleen Vincent MD LAB BLOOD ORDERABLES Fi nal Result Performing Organization Address [facility] Co de Phone Number [facility] Department [place] [employer] [place] [address] * Phosphorus (12/02/2024 1:44 PM CDT) Pathologist [facility] Phosphorus, pl 2.8 2.3 - 4.5 mg/dL Blood 12/02/2024 1:44 PM CDT 12/02/2024 1:55 PM CDT Ayleen Vincent MD LAB BLOOD ORDERABLES Fi nal Result Performing Organization Address City/[facility] Co de Phone Number [facility] [place] [employer] [place] [address] * Magnesium (12/02/2024 1:44 PM CDT) Pathologist [facility] Magnesium 2.1 1.4 - 2.5 mg/dL Blood 12/02/2024 1:44 PM CDT 12/02/2024 1:55 PM CDT Ayleen Vincent MD LAB BLOOD ORDERABLES Fi nal Result Performing Organization Address City/[facility] Co de Phone Number [facility] [place] [address] * (ABNORMAL) eGFR (12/02/2024 1:43 PM CDT) eGFR 43(L) >=60 mL/min/1. 73 m2 Comment: Interpretive Data [...] interpretive data was last reviewed 2021. Blood 12/02/2024 1:43 PM CDT 12/02/2024 1:54 PM CDT Ayleen Vincent MD LAB BLOOD ORDERABLES Fi nal Result Performing Organization Address City/[facility]/ZIP Co de Phone Number [facility] [place] [address] * (ABNORMAL) Differential, auto (12/02/2024 1:43 PM CDT) Neutrophil abs 7.13(H) 1.50 - 6.50 K/cumm Imm gran abs 0.03 0.00 - 0.10 K/cumm [facility] Lymphocyte abs 0.71(L) 0.80 - 3.30 K/cumm [facility] Monocyte abs 0.47 0.20 - 0.80 K/cumm [facility] Eosinophil abs 0.34 0.00 - 0.50 K/cumm [facility] Basophil abs 0.05 0.00 - 0.10 K/cumm [facility] Neutrophil pct 81.7 % [facility] Comment: Interpretive Data Percent cell count reference ranges are not reported, since discordance with absolute values may lead to misinterpretation of CBC data. Current Interpretive Data was last revised on 2017. Imm gran pct 0.3 % [facility] Comment: Interpretive Data Percent cell count reference ranges are not reported, since discordance with absolute values may lead to misinterpretation of CBC data. Current Interpretive Data was last revised on 2017. Lymphocyte pct 8.1 % [facility] Comment: Interpretive Data Percent cell count reference ranges are not reported, since discordance with absolute values may lead to misinterpretation of CBC data. Current Interpretive Data was last revised on 2017. Monocyte pct 5.4 % [facility] Comment: Interpretive Data Percent cell count reference ranges are not reported, since discordance with absolute values may lead to misinterpretation of CBC data. Current Interpretive Data was last revised on 2017. Eosinophil pct 3.9 % [facility] Comment: Interpretive Data Percent cell count reference ranges are not reported, since discordance with absolute values may lead to misinterpretation of CBC data. Current Interpretive Data was last revised on 2017. Basophil pct 0.6 % [facility] Comment: Interpretive Data Percent cell count reference ranges are not reported, since discordance with absolute values may lead to misinterpretation of CBC data. Current Interpretive Data was last revised on 2017. Blood 12/02/2024 1:43 PM CDT 12/02/2024 1:55 PM CDT us Ayleen Vincent MD LAB BLOOD ORDERABLES Fi nal Result [facility] Department [place] [address] * (ABNORMAL) CBC with auto differential (12/02/2024 1:43 PM CDT) [facility] WBC 8.73 3.80 - 9.90 K/cumm Hgb 11.9(L) 13.0 - 17.5 g/dL [facility] Hct 36.8(L) 38.9 - 50.3 % [facility] Plt 334 150 - 400 K/cumm [facility] MPV 10.0 9.1 - 12.3 fL [facility] RBC 4.49 4.30 - 5.80 M/cumm [facility] MCV 82.0 81.3 - 96.4 fL [facility] MCH 26.5(L) 27.1 - 33.3 pg [facility] MCHC 32.3 32.3 - 35.7 g/dL [facility] RDW CV 14.6 11.1 - 14.9 % [facility] RDW SD 43.7 35.7 - 48.1 fL [facility] NRBC abs 0.00 0.00 - 0.01 K/cumm [facility] Blood 12/02/2024 1:43 PM CDT 12/02/2024 1:55 PM CDT Ayleen Vincent MD LAB BLOOD ORDERABLES Fi nal Result [facility] Department [place] [address] * (ABNORMAL) Hemoglobin A1c (12/02/2024 1:43 PM CDT) [facility] Hgb A1C 7.9(H) 4.0 - 5.6 % Estimated Average Glucose 180 mg/dL [facility] Comment: The ADA recommends reporting an estimated Average Glucose (eAG) with all Hemoglobin A1c results using the equation derived from a study of 507 normal and diabetic adults. Minority populations were underrepresented and children were not included. (Diabetes Care 2020; 43(S1): S66-S76). The eAG is not equivalent to a fasting glucose. Blood 12/02/2024 1:43 PM CDT 12/02/2024 1:58 PM CDT Narrative [facility] - 12/03/2024 9:00 AM CDT reflex Huber Serna MD PhD LAB BLOOD NICKI HERNANDEZ Final Result [facility] [place] [address] * Lipid panel (12/02/2024 1:43 PM CDT) Cholesterol 136 30 - 199 mg/dL Comment: Interpretive Data Ages < or = 19 years Acceptable: <170 mg/dL Borderline high: 170-199 mg/dL High: >or= 200 mg/dL Ages > or = 20 years Desirable: <200 mg/dL Borderline high: 200-239 mg/dL High: >or= 240 mg/dL Literature References: 1. Expert Panel on Integrated Guidelines for Cardiovascular Health and Risk Reduction in Children and Adolescents. Pediatrics 2011;128:S213 2. NCEP Expert Panel. Circulation 2004;110:227 Current Interpretive Data was last revised on 2017. Triglycerides 87 <=149 mg/dL [facility] Comment: Interpretive Data Ages < or = 9 years Acceptable: <75 mg/dL Borderline high: 75-99 mg/dL High: >or= 100 mg/dL Ages 10 to 20 years Acceptable: <90 mg/dL Borderline high: 90-129 mg/dL High: >or= 130 mg/dL Ages > or = 20 years Desirable: <150 mg/dL Borderline high: 150-199 mg/dL High: 200-499 mg/dL Very high: >or= 499 mg/dL Literature References: 1. Expert Panel on Integrated Guidelines for Cardiovascular Health and Risk Reduction in Children and Adolescents. Pediatrics 2011;128:S213 2. NCEP Expert Panel. Circulation 2004;110:227 Current Interpretive Data was last revised on 2017. HDL 48 >=40 mg/dL [facility] Comment: Interpretive Data Ages < or = 19 years Acceptable: >45 mg/dL Borderline low: 40-45 mg/dL Low: <40 mg/dL Ages > or = 20 years Desirable: >or= 60 mg/dL Low: <40 mg/dL Literature References: 1. Expert Panel on Integrated Guidelines for Cardiovascular Health and Risk Reduction in Children and Adolescents. Pediatrics 2011;128:S213 2. NCEP Expert Panel. Circulation 2004;110:227 Current Interpretive Data was last revised on 2017. LDL, calculated 71 <=129 mg/dL [facility] Comment: Interpretive Data Ages < or = 19 years Acceptable: <110 mg/dL Borderline high: 110-129 mg/dL High: >or= 130 mg/dL Ages > or = 20 years Optimal: <100 mg/dL Near optimal: 100-129 mg/dL Borderline high: 130-159 mg/dL High: >160 mg/dL Calculated using the Dionicio LDL-C estimating equation. This equation was implemented on 2023. Prior to this date LDL-C was estimated using the Friedewald equation. Literature References: 1. Expert Panel on Integrated Guidelines for Cardiovascular Health and Risk Reduction in Children and Adolescents. Pediatrics 2011;128:S213 2. NCEP Expert Panel. Circulation 2004;110:227 3. Dionicio Murphy et al. MONICA Cardiol. 2019August 25;5(5):540-548. doi: 10.1001/[email or web address].2020.0013 Current Interpretive Data was last revised on 2023. Non-HDL Cholesterol 88 mg/dL [facility] Comment: Interpretive Data Ages < or = 19 years Acceptable: <120 mg/dL Borderline high: 120-144 mg/dL High: >145 mg/dL Ages > or = 20 years When triglycerides are >200 mg/dL, Non-HDL cholesterol is a secondary target of therapy with treatment goals that are 30 mg/dL greater than the LDL cholesterol target. Literature References: 1. Expert Panel on Integrated Guidelines for Cardiovascular Health and Risk Reduction in Children and Adolescents. Pediatrics 2011;128:S213 2. NCEP Expert Panel. Circulation 2004;110:227 Current Interpretive Data was last revised on 2017. Chol/HDL ratio 3 [facility] Blood 12/02/2024 1:43 PM CDT 12/02/2024 1:54 PM CDT Narrative [facility] - 12/03/2024 4:50 PM CDT reflex us Huber Serna MD PhD LAB BLOOD NICKI HERNANDEZ Final Result [facility] Department [place] [address] * (ABNORMAL) Comprehensive metabolic panel (12/02/2024 1:43 PM CDT) Sodium 140 135 - 145 mmol/L Potassium, pl 4.1 3.3 - 4.9 mmol/L [facility] Chloride 103 97 - 110 mmol/L [facility] CO2 29 22 - 32 mmol/L [facility] Anion gap 8 2 - 15 mmol/L [facility] BUN 31(H) 6 - 25 mg/dL [facility] Creatinine 1.70(H) 0.80 - 1.30 mg/dL [facility] Glucose 158 70 - 199 mg/dL [facility] Comment: Interpretive Data Fasting glucose >/= [...] interpretive data was last revised 2022. Calcium 9.8 8.5 - 10.3 mg/dL [facility] Bilirubin, total 0.4 0.1 - 1.2 mg/dL [facility] Protein, pl 7.5 6.5 - 8.5 g/dL [facility] Albumin 3.9 3.5 - 5.0 g/dL [facility] Alk phos 79 40 - 130 Units/L [facility] ALT 6(L) 7 - 55 Units/L [facility] AST 31 10 - 50 Units/L [facility] Blood 12/02/2024 1:43 PM CDT 12/02/2024 1:54 PM CDT Ayleen Vincent MD LAB BLOOD ORDERABLES Fi nal Result [facility] Department [place] [address] * SCAN - PATHOLOGY (11/25/2024 9:58 AM CDT) us Jm Alonso MD Final Result * SCAN - LABS (11/24/2024 3:18 PM CDT) us Jm Alonso MD Final Result * SCAN - LABS (11/24/2024 3:00 PM CDT) Result Murali Alonso MD Final Result * SCAN - RADIOLOGY/IMAGING (11/24/2024 2:06 PM CDT) Anatomical Region Laterality Modality Other Result Murali Alonso MD Final Result * SCAN - LABS (11/21/2024 4:05 PM [...] fracture in the cervical spine. Dictated by: Setphen Shannon MD The radiology attending physician has [...] Austin Osuna MD, PHD us Soraida Payne SCOURING PADS SUPERVISOR IMG CT PROCEDURES [facility] al Result * ECG 12-LEAD (11/15/2024 2:51 [...] Lai MD ECG ORDERABLES Final Resul t Performing Organization Address [facility] Co de Phone Number CONS SCIMAGE * (ABNORMAL) Urinalysis reflex to [...] tendency for uric acid stone formation. Source: [facility] [employer] Current Interpretive Data was last revised on [...] GENERAL ORDERABLES Final Result Performing Organization Address City/[facility]/ZIP Co de Phone Number [facility] [address] [facility] Department [place] [address] * (ABNORMAL) eGFR (11/15/2024 1:51 PM CDT) [...] MD LAB BLOOD ORDERABLES Final Result [facility] [address] [facility]. Department [place] [address] * (ABNORMAL) Differential, auto (11/15/2024 1:51 PM [...] on 2017. Lymphocyte pct 8.0 % [facility] Comment: Interpretive Data Percent cell count reference ranges are not reported, since discordance with absolute values may lead to misinterpretation of CBC data. Current Interpretive Data was last revised on 2017. Monocyte pct 5.4 % [facility] Comment: Interpretive Data Percent cell count reference ranges are not reported, since discordance with absolute values may lead to misinterpretation of CBC data. Current Interpretive Data was last revised on 2017. Eosinophil pct 4.5 % [facility] Comment: Interpretive Data Percent cell count reference ranges are not reported, since discordance with absolute values may lead to misinterpretation of CBC data. Current Interpretive Data was last revised on 2017. Basophil pct 0.3 % [facility] Comment: Interpretive Data Percent cell count reference ranges are not reported, since discordance with absolute values may lead to misinterpretation of CBC data. Current Interpretive Data was last revised on 2017. Blood 11/15/2024 1:51 PM CDT 11/15/2024 2:00 PM CDT us Denise Lai MD LAB BLOOD ORDERABLES Final Result [facility] [address] [facility] Department [place] [address] * (ABNORMAL) CBC with auto differential (11/15/2024 1:51 PM CDT) WBC 10.26(H) 3.80 - 9.90 K/cumm Hgb 12.4(L) 13.0 - 17.5 g/dL [facility] W Hct 38.6(L) 38.9 - 50.3 % [facility] Plt 311 150 - 400 K/cumm [facility] MPV 10.0 9.1 - 12.3 fL [facility] RBC 4.66 4.30 - 5.80 M/cumm [facility] MCV 82.8 81.3 - 96.4 fL [facility] MCH 26.6(L) 27.1 - 33.3 pg [facility] MCHC 32.1(L) 32.3 - 35.7 g/dL [facility] RDW CV 14.4 11.1 - 14.9 % [facility] RDW SD 43.5 35.7 - 48.1 fL [facility] NRBC abs 0.00 0.00 - 0.01 K/cumm [facility] Blood 11/15/2024 1:51 PM CDT 11/15/2024 2:00 PM CDT us Denise Lai MD LAB BLOOD ORDERABLES Final Result [facility] [address] [facility]. Department [place] [address] * (ABNORMAL) Comprehensive metabolic panel (11/15/2024 1:51 PM CDT) [facility] Sodium 135 135 - 145 mmol/L Potassium, pl 4.6 3.3 - 4.9 mmol/L [facility] Chloride 101 97 - 110 mmol/L [facility] CO2 22 22 - 32 mmol/L [facility] Anion gap 12 2 - 15 mmol/L [facility] BUN 28(H) 6 - 25 mg/dL [facility] Creatinine 1.84(H) 0.80 - 1.30 mg/dL [facility] Glucose 164 70 - 199 mg/dL [facility] Comment: Interpretive Data Fasting glucose >/= [...] MD LAB BLOOD ORDERABLES Final Result [facility] [address] [facility]. [facility] [place] [address] * SCAN - RADIOLOGY/IMAGING (10/25/2024 9:10 AM [...] us Jm Alonso MD Final Result * Albumin Creatinine Ratio, Urine [...] - 09/30/2023 4:08 AM CDT Performed at: [address] [place] [id number] Green Lumber Grader: Yuan Gaitan PhD, Phone: [phone] Jm Alonso MD LAB URINE ORDERABLES Final Re sult Performing Organization Address [facility] Co de Phone Number [facility] * PSA screen (08/16/2021 10:37 AM CDT) PSA 0.5 0.0 - 4.0 ng/mL [facility] - 01 Comment: Lito ECLIA methodology. According to the [place] [employer], Serum PSA should decrease and [...] - 08/17/2021 7:09 AM CDT Performed at: [address] [place] [id number] [employer] Grader: Yuan Gaitan PhD, Phone: [phone] Jm Alonso MD LAB BLOOD ORDERABLES Final Re sult Performing Organization Address [facility]/ZIP Co de Phone Number [facility] 01 from Last 3 Months or Most Recently Relevant to Health Maintenance Insurance MEDICARE [facility] MEDICARE MEDICARE [facility] Advance Directives For more information, please contact: [phone] * Full Code (Latest Code Status on File) Date Activated Date Inactivated Comments 12/02/2024 2:54 PM 12/06/2024 5:07 PM * Full Code Date Activated Date Inactivated Comments 02/11/2023 9:33 AM 02/11/2023 4:38 PM * Full Code Date Activated Date Inactivated Comments 01/14/2023 8:51 AM 01/14/2023 4:11 PM Care Teams Financial Planning Assistant Relationship Specialty Start Date End Date Jm Alonso MD PCP - General Internal Medicine 08/25/18
--- OUTSIDE RECORDS SUMMARY | 2025-01-06 17:45 | XMS_ITS | Encounter Summary ---
Author Organization [employer] Address [address] [place] [address] Care Team Providers Care Cyber Defense Incident Responder Name Role Phone Unavailable Primary Care Provider Unavailabl e Encounter Details Date Type Department Care Team (Late st Contact Info) Description 10/16/2007 Outpatient Historical [facility] [place], Authorized [place] [address] [address] [place] [address] Other Chest Pain Social History Tobacco Use Types Packs/Day Years Used Date Smoking Tobacco: Never Assessed Sex and Gender Information Value Date Recorded Sex Assigned at Not on file Legal Sex 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 [id number] [email or web address] Patient: Susan Ledezma MRN: Study ID: ADULT STRESS ECH Gender: M : 1955 Age: 51 years Race: 1 Room: Bed: Height: Study Date: October 18, 2007 Patient status: Inpatient Weight: Access. #: [id number] POC: Ordering: Jamie Riley Attending MD: Jamie [...] peak heart rate and blood pressure was [address]. - There was no chest pain during [...] 09:54:58 Procedure Note Provider, Historical - 10/18/2007 [facility] [address] [place] [address] [email or web address] Patient: Susan Ledezma MRN: Study ID: ADULT STRESS ECH Gender: M : 1955 Age: 51 years Race: 1 Room: Bed: Height: Study Date: October 18, 2007 Patient status: Inpatient Weight: Access. #: [id number] POC: Ordering: Jamie Riley Attending MD: Jamie [...] the peak heart rate and blood pressurewas 97410. - There was no chest pain during [...] and non- Americans is available on the [facility] Intranet at: [email or web address] Select: Lab Policies and Procedures Select: Reference Ranges - GFR Blood specimen (specimen) 10/18/2007 6:57 AM CDT 10/18/2007 7:08 AM CDT Result [facility] Jamie Chen MD CHEMISTRY ORDERABLES Edite d Performing Organization Address [facility] Co de Phone Number [facility] CLIA# [id number] [address] [place] [address] * D-DIMER (10/17/2007 5:34 PM CDT) D-DIMER [...] ORDERABLES Sania l Result Performing Organization Address [facility] Co de Phone Number [facility] CLIA# [id number] [address] [place] [address] * TROPONIN (10/17/2007 6:15 AM CDT) Pathologist [facility] TROPONIN T <0.01 <=0.03 ng/mL [facility] TROPONIN T INTERP Negative [facility] Blood specimen (specimen) 10/17/2007 6:15 AM CDT 10/17/2007 6:19 AM CDT us Jamie Chen MD CHEMISTRY ORDERABLES Edite d [facility] CLIA# [id number] [address] [place] [address] * (ABNORMAL) COMPREHENSIVE METABOLIC PANEL (10/16/2007 10:26 PM CDT) [facility] CALCIUM 9.1 8.4 - 10.2 mg/dL [facility] [...] and non- Americans is available on the [facility] Intranet at: [email or web address] Select: Lab Policies and Procedures Select: Reference Ranges - GFR Blood specimen (specimen) 10/16/2007 10:26 PM CDT 10/16/2007 10:34 PM CDT Mohsen Garcia MD CHEMISTRY ORDERABLES Edited [facility] CLIA# [id number] [address] [place] [address] * TROPONIN (W/REFLEX CKMB/CK) (10/16/2007 10:26 PM CDT) TROPONIN T <0.01 <=0.03 ng/mL [facility] TROPONIN T INTERP Negative [facility] Blood specimen (specimen) 10/16/2007 10:26 PM CDT 10/16/2007 10:34 PM CDT Mohsen Garcia MD CHEMISTRY ORDERABLES Edited [facility] CLIA# [id number] [address] [place] [address] * CBC WITH DIFFERENTIAL (10/16/2007 10:26 PM [...] LAB NEUTROPHILS 65 45 - 70 % [facility] NEUTROPHIL ABSOLUTE 5.65 1.90 - 7.00 K/uL [facility] EOSINOPHILS 2 0 - 7 % [facility] EOSINOPHIL ABSOLUTE 0.15 0.00 - 0.70 K/uL [facility] LYMPHOCYTES 25 16 - 45 % [facility] LYMPHOCYTE ABSOLUTE 2.15 0.70 - 4.50 K/uL [facility] Blood specimen (specimen) 10/16/2007 10:26 PM CDT 10/16/2007 10:34 PM CDT us Mohsen Garcia MD HEMATOLOGY ORDERABLES Edited INTERFACE SYSTEM Refer to clinic/hospital department [facility] CLIA# [id number] [address] [place] [address] * XR CHEST PA OR AP (10/16/2007 10:25 PM CDT) Anatomical Region Laterality Modality Chest Other 10/16/2007 10:2 5 PM CDT Narrative 10/17/2007 5:13 PM CDT [facility] [address] [place], [place] [address] Admit Date: 10/17/2007 SUSAN LEDEZMA Sex: M Admit Prov: JAMIE CHEN Date: 1955 Primary Care Prov: CMRN: [id number] Room: [address] [place] [address] SSN: [id number] IMAGING SERVICES Ordering Prov: N/A Accession Number: [id number] Interpretation Chest, portable AP semierect, 10/16/2007 at [...] AMK Procedure Note Provider, Historical - 10/17/2007 [facility] [address] [place], [place] [address] Admit Date: 10/17/2007 SUSAN LEDEZMA Sex: M Admit Prov: JAMIE CHEN Date: 1955 Primary Care Prov: CMRN: [id number] Room: [address] [place] [address] SSN: [id number] IMAGING SERVICES Ordering Prov: N/A Interpretation Chest, [...]
[2025-01-06 18:05] LABS: Hematocrit 37.1 % (42.0-52.0); Hemoglobin 12.2 g/dL (14.0-18.0); Immature Granulocyte Percent A 0.4 % (0-0.5); Lymphocytes Absolute Auto 0.81 K/mm3 (0.9-3.2); Mean Corpuscular HGB Conc 32.9 g/dl (32-36); Mean Corpuscular Hemoglobin 26.8 pg (26-34); Mean Corpuscular Volume 81.5 fl (80-100); Nucleated Red Blood Cells Absolute Auto 0.000 K/mm3 (0.0-0.012); Nucleated Red Blood Cells Perc 0.0 % (0.0-0.2); Platelet Count Result 298 k/mm3 (150-375); Red Blood Count 4.55 M/mm3 (4.6-6.20); White Blood Count 12.7 K/mm3 (4.5-10.0)
[2025-01-06 18:17] LABS: Alanine Aminotransferase 8 U/L (6-50); Albumin Level 4.0 g/dL (3.5-5.1); Alkaline Phosphatase 87 U/L (38-126); Anion Gap 9 mmol/L (4-12); Aspartate Amino Transferase 24 U/L (17-59); Bilirubin,Total 0.8 mg/dL (0.2-1.3); Blood Urea Nitrogen 32 mg/dL (9-20); Calcium 9.1 mg/dL (8.4-10.2); Carbon Dioxide 25 mmol/L (22-30); Chloride 101 mmol/L (98-107); Estimated CRCL calculation 31 ml/min; Estimated Glomerular Filt Rate 28; Glucose 203 mg/dL (65-110); Potassium 3.4 mmol/L (3.4-5.0); Sodium 135 mmol/L (137-145); Total Protein 7.1 g/dL (6.3-8.2)
[2025-01-06 18:33] VITALS: BP 108/47; BP 95/47; PULSE 84; PULSE 87
[2025-01-06 18:34] VITALS: BP 108/47; PULSE 84; RESP 17; TEMP 36.7; O2SAT 98
[2025-01-06 18:52] LABS: Influenza A QL RT-PCR Negative (Negative); Influenza B QL RT-PCR Negative (Negative); RSV RNA, RT-PCR Negative (Negative); SARS-CoV-2 RNA PCR Negative (Negative)
[2025-01-06 19:08] LABS: Add Urine Microscopic? YES; Appearance Urine Cloudy (Clear); Glucose Urine UA 2+ mg/dL (Negative); Leukocyte Esterase Ur Negative LEU/UL (Negative); Nitrate Urine Negative (Negative); Specific Grav Ur 1.021 (1.001-1.035)
[2025-01-06 20:09] LABS: Creatine Kinase 155 U/L (55-170)
--- NOTE | 2025-01-06 20:48 | ED.GENADULT ---
HPI - General Adult General Chief complaint: Weakness Stated complaint: weak, dizzy Time Seen by Provider: 01/06/25 16:46 History of Present Illness HPI narrative: Patient is a 69-year-old male with history of Parkinson's who presents ER after a fall earlier this morning. Patient initially was evaluated by EMS and refused transport. Family called later and patient was sent here for evaluation. He is discharged from a snf yesterday. He has had complaints of feeling weak and dizzy but he cannot elaborate on this. He has a very poor historian at baseline. No family is present. Related Data Home Medications ?Medication ?Instructions ?Recorded ?Confirmed ?Last Taken ?Type Adult Aspirin EC Low Strength 81 mg PO DAILY 09/24/23 11/24/24 11/16/24 History Held on 11/24/24. Instructions: Resume on 11/25/24. atorvastatin 20 mg tablet 20 mg PO DAILY 09/24/23 11/21/24 09/24/23 09:30 History carbidopa 25 mg-levodopa 100 mg 25 - 100 tablet PO TID 09/24/23 11/24/24 11/24/24 History tablet (Sinemet) carbidopa ER 50 mg-levodopa 200 mg 50 - 200 tablet PO HS 09/24/23 11/21/24 09/23/23 22:30 History tablet,extended release cetirizine 10 mg PO DAILY 09/24/23 11/21/24 09/24/23 09:30 History clonazepam 0.5 mg tablet 0.5 mg PO 09/24/23 11/21/24 09/23/23 22:30 History fenofibrate 160 mg tablet 160 mg PO DAILY 09/24/23 11/21/24 09/24/23 09:30 History gabapentin 300 mg capsule 300 mg PO HS 09/24/23 11/21/24 09/23/23 22:30 History omeprazole 20 mg PO DAILY 09/24/23 11/21/24 09/24/23 09:30 History sertraline 100 mg tablet 100 mg PO DAILY 09/24/23 11/24/24 11/24/24 History tamsulosin 0.4 mg capsule 0.4 mg PO DAILY 09/24/23 11/21/24 09/24/23 09:30 History insulin glargine-yfgn 100 unit/mL 30 unit subcut QAM 10/22/24 11/24/24 11/24/24 History (3 mL) subcutaneous pen 15 unit linagliptin 5 mg tablet (Tradjenta) 5 mg PO QA 10/22/24 11/21/24 Unknown History mirabegron 50 mg tablet,extended 50 mg PO 10/22/24 11/21/24 Unknown History release 24 hr Allergies Allergy/AdvReac Type Severity Reaction Status Date / Time No Known Allergies Allergy Verified 01/06/25 16:37 Review of Systems Review of Systems: ROS unobtainable: Yes unobtainable due to mental status PMFSH Past Medical History Medical History Diabetes Parkinson's disease Family History Family History Other Unknown family medical history Social History Social History Smoking status: Never smoker Second hand tobacco smoke exposure: No Alcohol intake: current Drinks per week: 1 Substance use: never Do You Feel Safe in your Home?: Yes Lack of Transportation: No Lack of Food: Never True Current Housing: I Have Housing Concerned About Future Housing: No Difficulty Paying Gas/Electric Bills: No Difficulty Paying for Meds: No Currently Unemployed: No Education: Decline to Answer Difficulty w/ Childcare or Family Care: No Living arrangements: with family Spiritual care concerns: No Exam Narrative: GENERAL: Well-appearing, well-nourished, and in no acute distress. HEAD: Normocephalic, atraumatic. ENT: Mucous membranes moist. NECK: Supple. CHEST: Clear to auscultation. No respiratory distress. HEART: Regular rate and rhythm. Normal peripheral pulses. ABDOMEN: Soft, nontender, nondistended. EXTREMITIES: Normal range of motion. No edema. SKIN: Warm, dry, no rash. NEURO: Alert and oriented x 2-3. Course Course Emergency Course: Patient has been resting comfortably. Nonspecific leukocytosis of 12.7, urinalysis without infection, trace ketones. COVID/flu so she RSV testing negative. Creatinine near baseline at 2.3. Patient did receive IV fluid. X-ray of the chest without pneumonia. CT without bleed. Family has shown up and reports patient's neuro status is at baseline. He will be discharged home. Vital Signs Vital signs: Vital Signs Temperature 98.0 F 01/06/25 16:20 Pulse Rate 82 01/06/25 16:20 Respiratory Rate 15 01/06/25 16:20 Blood Pressure 117/61 01/06/25 16:20 Pulse Oximetry 95 01/06/25 16:20 Oxygen Delivery Room Air 01/06/25 16:20 Temperature 98.0 F 01/06/25 18:34 Pulse Rate 84 01/06/25 18:34 Respiratory Rate 17 01/06/25 18:34 Blood Pressure 108/47 L 01/06/25 18:34 Pulse Oximetry 98 01/06/25 18:34 Oxygen Delivery Room Air 01/06/25 16:20 Medical Decision Making Vital Signs Vital Signs: Vital Signs Temperature 98.0 F 01/06/25 16:20 Pulse Rate 82 01/06/25 16:20 Respiratory Rate 15 01/06/25 16:20 Blood Pressure 117/61 01/06/25 16:20 Pulse Oximetry 95 01/06/25 16:20 Oxygen Delivery Room Air 01/06/25 16:20 Temperature 98.0 F 01/06/25 18:34 Pulse Rate 84 01/06/25 18:34 Respiratory Rate 17 01/06/25 18:34 Blood Pressure 108/47 L 01/06/25 18:34 Pulse Oximetry 98 01/06/25 18:34 Oxygen Delivery Room Air 01/06/25 16:20 Lab Data 01/06/25 17:56 01/06/25 17:56 Labs: Lab Results 01/06/25 01/06/25 01/06/25 Range/Units 17:55 17:56 18:26 WBC 12.7 H (4.5-10.0) K/mm3 RBC 4.55 L (4.6-6.20) M/mm3 Hgb 12.2 L (14.0-18.0) g/dL Hct 37.1 L (42.0-52.0) % MCV 81.5 (80-100) fl MCH 26.8 (26-34) pg MCHC 32.9 (32-36) g/dl RDW 14.1 (11.5-14.5) % Plt Count 298 (150-375) k/mm3 MPV 10.0 (7.4-10.4) fl Immature Gran % (Auto) 0.4 (0-0.5) % Neut % (Auto) 84.7 H (45.5-73.1) % Lymph % (Auto) 6.4 L (18.3-44.2) % Mower % (Auto) 5.8 (2.6-8.5) % Eos % (Auto) 2.2 (0-4.4) % Baso % (Auto) 0.5 (0.2-1.2) % Lymph # (Auto) 0.81 L (0.9-3.2) K/mm3 Mower # (Auto) 0.7 H (0.1-0.6) K/mm3 Eos # (Auto) 0.3 (0-0.3) K/mm3 Baso # (Auto) 0.1 (0.0-0.1) K/mm3 Abs Immat Gran (auto) 0.05 H (0.00-0.031) K/mm3 Absolute Neuts (auto) 10.8 H (1.3-6.7) K/mm3 Absolute Nucleated RBC 0.000 (0.0-0.012) K/mm3 Nucleated RBC % 0.0 (0.0-0.2) % Sodium 135 L (137-145) mmol/L Potassium 3.4 (3.4-5.0) mmol/L Chloride 101 (98-107) mmol/L Carbon Dioxide 25 (22-30) mmol/L Anion Gap 9 (4-12) mmol/L BUN 32 H (9-20) mg/dL Creatinine 2.31 H (0.7-1.3) mg/dL Estim Creat Clear Calc 31 ml/min Estimated GFR 28 L (59 - ) Glucose 203 H (65-110) mg/dL Lactic Acid 1.0 (0.7-2.0) mmol/L Calcium 9.1 (8.4-10.2) mg/dL Total Bilirubin 0.8 (0.2-1.3) mg/dL AST 24 (17-59) U/L ALT 8 (6-50) U/L Alkaline Phosphatase 87 (38-126) U/L Total Creatine Kinase 155 (55-170) U/L Total Protein 7.1 (6.3-8.2) g/dL Albumin 4.0 (3.5-5.1) g/dL Urine Color Dark yellow (Yellow) Urine Appearance Cloudy H (Clear) Urine pH 5.5 (5.0-9.0) Ur Specific Orion 1.021 (1.001-1.035) Urine Protein 1+ H (Negative) mg/dL Urine Glucose (UA) 2+ H (Negative) mg/dL Urine Ketones Trace H (Negative) mg/dL Ur Blood (Man) Negative (Negative) Urine Nitrate Negative (Negative) Urine Bilirubin Negative (Negative) Urine Urobilinogen 1.0 (<2.0) mg/dL Leukocyte Esterase Rfl Negative (Negative) TESSA/UL Urine RBC 3-5 H (0-2) /hpf Urine WBC 0-5 (0-3) /hpf Ur Squamous Epith Cells None seen (Few) /hpf Calcium Oxalate Crystal Present (None) /hpf Urine Bacteria None seen /hpf Urine Casts 6-10 Hyaline Casts Present (None) /lpf Urine Mucus Present /lpf Influenza A (RT-PCR) Negative (Negative) Influenza B (RT-PCR) Negative (Negative) RSV (RT-PCR) Negative (Negative) SARS-CoV-2 RNA (RT-PCR) Negative (Negative) Imaging Data Radiologist's impression: ITS Impressions Chest X-Ray 01/06/25 18:11 Impression: No acute cardiopulmonary abnormality. Head CT 01/06/25 21:05 IMPRESSION: 1. No acute intracranial abnormality. 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 Discharge Plan Discharge Clinical Impression: Generalized weakness Patient Disposition: Home Condition: Stable Instructions: General Patient Instructions Additional Instructions: Please return to the emergency department if you develop severe and persistent chest pain, difficulty breathing, dizziness, leg swelling or if you are coughing up blood as these can be signs of a medical emergency. Please call your doctor for a follow up appointment to determine the need for further testing. Patient Language: Sinhala Prescriptions: No Action Tradjenta 5 mg tablet 5 mg PO QAM mirabegron 50 mg tablet extended release 24 hr 50 mg PO HS insulin glargine-yfgn 100 unit/mL (3 mL) insulin pen 30 unit SUBCUT QAM Adult Aspirin EC Low Strength 81 mg PO DAILY atorvastatin 20 mg tablet 20 mg PO DAILY clonazepam 0.5 mg tablet 0.5 mg PO HS carbidopa-levodopa 50-200 mg tablet extended release 50 - 200 tablet PO HS sertraline 100 mg tablet 100 mg PO DAILY Patient Comments: TAKES 1 1/2 TABS IN AM tamsulosin 0.4 mg capsule 0.4 mg PO DAILY gabapentin 300 mg capsule 300 mg PO HS carbidopa-levodopa [Sinemet] 25-100 mg tablet 25 - 100 tablet PO TID Patient Comments: TAKES 2 TABLETS TID Rx Instructions: Take 3 tablets Three Times A Day fenofibrate 160 mg tablet 160 mg PO DAILY cetirizine 10 mg PO DAILY omeprazole 20 mg PO DAILY hydrocodone-acetaminophen 5-325 mg tablet 1 - 2 tablet PO Q6H PRN (Reason: pain) Qty: 12 0RF Follow-up/Referrals: Celeste,Jm Woodard MD [Primary Care Provider] - 1 Week
[2025-01-06 21:59] VITALS: BP 132/55; PULSE 74; RESP 17; O2SAT 99
== END 2025-01-06 21:53 | disposition home or self-care (01) ==
PROVIDERS: Emergency Provider Emergency Medicine; PCP Internal Medicine
DX: R53.1 Weakness (principal); E11.9 Type 2 diabetes mellitus without complications; G20.A1 Parkinson's disease without dyskinesia, without mention of fluctuations
CPT/HCPCS: 36415; 70450; 71046; 80053; 81001; 82550; 83605; 85025; 87637; 96360; 99284; J7030

== ENCOUNTER 2025-04-13 11:35 | Inpatient (IN) | payer MEDICARE, BC, SELFPAY ==
--- NOTE | ~2025-04-13 | CT_ITS ---
EXAMINATION: CT brain wo nhi, 04/13/2025 12:00 PUBLISHING SPECIALIST HISTORY: fall, unsure LOC COMPARISON: No comparisons available. Technique: Axial images obtained of the brain without contrast. One or more of the following dose reduction techniques were used: automated exposure control, adjustment of the mA and/or kV according to patient size, use of iterative reconstruction technique. Findings: There is a remote right basal ganglion lacunar infarct. There is an acute appearing right occipital infarct. No hemorrhage. No midline shift or mass effect. No extra-axial fluid collections. Mastoid air cells unremarkable. Sinuses and orbits unremarkable. No acute fracture. No significant facial or scalp soft tissue swelling evident. No radiopaque foreign body is seen. Impression: Acute right occipital infarct suspected. Contrast-enhanced MRI is recommended Reviewed, dictated and finalized at location P. ISHING SPECIALIST Impression: Acute right occipital infarct suspected. Contrast-enhanced MRI is recommended
--- NOTE | ~2025-04-13 | XR_ITS ---
EXAMINATION: XR chest 1V, 04/13/2025 13:23 DECALER HISTORY: fall COMPARISON: No comparisons available. Technique: Single view. Findings: The lungs are clear, no effusion. No pneumothorax. Heart is normal size. Mediastinal and hilar contours are within normal limits. Bony thorax no acute abnormality. Impression: No acute cardiopulmonary abnormality. Reviewed, dictated and finalized at location P. LER Impression: No acute cardiopulmonary abnormality.
--- NOTE | ~2025-04-13 | US_ITS ---
Clinical History: CVA Examination: US carotid duplex BI Comparison: None Technique: Grayscale, color, duplex/spectral Doppler sonography carotid and vertebral arteries. Distal CCA and Peak ICA systolic velocities provided. Society of Radiologists in Ultrasound (SRU) consensus criteria utilized, indirectly assessing stenosis by velocities. Findings: Minimal plaque. Right side: CCA - 100 cm/sec. ICA - 84 cm/sec. ICA/CCA - 0.84 Left Side: CCA - 85 cm/sec. ICA - 74 cm/sec. ICA/CCA -0.9 Normal antegrade flow measured bilateral vertebral arteries. IMPRESSION: 1. No hemodynamically significant ICA stenosis (i.e., if any stenosis, less than 50%). 2. Normal bilateral antegrade vertebral artery flow. Stenosis measured by Society of Radiologists in Ultrasound (SRU) criteria. Reviewed, dictated and finalized at location R. LABORER IMPRESSION: 1. No hemodynamically significant ICA stenosis (i.e., if any stenosis, less th an 50%). 2. Normal bilateral antegrade vertebral artery flow. Stenosis measured by Society of Radiologists in Ultrasound (SRU) criteria.
--- NOTE | ~2025-04-13 | MR_ITS ---
EXAM/PROCEDURE: MR brain/brain stem wo/w con HISTORY: acute stroke COMPARISON: September 07, [address] exam from January [id number] TECHNIQUE: Pre and postcontrast multi planar brain MRI performed FINDINGS: No acute ischemic event. No mass mass effect or hemorrhage. No hemorrhage on gradient echo sequences. On postcontrast series no abnormal enhancing lesions or masses. Brainstem and cerebellum appear normal. Mild chronic microvascular ischemic appearing white matter changes, and old small right occipital infarction with mild encephalomalacia. Periorbital paranasal calvarial structures unremarkable. IMPRESSION: 1. No acute ischemic event, mass or bleed. No abnormal enhancing lesions or masses. 2. Small old right occipital infarction and mild chronic microvascular ischemic appearing white matter changes. Reviewed, dictated and finalized at location A. GER SOLAR IMPRESSION: 1. No acute ischemic event, mass or bleed. No abnormal enhancing lesions or mas ses. 2. Small old right occipital infarction and mild chronic microvascular ischemic appearing white matter changes.
--- NOTE | ~2025-04-13 | CT_ITS ---
EXAM/PROCEDURE: CT lumbar spine wo con HISTORY: low back pain, fall COMPARISON: None available. TECHNIQUE: Lumbar spine CT FINDINGS: Nondisplaced fracture right transverse process of L1. No other fracture lucency seen. Multilevel degenerative changes throughout the lumbar spine with no traumatic malalignment. At least mild multilevel spinal canal stenosis present including L2-3 and L3-4. No paraspinal soft tissue swelling or hematoma seen. Partially visualized left kidney with 4 mm lower pole stone. IMPRESSION: 1. Nondisplaced right transverse process fracture of L1. No other fracture lucency or traumatic malalignment L1-L5. 2. Multilevel degenerative changes including multilevel spinal canal stenosis. 3. Incidental note of lower pole left kidney stone. Reviewed, dictated and finalized at location A. NE INSURANCE CLAIM EXAMINER IMPRESSION: 1. Nondisplaced right transverse process fracture of L1. No other fracture luce ncy or traumatic malalignment L1-L5. 2. Multilevel degenerative changes including multilevel spinal canal stenosis. 3. Incidental note of lower pole left kidney stone.
--- OUTSIDE RECORDS SUMMARY | 2025-04-13 10:30 | XMS_ITS | Encounter Summary ---
Author Organization [facility] Healthcare Address [address] [place] [address] Care Team Providers Care Assistant Case Manager Name Role Phone Jm Alonso MD Primary Care Provider [phone] FabianMya martinez CHIEF CRNA Unavailable Domi Ortega OT Unavailable [phone] Reason for Visit * Reason Comments Back Injury Yesterday pt fell ag ainst floor cabinets and c/o R lower back pain Pt reports fall was from loss of balance Encounter Details Date Type Department Care Team (Late st Contact Info) Description 04/13/2025 10:30 AM SURVEY RESEARCH TEACHER Office Visit [facility] at [address] [address] Desi Barney NP [address] [place] [address] [address] [place] [address] Fall, initial encounter (Primary Dx); Acute right-sided low back pain without sciatica Social History Tobacco Use Types Packs/Day Years [...] file Legal Sex Male 11:00 AM SURVEY RESEARCH TEACHER Gender Identity Male 01/03/2020 10:22 AM CDT Sexual Orientation Choose not to disclose 2019 10:22 AM CDT documented as of this encounter Last Filed Vital Signs Vital Sign Reading Time Taken Comments Blood Pressure 76/42 04/13/2025 12:20 PM SURVEY RESEARCH TEACHER Pulse 75 04/13/2025 10:37 AM SURVEY RESEARCH TEACHER Temperature 36.3 C (97.4 F) 04/13/2025 10:37 AM SURVEY RESEARCH TEACHER Respiratory Rate 24 04/13/2025 10:37 AM SURVEY RESEARCH TEACHER Oxygen Saturation 99% 04/13/2025 10:37 AM SURVEY RESEARCH TEACHER Inhaled Oxygen Concentration - - Weight 94.3 kg (208 lb) 04/13/2025 10:37 AM SURVEY RESEARCH TEACHER Height 182.9 cm (6') 04/13/2025 10:37 AM SURVEY RESEARCH TEACHER Body Mass Index 28.21 04/13/2025 10:37 AM SURVEY RESEARCH TEACHER documented in this encounter Patient Instructions * Patient Instructions* Desi Barney NP - 04/13/2025 10:30 AM SURVEY RESEARCH TEACHER If you have no improvement or worsening [...] meet your needs. Thank you for choosing [facility]! It was my pleasure to see you today, I hope you feel better soon! Desi Barney SKI MAKER WOOD EY RESEARCH TEACHER documented in this encounter Ordered Prescriptions Prescription Sig Dispense Quantity Refills Last Filled Start Date End Date methocarbamoL (ROBAXIN) 500 mg tablet Take 1 tablet (500 mg total) by mouth 4 (four) times a day as needed for muscle spasms 20 tablet 04/13/2025 06/12/2025 documented in this encounter Plan of Treatment Scheduled Procedures Name Priority Associated Diagnoses Date/Ti me COLONOSCOPY Encounter for screening colonoscopy documented as of this encounter Visit Diagnoses Diagnosis Fall, initial encounter- Primary Acute right-sided low back pain without sciatica documented in this encounter Historical Medications * This list may reflect changes made after this encounter. fludrocortisone 0.1 mg tablet Take 1 tablet (0.1 mg total) by mouth daily 04/03/2025 added in this encounter Care Teams Assistant Case Manager Relationship Specialty Start Date End Date Jm Alonso MD PCP - General Internal Medicine 08/25/18 Mya Fabian SLP [address] [facility] [address] [place] [address] Speech Language Pathologist Speech Therapy 03/03/25 Domi Ortega OT [address] [facility] [address] [place], [place] [id number] Occupational Therapist Occupational Therapy 03/20/25 documented as of this encounter
--- OUTSIDE RECORDS SUMMARY | 2025-04-13 10:30 | XMS_ITS | Encounter Summary ---
Author Organization [facility] Healthcare Address [address] [place] [address] Care Team Providers Care Manager Strategic Marketing Name Role Phone Jm Alonso MD Primary Care Provider [phone] FabianMya martinez BOTTOM SAW OPERATOR Unavailable Domi Ortega OT Unavailable [phone] Reason for Visit * Reason Comments Back Injury Yesterday pt fell ag ainst floor cabinets and c/o R lower back pain Pt reports fall was from loss of balance Encounter Details Date Type Department Care Team (Late st Contact Info) Description 04/13/2025 10:30 AM DISTRICT MANAGER IN TRAINING Office Visit [facility] at [address] [address] Desi Barney NP [address] [place] [address] [address] [place] [address] Fall, initial encounter (Primary Dx); [...] on file Legal Sex Male 11:00 AM DISTRICT MANAGER IN TRAINING Gender Identity Male 01/03/2020 10:22 AM CDT Sexual Orientation Choose not to disclose 2019 10:22 AM CDT documented as of this encounter Last Filed Vital Signs Vital Sign Reading Time Taken Comments Blood Pressure 76/42 04/13/2025 12:20 PM DISTRICT MANAGER IN TRAINING Pulse 75 04/13/2025 10:37 AM DISTRICT MANAGER IN TRAINING Temperature 36.3 C (97.4 F) 04/13/2025 10:37 AM DISTRICT MANAGER IN TRAINING Respiratory Rate 24 04/13/2025 10:37 AM DISTRICT MANAGER IN TRAINING Oxygen Saturation 99% 04/13/2025 10:37 AM DISTRICT MANAGER IN TRAINING Inhaled Oxygen Concentration - - Weight 94.3 kg (208 lb) 04/13/2025 10:37 AM DISTRICT MANAGER IN TRAINING Height 182.9 cm (6') 04/13/2025 10:37 AM DISTRICT MANAGER IN TRAINING Body Mass Index 28.21 04/13/2025 10:37 AM DISTRICT MANAGER IN TRAINING documented in this encounter Patient Instructions * Patient Instructions* Desi Barney NP - 04/13/2025 10:30 AM DISTRICT MANAGER IN TRAINING If you have no improvement or worsening [...] hope you feel better soon! Desi Barney OFFSET LITHOGRAPHIC PRESS SETTER RICT MANAGER IN TRAINING * Attachments The following attachments cannot be sent through Care Everywhere. * Fall Prevention (AfterCare(R) Instructions(ER/ED)) (Albanian) documented in this encounter Ordered Prescriptions Prescription Sig Dispense Quantity Refills Last Filled Start Date End Date methocarbamoL (ROBAXIN) 500 mg tablet Take 1 tablet (500 mg total) by mouth 4 (four) times a day as needed for muscle spasms 20 tablet 04/13/2025 04/13/2025 documented in this encounter Plan of Treatment Scheduled Procedures Name Priority Associated Diagnoses Date/Ti or COLONOSCOPY Encounter for screening colonoscopy documented as of this encounter Visit Diagnoses Diagnosis Fall, initial encounter- Primary Acute right-sided low back pain without sciatica documented in this encounter Discontinued Medications Medication Sig Discontinue Reason Start Date End Da te methocarbamoL (ROBAXIN) 500 mg tablet Take 1 tablet (500 mg total) by mouth 4 (four) times a day as needed for muscle spasms Other 04/13/2025 04/13/2025 documented as of this encounter Historical Medications * This list may reflect changes made after this encounter. fludrocortisone 0.1 mg tablet Take 1 tablet (0.1 mg total) by mouth daily 04/03/2025 added in this encounter Care Teams Manager Strategic Marketing Relationship Specialty Start Date End Date Jm Alonso MD PCP - General Internal Medicine 08/25/18 Mya Fabian SLP [address] [facility] [address] [place] [address] Speech Language Pathologist Speech Therapy 03/03/25 Domi Ortega OT [address] [facility] [address] [place] [address] Occupational Therapist Occupational Therapy 03/20/25 documented as of this encounter
[2025-04-13 11:40] VITALS: BP 93/46; PULSE 93; RESP 16; TEMP 36.7; O2SAT 99
--- NOTE | 2025-04-13 12:00 | ECG_ITS ---
Test Date: 2025-04-13 13:12:48 Measurements Intervals [place] Rate: 76 P: 51 TX: 155 QRS: 26 QRSD: 90 T: 72 QT: 369 QTc: 417 Interpretive Statements SINUS RHYTHM BASELINE ARTIFACT- I, II, III, AVR, AVL, AVF NORMAL ECG Compared to ECG 11/21/2024 14:23:35 NO SIGNIFICANT CHANGE Electronically Signed On 04-13-2025 13:17:15 MATRIX BATH ATTENDANT by Bashir Bear D.O.
--- NOTE | 2025-04-13 12:43 | ED.FALL ---
HPI - Fall General Chief Complaint: Syncope <Roslyn Landon PA-C - Last Filed: 04/13/25 17:46> Stated Complaint: fall on thursday <Roslyn Landon PA-C - Last Filed: 04/13/25 17:46> Time Seen by Provider: 04/13/25 12:43 <Roslyn Landon PA-C - Last Filed: 04/13/25 17:46> Focused HPI: This is a 69 year old male that presents to the ER after a fall two nights ago. Reports he hit the cabinet door. Reports since he has had severe right lower back pain, worse with movement. He did not hit his head or lose consciousness. Denies new vision changes, focal numbness, weakness. Reports history of orthostatic hypotension due to Parkinson's GENERAL: Well-appearing, well-nourished, and in no acute distress. HEAD: Normocephalic, atraumatic. CHEST: Clear to auscultation. ?No respiratory distress. HEART: Regular rate and rhythm.? NEURO: ?Alert and oriented x3. Patient screened in triage and initial orders placed.? ?Additional care and disposition to be based upon?diagnostic testing and treatment. <Roslyn Landon PA-C - Last Filed: 04/13/25 17:46> History of Present Illness HPI Narrative: Agree with HPI. Patient went for outpatient xray by his pcp and apparently had near syncope, BP obtained there was systolic in the 70s so he was sent here for further evaluation. <Harjit Chang DO - Last Filed: 04/13/25 17:38> Related Data Home Medications: Home Medications ?Medication ?Instructions ?Recorded ?Confirmed ?Last Taken ?Type Adult Aspirin EC Low Strength 81 mg PO DAILY 09/24/23 11/24/24 11/16/24 History Held on 11/24/24. Instructions: Resume on 11/25/24. atorvastatin 20 mg tablet 20 mg PO DAILY 09/24/23 11/21/24 09/24/23 09:30 History carbidopa 25 mg-levodopa 100 mg 25 - 100 tablet PO TID 09/24/23 11/24/24 11/24/24 History tablet (Sinemet) carbidopa ER 50 mg-levodopa 200 mg 50 - 200 tablet PO HS 09/24/23 11/21/24 09/23/23 22:30 History tablet,extended release cetirizine 10 mg PO DAILY 09/24/23 11/21/24 09/24/23 09:30 History clonazepam 0.5 mg tablet 0.5 mg PO 09/24/23 11/21/24 09/23/23 22:30 History fenofibrate 160 mg tablet 160 mg PO DAILY 09/24/23 11/21/24 09/24/23 09:30 History gabapentin 300 mg capsule 300 mg PO 09/24/23 11/21/24 09/23/23 22:30 History omeprazole 20 mg PO DAILY 09/24/23 11/21/24 09/24/23 09:30 History sertraline 100 mg tablet 100 mg PO DAILY 09/24/23 11/24/24 11/24/24 History tamsulosin 0.4 mg capsule 0.4 mg PO DAILY 09/24/23 11/21/24 09/24/23 09:30 History insulin glargine-yfgn 100 unit/mL 30 unit subcut [facility] 10/22/24 11/24/24 11/24/24 History (3 mL) subcutaneous pen 15 unit linagliptin 5 mg tablet (Tradjenta) 5 mg PO [facility] 10/22/24 11/21/24 Unknown History mirabegron 50 mg tablet,extended 50 mg PO 10/22/24 11/21/24 Unknown History release 24 hr <Roslyn Landon PA-C - Last Filed: 04/13/25 17:46> Allergies/Adverse Reactions: Allergies Allergy/AdvReac Type Severity Reaction Status Date / Time No Known Allergies Allergy Verified 04/13/25 14:13 <Roslyn Landon PA-C - Last Filed: 04/13/25 17:46> Review of Systems Review of Systems: All systems reviewed & are unremarkable except as noted in HPI and below <Harjit Chang DO - Last Filed: 04/13/25 17:38> [facility] Past Medical History Medical History: Medical History Diabetes Parkinson's disease <Roslyn Landon PA-C - Last Filed: 04/13/25 17:46> Family History Family History: Family History Other Unknown family medical history <Roslyn Landon PA-C - Last Filed: 04/13/25 17:46> Social History Social History: Social History Smoking status: Never smoker Second hand tobacco smoke exposure: No Alcohol intake: current Drinks per week: 1 Substance use: never Lack of Transportation: No Lack of Food: Never True Current Housing: I Have Housing Concerned About Future Housing: No Difficulty Paying Gas/Electric Bills: No Difficulty Paying for Meds: No Currently Unemployed: No Education: Decline to Answer Difficulty w/ Childcare or Family Care: No Living arrangements: with family Spiritual care concerns: No <Roslyn Landon PA-C - Last Filed: 04/13/25 17:46> Exam Narrative: APPEARANCE: No acute distress, nontoxic, resting in bed EYES: EOMI HEENT: Normocephalic, atraumatic, OMM RESPIRATORY: No respiratory distress Clear to auscultation bilaterally with no rhonchi wheezing or rales. CARDIOVASCULAR: Regular rate and rhythm without murmurs rubs or gallops. ABDOMINAL: Soft, nontender, nondistended, no rebound or guarding MUSCULOSKELETAl: Moves all extremities. No clubbing, cyanosis or edema. NEURO: Awake and alert. Following commands, speech normal, no focal deficits. 3/5 strength to the bilateral lower extremities. SKIN:: Warm, dry. No rashes lesions or abrasions PSYCHIATRIC: Normal affect/mood, <Harjit Chang DO - Last Filed: 04/13/25 17:38> Course Vital Signs Vital signs: Vital Signs Temperature 98.1 F 04/13/25 11:40 Pulse Rate 93 04/13/25 11:40 Respiratory Rate 16 04/13/25 11:40 Blood Pressure 93/46 L 04/13/25 11:40 Pulse Oximetry 99 04/13/25 11:40 Temperature 98.1 F 04/13/25 11:40 Pulse Rate 62 04/13/25 17:27 Respiratory Rate 15 04/13/25 17:27 Blood Pressure 134/59 L 04/13/25 17:27 Pulse Oximetry 98 04/13/25 17:27 <Roslyn Landon PA-C - Last Filed: 04/13/25 17:46> Vital Signs Temperature 98.1 F 04/13/25 11:40 Pulse Rate 93 04/13/25 11:40 Respiratory Rate 16 04/13/25 11:40 Blood Pressure 93/46 L 04/13/25 11:40 Pulse Oximetry 99 04/13/25 11:40 Temperature 98.1 F 04/13/25 11:40 Pulse Rate 62 04/13/25 17:27 Respiratory Rate 15 04/13/25 17:27 Blood Pressure 134/59 L 04/13/25 17:27 Pulse Oximetry 98 04/13/25 17:27 <DO Robin Paulson Last Filed: 04/13/25 17:38> [facility] Narrative Medical decision making narrative: 69-year-old male Presenting for fall and back pain. On initial evaluation patient was in no acute distress afebrile, hemodynamic stable. Differentials include but are not limited to: Fracture, sprain, strain, contusion, intracranial hemorrhage, arrhythmia, orthostatic hypotension, vasovagal syncope Notable exam findings: No focal deficits, 3/5 strength throughout bilateral lower extremities I personally reviewed the patient's lab result. Notable lab findings: CBC without significant abnormalities. Creatinine elevated at 1.92 which is his baseline. Troponin negative. I personally reviewed the patient's images and interpret as follows: Normal chest x-ray. CT head showed concerns for an acute right occipital infarct. CT lumbar spine read minimally displaced right lumbar transverse process fracture. I personally reviewed the patient's EKGs: Normal sinus rhythm, normal axis, normal intervals, no acute ST or T-wave changes Given the probable stroke, patient will require admission for MRI his PT/OT evaluation. I did discuss the case with Dr. Silvestre, neurology, does not recommend any additional medications as he is already on aspirin and atorvastatin. Agrees with MRI. Case was discussed with hospitalist who will admit the patient. <DO Robin Paulson Last Filed: 04/13/25 17:38> Differential Diagnosis Differential Diagnosis: Fracture, sprain, strain, contusion, intracranial hemorrhage, arrhythmia, orthostatic hypotension, vasovagal syncope <DO Robin Paulson Last Filed: 04/13/25 17:38> Lab Data Result diagrams: 04/13/25 13:22 04/13/25 13:22 <Roslyn Landon PA-C - Last Filed: 04/13/25 17:46> Labs: Lab Results 04/13/25 04/13/25 Range/Units 13:16 13:22 WBC 9.5 (4.5-10.0) K/mm3 RBC 4.74 (4.6-6.20) M/mm3 Hgb 12.9 L (14.0-18.0) g/dL Hct 39.8 L (42.0-52.0) % MCV 84.0 (80-100) fl MCH 27.2 (26-34) pg MCHC 32.4 (32-36) g/dl RDW 14.7 H (11.5-14.5) % Plt Count 334 (150-375) k/mm3 MPV 9.5 (7.4-10.4) fl Immature Gran % (Auto) 0.3 (0-0.5) % Neut % (Auto) 82.9 H (45.5-73.1) % Lymph % (Auto) 9.1 L (18.3-44.2) % Dale % (Auto) 4.4 (2.6-8.5) % Eos % (Auto) 2.7 (0-4.4) % Baso % (Auto) 0.6 (0.2-1.2) % Lymph # (Auto) 0.86 L (0.9-3.2) K/mm3 Dale # (Auto) 0.4 (0.1-0.6) K/mm3 Eos # (Auto) 0.3 (0-0.3) K/mm3 Baso # (Auto) 0.1 (0.0-0.1) K/mm3 Abs Immat Gran (auto) 0.03 (0.00-0.031) K/mm3 Absolute Neuts (auto) 7.8 H (1.3-6.7) K/mm3 Absolute Nucleated RBC 0.000 (0.0-0.012) K/mm3 Nucleated RBC % 0.0 (0.0-0.2) % PT 14.1 (11.1-14.7) Seconds INR 1.1 APTT 28.1 (22.3-36.8) Seconds Sodium 137 (137-145) mmol/L Potassium 4.4 (3.4-5.0) mmol/L Chloride 104 (98-107) mmol/L Carbon Dioxide 26 (22-30) mmol/L Anion Gap 7 (4-12) mmol/L BUN 22 H D (9-20) mg/dL Creatinine 1.92 H (0.7-1.3) mg/dL Estim Creat Clear Calc Not Reportable Estimated GFR 35 L (59 - ) Glucose 222 H (65-110) mg/dL POC Capillary Glucose 242 H (65-105) mg/dl Calcium 9.7 (8.4-10.2) mg/dL Total Bilirubin 0.7 (0.2-1.3) mg/dL AST 28 (17-59) U/L ALT 8 (6-50) U/L Alkaline Phosphatase 86 (38-126) U/L Troponin I < 0.012 (0.000-0.034) ng/mL Total Protein 7.9 (6.3-8.2) g/dL Albumin 4.4 (3.5-5.1) g/dL <Roslyn Landon PA-C - Last Filed: 04/13/25 17:46> Lab Results 04/13/25 04/13/25 Range/Units 13:16 13:22 WBC 9.5 (4.5-10.0) K/mm3 RBC 4.74 (4.6-6.20) M/mm3 Hgb 12.9 L (14.0-18.0) g/dL Hct 39.8 L (42.0-52.0) % MCV 84.0 (80-100) fl MCH 27.2 (26-34) pg MCHC 32.4 (32-36) g/dl RDW 14.7 H (11.5-14.5) % Plt Count 334 (150-375) k/mm3 MPV 9.5 (7.4-10.4) fl Immature Gran % (Auto) 0.3 (0-0.5) % Neut % (Auto) 82.9 H (45.5-73.1) % Lymph % (Auto) 9.1 L (18.3-44.2) % Dale % (Auto) 4.4 (2.6-8.5) % Eos % (Auto) 2.7 (0-4.4) % Baso % (Auto) 0.6 (0.2-1.2) % Lymph # (Auto) 0.86 L (0.9-3.2) K/mm3 Dale # (Auto) 0.4 (0.1-0.6) K/mm3 Eos # (Auto) 0.3 (0-0.3) K/mm3 Baso # (Auto) 0.1 (0.0-0.1) K/mm3 Abs Immat Gran (auto) 0.03 (0.00-0.031) K/mm3 Absolute Neuts (auto) 7.8 H (1.3-6.7) K/mm3 Absolute Nucleated RBC 0.000 (0.0-0.012) K/mm3 Nucleated RBC % 0.0 (0.0-0.2) % PT 14.1 (11.1-14.7) Seconds INR 1.1 APTT 28.1 (22.3-36.8) Seconds Sodium 137 (137-145) mmol/L Potassium 4.4 (3.4-5.0) mmol/L Chloride 104 (98-107) mmol/L Carbon Dioxide 26 (22-30) mmol/L Anion Gap 7 (4-12) mmol/L BUN 22 H D (9-20) mg/dL Creatinine 1.92 H (0.7-1.3) mg/dL Estim Creat Clear Calc Not Reportable Estimated GFR 35 L (59 - ) Glucose 222 H (65-110) mg/dL POC Capillary Glucose 242 H (65-105) mg/dl Calcium 9.7 (8.4-10.2) mg/dL Total Bilirubin 0.7 (0.2-1.3) mg/dL AST 28 (17-59) U/L ALT 8 (6-50) U/L Alkaline Phosphatase 86 (38-126) U/L Troponin I < 0.012 (0.000-0.034) ng/mL Total Protein 7.9 (6.3-8.2) g/dL Albumin 4.4 (3.5-5.1) g/dL <Harjit Chang DO - Last Filed: 04/13/25 17:38> Imaging Data Radiologist's impression: ITS Impressions Head CT 04/13/25 12:23 Impression: Acute right occipital infarct suspected. Contrast-enhanced MRI is recommended Lumbar Spine CT 04/13/25 13:10 IMPRESSION: 1. Nondisplaced right transverse process fracture of L1. No other fracture lucency or traumatic malalignment L1-L5. 2. Multilevel degenerative changes including multilevel spinal canal stenosis. 3. Incidental note of lower pole left kidney stone. Chest X-Ray 04/13/25 13:29 Impression: No acute cardiopulmonary abnormality. <Roslyn Landon PA-C - Last Filed: 04/13/25 17:46> ITS Impressions Head CT 04/13/25 12:23 Impression: Acute right occipital infarct suspected. Contrast-enhanced MRI is recommended Lumbar Spine CT 04/13/25 13:10 IMPRESSION: 1. Nondisplaced right transverse process fracture of L1. No other fracture lucency or traumatic malalignment L1-L5. 2. Multilevel degenerative changes including multilevel spinal canal stenosis. 3. Incidental note of lower pole left kidney stone. Chest X-Ray 04/13/25 13:29 Impression: No acute cardiopulmonary abnormality. <Harjit Chang DO - Last Filed: 04/13/25 17:38> Discharge Plan Discharge Clinical Impression: Ischemic stroke Fall Qualifiers: Encounter type: initial encounter Qualified Code(s): W19.XXXA - Unspecified fall, initial encounter Lumbar transverse process fracture Qualifiers: Encounter type: initial encounter Fracture type: closed Qualified Code(s): S32.009A - Unspecified fracture of unspecified lumbar vertebra, initial encounter for closed fracture Parkinson's disease Qualifiers: Dyskinesia presence: with dyskinesia Fluctuating manifestations: without fluctuating manifestations Qualified Code(s): G20.B1 - Parkinson's disease with dyskinesia, without mention of fluctuations <Roslyn Landon PA-C - Last Filed: 04/13/25 17:46> Patient Disposition: Still a Patient <Roslyn Landon PA-C - Last Filed: 04/13/25 17:46> Condition: Stable <Roslyn Landon PA-C - Last Filed: 04/13/25 17:46>
--- OUTSIDE RECORDS SUMMARY | 2025-04-13 12:48 | XMS_ITS | Clinical Summary ---
Author Organization [facility] Address [address] [place] [address] Care Team Providers Care Base Filler Name Role Phone Jm Alonso MD Primary Care Provider [phone] Mya Fabian Unavailable Domi Ortega OT Unavailable [phone] Allergies No known active allergies Medications cetirizine (ZyrTEC) 10 mg tabletIndicatio ns:Seasonal Allergic Rhinitis Take 1 tablet (10 mg total) by mouth curing room supervisor 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 Active aspirin 81 mg enteric coated tabletIndicatio ns:prevention of thrombosis Take 1 tablet (81 mg total) by mouth every morning Active omeprazole 20 mg tablet,delayed release (DR/EC)Indicati ons:Treatment of Non-Bleeding Gastric Disorder Take 1 tablet (20 mg total) by mouth every morning 1 Active cyanocobalamin (Vitamin B-12) 1,000 mcg tabletIndicatio ns:Prevention of Vitamin B12 Deficiency Take 1 tablet (1,000 mcg total) by mouth daily Active insulin glargine 100 unit/mL (3 mL) pen for injection Take 30 units sub q daily 45 mL 4 5 Active atorvastatin (LIPITOR) 20 mg tablet Take 1 tablet by mouth once daily 90 tablet 2 5 Active sertraline (ZOLOFT) 100 mg tablet Take 1.5 tablets (150 mg total) by mouth curing room supervisor 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 135 tablet 3 5 09/06/19 26 Active mirabegron ER (MYRBETRIQ) 50 mg tablet extended release 24 hr Take 1 tablet (50 mg total) by mouth curing room supervisor 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 5 Active linaGLIPtin (Tradjenta) 5 mg tablet Take 1 tablet by mouth once daily 90 tablet 3 5 Active carbidopa-levod opa (SINEMET) 25-100 mg per tabletIndicatio ns:Parkinsonism Take 2 tablets by mouth 3 (three) times a day 5 12/07/19 26 Active tamsulosin (FLOMAX) 0.4 mg extended release capsule Take 1 capsule by mouth once daily 90 capsule 5 Active midodrine (PROAMATINE) 5 mg tablet Take 1 tablet by mouth once daily 30 tablet 3 5 Active pen needle, diabetic 32 gauge x needle USE WITH INSULIN INJECTION ONCE DAILY 100 each 3 5 Active fenofibrate (TRIGLIDE) 160 mg tablet Take 1 tablet by mouth once daily 90 tablet 3 5 Active gabapentin (NEURONTIN) 300 mg capsule TAKE 1 CAPSULE BY MOUTH NIGHTLY 90 capsule 3 5 Active clonazePAM (KlonoPIN) 0.5 mg tabletIndicatio ns:REM sleep behavior disorder TAKE 2 TABLETS BY MOUTH ONCE DAILY AT NIGHT 180 tablet 5 Active carbidopa-levod opa CR (SINEMET CR) 50-200 mg per CR tablet TAKE 2 TABLETS BY MOUTH NIGHTLY 180 tablet 3 5 03/03/20 26 Active fludrocortisone 0.1 mg tablet Take 1 tablet (0.1 mg total) by mouth daily 5 Active methocarbamoL (ROBAXIN) 500 mg tablet Take 1 tablet (500 mg total) by mouth 4 (four) times a day as needed for muscle spasms 20 tablet 5 06/12/19 26 Active Active Problems Problem Noted Date Diagnosed Date 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 Once this is confirmed we can proceed with definitive therapy Type 2 diabetes mellitus wit hout complication, without long-term current use of insulin 02/29/2020 Assessment & Plan (05/23/2024 12:02 PM STONE SPREADER OPERATOR): Increase insulin to 30 units Assessment & Plan (02/09/2024 11:53 AM CDT): Incease lantus to 26 units. May need bolus insulin Mixed hyperlipidemia 02/29/2020 Essential hypertension 02/29/2020 Assessment & Plan (05/23/2024 12:02 PM STONE SPREADER OPERATOR): Bp at target Assessment & Plan (02/09/2024 11:52 AM CDT): Bp at target Gastroesophageal reflux disease without esophagi tis 02/29/2020 REM sleep behavior disorder 09/07/2018 Assessment & Plan (02/14/2025 6:38 AM CDT): He has history of limb movements in sleep that probably represent REM behavior disorder given his underlying Parkinson disease and improvement of this phenomenon with clonazepam. He is reasonably well treated and is tolerating current dose of clonazepam so it is be reasonable to continue current dose. Assessment & Plan (09/29/2022 7:31 AM CDT): [...] to increase the dose slightly. Parkinson disease ([facility]) 05/29/2015 Assessment & Plan (02/14/2025 6:40 AM CDT): He has parkinsonism stage 4 characterized by bilateral rigidity and bradykinesia, postural instability, historical feeling of internal tremor, and subjective response to levodopa, including cognitive benefit. The most likely etiology remains idiopathic Parkinson disease. He has multiple side effects from levodopa, including orthostasis and hallucinations. His mobility worsened with previous attempts to reduce levodopa (to address orthostasis) and he and his returned to prior higher doses. I counseled them again that we will likely not be able to eliminate fall risk, that levodopa likely contributes some to his fall risk by increasing tendency for lightheadedness, and that it is critical that he use his walker all the time. If his cannot safely care for him at home, it would be reasonable to reconsider SNF placement. We may be able to continue current levodopa regimen, but will need to monitor orthostasis and hallucinations closely. I would favor restarting fludrocortisone and continuing midodrine. We can adjust those further or add additional medications to treat neurogenic orthostatic hypotension if needed. He would probably continue to benefit from PT for gait training and fall prevention. He also has a history of B12 deficiency and diabetes, both of which are probably contributing to neuropathy. I will check some labs today and I can order EMG and refer him to a neuromuscular specialist if needed. He would benefit from PT and OT and speech therapy. Plan as phrased to patient and his : Continue carbidopa-levodopa 25-100mg 2 tabs three times daily as you are doing. Continue carbidopa-levodopa 50-200mg CR 2 tabs at bedtime. Continue midodrine 5mg in the morning Restart fludrocortisone 0.1mg in the morning. Continue clonazepam 0.5mg 2 tabs at bedtime to prevent dream enactment. Move or pad sharp corners near the bed and ensure there are no weapons or other potentially dangerous items in the bedroom. Hold Sleep3 for a few weeks and then send update on sleep. We will check blood tests today including B12, MMA, and immunofixation. Pending these results, we may get an EMG/nerve conduction test and/or referral to neuromuscular specialist. I will send referrals for PT, OT, speech. Assessment & Plan (11/15/2024 10:23 AM CDT): [...] [employer] and send updates to us by [employer] as needed. 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 Let [...] willing to resume PT and knows of [employer] Determination channel exercises online. He has completed ST [...] patient. Assessment & Plan (05/23/2024 12:02 PM STONE SPREADER OPERATOR): sandee Stevens neurology Assessment & Plan (02/09/2024 [...] day. Assessment & Plan (03/26/2023 7:09 PM STONE SPREADER OPERATOR): He has parkinsonism stage 2.5 characterized on [...] more consistent with dose timing. 3. Call [facility] PT to schedule a follow up appointment. 4. I will send a referral to [facility] OT for a driving evaluation. Assessment & Plan (05/16/2022 1:12 PM STONE SPREADER OPERATOR): He has parkinsonism stage 2.5 characterized on [...] about cutting back irbesartan to half. 6. [place] [employer] Voice Project. 7. Start PT and ST [facility] at [facility] then get plan made for PT [...] He will soon have surgery with Emily Mague. He can continue his current dose of [...] exercises. Assessment & Plan (05/04/2020 12:37 PM STONE SPREADER OPERATOR): He has parkinsonism stage 2.5 characterized on [...] a referral to a sleep neurologist at [facility]. They may want to order another sleep study because it has been some time since your last one. 4. I will send a referral to [facility] PT for balance and walking. 5. Increase [...] sclerotic cataract of right eye 11/25/2022 01/14/2023 Encounters Date Type Department Care Team Description 04/13/2025 10:30 AM STONE SPREADER OPERATOR Office Visit [facility] at [address] [phone] Desi Barney NP Fall, initial encounter (Primary Dx); Acute right-sided low back pain without sciatica 03/17/2025 1:00 PM STONE SPREADER OPERATOR Therapy [facility] [address] [place] [phone] Kiesha Reagan DPT Parkinson's disease without dyskinesia or fluctuating manifestations (HCC) (Primary Dx) 03/17/2025 11:00 AM STONE SPREADER OPERATOR Therapy [facility] [address] [place] [phone] Domi Ortega OT Parkinson's disease without dyskinesia or fluctuating manifestations (HCC) (Primary Dx); Dementia due to Parkinson's disease, without behavioral disturbance, psychotic disturbance, mood disturbance, or anxiety, unspecified dementia severity 03/10/2025 1:00 PM STONE SPREADER OPERATOR Therapy [facility] [address] [place] [phone] Kiesha Reagan DPT Parkinson's disease without dyskinesia or fluctuating manifestations (HCC) (Primary Dx) 03/10/2025 11:00 AM STONE SPREADER OPERATOR Therapy [facility] [address] [place] [phone] Domi Ortega OT Parkinson's disease without dyskinesia or fluctuating manifestations (HCC) (Primary Dx); Dementia due to Parkinson's disease, without behavioral disturbance, psychotic disturbance, mood disturbance, or anxiety, unspecified dementia severity 03/05/2025 Plan of Care Documentation [facility] [address] [place] [phone] 03/03/2025 3:00 PM STONE SPREADER OPERATOR Therapy [facility] [address] [place] [phone] Kiesha Reagan, DPT Parkinson's disease without dyskinesia or fluctuating manifestations (HCC) (Primary Dx) 03/03/2025 1:30 PM STONE SPREADER OPERATOR Therapy [facility] [address] [place] [phone] Mya Fabian, ASSISTANT DIRECTOR OF SECURITY Parkinson's disease with dyskinesia and fluctuating manifestations (HCC) (Primary Dx); Dementia due to Parkinson's disease, without behavioral disturbance, psychotic disturbance, mood disturbance, or anxiety, unspecified dementia severity 03/03/2025 Plan of Care Documentation [facility] [address] [place] [phone] 02/27/2025 Plan of Care Documentation [facility] [address] [place] [phone] 02/26/2025 Results Follow-Up [facility] [address] [facility] [address] [place] [address] José Miguel Hutchins MD PhD Immunotyping, serum with interpretation, Methylmalonic acid, serum, Vitamin B12 02/24/2025 4:00 PM CDT Therapy [facility] [address] [place] [phone] Domi Ortega OT Parkinson's disease without dyskinesia or fluctuating manifestations (HCC) (Primary Dx); Dementia due to Parkinson's disease, without behavioral disturbance, psychotic disturbance, mood disturbance, or anxiety, unspecified dementia severity 01/24/2025 11:45 AM CDT Office [facility] [address] [facility] [address] [place] [phone] Jm Alonso MD Type 2 diabetes mellitus without complication, without long-term current use of insulin (HCC) (Primary Dx); Parkinson's disease, unspecified whether dyskinesia present, unspecified whether manifestations fluctuate (HCC); Essential hypertension; Bilateral renal stones; Mixed hyperlipidemia 01/18/2025 5:45 PM CDT Lab [facility] [address] [place] [address] Hereditary and idiopathic neuropathy 01/18/2025 2:00 PM CDT Office Visit [facility] Movement Disorders [address] [facility] [address] [place] [address] José Miguel Hutchins MD PhD Parkinson's disease without dyskinesia or fluctuating manifestations (HCC) (Primary Dx); Dementia due to Parkinson's disease, without behavioral disturbance, psychotic disturbance, mood disturbance, or anxiety, unspecified dementia severity; REM sleep behavior disorder; Hereditary and idiopathic neuropathy; Orthostatic hypotension from Last 3 Months Immunizations Immunization Administration Dates Next Due Moderna SARS-CoV-2 Monovalent Vaccination (12+ Y RS) 07/27/2020,06/29/2020 Surgical History Surgery Date Site/Laterality Comments ULNAR NERVE REPAIR 08/07/2020 Left CATARACT EXTRACTION 01/14/2023 Left KIDNEY STONE SURGERY Medical History Medical History Date Comments Diabetes mellitus Hypertension Hyperlipidemia Parkinson disease (HCC) Sleep apnea [...] on file Legal Sex Male 11:00 AM STONE SPREADER OPERATOR Gender Identity Male 01/03/2020 10:22 AM CDT Sexual Orientation Choose not to disclose 2019 10:22 AM CDT Last Filed Vital Signs Vital Sign Reading Time Taken Comments Blood Pressure 76/42 04/13/2025 12:20 PM STONE SPREADER OPERATOR Pulse 75 04/13/2025 10:37 AM STONE SPREADER OPERATOR Temperature 36.3 C (97.4 F) 04/13/2025 10:37 AM STONE SPREADER OPERATOR Respiratory Rate 24 04/13/2025 10:37 AM STONE SPREADER OPERATOR Oxygen Saturation 99% 04/13/2025 10:37 AM STONE SPREADER OPERATOR Inhaled Oxygen Concentration - - Weight 94.3 kg (208 lb) 04/13/2025 10:37 AM STONE SPREADER OPERATOR Height 182.9 cm (6') 04/13/2025 10:37 AM STONE SPREADER OPERATOR Body Mass Index 28.21 04/13/2025 10:37 AM STONE SPREADER OPERATOR Plan of Treatment Scheduled Procedures Name Priority Associated Diagnoses Date/Ti me COLONOSCOPY Encounter for screening colonoscopy Health Maintenance Due Date Last Done Comments Hepatitis C Screening 1955 Dilated Eye Exam 1955 Foot Exam 1955 DTaP/Tdap/Td Vaccine (1 - Tdap) 11/05/1967 Hepatitis B Screening 1974 Well Visit 65+ 2021 Depression Screening 05/16/2023 05/16/2022 Prostate Cancer Screening-PSA 08/17/2023 08/16/2021, 02/29/2020 Albumin Creatinine Ratio, Urine 09/28/2024 09/29/2023 Covid-19 Vaccine ( season) 2024 04/29/2024, 05/22/2023, 10/21/2021, Additional history exists Hemoglobin A1C 06/04/2025 12/02/2024, 08/25, 05/23/2024, Additional history exists Influenza Vaccine (#1) 2025 Postp oned from 12/26/2024 (Patient declined, but will receive in the future) Colon Cancer Screening-Colonoscopy 11/08/2025 Postponed from 1955 (Patient declined, but will receive in the future) Lipid Panel 12/02/2025 12/02/2024, 10/25, 09/17/2022, Additional history exists eGFR 12/05/2025 12/05/2024, 11/25, 12/03/2024, Additional history exists Fall Risk Assessment 12/06/2025 12/06/2024 Pneumococcal vaccine 65+ (1 of 2 - PCV) 01/24/2026 Postponed from 11/05/1975 (Patient declined, but will receive in the future) Zoster Vaccine (1 of 2) 01/24/2026 Post poned from 2006 (Patient declined, but will receive in the future) Medical Devices Implanted Type Area Mobile Architect Device Identifier Shelf Expiration Date Model / Serial / Lot [employer] Lens Iol Tecnis Smplcty 1-Pc Clr Beauregard 15.5 Diopter [id number] - [id number] - [id number] Implanted:Qty: 1 on 01/14/2023 by Richmond Morales MD at [facility] Lens Left: Eye [employer] [id number] 05/10/2025 [id number] / [id number] / 0 [employer] Lens Iol Tecnis Smplcty 1-Pc Clr Beauregard 15.5 Diopter [id number] - [id number] - [id number] Implanted:Qty: 1 on 02/11/2023 by Richmond Morales MD at [facility] Lens Right: Eye [employer] [id number] 12/10/2024 [id number] / [id number] / Procedures Procedure Name Priority Date/Time Associated Diagnosis Comments VITAMIN B12 Routine 01/18/2025 3:17 PM CDT Hereditary and idiopathic neuropathy METHYLMALONIC ACID, SERUM Routine 01/18/2025 3:17 PM CDT Hereditary and idiopathic neuropathy IMMUNOTYPING Routine 01/18/2025 3:17 PM CDT Hereditary and idiopathic neuropathy EGFR Routine 12/05/2024 10:23 PM CDT HEMOGLOBIN A1C STAT 12/02/2024 1:43 PM CDT LIPID PANEL STAT 12/02/2024 1:43 PM CDT ALBUMIN CREATININE RATIO, URINE Routine 09/29/2023 11:20 AM CDT Stage 3b chronic kidney disease (HCC) PSA SCREEN Routine 08/16/2021 10:37 AM CDT Type 2 diabetes mellitus without complication, without long-term current use of insulin (HCC) Hyperlipidemia, unspecified hyperlipidemia type Colon cancer screening Parkinson disease (HCC) from Last 3 Months or Most Recently Relevant to Health Maintenance Results * Immunotyping, serum with interpretation (01/18/2025 3:17 PM CDT) Immunosubtraction Please see comment Comment: NO PARAPROTEIN DETECTED Reviewed and signed by Janis Lambert MD, PhD 01/19/2025 Blood 01/18/2025 3:17 PM CDT 01/18/2025 4:24 PM CDT us José Miguel Hutchins MD PhD LAB BLOOD ORDERABLE S Final Result [facility] Department [place] [address] * (ABNORMAL) Methylmalonic acid, serum (01/18/2025 3:17 PM CDT) MMA 0.41(H) <=0.40 nmol/mL [facility] Comment: In this sample, the concentration of methylmalonic acid (MMA) was minimally elevated. As the upper limit of the reference range varies in different laboratories from 0.4 to 0.6 nmol/mL. This finding could be considered normal, especially if the patient does not show other signs of vitamin B12 deficiency. ADDITIONAL INFORMATION This test was developed and its performance characteristics determined by [facility] in a manner consistent with CLIA requirements. This test has not been cleared or approved by the U.S. Food and Drug Administration. Test Performed by: [facility] [address] [address] Reinforcing Bar Setter: Leonel Boles Ph.D.; CLIA# [id number] Blood 01/18/2025 3:17 PM CDT 01/18/2025 6:28 PM CDT José Miguel Hutchins MD PhD LAB BLOOD ORDERABLE S Final Result [facility] [place] [address] [facility] * Vitamin B12 (01/18/2025 3:17 PM CDT) Pathologist [facility] Vitamin B12 678 230 - 1,250 pg/mL Blood 01/18/2025 3:17 PM CDT 01/18/2025 4:24 PM CDT José Miguel Hutchins MD PhD LAB BLOOD ORDERABLE S Final Result Performing Organization Address [facility] Co de Phone Number [facility] [place] [address] * (ABNORMAL) eGFR (12/05/2024 10:23 PM CDT) Pathologist [facility] eGFR 48(L) >=60 mL/min/1. 73 m2 Comment: [...] NICKI HERNANDEZ Final Result Performing Organization Address [facility] de Phone Number [facility] [place] [address] * (ABNORMAL) Hemoglobin A1c (12/02/2024 1:43 PM CDT) Hgb A1C 7.9(H) 4.0 - 5.6 % Estimated Average Glucose 180 mg/dL [facility] Comment: The ADA recommends reporting an estimated Average Glucose (eAG) with all Hemoglobin A1c results using the equation derived from a study of 507 normal and diabetic adults. Minority populations were underrepresented and children were not included. (Diabetes Care 2020; 43(S1): S66-S76). The eAG is not equivalent to a fasting glucose. Blood 12/02/2024 1:43 PM CDT 12/02/2024 1:58 PM CDT [facility]ative [facility] - 12/03/2024 9:00 AM CDT reflex Huber Serna MD PhD LAB BLOOD NICKI HERNANDEZ Final Result Performing Organization Address [facility] de Phone Number [facility] [place] [address] * Lipid panel (12/02/2024 1:43 PM CDT) [...] revised on 2017. Triglycerides 87 <=149 mg/dL [facility] Comment: Interpretive Data Ages < [...] revised on 2017. HDL 48 >=40 mg/dL [facility] Comment: Interpretive Data Ages < [...] on 2017. LDL, calculated 71 <=129 mg/dL [facility] Comment: Interpretive Data Ages < or = 19 years Acceptable: <110 mg/dL Borderline high: 110-129 mg/dL High: >or= 130 mg/dL Ages > or = 20 years Optimal: <100 mg/dL Near optimal: 100-129 mg/dL Borderline high: 130-159 mg/dL High: >160 mg/dL Calculated using the Greenberg LDL-C estimating equation. This equation was implemented on 2023. Prior to this date LDL-C was estimated using the Friedewald equation. Literature References: 1. Expert Panel on Integrated Guidelines for Cardiovascular Health and Risk Reduction in Children and Adolescents. Pediatrics 2011;128:S213 2. NCEP Expert Panel. Circulation 2004;110:227 3. Dionicio M et al. MONICA Cardiol. 2019August 25;5(5):540-548. doi: 10.1001/jamacardio.2020.0013 Current Interpretive Data was last revised on 2023. Non-HDL Cholesterol 88 mg/dL [facility] Comment: Interpretive Data Ages < [...] last revised on 2017. Chol/HDL ratio 3 [facility] Blood 12/02/2024 1:43 PM CDT 12/02/2024 1:54 PM CDT Narrative [facility] - 12/03/2024 4:50 PM CDT reflex us Huber Serna MD PhD LAB BLOOD ORDE DAVID Final Result [facility] Department [place] [address] * Albumin Creatinine Ratio, Urine (09/29/2023 11:20 [...] - 09/30/2023 4:08 AM CDT Performed at: [address] [id number] Reinforcing Bar Setter: Yuan Gaitan PhD, Phone: [phone] mJ Alonso MD LAB URINE ORDERABLES Final Re sult Performing Organization Address [facility] de Phone Number [facility] - * PSA screen (08/16/2021 10:37 AM CDT) [facility] PSA 0.5 0.0 - 4.0 ng/mL [facility] - Comment: Lito ECLIA methodology. According to the [place] [employer], Serum PSA should decrease and [...] - 08/17/2021 7:09 AM CDT Performed at: [address] [id number] Reinforcing Bar Setter: Yuan Gaitan PhD, Phone: [phone] Jm Alonso MD LAB BLOOD ORDERABLES Final Re sult Performing Organization Address [facility] de Phone Number [facility] - from Last 3 Months or Most Recently Relevant to Health Maintenance Insurance MEDICARE [facility] FEDERAL MEDICARE [facility] MEDICARE MEDICARE [facility] Advance Directives For more information, please contact: [phone] * Full Code (Latest Code Status on File) Date Activated Date Inactivated Comments 12/02/2024 2:54 PM 12/06/2024 5:07 PM * Full Code Date Activated Date Inactivated Comments 02/11/2023 9:33 AM 02/11/2023 4:38 PM * Full Code Date Activated Date Inactivated Comments 01/14/2023 8:51 AM 01/14/2023 4:11 PM Care Teams Base Filler Relationship Specialty Start Date End Date Jm Alonso MD PCP - General Internal Medicine 08/25/18 Mya Fabian SLP [address] [facility] [address] [place] [address] Speech Language Pathologist Speech Therapy 03/03/25 Domi Ortega OT [address] [facility] [address] [place] [address] Occupational Therapist Occupational Therapy 03/20/25
--- OUTSIDE RECORDS SUMMARY | 2025-04-13 12:48 | XMS_ITS | Clinical Summary ---
Author Organization [facility] Address [address] [place] [phone] Phone Care Team Providers Care Data Analyst Etl Developer Name Role Phone Unavailable Primary Care Provider Unavailabl e Social History Tobacco Use Types Packs/Day Years Used Date Smoking Tobacco: Never Assessed Sex and Gender Information Value Date Recorded Sex Assigned at Not on file Legal Sex Male 5:35 AM SPA SUPERVISOR Gender Identity Not on file Sexual [...]
--- OUTSIDE RECORDS SUMMARY | 2025-04-13 12:48 | XMS_ITS | Encounter Summary ---
Author Organization [facility] Address [address] [place] [address] Phone Care Team Providers Care Blast Setter Name Role Phone Jm Alonso MD Primary Care Provider [phone] Mya Fabian DENTAL ASSOCIATE Unavailable Domi Ortega OT Unavailable [phone] Encounter Details Date Type Department Care Team (Latest Contact Info) Description 02/26/2025 Results Follow-Up [facility] Medicine Movement Disorders [address] [facility] Advanced Medicine 7th [place] [address] José Miguel Hutchins MD PhD [address] [place] [address] Immunotyping, serum with interpretation, Methylmalonic acid, serum, Vitamin B12 Social History Tobacco Use Types Packs/Day Years [...] file Legal Sex Male 11:00 AM MEDICAL OFFICE ASST Gender Identity Male 01/03/2020 10:22 AM CDT Sexual Orientation Choose not to disclose 2019 10:22 AM CDT documented as of this encounter Miscellaneous Notes * Telephone Encounter - Supriya Javier RN - 02/27/2025 10:57 AM CST Sent: Good morning, Dr. Hutchins wanted to let you know about the lab work done recently. Immunofixation showed no paraprotein, MMA is barely elevated at 0.41 and B12 is normal at 678. 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 He recommends for you to follow up closely with PCP for ongoing ma nagement of diabetes. Let us know if you have any questions. Take Care, Supriya MAN, RN Movement Disorders Department of Neurology ----- Message from José Miguel Hutchins MD PhD sent at 02/26/2025 6:54 PM MEDICAL OFFICE ASST ----- Immunofixation showed no paraprotein, MMA is barely elevated at 0.41 and B12 is normal at 678. I think his neuropathy is probably mainly driven by diabetes. I would recommend he follow up closely with PCP for ongoing management of diabetes. ----- Message ----- From: Interface, Lab Results In Sent: 01/18/2025 5:14 PM MEDICAL OFFICE ASST To: José Miguel Hutchins MD PhD CAL OFFICE ASST CAL OFFICE ASST documented in this encounter Plan of Treatment Scheduled Procedures Name Priority Associated Diagnoses Date/Ti me COLONOSCOPY Encounter for screening colonoscopy documented as of this encounter Visit Diagnoses Not on filedocumented in this encounter Care Teams Blast Setter Relationship Specialty Start Date End Date Jm Alonso MD PCP - General Internal Medicine 08/25/18 Mya Fabian SLP [address] [place] [address] Speech Language Pathologist Speech Therapy 03/03/25 Domi Ortega, OT [address] [facility] [address] [facility] [address] [place] [address] Occupational Therapist Occupational Therapy 03/20/25 documented as of this encounter
--- OUTSIDE RECORDS SUMMARY | 2025-04-13 12:48 | XMS_ITS | Encounter Summary ---
Author Organization [facility] Address 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 [id number] [email or web address] Study Patient: Susan Ledezma MRN: Study ID: ADULT STRESS ECH Gender: M : 1955 Age: 51 years Race: 1 Room: Bed: Height: Study Date: October 18, 2007 Patient status: Inpatient Weight: Access. #: [id number] POC: Ordering: Jamie Riley Attending MD: Jamie [...] peak heart rate and blood pressure [place] [address]. - There was no chest pain during [...] [facility] [address] [place] [address] [email or web address] Study Patient: Susan Ledezma MRN: Study ID: ADULT STRESS ECH Gender: M : 1955 Age: 51 years Race: 1 Room: Bed: Height: Study Date: October 18, 2007 Patient status: Inpatient Weight: Access. #: [id number] POC: Ordering: Jamie Riley Attending MD: Jamie [...] the peak heart rate and blood pressurewas 47805. - There was no chest pain during [...] CDT) SODIUM 135 135 - 145 mmol/L [facility] CALCIUM 8.5 8.4 - 10.2 mg/dL [facility] CO2 25 22 - 30 mmol/L [facility] CREATININE 1.19(H) 0.67 - 1.17 mg/dL [facility] POTASSIUM 4.6 3.5 - 4.9 mmol/L [facility] BUN 20 6 - 20 mg/dL [facility] CHLORIDE 99 96 - 108 mmol/L [facility] GLUCOSE 128(H) 65 - 99 mg/dL [facility] GFR, >60 >=60 mL/min/1. [address] [facility] GFR >60 >=60 mL/min/1. [address] [facility] Comment: Modification of Diet in Renal Disease (MDRD) study formula. Estimated GFR rate interpretative information for both Americans and non- Americans is available on the [facility] Intran[facility] at: [email or web address] Select: Lab Policies and Procedures Select: Reference Ranges - GFR Blood specimen (specimen) 10/18/2007 6:57 AM CDT 10/18/2007 7:08 AM CDT Result [facility] Jamie Chen MD CHEMISTRY ORDERABLES Edite d Performing Organization Address [facility] Co de Phone Number [facility] CLIA# [id number] [address] [place] [address] * D-DIMER (10/17/2007 5:34 PM CDT) D-DIMER QUANT <0.22 <=0.42 ug/mL FEU [facility] Comment: DVT Screen reference range <0.45 [...] ORDERABLES Sania l Result Performing Organization Address [facility] Co de Phone Number [facility] CLIA# [id number] [address] [place] [address] * TROPONIN (10/17/2007 6:15 AM CDT) Pathologist [facility] TROPONIN T <0.01 <=0.03 ng/mL [facility] TROPONIN T INTERP Negative [facility] Blood specimen (specimen) 10/17/2007 6:15 AM CDT 10/17/2007 6:19 AM CDT us Jamie Chen MD CHEMISTRY ORDERABLES Edite d [facility] CLIA# [id number] [address] [place] [address] * (ABNORMAL) COMPREHENSIVE METABOLIC PANEL (10/16/2007 10:26 PM CDT) [facility] CALCIUM 9.1 8.4 - 10.2 mg/dL [facility] CO2 22 22 - 30 mmol/L [facility] ALBUMIN 4.4 3.4 - 4.8 g/dL [facility] POTASSIUM See note. 3.5 - 4.9 mmol/L [facility] Comment: Gross hemolysis present. Result unreliable. K not reported per . Gross hemolysis present. Result unreliable. CREATININE 1.10 0.67 - 1.17 mg/dL [facility] SODIUM 134(L) 135 - 145 mmol/L [facility] ALT 18 0 - 41 U/L [facility] Comment: Hemolyzed: Result may be falsely elevated. ALKALINE PHOSPHATASE 65 40 - 129 U/L [facility] BILIRUBIN TOTAL 0.5 0.2 - 1.0 mg/dL [facility] TOTAL PROTEIN 7.5 6.3 - 8.6 g/dL [facility] CHLORIDE 101 96 - 108 mmol/L [facility] GLUCOSE 174(H) 65 - 99 mg/dL [facility] AST 36 12 - 38 U/L [facility] Comment: Hemolyzed: Result may be falsely elevated. BUN 19 6 - 20 mg/dL [facility] GFR, >60 >=60 mL/min/1. [address] [facility] GFR >60 >=60 mL/min/1. [address] [facility] Comment: Modification of Diet in Renal Disease (MDRD) study formula. Estimated GFR rate interpretative information for both Americans and non- Americans is available on the [facility] at: [email or web address] Select: Lab Policies and Procedures Select: Reference Ranges - GFR Blood specimen (specimen) 10/16/2007 10:26 PM CDT 10/16/2007 10:34 PM CDT Mohsen Garcia MD CHEMISTRY ORDERABLES Edited [facility] CLIA# [id number] [address] [place] [address] * TROPONIN (W/REFLEX CKMB/CK) (10/16/2007 10:26 PM CDT) TROPONIN T <0.01 <=0.03 ng/mL [facility] TROPONIN T INTERP Negative [facility] Blood specimen (specimen) 10/16/2007 10:26 PM CDT 10/16/2007 10:34 PM CDT Mohsen Garcia MD CHEMISTRY ORDERABLES Edited [facility] CLIA# [id number] [address] [place] [address] * CBC WITH DIFFERENTIAL (10/16/2007 10:26 PM CDT) MPV 10.7 9.3 - 12.[address] [facility] HEMATOCRIT 43.4 40.0 - 48.0 % [facility] RDW-STDEV 41.3 37.1 - 48.[address] [facility] RBC 5.09 4.50 - 5.40 M/uL [facility] MCHC 35.3 31.5 - 35.5 % [facility] MCV 85.3 82.0 - 99.[address] [facility] PLATELETS 275 140 - 350 K/uL [facility] HEMOGLOBIN 15.3 13.6 - 16.5 g/dL [facility] RDW 13.3 11.5 - 14.5 % [facility] WBC 8.7 4.0 - 9.8 K/uL [facility] MCH 30.1 27.2 - 32.[address] [facility] BASOPHILS 1 0 - 2 % [facility] BASOPHILS ABSOLUTE 0.05 0.00 - 0.20 K/uL [facility] MONOCYTES 8 3 - 13 % [facility] MONOCYTE ABSOLUTE 0.68 0.10 - 1.30 K/uL [facility] NEUTROPHILS 65 45 - 70 % [facility] NEUTROPHIL ABSOLUTE 5.65 1.90 - 7.00 K/uL [facility] EOSINOPHILS 2 0 - 7 % [facility] EOSINOPHIL ABSOLUTE 0.15 0.00 - 0.70 K/uL [facility] LYMPHOCYTES 25 16 - 45 % [facility] LYMPHOCYTE ABSOLUTE 2.15 0.70 - 4.50 K/uL [facility] Blood specimen (specimen) 10/16/2007 10:26 PM CDT 10/16/2007 10:34 PM CDT us Mohsen Garcia MD HEMATOLOGY ORDERABLES Edited INTERFACE SYSTEM Refer to clinic/hospital department [facility] CLIA# [id number] [address] [place] [address] * XR CHEST PA OR AP (10/16/2007 10:25 PM CDT) Anatomical Region Laterality Modality Chest Other 10/16/2007 10:2 5 PM CDT Narrative 10/17/2007 5:13 PM CDT [facility] [address] [place], [place] [address] Admit Date: 10/17/2007 SUSAN LEDEZMA Sex: M Admit Prov: JAMIE CHEN Date: 1955 Primary Care Prov: CMRN: [id number] Room: [address] [place] [address] SSN: [id number] IMAGING SERVICES Ordering Prov: N/A Accession Number: [id number] Interpretation Chest, portable AP semierect, 10/16/2007 at [...] AMK Procedure Note Provider, Historical - 10/17/2007 [facility] [address] [place], [place] [address] Admit Date: 10/17/2007 SUSAN LEDEZMA Sex: M Admit Prov: JAMIE CHEN Date: 1955 Primary Care Prov: CMRN: [id number] Room: [address] [place] [address] SSN: [id number] IMAGING SERVICES Ordering Prov: N/A Interpretation Chest, [...]
[2025-04-13 13:08] VITALS: BP 100/53; PULSE 76; RESP 16; O2SAT 100
[2025-04-13 13:33] LABS: Hematocrit 39.8 % (42.0-52.0); Hemoglobin 12.9 g/dL (14.0-18.0); Immature Granulocyte Percent A 0.3 % (0-0.5); Lymphocytes Absolute Auto 0.86 K/mm3 (0.9-3.2); Mean Corpuscular HGB Conc 32.4 g/dl (32-36); Mean Corpuscular Hemoglobin 27.2 pg (26-34); Mean Corpuscular Volume 84.0 fl (80-100); Nucleated Red Blood Cells Absolute Auto 0.000 K/mm3 (0.0-0.012); Nucleated Red Blood Cells Perc 0.0 % (0.0-0.2); Platelet Count Result 334 k/mm3 (150-375); Red Blood Count 4.74 M/mm3 (4.6-6.20); White Blood Count 9.5 K/mm3 (4.5-10.0)
[2025-04-13 13:44] LABS: INR 1.1; Prothrombin Time 14.1 Seconds (11.1-14.7)
[2025-04-13 13:45] LABS: Partial Thromboplastin Time 28.1 Seconds (22.3-36.8)
[2025-04-13 13:52] LABS: Alanine Aminotransferase 8 U/L (6-50); Albumin Level 4.4 g/dL (3.5-5.1); Alkaline Phosphatase 86 U/L (38-126); Anion Gap 7 mmol/L (4-12); Aspartate Amino Transferase 28 U/L (17-59); Bilirubin,Total 0.7 mg/dL (0.2-1.3); Blood Urea Nitrogen 22 mg/dL (9-20); Calcium 9.7 mg/dL (8.4-10.2); Carbon Dioxide 26 mmol/L (22-30); Chloride 104 mmol/L (98-107); Estimated Glomerular Filt Rate 35; Glucose 222 mg/dL (65-110); Potassium 4.4 mmol/L (3.4-5.0); Sodium 137 mmol/L (137-145); Total Protein 7.9 g/dL (6.3-8.2)
[2025-04-13 13:59] LABS: Troponin I < 0.012 ng/mL (0.000-0.034)
--- OUTSIDE RECORDS SUMMARY | 2025-04-13 15:13 | XMS_ITS | Clinical Summary ---
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
--- OUTSIDE RECORDS SUMMARY | 2025-04-13 15:13 | XMS_ITS | Encounter Summary ---
Author Organization [facility] Address [address] [place] [address] Care Team Providers Care Cutter Machine Name Role Phone Unavailable Primary Care Provider Unavailabl e Encounter Details Date Type Department Care Team (Late st Contact Info) Description 10/16/2007 Outpatient Historical [facility] Er, Authorized P [place] 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 [id number] [email or web address] Stress Study Patient: Susan Ledezma MRN: Study ID: ADULT STRESS ECH Gender: M : 1955 Age: 51 years Race: 1 Room: Bed: Height: Study Date: October 18, 2007 Patient status: Inpatient Weight: Access. #: [id number] POC: Ordering: Jamie Riley Attending MD: Jamie [...] [place] [address]. - There was no chest pain during [...] 09:54:58 Procedure Note Provider, Historical - 10/18/2007 [facility] [address] [place] [address] [email or web address] Stress Study Patient: Susan Ledezma MRN: Study ID: ADULT STRESS ECH Gender: M : 1955 Age: 51 years Race: 1 Room: Bed: Height: Study Date: October 18, 2007 Patient status: Inpatient Weight: Access. #: [id number] POC: Ordering: Jamie Riley Attending MD: Jamie [...] the peak heart rate and blood pressurewas [address]. - There was no chest pain during [...] CDT) SODIUM 135 135 - 145 mmol/L [facility] CALCIUM 8.5 8.4 - 10.2 mg/dL [facility] CO2 25 22 - 30 mmol/L [facility] CREATININE 1.19(H) 0.67 - 1.17 mg/dL [facility] POTASSIUM 4.6 3.5 - 4.9 mmol/L [facility] BUN 20 6 - 20 mg/dL [facility] CHLORIDE 99 96 - 108 mmol/L [facility] GLUCOSE 128(H) 65 - 99 mg/dL [facility] GFR, >60 >=60 mL/min/1. 7 sq meter [facility] GFR >60 >=60 mL/min/1. 7 sq meter [facility] Comment: Modification of Diet in Renal Disease (MDRD) study formula. Estimated GFR rate interpretative information for both Americans and non- Americans is available on the [facility] Intranet at: [email or web address] Select: Lab Policies and Procedures Select: Reference Ranges - GFR Blood specimen (specimen) 10/18/2007 6:57 AM CDT 10/18/2007 7:08 AM CDT Result [facility] Jamie Chen MD CHEMISTRY ORDERABLES Edite d Performing Organization Address [facility] Co de Phone Number [facility] CLIA# [id number] [address] [place] [address] * D-DIMER (10/17/2007 5:34 PM CDT) D-DIMER QUANT <0.22 <=0.42 ug/mL FEU [facility] Comment: DVT Screen reference [...] ORDERABLES Sania l Result Performing Organization Address [facility] Co de Phone Number [facility] CLIA# [id number] [address] [place] [address] * TROPONIN (10/17/2007 6:15 AM CDT) Pathologist [facility] TROPONIN T <0.01 <=0.03 ng/mL [facility] TROPONIN T INTERP Negative [facility] Blood specimen (specimen) 10/17/2007 6:15 AM CDT 10/17/2007 6:19 AM CDT us Jamie Chen MD CHEMISTRY ORDERABLES Edite d [facility] CLIA# [id number] [address] [place] [address] * (ABNORMAL) COMPREHENSIVE METABOLIC PANEL (10/16/2007 10:26 PM CDT) [facility] CALCIUM 9.1 8.4 - 10.2 mg/dL [facility] CO2 22 22 - 30 mmol/L [facility] ALBUMIN 4.4 3.4 - 4.8 g/dL [facility] POTASSIUM See note. 3.5 - 4.9 mmol/L [facility] Comment: Gross hemolysis present. Result unreliable. K not reported per . Gross hemolysis present. Result unreliable. CREATININE 1.10 0.67 - 1.17 mg/dL [facility] SODIUM 134(L) 135 - 145 mmol/L [facility] ALT 18 0 - 41 U/L [facility] Comment: Hemolyzed: Result may be falsely elevated. ALKALINE PHOSPHATASE 65 40 - 129 U/L [facility] BILIRUBIN TOTAL 0.5 0.2 - 1.0 mg/dL [facility] TOTAL PROTEIN 7.5 6.3 - 8.6 g/dL [facility] CHLORIDE 101 96 - 108 mmol/L [facility] GLUCOSE 174(H) 65 - 99 mg/dL [facility] AST 36 12 - 38 U/L [facility] Comment: Hemolyzed: Result may be falsely elevated. BUN 19 6 - 20 mg/dL [facility] GFR, >60 >=60 mL/min/1. 7 sq meter [facility] GFR >60 >=60 mL/min/1. 7 sq meter [facility] Comment: Modification of Diet in Renal Disease (MDRD) study formula. Estimated GFR rate interpretative information for both Americans and non- Americans is available on the [facility] Intranet at: [email or web address] Select: Lab Policies and Procedures Select: Reference Ranges - GFR Blood specimen (specimen) 10/16/2007 10:26 PM CDT 10/16/2007 10:34 PM CDT Mohsen Garcia MD CHEMISTRY ORDERABLES Edited [facility] CLIA# [id number] [address] [place] [address] * TROPONIN (W/REFLEX CKMB/CK) (10/16/2007 10:26 PM CDT) TROPONIN T <0.01 <=0.03 ng/mL [facility] TROPONIN T INTERP Negative [facility] Blood specimen (specimen) 10/16/2007 10:26 PM CDT 10/16/2007 10:34 PM CDT Mohsen Garcia MD CHEMISTRY ORDERABLES Edited [facility] CLIA# [id number] [address] [place] [address] * CBC WITH DIFFERENTIAL (10/16/2007 10:26 PM CDT) MPV 10.7 9.3 - 12.4 fL [facility] HEMATOCRIT 43.4 40.0 - 48.0 % [facility] RDW-STDEV 41.3 37.1 - 48.7 fL [facility] RBC 5.09 4.50 - 5.40 M/uL [facility] MCHC 35.3 31.5 - 35.5 % [facility] MCV 85.3 82.0 - 99.0 fL [facility] PLATELETS 275 140 - 350 K/uL [facility] HEMOGLOBIN 15.3 13.6 - 16.5 g/dL [facility] RDW 13.3 11.5 - 14.5 % [facility] WBC 8.7 4.0 - 9.8 K/uL [facility] MCH 30.1 27.2 - 32.6 pg [facility] BASOPHILS 1 0 - 2 % [facility] BASOPHILS ABSOLUTE 0.05 0.00 - 0.20 K/uL [facility] MONOCYTES 8 3 - 13 % [facility] MONOCYTE ABSOLUTE 0.68 0.10 - 1.30 K/uL [facility] NEUTROPHILS 65 45 - 70 % [facility] NEUTROPHIL ABSOLUTE 5.65 1.90 - 7.00 K/uL [facility] EOSINOPHILS 2 0 - 7 % [facility] EOSINOPHIL ABSOLUTE 0.15 0.00 - 0.70 K/uL [facility] LYMPHOCYTES 25 16 - 45 % [facility] LYMPHOCYTE ABSOLUTE 2.15 0.70 - 4.50 K/uL [facility] Blood specimen (specimen) 10/16/2007 10:26 PM CDT 10/16/2007 10:34 PM CDT us Mohsen Garcia MD HEMATOLOGY ORDERABLES Edited INTERFACE SYSTEM Refer to clinic/hospital department [facility] CLIA# [id number] [address] [place] [address] * XR CHEST PA OR AP (10/16/2007 10:25 PM CDT) Anatomical Region Laterality Modality Chest Other 10/16/2007 10:2 5 PM CDT Narrative 10/17/2007 5:13 PM CDT [facility] [address] [place], [place] [address] Admit Date: 10/17/2007 SUSAN LEDEZMA Sex: M Admit Prov: JAMIE CHEN Date: 1955 Primary Care Prov: CMRN: [id number] Room: [address] [place] [address] SSN: [id number] IMAGING SERVICES Ordering Prov: N/A Accession Number: [id number] Interpretation Chest, portable AP semierect, 10/16/2007 at [...] Historical - 10/17/2007 [facility] [address] [place], [place] [address] Admit Date: 10/17/2007 SUSAN LEDEZMA Sex: M Admit Prov: JAMIE CHEN Date: 1955 Primary Care Prov: CMRN: [id number] Room: [address] [place] [address] SSN: [id number] IMAGING SERVICES Ordering Prov: N/A Interpretation Chest, [...]
--- OUTSIDE RECORDS SUMMARY | 2025-04-13 15:13 | XMS_ITS | Clinical Summary ---
Author Organization [facility] Address [address] [place] [address] Care Team Providers Care Manager Portable Name Role Phone Jm Alonso MD Primary Care Provider [phone] Mya Fabian Unavailable Domi Ortega OT Unavailable [phone] Allergies No known active allergies Medications cetirizine (ZyrTEC) 10 mg tabletIndicatio ns:Seasonal Allergic Rhinitis Take 1 tablet (10 mg total) by mouth leg man 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 Active aspirin 81 mg [...] 1.5 tablets (150 mg total) by mouth leg man 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 135 tablet 3 5 09/06/19 26 Active mirabegron ER (MYRBETRIQ) 50 mg tablet extended release 24 hr Take 1 tablet (50 mg total) by mouth leg man 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 5 Active linaGLIPtin (Tradjenta) 5 [...] needed for muscle spasms 20 tablet 5 04/13/20 25 Discontinu ed(Other) Active Problems Problem Noted Date Diagnosed Date [...] (07/25/2020): Added automatically from request for surgery [id number] 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 Once this is confirmed we can proceed with definitive therapy Type 2 diabetes mellitus wit hout complication, without long-term current use of insulin 02/29/2020 Assessment & Plan (05/23/2024 12:02 PM JOINER HELPER): Increase insulin to 30 units Assessment & Plan (02/09/2024 11:53 AM CDT): Incease lantus to 26 units. May need bolus insulin Mixed hyperlipidemia 02/29/2020 Essential hypertension 02/29/2020 Assessment & Plan (05/23/2024 12:02 PM JOINER HELPER): Bp at target Assessment & Plan (02/09/2024 [...] the dose slightly. Parkinson disease (CMS/[facility]) 05/29/2015 Assessment & Plan (02/14/2025 6:40 AM [...] [employer] and send updates to us by [email or web address] as needed. 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 Let [...] willing to resume PT and knows of [employer] channel exercises online. He has completed ST [...] gabapentin.. 4. Same clonazepam. 5. Start APDA [employer] channel exercises. 6. Increase salt, fluids and [...] patient. Assessment & Plan (05/23/2024 12:02 PM JOINER HELPER): sandee Stevens neurology Assessment & Plan (02/09/2024 [...] day. Assessment & Plan (03/26/2023 7:09 PM JOINER HELPER): He has parkinsonism stage 2.5 characterized on [...] more consistent with dose timing. 3. Call [facility] PT to schedule a follow up appointment. 4. I will send a referral to [facility] OT for a driving evaluation. Assessment & Plan (05/16/2022 1:12 PM JOINER HELPER): He has parkinsonism stage 2.5 characterized on [...] 7. Start PT and ST here at [facility] then get plan made for [...] exercises. Assessment & Plan (05/04/2020 12:37 PM JOINER HELPER): He has parkinsonism stage 2.5 characterized on [...] a referral to a sleep neurologist at [facility]. They may want to order another sleep study because it has been some time since your last one. 4. I will send a referral to [facility] PT for balance and walking. 5. [...] Department Care Team Description 04/13/2025 10:30 AM JOINER HELPER Office Visit [facility] at [address] [address] Desi Barnye NP Fall, initial encounter (Primary Dx); Acute right-sided low back pain without sciatica 03/17/2025 1:00 PM JOINER HELPER Therapy [facility] [address] [place] [phone] Kiesha Reagan DPT Parkinson's disease without dyskinesia or fluctuating manifestations (HCC) (Primary Dx) 03/17/2025 11:00 AM JOINER HELPER Therapy [facility] [address] [place] [phone] Domi Ortega OT Parkinson's disease without dyskinesia or fluctuating manifestations (HCC) (Primary Dx); Dementia due to Parkinson's disease, without behavioral disturbance, psychotic disturbance, mood disturbance, or anxiety, unspecified dementia severity 03/10/2025 1:00 PM JOINER HELPER Therapy [facility] [address] [place] [phone] Kiesha Reagan DPT Parkinson's disease without dyskinesia or fluctuating manifestations (HCC) (Primary Dx) 03/10/2025 11:00 AM JOINER HELPER Therapy [facility] [address] [place] [phone] Domi Ortega OT Parkinson's disease without dyskinesia or fluctuating manifestations (HCC) (Primary Dx); Dementia due to Parkinson's disease, without behavioral disturbance, psychotic disturbance, mood disturbance, or anxiety, unspecified dementia severity 03/05/2025 Plan of Care Documentation [facility] [address] [place] [phone] 03/03/2025 3:00 PM JOINER HELPER Therapy [facility] [address] [place] [phone] Kiesha Reagan, DPT Parkinson's disease without dyskinesia or fluctuating manifestations (HCC) (Primary Dx) 03/03/2025 1:30 PM JOINER HELPER Therapy [facility] [address] [place] [phone] Mya Fabian, MARIS Parkinson's disease with dyskinesia and fluctuating manifestations (HCC) (Primary Dx); Dementia due to Parkinson's disease, without behavioral disturbance, psychotic disturbance, mood disturbance, or anxiety, unspecified dementia severity 03/03/2025 Plan of Care Documentation [facility] [address] [place] [phone] 02/27/2025 Plan of Care Documentation [facility] [address] [place] [phone] 02/26/2025 Results Follow-Up [facility] 7th Floor [place] [phone] José Miguel Hutchins MD PhD Immunotyping, serum with interpretation, Methylmalonic acid, serum, Vitamin B12 02/24/2025 4:00 PM CDT Therapy [facility] [address] [place] [phone] Domi Ortega OT Parkinson's disease without dyskinesia or fluctuating manifestations (HCC) (Primary Dx); Dementia due to Parkinson's disease, without behavioral disturbance, psychotic disturbance, mood disturbance, or anxiety, unspecified dementia severity 01/24/2025 11:45 AM CDT Office Visit [facility] [address] [phone] Jm Alonso MD Type 2 diabetes mellitus without complication, without long-term current use of insulin (HCC) (Primary Dx); Parkinson's disease, unspecified whether dyskinesia present, unspecified whether manifestations fluctuate (HCC); Essential hypertension; Bilateral renal stones; Mixed hyperlipidemia 01/18/2025 5:45 PM CDT Lab [facility] [address] [place] [address] Hereditary and idiopathic neuropathy 01/18/2025 2:00 PM CDT Office Visit [facility] Medicine Movement Disorders [address] [facility] [address] [place] [address] José Miguel Hutchins MD PhD Parkinson's disease [...] on file Legal Sex Male 11:00 AM JOINER HELPER Gender Identity Male 01/03/2020 10:22 AM CDT Sexual Orientation Choose not to disclose 2019 10:22 AM CDT Last Filed Vital Signs Vital Sign Reading Time Taken Comments Blood Pressure 76/42 04/13/2025 12:20 PM JOINER HELPER Pulse 75 04/13/2025 10:37 AM JOINER HELPER Temperature 36.3 C (97.4 F) 04/13/2025 10:37 AM JOINER HELPER Respiratory Rate 24 04/13/2025 10:37 AM JOINER HELPER Oxygen Saturation 99% 04/13/2025 10:37 AM JOINER HELPER Inhaled Oxygen Concentration - - Weight 94.3 kg (208 lb) 04/13/2025 10:37 AM JOINER HELPER Height 182.9 cm (6') 04/13/2025 10:37 AM JOINER HELPER Body Mass Index 28.21 04/13/2025 10:37 AM JOINER HELPER Plan of Treatment Scheduled Procedures Name Priority [...] the future) Medical Devices Implanted Type Area Stitchdown Toe Former Device Identifier Shelf Expiration Date Model / Serial / Lot [employer] Lens Iol Tecnis Smplcty 1-Pc Clr Mayes 15.5 Diopter [id number] - [id number] - [id number] Implanted:Qty: 1 on 01/14/2023 by Richmond Morales MD at [facility] Lens Left: Eye [employer] [id number] 05/10/2025 [id number] / [id number] / 0 [employer] Lens Iol Tecnis Smplcty 1-Pc Clr Mayes 15.5 Diopter [id number] - [id number] - [id number] Implanted:Qty: 1 on 02/11/2023 by Richmond Morales MD at [facility] Lens Right: Eye [employer] [id number] 12/10/2024 [id number] / [id number] / Procedures Procedure Name Priority Date/Time Associated [...] PhD LAB BLOOD ORDERABLE S Final Result [facility] Department [place] [address] * (ABNORMAL) Methylmalonic acid, serum (01/18/2025 3:17 PM CDT) MMA 0.41(H) <=0.40 nmol/mL [place] ref Lab Comment: In this sample, the concentration of methylmalonic acid (MMA) was minimally elevated. As the upper limit of the reference range varies in different laboratories from 0.4 to 0.6 nmol/mL. This finding could be considered normal, especially if the patient does not show other signs of vitamin B12 deficiency. ADDITIONAL INFORMATION This test was developed and its performance characteristics determined by [facility] in a manner consistent with CLIA requirements. This test has not been cleared or approved by the U.S. Food and Drug Administration. Test Performed by: [facility] - [address] [address] Business Continuity Planning Director: Leonel Boles Ph.D.; CLIA# [id number] Blood 01/18/2025 3:17 PM CDT 01/18/2025 6:28 PM CDT José Miguel Hutchins MD PhD LAB BLOOD ORDERABLE S Final Result Performing Organization Address City/[facility]/ZIP Co de Phone Number [facility] [place] [address] [facility] * Vitamin B12 (01/18/2025 3:17 PM CDT) Pathologist [facility] Vitamin B12 678 230 - 1,250 pg/mL Blood 01/18/2025 3:17 PM CDT 01/18/2025 4:24 PM CDT José Miguel Hutchins MD PhD LAB BLOOD ORDERABLE S Final Result Performing Organization Address City/[facility] Co de Phone Number [facility] [place] [address] * (ABNORMAL) eGFR (12/05/2024 10:23 PM CDT) Pathologist [facility] eGFR 48(L) >=60 mL/min/1. 73 m2 Comment: [...] NICKI HERNANDEZ Final Result Performing Organization Address [facility] de Phone Number [facility] Department [place] [address] * (ABNORMAL) Hemoglobin A1c (12/02/2024 1:43 PM CDT) Hgb A1C 7.9(H) 4.0 - 5.6 % Estimated Average Glucose 180 mg/dL [facility] Comment: The ADA recommends reporting an estimated Average Glucose (eAG) with all Hemoglobin A1c results using the equation derived from a study of 507 normal and diabetic adults. Minority populations were underrepresented and children were not included. (Diabetes Care 2020; 43(S1): S66-S76). The eAG is not equivalent to a fasting glucose. Blood 12/02/2024 1:4 3 PM CDT 12/02/2024 1:58 PM CDT Narrative [facility] - 12/03/2024 9:00 AM CDT reflex Huber Serna MD PhD LAB BLOOD NICKI HERNANDEZ Final Result Performing Organization Address [facility] de Phone Number [facility] Department [place] [address] * Lipid panel (12/02/2024 1:43 PM CDT) [...] revised on 2017. Triglycerides 87 <=149 mg/dL [facility] Comment: Interpretive Data Ages < or = [...] revised on 2017. HDL 48 >=40 mg/dL [facility] Comment: Interpretive Data Ages < or = [...] 2017. LDL, calculated 71 <=129 mg/dL [facility] Comment: Interpretive Data Ages < or [...] 3. Dionicio M et al. MONICA Cardiol. 2020 August 25;5(5):540-548. doi: 10.1001/[email or web address].2020.0013 Current Interpretive Data was last revised on 2023. Non-HDL Cholesterol 88 mg/dL [facility] Comment: Interpretive Data Ages < or = [...] last revised on 2017. Chol/HDL ratio 3 [facility] Blood 12/02/2024 1:43 PM CDT 12/02/2024 1:54 PM CDT Narrative [facility] - 12/03/2024 4:50 PM CDT reflex us Huber Serna MD PhD LAB BLOOD ORDRomelia HERNANDEZ Final Result [facility] Department [place] [address] * Albumin Creatinine Ratio, Urine (09/29/2023 11:20 [...] - 09/30/2023 4:08 AM CDT Performed at: [address] [place] [id number] Business Continuity Planning Director: Yuan Gaitan PhD, Phone: [phone] Jm Alonso MD LAB URINE ORDERABLES Final Re sult Performing Organization Address [facility] Co de Phone Number [facility] - * PSA screen (08/16/2021 10:37 AM CDT) [facility] PSA 0.5 0.0 - 4.0 ng/mL [facility] - Comment: Lito ECLIA methodology. According to the [place] [employer], Serum PSA should decrease and [...] - 08/17/2021 7:09 AM CDT Performed at: [address] [place] [id number] Business Continuity Planning Director: Yuan Gaitan PhD, Phone: [phone] Jm Alonso MD LAB BLOOD ORDERABLES Final Re sult Performing Organization Address [facility] Co de Phone Number [facility] - from Last 3 Months or Most Recently Relevant to Health Maintenance Insurance MEDICARE [facility] FEDERAL MEDICARE [facility] MEDICARE MEDICARE [facility] Advance Directives For more information, please contact: [phone] * Full Code (Latest Code Status on File) Date Activated Date Inactivated Comments 12/02/2024 2:54 PM 12/06/2024 5:07 PM * Full Code Date Activated Date Inactivated Comments 02/11/2023 9:33 AM 02/11/2023 4:38 PM * Full Code Date Activated Date Inactivated Comments 01/14/2023 8:51 AM 01/14/2023 4:11 PM Care Teams Manager Portable Relationship Specialty Start Date End Date Jm Alonso MD PCP - General Internal Medicine 08/25/18 Mya Fabian SLP [address] [facility] [address] [place] [address] Speech Language Pathologist Speech Therapy 03/03/25 Domi Ortega OT [address] [facility] [address] [place] [address] Occupational Therapist Occupational Therapy 03/20/25
--- OUTSIDE RECORDS SUMMARY | 2025-04-13 15:13 | XMS_ITS | Encounter Summary ---
Author Organization [facility] Address [address] [place] [address] Phone Care Team Providers Care Gas Technician Name Role Phone Jm Alonso MD Primary Care Provider [phone] Mya Fabian CEMENT BOAT AND BARGE LOADER Unavailable Domi Ortega OT Unavailable [phone] Encounter Details Date Type Department Care Team (Latest Contact Info) Description 02/26/2025 Results Follow-Up [facility] Medicine Movement Disorders [address] [facility] 7th [place] [address] José Miguel Hutchins MD PhD [address] [place] [address] Immunotyping, serum with interpretation, Methylmalonic acid, serum, [...] on file Legal Sex Male 11:00 AM SALES ASSISTANT INSTITUTIONAL SALES Gender Identity Male 01/03/2020 10:22 AM CDT [...] MD PhD sent at 02/26/2025 6:54 PM SALES ASSISTANT INSTITUTIONAL SALES ----- Immunofixation showed no paraprotein, MMA is barely elevated at 0.41 and B12 is normal at 678. I think his neuropathy is probably mainly driven by diabetes. I would recommend he follow up closely with PCP for ongoing management of diabetes. ----- Message ----- From: Interface, Lab Results In Sent: 01/18/2025 5:14 PM SALES ASSISTANT INSTITUTIONAL SALES To: José Miguel Hutchins MD PhD S ASSISTANT INSTITUTIONAL SALES S ASSISTANT INSTITUTIONAL SALES documented in this encounter Plan of Treatment Scheduled Procedures Name Priority Associated Diagnoses Date/Ti me COLONOSCOPY Encounter for screening colonoscopy documented as of this encounter Visit Diagnoses Not on filedocumented in this encounter Care Teams Gas Technician Relationship Specialty Start Date End Date Jm Alonso MD PCP - General Internal Medicine 08/25/18 Mya Fabian SLP [address] [place] [address] Speech Language Pathologist Speech Therapy 03/03/25 Domi Ortega, OT [address] [facility] [address] [facility] [address] [place] [address] Occupational Therapist Occupational Therapy 03/20/25 documented as of this encounter
[2025-04-13 16:57] VITALS: BP 140/65; PULSE 66; RESP 16; O2SAT 97
[2025-04-13 17:27] VITALS: BP 134/59; PULSE 62; RESP 15; O2SAT 98
--- NOTE | 2025-04-13 18:16 | WPCEDHO ---
ED Hand Off Checklist All vitals saved:yes IV Site documented:yes All med administrations documented:yes Triage Note Triage Note Pt to the ED for evaluation of a 04/13/25 14:08 syncopal episode. Pt fell on Thursday and was at urgent care for evaluation of the fall when he had a syncopal episode. Pt has hx of orthostatic hypotension and takes medications for it. Pt does not remember the event, states he feels at his baseline. Allergies No Known Allergies Allergy (Verified 04/13/25 14:13) Family History (Last Reviewed 04/13/25 @ 14:18 by Harjit Chang DO) Other Unknown family medical history Interventions/Assessments IV / Saline Lock, Insert Start: 04/13/25 11:45 Freq: Status: Active Protocol: Document 04/13/25 13:21 KED (Rec: 04/13/25 13:21 KED [id number]) IV Assessment Peripheral Access Right Wrist IV Catheter Access Initiated IV Insertion Date 04/13/25 IV Insertion Time 13:21 Catheter Gauge 20 IV Insertion 1 Attempts Ultrasound Used for No Placement IV Site Assessment WNL IV Care and WNL Maintenance PA: Cardiovascular Assessment Start: 04/13/25 11:45 Freq: Status: Active Protocol: Document 04/13/25 14:09 TMH (Rec: 04/13/25 14:13 TMH [id number]) Cardiovascular Assessment Cardiovascular None Symptoms Skin Description Normal Color Heart Sounds Normal Jugular Vein None Distention PA: Neurological Assessment Start: 04/13/25 11:36 Freq: Status: Active Protocol: Document 04/13/25 16:56 TMH (Rec: 04/13/25 16:57 TMH [id number]) Neurological Assessment Level of Alert,Awake Consciousness Arousable to Verbal Orientation Oriented to Person,Oriented to Place,Oriented to Time Neurological None Symptoms Hallucination Type None Unable to Redirect No Behavior Behavior Appropriate,Cooperative Patient Able to Comprehend Comprehension Memory Description Intact Ability to Maintain Unable to Assess Balance Facial Symmetry Symmetrical Speech Pattern Clear Ability to Swallow Normal Tongue Position Midline Finger to Nose Test Normal Performance Last Vital Signs Temperature 98.1 F 04/13/25 11:40 Pulse Rate 62 04/13/25 17:27 Respiratory Rate 15 04/13/25 17:27 Pulse Oximetry 98 04/13/25 17:27 Blood Pressure 134/59 L 04/13/25 17:27 Blood Pressure Mean 84 04/13/25 17:27 Blood Pressure Position Sitting 04/13/25 11:40 Weight 95.1 kg 04/13/25 14:08 Last Result - Abnormals Only Hgb 12.9 g/dL (14.0-18.0) L 04/13/25 13:22 Hct 39.8 % (42.0-52.0) L 04/13/25 13:22 RDW 14.7 % (11.5-14.5) H 04/13/25 13:22 Neut % (Auto) 82.9 % (45.5-73.1) H 04/13/25 13:22 Lymph % (Auto) 9.1 % (18.3-44.2) L 04/13/25 13:22 Lymph # (Auto) 0.86 K/mm3 (0.9-3.2) L 04/13/25 13:22 Absolute Neuts (auto) 7.8 K/mm3 (1.3-6.7) H 04/13/25 13:22 BUN 22 mg/dL (9-20) H D 04/13/25 13:22 Creatinine 1.92 mg/dL (0.7-1.3) H 04/13/25 13:22 Estimated GFR 35 (59-) L 04/13/25 13:22 Glucose 222 mg/dL (65-110) H 04/13/25 13:22 POC Capillary Glucose 242 mg/dl (65-105) H 04/13/25 13:16 Most Recent Suicide Severity Rating Suicide Severity Rating NO RISK INDICATED 04/13/25 14:08
[2025-04-13 18:48] VITALS: BMI 28.4
--- NOTE | 2025-04-13 18:49 | PC.NURSE ---
Received patient from ER at 1848. Admission Note: The patient,Susan Ledezma,69 y/o, was given written information regarding hospital policies, unit procedures and contact persons. Patient's smoking status: Never smoker.
[2025-04-13 20:00] VITALS: BP 129/51; PULSE 64; RESP 20; TEMP 36.5; O2SAT 100
[2025-04-13 20:13] VITALS: BP 129/57; PULSE 64; RESP 20; TEMP 36.5; O2SAT 100
[2025-04-14] VITALS (9 sets, daily range): BP systolic 116–153; BP diastolic 48–79; PULSE 64–73; RESP 16–20; TEMP 36.2–36.6; O2SAT 97–98
--- NOTE | 2025-04-14 | ECHO_ITS ---
Patient Info Name: Susan Ledezma Age: 69 years : 1955 Gender: Male Ht: 72 in Wt: 209 lbs BSA: 2.21 m2 HR: 65 bpm BP: 134 / 66 mmHg Technical Quality: Fair Exam Date: 04/14/2025 11:14 AM Patient Status: I Admit Date: 04/13/2025 Exam Type: CA echo dop bubble study w con Complete two-dimentional, color flow and Doppler transthoracic echocardiogram is performed with agitated saline and with contrast to opacify the left ventricle and to improve the delineation of the left ventricle endocardial borders. Staff Referring Physician: Merly Cooley NP Asset Protection Assistant: Rusty Garcia III Attending Provider: Edu Flaherty MD Contrast/Agitated Saline Contrast/Ag. Saline: Definity Amount: 2.00 ml Administered By: Rusty Garcia III Existing IV Access: Yes IV Access Condition: patent with no signs of infiltration Contrast/Ag. Saline: Agitated Saline Amount: 16.00 ml Administered By: Rusty Garcia III Existing IV Access: Yes IV Access Condition: patent with no signs of infiltration Summary 1. Definity contrast administered improved wall motion interpretation. 2. Left ventricular chamber dimension is normal. 3. Left ventricular systolic function is normal, estimated at 65-70. 4. The left ventricular diastolic function is grade I diastolic dysfunction. 5. E/e' 10 is mildly elevated. Left Ventricle Left ventricular chamber dimension is normal. Left ventricular systolic function is normal, estimated at 65-70. The left ventricular diastolic function is grade I diastolic dysfunction. Definity contrast administered improved wall motion interpretation. E/e' 10 is mildly elevated. Right Ventricle Right ventricular chamber dimension is normal. Right ventricular systolic function is normal and with normal TAPSE 2.0 cm. Left Atria Left atrial chamber dimension is normal. Right Atria Right atrial chamber dimension is normal. Atrial Septum Intact interatrial septum visualized by 2D and agitated saline imaging. Agitated saline injection with and without valsalva maneuver opacified right side cardiac chambers without shunt to left side cardiac chambers. Aortic Valve The aortic valve is trileaflet. There is no aortic valve stenosis. There is no aortic valve regurgitation. Pulmonic Valve There is no pulmonic regurgitation. Mitral Valve There is no mitral valve stenosis. There is no mitral valve regurgitation. Tricuspid Valve There is no tricuspid valve regurgitation. Pericardium/Pleural There is no pericardial effusion. Inferior Vena Cava Normal inferior vena cava with >50% collapse upon inspiration consistent with normal right atrial pressure, 5 mmHg. Aorta The aortic root size at the sinus of Valsalva is normal. Left Ventricular Outflow Tract Name Value Normal LVOT 2D LVOT Diameter 2.2 cm LVOT Doppler LVOT Peak Velocity 128 cm/s LVOT Peak Gradient 7 mmHg LVOT Mean Gradient 4 mmHg LVOT VTI 32 cm LVOT VTI/AV VTI Ratio 1.2 LVOT Stroke Volume 119 ml LVOT CO 7.6 l/min LVOT CI 3.4 l/min/m2 Mitral Valve Name Value Normal MV Doppler MV Peak Gradient 4 mmHg MV Mean Gradient 2 mmHg MV Area (Cont Eq VTI) 3.6 cm2 MV Diastolic Function MV E Peak Velocity 91 cm/s MV A Peak Velocity 106 cm/s MV E/A 0.9 MV Decel Time (PW) 270 ms MV Annular TDI MV E/e' (Septal) 13.1 MV E/e' (Lateral) 9.3 MV E/e' (Average) 11.2 Tricuspid Valve Name Value Normal Estimated PAP/RSVP RA Pressure 5 mmHg <=5 TV Annular TDI TV Lateral Rosemarie s' Velocity 9.7 cm/s >=9.5 Aortic Valve Name Value Normal AV Doppler AV Peak Velocity 134 cm/s AV Peak Gradient 7 mmHg AV Mean Gradient 4 mmHg AV VTI 28 cm AV Area (Cont Eq VTI) 4.3 cm2 >=3.0 AV Area (Cont Eq Neftaly) 3.6 cm2 AV DI (Neftaly) 0.96 AV Regurgitation 2D LVOT Area 3.7 cm2 Ventricles Name Value Normal LV Dimensions 2D/MM IVS Diastolic Thickness (2D) 0.7 cm 0.6-1.0 LVID Diastole (2D) 5.1 cm 4.2-5.8 LVIW Diastolic Thickness (2D) 0.8 cm 0.6-1.0 LVID Systole (2D) 3.1 cm 2.5-4.0 LVOT Diameter 2.2 cm LV Mass (2D Cubed) 133.47 g 88.00-224.00 LV Mass Index (2D Cubed) 60 g/m2 49-115 Relative Wall Thickness (2D) 0.32 <=0.42 LV Fractional Shortening/Ejection Fraction 2D/MM LV Fractional Shortening (2D) 38 % 25-43 LV EF (2D Teichholz) 68 % LV Diastolic Volume (4C MOD) 90 ml LV EF (4C MOD) 68 % LV Diastolic Volume (2C MOD) 77 ml LV EF (2C MOD) 79 % LV Diastolic Volume (BP MOD) 78 ml 62-150 LV Diastolic Volume Index (BP MOD) 35 ml/m2 34-74 LV Systolic Volume (BP MOD) 22 ml 21-61 LV Systolic Volume Index (BP MOD) 10 ml/m2 11-31 LV EF (BP MOD) 72 % 52-72 LV Diastolic Length (4C) 7.4 cm LV Systolic Length (4C) 5.6 cm LV Stroke Volume (4C MOD) 62 ml Atria Name Value Normal LA Dimensions LA Volume (4C A-L) 54 ml LA Volume (BP A-L) 54 ml RA Dimensions RA Systolic Major Woodford Length (4C) 4.9 cm 2.1-2.7 RA Area (4C) 15.5 cm2 <=18.0 Report Signatures
[2025-04-14] MEDS: GABAPENTIN 300 MG CAPSULE PO ×2 (00:14→21:06)
[2025-04-14] MEDS: MIRABEGRON 50 MG ER TABLET PO ×2 (00:14→21:06)
[2025-04-14] MEDS: CARBIDOPA/LEVODOPA 25/100 MG CR TABLET 2 TABLET PO (00:15)
[2025-04-14] MEDS: clonazePAM (*CRX) 0.5 MG TABLET PO ×2 (00:15→21:06)
--- NOTE | 2025-04-14 00:37 | PM.IMHP2 ---
H&P: HPI History of Present Illness Date/Time: 04/14/25 00:37 Chief Complaint: Syncope Narrative: This is a 69-year-old male patient who has a history of Parkinson's, hyperlipidemia, anxiety, and diabetes. The patient was walking at home of 2 nights ago when he fell and hit the cabinet door. He denies hitting his head. He was having severe right lower back pain that was worse with movement. He did not lose consciousness during this fall. He does have a history of orthostatic hypotension due to his Parkinson's. Head CT was read as acute right occipital infarct suspected. Contrast enhanced MRI is recommended. Patient is outside the window for any tPA. Lumbar spine CT was read as a followingMPRESSION: 1. Nondisplaced right transverse process fracture of L1. No other fracture lucency or traumatic malalignment L1-L5. 2. Multilevel degenerative changes including multilevel spinal canal stenosis. 3. Incidental note of lower pole left kidney stone. She chest x-ray was read as no acute cardiopulmonary abnormality. As per ER provider documentation it was noted the case was discussed with Dr. Gaston neurology who does not recommend additional medication as he is already on aspirin and atorvastatin. H&H 12.9 and 39.8 which appears to be is baseline. BUN 22 and creatinine 1.92 which is improved from his baseline. GFR is 35 which is improved from his baseline. Blood sugars 222. The patient is being admitted to inpatient status on the date of service of 04/14/2025. Review of Systems Review of Systems: The patient is a poor historian. Information obtained from old records. ROS unobtainable: Yes unobtainable due to medical condition and unobtainable due to mental status Constitutional: Constitutional: Reports as per HPI and Reports no additional constitutional complaints Eyes: Eyes: Reports as per HPI and Reports no additional eye complaints ENT: Reports system reviewed and no additional complaints, except as documented and Reports Normal hearing present Cardiovascular: Cardiovascular: Reports no additional cardiovascular complaints Respiratory: Respiratory: Reports as per HPI and Reports no additional respiratory complaints Gastrointestinal: Gastrointestinal: Reports as per HPI and Reports no additional gastrointestinal complaints Musculoskeletal: Musculoskeletal: Reports no additional musculoskeletal complaints Integumentary/Breasts: Skin/Breast: Reports system reviewed and no additional complaints, except as docu Neurologic: Reports system reviewed and no additional complaints, except as documented and Reports Normal hearing present Comments: His speech was slurred. He is moving all extremities. Pupils are equal and reactive to light. Hand character artist are equal and pushes are equal. The patient is alert and orientated to himself. Unclear of baseline. Finger to nose was slightly off. Psychiatric: Psychiatric: Reports no additional psychiatric complaints and Reports as per HPI Hematologic/Lymphatic: Hematologic/Lymphatic: Reports no additional hematologic/lymphatic complaints Allergic/Immunologic: Allergic/Immunologic: Reports no additional allergic/immunologic complaints [facility] Past Medical History Medical History (Updated 04/14/25 @ 04:47 by Merly Cooley APRN) Neuropathy DM2 (diabetes mellitus, type 2) HTN (hypertension), malignant Anxiety Hyperlipidemia BPH (benign prostatic hyperplasia) Diabetes Parkinson's disease Surgical History Surgical History (Updated 04/14/25 @ 04:47 by Merly Cooley APRN) History of appendectomy History of tonsillectomy Family History Family History Other Unknown family medical history Social History Social History (Updated 04/14/25 @ 04:47 by Merly Cooley APRN) Social History: The patient is and lives with his Isabel. He has 2 children. Smoking status: Never smoker Second hand tobacco smoke exposure: No Alcohol intake: current Drinks per week: 1 Substance use: never Lack of Transportation: No Lack of Food: Never True Current Housing: I Have Housing Concerned About Future Housing: No Difficulty Paying Gas/Electric Bills: No Difficulty Paying for Meds: No Currently Unemployed: No Education: Bachelor's Degree Difficulty w/ Childcare or Family Care: No Living arrangements: with family Spiritual care concerns: No Meds Home Medications and Allergies Home Medications ?Medication ?Instructions ?Recorded ?Confirmed ?Type Adult Aspirin EC Low Strength 81 mg PO DAILY 09/24/23 04/13/25 History atorvastatin 20 mg tablet 20 mg PO DAILY 09/24/23 04/13/25 History carbidopa 25 mg-levodopa 100 mg 25 - 100 tablet PO TID 09/24/23 04/13/25 History tablet (Sinemet) carbidopa ER 50 mg-levodopa 200 mg 50 - 200 tablet PO HS 09/24/23 04/13/25 History tablet,extended release cetirizine 10 mg PO DAILY 09/24/23 04/13/25 History clonazepam 0.5 mg tablet 0.5 mg PO HS 09/24/23 04/13/25 History fenofibrate 160 mg tablet 160 mg PO DAILY 09/24/23 04/13/25 History gabapentin 300 mg capsule 300 mg PO HS 09/24/23 04/13/25 History omeprazole 20 mg PO DAILY 09/24/23 04/13/25 History sertraline 100 mg tablet 100 mg PO DAILY 09/24/23 04/13/25 History tamsulosin 0.4 mg capsule 0.4 mg PO DAILY 09/24/23 04/13/25 History insulin glargine-yfgn 100 unit/mL 30 unit subcut QA 10/22/24 04/13/25 History (3 mL) subcutaneous pen linagliptin 5 mg tablet (Tradjenta) 5 mg PO QA 10/22/24 04/13/25 History mirabegron 50 mg tablet,extended 50 mg PO HS 10/22/24 04/13/25 History release 24 hr fludrocortisone 0.1 mg tablet 0.1 mg PO QA 04/13/25 04/13/25 History methocarbamol 500 mg tablet 500 mg PO PRN PRN back pain 04/13/25 04/13/25 History midodrine 5 mg tablet 5 mg PO QA 04/13/25 04/13/25 History Allergies Allergy/AdvReac Type Severity Reaction Status Date / Time No Known Allergies Allergy Verified 04/13/25 18:58 Vital Signs Vital Signs - 24 hr 04/13/25 11:40 04/13/25 13:08 04/13/25 16:57 Temperature 98.1 F Pulse Rate 93 76 66 Respiratory Rate 16 16 16 Blood Pressure 93/46 L 100/53 L 140/65 Pulse Oximetry 99 100 97 Oxygen Delivery 04/13/25 17:27 04/13/25 20:00 04/13/25 20:00 Temperature 97.7 F Pulse Rate 62 64 64 Respiratory Rate 15 20 20 Blood Pressure 134/59 L 129/51 L Pulse Oximetry 98 100 100 Oxygen Delivery Room Air 04/13/25 20:13 04/14/25 00:00 Temperature 97.7 F 97.9 F Pulse Rate 64 69 Respiratory Rate 20 20 Blood Pressure 129/57 L 153/79 H Pulse Oximetry 100 98 Oxygen Delivery Exam Const: General: cooperative, healthy appearing, comfortable, no acute distress, well developed, awake, Physically active, average body habitus and well nourished Nutritional Appearance: average body habitus and well nourished Orientation/consciousness: oriented to person HENMT: Head: normal to inspection, No palpable skull fracture present, normocephalic, atraumatic and abrasion Ears: hearing grossly normal bilaterally and external ears normal Eyes: General: appearance normal, both eyes and all related structures Alignment and Position: alignment normal Periorbital: periorbital findings normal Eyelids: eyelids normal Conjunctivae: conjunctivae normal Sclera: sclerae normal Neck: Neck: normal visual inspection, full ROM and no lymphadenopathy Chest: Chest palpation & inspection: normal inspection of the chest Resp: Effort & Inspection: normal respiratory effort Auscultation: clear to auscultation bilaterally Cardio: Palpation: normal PMI Rate: regular rate Rhythm: regular rhythm Heart sounds: S1 normal heart sound present and S2 normal heart sound present Peripheral pulses: Peripheral pulses 2+ throughout GI: Inspection: normal to inspection Percussion: Yes normal to percussion Auscultation: normal bowel sounds Rectal Exam: deferred : General: Yes no CVA tenderness Back/Spine/Pelvis: Back: no CVA tenderness Cervical Spine: cervical ROM normal Skin: General skin exam: normal color Lesions: no lesions Rashes: no rashes Trauma: no lacerations or abrasions Neuro: General: oriented to person and patient oriented x3 Extrem: General: normal to inspection Right upper extremity: normal to inspection and shoulder/upper arm Left upper extremity: normal to inspection and shoulder/upper arm Right lower extremity: normal to inspection Left lower extremity: normal to inspection Psych: Appearance: grossly normal Mental Status: mental status grossly normal Speech and movement: Normal speech and movement present Affect: normal affect Attitude: cooperative Results Labs Labs: Short CBC 04/13/25 Range/Units 13:22 WBC 9.5 (4.5-10.0) K/mm3 Hgb 12.9 L (14.0-18.0) g/dL Hct 39.8 L (42.0-52.0) % Plt Count 334 (150-375) k/mm3 [facility] 04/13/25 13:22 Sodium 137 Potassium 4.4 Chloride 104 Carbon Dioxide 26 BUN 22 H D Creatinine 1.92 H Glucose 222 H Calcium 9.7 Cardiac Enzymes 04/13/25 Range/Units 13:22 Troponin I < 0.012 (0.000-0.034) ng/mL Liver Function 04/13/25 Range/Units 13:22 Total Bilirubin 0.7 (0.2-1.3) mg/dL AST 28 (17-59) U/L ALT 8 (6-50) U/L Alkaline Phosphatase 86 (38-126) U/L Albumin 4.4 (3.5-5.1) g/dL Attestation: I personally reviewed all lab results ECG Attestation: I personally reviewed and interpreted this ECG as follows: Interpretation: Test Date: 2025-04-13 13:12:48 Measurements Intervals [place] Rate: 76 P: 51 PA: 155 QRS: 26 QRSD: 90 T: 72 QT: 369 QTc: 417 Interpretive Statements SINUS RHYTHM BASELINE ARTIFACT- I, II, III, AVR, AVL, AVF NORMAL ECG Compared to ECG 11/21/2024 14:23:35 NO SIGNIFICANT CHANGE Electronically Signed On 04-13-2025 13:17:15 LEGAL WORD PROCESSOR by Bashir Bear D.O. Imaging CT scan - head: Radiologist's impression: ITS Impressions Head CT 04/13/25 12:23 Impression: Acute right occipital infarct suspected. Contrast-enhanced MRI is recommended Lumbar Spine CT 04/13/25 13:10 IMPRESSION: 1. Nondisplaced right transverse process fracture of L1. No other fracture lucency or traumatic malalignment L1-L5. 2. Multilevel degenerative changes including multilevel spinal canal stenosis. 3. Incidental note of lower pole left kidney stone. Chest X-Ray 04/13/25 13:29 Impression: No acute cardiopulmonary abnormality. Quality VTE Prophylaxis VTE prophylaxis: mechanical ordered Stroke Date of last known normal: 04/12/25 Stroke Scale Stroke scale date:: 04/14/25 Stroke scale time:: 05:01 1a Level of conciousness: alert-0 1b Level of consciousness: answers one correctly-1 1c Level of consciousness: obeys both correctly-0 2 Best gaze: normal-0 3 Visual: no visual loss-0 4 Facial palsy: normal-0 5a Motor: left arm: no drift-0 5b Motor: right arm: no drift-0 6a Motor: left leg: no drift-0 6b Motor: right leg: no drift-0 7 Limb ataxia: absent-0 8 Sensory: normal-0 9 Best language: some loss of fluency-1 10 Dysarthria: slurs some words-1 11 Extinction and inattention: no abnormality-0 Level:: 3 Assessment and Plan Assessment and plan (1) Ischemic stroke: Code(s): I63.9 - Cerebral infarction, unspecified Status: Acute Assessment and Plan: -neurology has been consulted per ED provider. It was noted that the patient is already on aspirin and atorvastatin and no further treatment is needed. -continue with neuro checks as per nursing protocol. -PT, OT, and speech therapy would greatly be appreciated. Evaluate and treat -continue with aspirin and atorvastatin -echo with bubble study -carotid Dopplers -the patient is not a candidate for tPA -see stroke score. -MRI ordered (2) Parkinson's disease: Qualifiers: Dyskinesia presence: with dyskinesia Fluctuating manifestations: without fluctuating manifestations Qualified Code(s): G20.B1 - Parkinson's disease with dyskinesia, without mention of fluctuations Code(s): G20.A1 - Parkinson's disease without dyskinesia, without mention of fluctuations Status: Acute Assessment and Plan: -continue with levodopa carbidopa (3) Lumbar transverse process fracture: Qualifiers: Encounter type: initial encounter Fracture type: closed Qualified Code(s): S32.009A - Unspecified fracture of unspecified lumbar vertebra, initial encounter for closed fracture Code(s): S32.009A - Unspecified fracture of unspecified lumbar vertebra, initial encounter for closed fracture Status: Acute Assessment and Plan: -continue physical therapy and occupational therapy -pain management (4) Neuropathy: Code(s): G62.9 - Polyneuropathy, unspecified Status: Acute Assessment and Plan: -continue with gabapentin (5) BPH (benign prostatic hyperplasia): Code(s): N40.0 - Benign prostatic hyperplasia without lower urinary tract symptoms Status: Acute Assessment and Plan: -continue with tamsulosin (6) DM2 (diabetes mellitus, type 2): Code(s): E11.9 - Type 2 diabetes mellitus without complications Status: Acute Assessment and Plan: -Accu-Cheks AC and HS with sliding scale insulin. Hypoglycemic protocol -check A1c if not performed in the last 3 months. -pharmacy to reduce long-acting insulin by 20% of home insulin. (7) HTN (hypertension), malignant: Code(s): I10 - Essential (primary) hypertension Status: Acute Assessment and Plan: -the patient has orthostatic hypotension due to his Parkinson's. Continue with fludrocortisone and midodrine (8) Hyperlipidemia: Code(s): E78.5 - Hyperlipidemia, unspecified Status: Acute Assessment and Plan: -continue with atorvastatin and Tricor (9) Anxiety: Code(s): F41.9 - Anxiety disorder, unspecified Status: Acute Assessment and Plan: -continue Zoloft
[2025-04-14 05:30] LABS: Hematocrit 38.8 % (42.0-52.0); Hemoglobin 12.4 g/dL (14.0-18.0); Mean Corpuscular HGB Conc 32.0 g/dl (32-36); Mean Corpuscular Hemoglobin 27.1 pg (26-34); Mean Corpuscular Volume 84.7 fl (80-100); Platelet Count Result 306 k/mm3 (150-375); Red Blood Count 4.58 M/mm3 (4.6-6.20); White Blood Count 6.8 K/mm3 (4.5-10.0)
[2025-04-14 05:44] LABS: Hemoglobin A1C 8.3 % (<5.7)
[2025-04-14 05:53] LABS: Anion Gap 5 mmol/L (4-12); Blood Urea Nitrogen 24 mg/dL (9-20); Calcium 9.4 mg/dL (8.4-10.2); Carbon Dioxide 26 mmol/L (22-30); Chloride 105 mmol/L (98-107); Estimated CRCL calculation 38 ml/min; Estimated Glomerular Filt Rate 36; Glucose 143 mg/dL (65-110); Magnesium 2.1 mg/dL (1.6-2.3); Potassium 4.0 mmol/L (3.4-5.0); Sodium 136 mmol/L (137-145)
[2025-04-14 06:13] LABS: Thyroid Stimulating Hormone Reflex 3.820 uIU/mL (0.465-4.68)
[2025-04-14] MEDS: ASPIRIN 81 MG ENTERIC TABLET PO (08:44)
[2025-04-14] MEDS: CARBIDOPA/LEVODOPA 25/100 MG TABLET 3 TABLET PO (08:45)
[2025-04-14] MEDS: ATORVASTATIN 20 MG TABLET PO (08:45)
[2025-04-14] MEDS: MIDODRINE HCL 2.5 MG TABLET 5 MG PO (08:56)
[2025-04-14] MEDS: LORATADINE 10 MG TABLET PO (08:56)
[2025-04-14] MEDS: TAMSULOSIN HCL 0.4 MG CAPSULE PO (08:56)
[2025-04-14] MEDS: SERTRALINE HCL 50 MG TABLET 150 MG PO (08:57)
[2025-04-14] MEDS: FENOFIBRATE 145 MG TABLET PO (08:57)
[2025-04-14] MEDS: INSULIN GLARGINE (*BKC) 100 UNITS/ML 24 UNITS SUB-Q (08:57)
[2025-04-14] MEDS: FLUDROCORTISONE ACETATE 0.1 MG TABLET PO (09:02)
[2025-04-14] MEDS: PERFLUTREN LIPID MICROSPHERES 1.5 ML VIAL DILUTED TO 10 ML TOTAL VOLUME IV PUSH (12:24)
--- NOTE | 2025-04-14 12:24 | IVDEFINITY ---
Prior to administration of IV Definity the patient was educated on the risks and benefits of the imaging enhancing agent including potential adverse side effects. The patient verbalized understanding. Allergies were verified. No exclusion criteria were identified and at least one of the following inclusion criteria were met: 1) physician request, 2) patient technically difficult to image (per the [place] [employer] of Echocardiography guidelines of two or more segments not discernable within the apical view), or 3) questionable left ventricular function. ?
--- NOTE | 2025-04-14 12:40 | PC.NURSE ---
call to Dr Flaherty to review orders, he is covering [facility], Dr Flaherty gave order for pt to be placed on telemetry
--- NOTE | 2025-04-14 13:51 | PM.IMPN2 ---
Assessment and Plan Assessment and Plan (1) Lumbar transverse process fracture: Qualifiers: Encounter type: initial encounter Fracture type: closed Qualified Code(s): S32.009A - Unspecified fracture of unspecified lumbar vertebra, initial encounter for closed fracture Code(s): S32.009A - Unspecified fracture of unspecified lumbar vertebra, initial encounter for closed fracture Status: Acute Assessment and Plan: Lumbar CT- Nondisplaced fracture right transverse process of L1. No other fracture lucency or traumatic malalignment L1-L5. Multilevel degenerative changes including multilevel spinal canal stenosis PT/OT evaluation and treatment Will continue to monitor for improvement (2) Ischemic stroke: Code(s): I63.9 - Cerebral infarction, unspecified Status: Acute Assessment and Plan: MRI pending Carotid Doppler study- No hemodynamically significant ICA stenosis and normal bilateral antegrade vertebral artery flow Echocardiogram- The left ventricular diastolic function is grade I diastolic dysfunction. E/e' [address] Head CT- There is a remote right basal ganglion lacunar infarct. There is an acute appearing right occipital infarct. No hemorrhage. No midline shift or mass effect. No extra-axial fluid collections Continue aspirin and atorvastatin (3) Parkinson's disease: Qualifiers: Dyskinesia presence: with dyskinesia Fluctuating manifestations: without fluctuating manifestations Qualified Code(s): G20.B1 - Parkinson's disease with dyskinesia, without mention of fluctuations Code(s): G20.A1 - Parkinson's disease without dyskinesia, without mention of fluctuations Status: Acute Assessment and Plan: Chronic condition that affects the patient gait Up with assistance Fall precautions PT/OT/Speech therapy evaluation and treatment Continue on carbidopa/ levodopa (4) Orthostatic hypertension: Code(s): I10 - Essential (primary) hypertension Status: Acute Assessment and Plan: See above continue fludrocortisone and midodrine (5) Hyperglycemia due to diabetes mellitus: Code(s): E11.65 - Type 2 diabetes mellitus with hyperglycemia Status: Acute Assessment and Plan: BS initial 242, current 182 Diabetic consistent carbohydrate diet Accu-Cheks AC and HS with sliding scale insulin. Hypoglycemic protocol A1c is 8.3 Long acting insulin decreased by 20% of home dosage Continue to monitor (6) Neuropathy: Code(s): G62.9 - Polyneuropathy, unspecified Status: Acute Assessment and Plan: Chronic condition Continue gabapentin (7) Anxiety: Code(s): F41.9 - Anxiety disorder, unspecified Status: Acute Assessment and Plan: Continue zoloft Subjective Date/time seen: 04/14/25 10:00 Interval history: 69 year old male patient who has a history of Parkinson's, hyperlipidemia, anxiety, and diabetes presents inpatient for a fall he had 3 nights ago where he hit the cabinet door. Patient denies hitting his head. He was having pain in his right lower back that got worse with movement. He did not loss consciousness, but patient does have a history of orthostatic hypertension due related to Parkinson diagnosis. 04/14 Patient is feeling better over all. He still has some pain with movement in his lower right back. Patient denies incontinence, dysuria, flank pain, headaches, visual changes, and trouble breathing. Patint reports when he fell it left a red alethea on his hip but states he used a heating pad and it is no longer present. He denies ear pain, fever, chills, cough, and body aches. Patient states he is not in acute distress. Review of Systems Review of Systems: All systems reviewed & are unremarkable except as noted in HPI and below Exam Const: General: comfortable Eyes: Sclera: sclerae normal Pupils: Equal, round and reactive pupils present Neck: Neck: supple and no JVD Thyroid: thyroid normal Resp: Effort & Inspection: normal respiratory effort Auscultation: clear to auscultation bilaterally Cardio: Rate: regular rate Rhythm: regular rhythm GI: GI Palp: Yes Soft to palpation Auscultation: normal bowel sounds : General: Yes no CVA tenderness Skin: General skin exam: normal color Neuro: General: patient oriented x3 and No gait normal (history of Parkinson- patient uses walker ) Cognition (Neuro): normal cognition Speech: normal speech Psych: Mental Status: mental status grossly normal Affect: normal affect Objective Data Vital Signs Vital Signs: Vital Signs - 24 hr 04/13/25 16:57 04/13/25 17:27 04/13/25 20:00 Temperature 97.7 F Pulse Rate 66 62 64 Respiratory Rate 16 15 20 Blood Pressure 140/65 134/59 L 129/51 L Pulse Oximetry 97 98 100 Oxygen Delivery 04/13/25 20:00 04/13/25 20:13 04/14/25 00:00 Temperature 97.7 F 97.9 F Pulse Rate 64 64 69 Respiratory Rate 20 20 20 Blood Pressure 129/57 L 153/79 H Pulse Oximetry 100 100 98 Oxygen Delivery Room Air 04/14/25 04:00 04/14/25 04:57 04/14/25 08:00 Temperature 97.9 F 97.9 F Pulse Rate 65 65 65 Respiratory Rate 20 20 20 Blood Pressure 134/66 134/66 Pulse Oximetry 97 97 97 Oxygen Delivery Room Air 04/14/25 09:58 04/14/25 11:02 Temperature Pulse Rate Respiratory Rate Blood Pressure Pulse Oximetry Oxygen Delivery Room Air Room Air Intake/Output Intake/Output: Intake & Output 04/11/25 04/12/25 04/13/25 04/14/25 23:59 23:59 23:59 23:59 Intake Total 870 Balance 870 Meds/Results Medications: Active Medications Generic Name Dose Route Start Last Admin Trade Name Freq PRN Reason Stop Dose Admin Aspirin 81 mg 04/14/25 09:00 04/14/25 08:44 Aspirin 81 Mg Enteric Tablet PO 81 mg QAM LEATHA Administration Atorvastatin Calcium 20 mg 04/14/25 09:00 04/14/25 08:45 Atorvastatin 20 Mg Tablet PO 20 mg DAILY LEATHA Administration Carbidopa/Levodopa 4 tablet 04/14/25 21:00 Carbidopa/Levodopa 25/100 Mg Cr Tablet PO HS LEATHA Carbidopa/Levodopa 2 tablet 04/14/25 17:00 Carbidopa/Levodopa 25/100 Mg Tablet PO TID LEATHA Clonazepam 0.5 mg 04/13/25 23:40 04/14/25 00:15 Clonazepam (*Crx) 0.5 Mg Tablet PO 0.5 mg HS LEATHA Administration Dextrose 12.5 gm 04/14/25 04:55 Dextrose 50% 25 Gm/50 Ml Syringe IV PUSH PRN PRN Hypoglycemia Protocol Fenofibrate 145 mg 04/14/25 09:00 04/14/25 08:57 Fenofibrate 145 Mg Tablet PO 145 mg QAM LEATHA Administration Fludrocortisone Acetate 0.1 mg 04/14/25 09:00 04/14/25 09:02 Fludrocortisone Acetate 0.1 Mg Tablet PO 0.1 mg QAM LEATHA Administration Gabapentin 300 mg 04/13/25 23:40 04/14/25 00:14 Gabapentin 300 Mg Capsule PO 300 mg HS LEATHA Administration Glucagon 1 mg 04/14/25 04:55 Glucagon For Inj 1 Mg Vial IM PRN PRN Hypoglycemia Protocol Glucose 15 gm 04/14/25 04:55 Glucose Oral Gel 15 Gm Of Glucse In 37.5 Gm Tube PO PRN PRN Hypoglycemia Protocol Dextrose 1,000 mls @ 100 mls/hr 04/14/25 04:55 Dextrose 5% 1,000 Ml IVPB PRN PRN Hypoglycemia Protocol Insulin Aspart 2 - 5 units 04/14/25 08:00 04/14/25 12:16 Insulin Aspart (*Bkc) 100 Units/Ml SUB-Q Not Given TIDWM LEATHA Protocol Insulin Glargine 24 units 04/14/25 09:00 04/14/25 08:57 Insulin Glargine (*Bkc) 100 Units/Ml SUB-Q 24 units QAM LEATHA Administration Loratadine 10 mg 04/14/25 09:00 04/14/25 08:56 Loratadine 10 Mg Tablet PO 10 mg QAM LEATHA Administration Midodrine 5 mg 04/14/25 09:00 04/14/25 08:56 Midodrine Hcl 2.5 Mg Tablet PO 5 mg QAM LEATHA Administration Mirabegron 50 mg 04/13/25 23:45 04/14/25 00:14 Mirabegron 50 Mg Er Tablet PO 50 mg HS LEATHA Administration Sertraline HCl 150 mg 04/14/25 09:00 04/14/25 08:57 Sertraline Hcl 50 Mg Tablet PO 150 mg DAILY LEATHA Administration Tamsulosin HCl 0.4 mg 04/14/25 09:00 04/14/25 08:56 Tamsulosin Hcl 0.4 Mg Capsule PO 0.4 mg DAILY LEATHA Administration Radiology Results: ITS Impressions Head CT 04/13/25 12:23 Impression: Acute right occipital infarct suspected. Contrast-enhanced MRI is recommended Lumbar Spine CT 04/13/25 13:10 IMPRESSION: 1. Nondisplaced right transverse process fracture of L1. No other fracture lucency or traumatic malalignment L1-L5. 2. Multilevel degenerative changes including multilevel spinal canal stenosis. 3. Incidental note of lower pole left kidney stone. Chest X-Ray 04/13/25 13:29 Impression: No acute cardiopulmonary abnormality. Carotid Doppler Study 04/14/25 08:24 IMPRESSION: 1. No hemodynamically significant ICA stenosis (i.e., if any stenosis, less than 50%). 2. Normal bilateral antegrade vertebral artery flow. Stenosis measured by Society of Radiologists in Ultrasound (SRU) criteria. Labs Labs: Laboratory Results - last 24 hr 04/13/25 04/13/25 04/14/25 13:16 13:22 05:10 WBC 6.8 RBC 4.58 L Hgb 12.4 L Hct 38.8 L MCV 84.7 MCH 27.1 MCHC 32.0 RDW 14.9 H Plt Count 306 MPV 9.4 Sodium 137 136 L Potassium 4.4 4.0 Chloride 104 105 Carbon Dioxide 26 26 Anion Gap 7 5 BUN 22 H D 24 H Creatinine 1.92 H 1.88 H Estim Creat Clear Calc Not Reportable 38 Estimated GFR 35 L 36 L Glucose 222 H 143 H POC Capillary Glucose 242 H Hemoglobin A1c 8.3 H Calcium 9.7 9.4 Magnesium 2.1 Total Bilirubin 0.7 AST 28 ALT 8 Alkaline Phosphatase 86 Troponin I < 0.012 Total Protein 7.9 Albumin 4.4 TSH (Reflex) 3.820 04/14/25 11:47 WBC RBC Hgb Hct MCV MCH MCHC RDW Plt Count MPV Sodium Potassium Chloride Carbon Dioxide Anion Gap BUN Creatinine Estim Creat Clear Calc Estimated GFR Glucose POC Capillary Glucose 182 H Hemoglobin A1c Calcium Magnesium Total Bilirubin AST ALT Alkaline Phosphatase Troponin I Total Protein Albumin TSH (Reflex) Quality VTE Prophylaxis VTE prophylaxis: mechanical ordered
[2025-04-14] MEDS: CARBIDOPA/LEVODOPA 25/100 MG TABLET 2 TABLET PO (16:57)
[2025-04-14] MEDS: INSULIN ASPART (*BKC) 100 UNITS/ML SUB-Q (17:50)
[2025-04-14] MEDS: CARBIDOPA/LEVODOPA 25/100 MG CR TABLET 4 TABLET PO (21:06)
[2025-04-15] VITALS (9 sets, daily range): BP systolic 101–142; BP diastolic 46–61; PULSE 63–79; RESP 16–20; TEMP 36.2–36.4; O2SAT 97–98
[2025-04-15 04:55] LABS: Hematocrit 39.3 % (42.0-52.0); Hemoglobin 12.5 g/dL (14.0-18.0); Mean Corpuscular HGB Conc 31.8 g/dl (32-36); Mean Corpuscular Hemoglobin 27.1 pg (26-34); Mean Corpuscular Volume 85.2 fl (80-100); Platelet Count Result 304 k/mm3 (150-375); Red Blood Count 4.61 M/mm3 (4.6-6.20); White Blood Count 7.9 K/mm3 (4.5-10.0)
[2025-04-15 05:07] LABS: Anion Gap 5 mmol/L (4-12); Blood Urea Nitrogen 24 mg/dL (9-20); Calcium 9.7 mg/dL (8.4-10.2); Carbon Dioxide 26 mmol/L (22-30); Chloride 103 mmol/L (98-107); Estimated CRCL calculation 38 ml/min; Estimated Glomerular Filt Rate 36; Glucose 146 mg/dL (65-110); Potassium 4.2 mmol/L (3.4-5.0); Sodium 134 mmol/L (137-145)
[2025-04-15] MEDS: TAMSULOSIN HCL 0.4 MG CAPSULE PO (09:17)
[2025-04-15] MEDS: SERTRALINE HCL 50 MG TABLET 150 MG PO (09:17)
[2025-04-15] MEDS: CARBIDOPA/LEVODOPA 25/100 MG TABLET 2 TABLET PO ×3 (09:17→17:22)
[2025-04-15] MEDS: MIDODRINE HCL 2.5 MG TABLET 5 MG PO (09:17)
[2025-04-15] MEDS: FENOFIBRATE 145 MG TABLET PO (09:17)
[2025-04-15] MEDS: LORATADINE 10 MG TABLET PO (09:18)
[2025-04-15] MEDS: ASPIRIN 81 MG ENTERIC TABLET PO (09:18)
[2025-04-15] MEDS: FLUDROCORTISONE ACETATE 0.1 MG TABLET PO (09:18)
[2025-04-15] MEDS: INSULIN GLARGINE (*BKC) 100 UNITS/ML 24 UNITS SUB-Q (09:18)
[2025-04-15] MEDS: ATORVASTATIN 20 MG TABLET PO (09:18)
[2025-04-15] MEDS: INSULIN ASPART (*BKC) 100 UNITS/ML SUB-Q ×2 (12:20→17:23)
--- NOTE | 2025-04-15 12:24 | P.PNIM_ITS ---
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 No abnormal enhancing lesions or masses. Carotid Doppler- No hemodynamically significant ICA stenosis and normal bilateral antegrade vertebral artery flow. Considering home health or SNIF placement for further treatment Continue on carbidopa/ levodopa (2) Orthostatic hypertension: Code(s): I10 - Essential (primary) hypertension Status: Acute Assessment and Plan: See above continue fludrocortisone and midodrine (3) Hyperglycemia due to diabetes mellitus: Code(s): E11.65 - Type 2 diabetes mellitus with hyperglycemia Status: Acute Assessment and Plan: BS initial 278, current 167 Diabetic consistent carbohydrate diet Accu-Cheks AC and HS with sliding scale insulin. Hypoglycemic protocol A1c is 8.3 Long acting insulin decreased by 20% of home dosage Continue to monitor (4) Anxiety: Code(s): F41.9 - Anxiety disorder, unspecified Status: Acute Assessment and Plan: Continue zoloft Subjective Date/time seen: 04/15/25 10:20 Interval history: 69 year old male patient who has a history of Parkinson's, hyperlipidemia, anxiety, and diabetes presents inpatient for a fall he had 3 nights ago where he hit the cabinet door. Patient denies hitting his head. He was having pain in his right lower back that got worse with movement. He did not loss consciousness, but patient does have a history of orthostatic hypertension due related to Parkinson diagnosis. 04/14 Patient is feeling better over all. He still has some pain with movement in his lower right back. Patient denies incontinence, dysuria, flank pain, headaches, visual changes, and trouble breathing. Patint reports when he fell it left a red alethea on his hip but states he used a heating pad and it is no longer present. He denies ear pain, fever, chills, cough, and body aches. Patient states he is not in acute distress. 04/15 Patient states he is still doing well. He states his hearing seems a little dull. states that he has this happen often and its normally because of ear wax build up. Patient denies any other concerns. Review of Systems Review of Systems: All systems reviewed & are unremarkable except as noted in HPI and below Exam Const: General: comfortable Eyes: General: appearance normal, both eyes and all related structures Sclera: sclerae normal Pupils: Equal, round and reactive pupils present Neck: Neck: supple and no JVD Thyroid: thyroid normal Resp: Effort & Inspection: normal respiratory effort Auscultation: clear to auscultation bilaterally Cardio: Rate: regular rate Rhythm: regular rhythm GI: GI Palp: Yes Soft to palpation Auscultation: normal bowel sounds Skin: General skin exam: normal color Neuro: General: No gait normal (Hx of Parkinson's ) Speech: normal speech Motor exam (neuro): 5/5 motor strength present throughout Sensory Exam: normal sensation Psych: Mental Status: mental status grossly normal Affect: normal affect Objective Data Vital Signs Vital Signs: Vital Signs - 24 hr 04/14/25 13:13 04/14/25 14:00 04/14/25 16:00 Temperature 97.2 F L Pulse Rate 73 72 64 Respiratory Rate 16 Blood Pressure 116/48 L Pulse Oximetry 97 Oxygen Delivery 04/14/25 20:00 04/14/25 20:00 04/14/25 20:00 Temperature 97.7 F Pulse Rate 67 67 69 Respiratory Rate 20 20 Blood Pressure 153/60 H Pulse Oximetry 98 98 Oxygen Delivery Room Air 04/14/25 20:53 04/15/25 00:00 04/15/25 00:00 Temperature 97.7 F 97.6 F Pulse Rate 67 63 63 Respiratory Rate 20 20 Blood Pressure 153/60 H 142/53 H Pulse Oximetry 98 97 Oxygen Delivery 04/15/25 04:00 04/15/25 04:00 04/15/25 04:49 Temperature 97.6 F 97.6 F Pulse Rate 64 63 63 Respiratory Rate 20 20 Blood Pressure 142/53 H 142/53 H Pulse Oximetry 97 97 Oxygen Delivery 04/15/25 08:00 04/15/25 08:00 04/15/25 11:56 Temperature 97.1 F L Pulse Rate 64 74 Respiratory Rate 16 Blood Pressure 101/46 L Pulse Oximetry 97 Oxygen Delivery Room Air Intake/Output Intake/Output: Intake & Output 04/12/25 04/13/25 04/14/25 04/15/25 23:59 23:59 23:59 23:59 Intake Total 1110 510 Balance 1110 510 Meds/Results Medications: Active Medications Generic Name Dose Route Start Last Admin Trade Name Freq PRN Reason Stop Dose Admin Aspirin 81 mg 04/14/25 09:00 04/15/25 09:18 Aspirin 81 Mg Enteric Tablet PO 81 mg QAM LEATHA Administration Atorvastatin Calcium 20 mg 04/14/25 09:00 04/15/25 09:18 Atorvastatin 20 Mg Tablet PO 20 mg DAILY LEATHA Administration Carbidopa/Levodopa 4 tablet 04/14/25 21:00 04/14/25 21:06 Carbidopa/Levodopa 25/100 Mg Cr Tablet PO 4 tablet HS LEATHA Administration Carbidopa/Levodopa 2 tablet 04/14/25 17:00 04/15/25 09:17 Carbidopa/Levodopa 25/100 Mg Tablet PO 2 tablet TID LEATHA Administration Clonazepam 0.5 mg 04/13/25 23:40 04/14/25 21:06 Clonazepam (*Crx) 0.5 Mg Tablet PO 0.5 mg HS LEATHA Administration Dextrose 12.5 gm 04/14/25 04:55 Dextrose 50% 25 Gm/50 Ml Syringe IV PUSH PRN PRN Hypoglycemia Protocol Fenofibrate 145 mg 04/14/25 09:00 04/15/25 09:17 Fenofibrate 145 Mg Tablet PO 145 mg QAM LEATHA Administration Fludrocortisone Acetate 0.1 mg 04/14/25 09:00 04/15/25 09:18 Fludrocortisone Acetate 0.1 Mg Tablet PO 0.1 mg QAM LEATHA Administration Gabapentin 300 mg 04/13/25 23:40 04/14/25 21:06 Gabapentin 300 Mg Capsule PO 300 mg HS LEATHA Administration Glucagon 1 mg 04/14/25 04:55 Glucagon For Inj 1 Mg Vial IM PRN PRN Hypoglycemia Protocol Glucose 15 gm 04/14/25 04:55 Glucose Oral Gel 15 Gm Of Glucse In 37.5 Gm Tube PO PRN PRN Hypoglycemia Protocol Dextrose 1,000 mls @ 100 mls/hr 04/14/25 04:55 Dextrose 5% 1,000 Ml IVPB PRN PRN Hypoglycemia Protocol Insulin Aspart 2 - 5 units 04/14/25 08:00 04/15/25 12:20 Insulin Aspart (*Bkc) 100 Units/Ml SUB-Q 2 units TIDWM LEATHA Administration Protocol Insulin Glargine 24 units 04/14/25 09:00 04/15/25 09:18 Insulin Glargine (*Bkc) 100 Units/Ml SUB-Q 24 units QAM LEATHA Administration Loratadine 10 mg 04/14/25 09:00 04/15/25 09:18 Loratadine 10 Mg Tablet PO 10 mg QAM LEATHA Administration Midodrine 5 mg 04/14/25 09:00 04/15/25 09:17 Midodrine Hcl 2.5 Mg Tablet PO 5 mg QAM LEATHA Administration Mirabegron 50 mg 04/13/25 23:45 04/14/25 21:06 Mirabegron 50 Mg Er Tablet PO 50 mg HS LEATHA Administration Sertraline HCl 150 mg 04/14/25 09:00 04/15/25 09:17 Sertraline Hcl 50 Mg Tablet PO 150 mg DAILY LEATHA Administration Tamsulosin HCl 0.4 mg 04/14/25 09:00 04/15/25 09:17 Tamsulosin Hcl 0.4 Mg Capsule PO 0.4 mg DAILY LEATHA Administration Radiology Results: ITS Impressions Head CT 04/13/25 12:23 Impression: Acute right occipital infarct suspected. Contrast-enhanced MRI is recommended Lumbar Spine CT 04/13/25 13:10 IMPRESSION: 1. Nondisplaced right transverse process fracture of L1. No other fracture lucency or traumatic malalignment L1-L5. 2. Multilevel degenerative changes including multilevel spinal canal stenosis. 3. Incidental note of lower pole left kidney stone. Chest X-Ray 04/13/25 13:29 Impression: No acute cardiopulmonary abnormality. Carotid Doppler Study 04/14/25 08:24 IMPRESSION: 1. No hemodynamically significant ICA stenosis (i.e., if any stenosis, less than 50%). 2. Normal bilateral antegrade vertebral artery flow. Stenosis measured by Society of Radiologists in Ultrasound (SRU) criteria. Brain MRI 04/14/25 15:04 IMPRESSION: 1. No acute ischemic event, mass or bleed. No abnormal enhancing lesions or masses. 2. Small old right occipital infarction and mild chronic microvascular ischemic appearing white matter changes. Labs Labs: Laboratory Results - last 24 hr 04/14/25 04/14/25 04/15/25 16:54 20:55 04:22 WBC 7.9 RBC 4.61 Hgb 12.5 L Hct 39.3 L MCV 85.2 MCH 27.1 MCHC 31.8 L RDW 14.6 H Plt Count 304 MPV 9.4 Sodium 134 L Potassium 4.2 Chloride 103 Carbon Dioxide 26 Anion Gap 5 BUN 24 H Creatinine 1.87 H Estim Creat Clear Calc 38 Estimated GFR 36 L Glucose 146 H POC Capillary Glucose 278 H 182 H Calcium 9.7 04/15/25 04/15/25 07:21 11:21 WBC RBC Hgb Hct MCV MCH MCHC RDW Plt Count MPV Sodium Potassium Chloride Carbon Dioxide Anion Gap BUN Creatinine Estim Creat Clear Calc Estimated GFR Glucose POC Capillary Glucose 167 H 209 H Calcium Quality VTE Prophylaxis VTE prophylaxis: mechanical ordered
--- NOTE | 2025-04-15 14:51 | WPDNEURCNPN ---
Assessment and Plan Assessment and plan (1) Hyperglycemia due to diabetes mellitus: Code(s): E11.65 - Type 2 diabetes mellitus with hyperglycemia Status: Acute (2) Orthostatic hypertension: Code(s): I10 - Essential (primary) hypertension Status: Acute (3) Neuropathy: Code(s): G62.9 - Polyneuropathy, unspecified Status: Acute (4) HTN (hypertension), malignant: Code(s): I10 - Essential (primary) hypertension Status: Acute (5) Anxiety: Code(s): F41.9 - Anxiety disorder, unspecified Status: Acute (6) Hyperlipidemia: Code(s): E78.5 - Hyperlipidemia, unspecified Status: Acute (7) BPH (benign prostatic hyperplasia): Code(s): N40.0 - Benign prostatic hyperplasia without lower urinary tract symptoms Status: Acute (8) Parkinson's disease: Qualifiers: Dyskinesia presence: with dyskinesia Fluctuating manifestations: without fluctuating manifestations Qualified Code(s): G20.B1 - Parkinson's disease with dyskinesia, without mention of fluctuations Code(s): G20.A1 - Parkinson's disease without dyskinesia, without mention of fluctuations Status: Acute (9) Lumbar transverse process fracture: Qualifiers: Encounter type: initial encounter Fracture type: closed Qualified Code(s): S32.009A - Unspecified fracture of unspecified lumbar vertebra, initial encounter for closed fracture Code(s): S32.009A - Unspecified fracture of unspecified lumbar vertebra, initial encounter for closed fracture Status: Acute (10) Ischemic stroke: Code(s): I63.9 - Cerebral infarction, unspecified Status: Acute Plan 1. Syncopal episode most likely related to orthostatic hypotension which has been documented previously and has been taking the medication to overcome the orthostatic hypotension but again will monitor during this particular hospitalization to adjust the medication. 2. Ongoing diagnosis of Parkinson's disease as mentioned above 3. History of anxiety 4. History of bladder dysfunction 5. History of depression 6. Incidental finding of a small old right occipital infarct with microvascular changes as well. Suggestion monitor the blood pressure supine and upright for the adjustment of the medication avoid the orthostatic hypotension, no changes in the anti Parkinson's medication at least at present. 7. Nondisplaced right transverse process fracture of L1 secondary to the fall. Consult date: 04/15/25 HPI: Susan Ledezma is a 69 year old male Admitted to the hospital through the emergency room subsequent to a fall about 2 nights ago which resulted in the trauma to the head against the cabinet Jacey and the subsequent complaint of right lower back pain which was getting worse with movements. He did not hit his head or became unconscious or head no visual changes of weakness and numbness of 1 side or other side. Patient has been taking multiple medications which were listed as 1. aspirin 81mg daily 2. Atorvastatin 20mg daily 3. Carbidopa levodopa 25/101 tablet 3 times a day along with carbidopa extended release 50/201 tablet at night. 4. Cetirizine 10mg daily 5. Clonazepam 0.5mg at night 6. Fenofibrate 160mg 7. Gabapentin 300mg at night 8. Omeprazole 20mg daily 9. Sertraline 100mg daily 10. Tamsulosin 0.4mg daily 11. Insulin 30units subQ every morning 12. Line neglect in 5mg daily and 13. Mirabegron 50mg extended release at night patient is not allergic to any medication. Past history is consistent with 1. Diabetes mellitus 2. Parkinson's disease 3. Only 1 alcohol drink per week 4. No smoking. Initial exam in the emergency room was grossly nonfocal, vital signs were normal except blood pressure was 93/46, CBC was normal, BMP with BUN of 22 creatinine of 1.92 and glucose of 222, mast scan normal, CT scan of the head with acute right occipital infarct suspected, lumbar spine CT scan with nondisplaced right transverse process fracture of L1 along with D level spinal canal stenosis an incidental finding of lower pole left kidney stone. Chest x-ray negative, subsequently brain MRI without any acute ischemic months infarct or any enhance lesion but is small right occipital infarct and chronic microvascular ischemic changes carotid Doppler study has already been done which is not significant and also with bilateral antegrade vertebral artery flow. Since admission echocardiogram has been done which is not significant. Neurology consultation has been obtained because of ongoing Parkinson's disease with dyskinesia and underlying anxiety in addition to diabetes mellitus. Patient is being maintained on carbidopa levodopa extended release 50/201 tablet at night and 25/101 tablet 3 times a day in addition to clonazepam 0.5mg at night, gabapentin 300mg at night, fludrocortisone 0.1mg p.o. every morning for the orthostatic hypotension along with mitral drain 5mg every morning, and other medications such as sertraline, tamsulosin, Tradjenta, Review of Systems Review of Systems: All systems reviewed & are unremarkable except as noted in HPI and below [facility] Past Medical History Medical History (Updated 04/14/25 @ 15:12 by Jesus Akbar APRN) Orthostatic hypertension Neuropathy DM2 (diabetes mellitus, type 2) HTN (hypertension), malignant Anxiety Hyperlipidemia BPH (benign prostatic hyperplasia) Diabetes Parkinson's disease Surgical History Surgical History (Updated 04/14/25 @ 04:47 by Merly Cooley APRN) History of appendectomy History of tonsillectomy Family History Family History Other Unknown family medical history Social History Social History (Updated 04/14/25 @ 04:47 by Merly Cooley APRN) Social History: The patient is and lives with his Isabel. He has 2 children. Smoking status: Never smoker Second hand tobacco smoke exposure: No Alcohol intake: current Drinks per week: 1 Substance use: never Lack of Transportation: No Lack of Food: Never True Current Housing: I Have Housing Concerned About Future Housing: No Difficulty Paying Gas/Electric Bills: No Difficulty Paying for Meds: No Currently Unemployed: No Education: Bachelor's Degree Difficulty w/ Childcare or Family Care: No Living arrangements: with family Spiritual care concerns: No Meds Home Medications and Allergies Home Medications ?Medication ?Instructions ?Recorded ?Confirmed ?Type Adult Aspirin EC Low Strength 81 mg PO DAILY 09/24/23 04/13/25 History atorvastatin 20 mg tablet 20 mg PO DAILY 09/24/23 04/13/25 History carbidopa 25 mg-levodopa 100 mg 25 - 100 tablet PO TID 09/24/23 04/13/25 History tablet (Sinemet) carbidopa ER 50 mg-levodopa 200 mg 50 - 200 tablet PO HS 09/24/23 04/13/25 History tablet,extended release cetirizine 10 mg PO DAILY 09/24/23 04/13/25 History clonazepam 0.5 mg tablet 0.5 mg PO HS 09/24/23 04/13/25 History fenofibrate 160 mg tablet 160 mg PO DAILY 09/24/23 04/13/25 History gabapentin 300 mg capsule 300 mg PO HS 09/24/23 04/13/25 History omeprazole 20 mg PO DAILY 09/24/23 04/13/25 History sertraline 100 mg tablet 100 mg PO DAILY 09/24/23 04/13/25 History tamsulosin 0.4 mg capsule 0.4 mg PO DAILY 09/24/23 04/13/25 History insulin glargine-yfgn 100 unit/mL 30 unit subcut QA 10/22/24 04/13/25 History (3 mL) subcutaneous pen linagliptin 5 mg tablet (Tradjenta) 5 mg PO QA 10/22/24 04/13/25 History mirabegron 50 mg tablet,extended 50 mg PO HS 10/22/24 04/13/25 History release 24 hr fludrocortisone 0.1 mg tablet 0.1 mg PO [facility] 04/13/25 04/13/25 History methocarbamol 500 mg tablet 500 mg PO PRN PRN back pain 04/13/25 04/13/25 History midodrine 5 mg tablet 5 mg PO QA 04/13/25 04/13/25 History Allergies Allergy/AdvReac Type Severity Reaction Status Date / Time No Known Allergies Allergy Verified 04/13/25 18:58 Vital Signs Vital Signs - 24 hr 04/14/25 16:00 04/14/25 20:00 04/14/25 20:00 Temperature 36.5 C Pulse Rate 64 67 67 Respiratory Rate 20 20 Blood Pressure 153/60 H Pulse Oximetry 98 98 Oxygen Delivery Room Air 04/14/25 20:00 04/14/25 20:53 04/15/25 00:00 Temperature 36.5 C Pulse Rate 69 67 63 Respiratory Rate 20 Blood Pressure 153/60 H Pulse Oximetry 98 Oxygen Delivery 04/15/25 00:00 04/15/25 04:00 04/15/25 04:00 Temperature 36.4 C 36.4 C Pulse Rate 63 64 63 Respiratory Rate 20 20 Blood Pressure 142/53 H 142/53 H Pulse Oximetry 97 97 Oxygen Delivery 04/15/25 04:49 04/15/25 08:00 04/15/25 08:00 Temperature 36.4 C Pulse Rate 63 64 Respiratory Rate 20 Blood Pressure 142/53 H Pulse Oximetry 97 Oxygen Delivery Room Air 04/15/25 11:56 Temperature 36.2 C L Pulse Rate 74 Respiratory Rate 16 Blood Pressure 101/46 L Pulse Oximetry 97 Oxygen Delivery Exam Narrative: on examination today patient is awake alert slow to respond slow to speak but able to relate to the physician and other being in the hospital though speech is of low volume, head normocephalic with no cranial bruits, ear nose throat examination normal, neck without any meningeal signs but slow to move from side to side, no cervical bruit, heart regular, lungs, clear, abdomen is soft nontender with normal bowel sounds, neurologically he is awake alert slow in responding flow in communication but able to follow all the verbal commands appropriately, pupils round regular frey of vision full extraocular movements full with no nystagmus able to look up and down, facial sensation intact, face symmetrical, tongue in the oral cavity with no fasciculation, motor examination revealed him to have decreased strength in upper and lower extremities with cogwheeling rigidity on passive movements of the upper and lower extremities, reflexes are symmetrical but sluggish, plantars are downgoing, there is no evidence of gross cerebellar deficit though he had difficulties in performing heel to knee to bailey, sensory examination decreased sensation distally in both lower extremities, Results Labs 04/15/25 04:22 04/15/25 04:22 Labs: Short CBC 04/15/25 Range/Units 04:22 WBC 7.9 (4.5-10.0) K/mm3 Hgb 12.5 L (14.0-18.0) g/dL Hct 39.3 L (42.0-52.0) % Plt Count 304 (150-375) k/mm3 BMP 04/15/25 04:22 Sodium 134 L Potassium 4.2 Chloride 103 Carbon Dioxide 26 BUN 24 H Creatinine 1.87 H Glucose 146 H Calcium 9.7
[2025-04-15] MEDS: clonazePAM (*CRX) 0.5 MG TABLET PO (20:31)
[2025-04-15] MEDS: MIRABEGRON 50 MG ER TABLET PO (20:31)
[2025-04-15] MEDS: GABAPENTIN 300 MG CAPSULE PO (20:31)
[2025-04-15] MEDS: CARBIDOPA/LEVODOPA 25/100 MG CR TABLET 4 TABLET PO (20:31)
[2025-04-16] VITALS (7 sets, daily range): BP systolic 90–127; BP diastolic 52–60; PULSE 60–74; RESP 16–18; TEMP 36.4–36.6; O2SAT 95–100
[2025-04-16 05:24] LABS: Hematocrit 37.7 % (42.0-52.0); Hemoglobin 12.2 g/dL (14.0-18.0); Mean Corpuscular HGB Conc 32.4 g/dl (32-36); Mean Corpuscular Hemoglobin 26.9 pg (26-34); Mean Corpuscular Volume 83.2 fl (80-100); Platelet Count Result 291 k/mm3 (150-375); Red Blood Count 4.53 M/mm3 (4.6-6.20); White Blood Count 8.5 K/mm3 (4.5-10.0)
[2025-04-16 05:47] LABS: Anion Gap 8 mmol/L (4-12); Blood Urea Nitrogen 27 mg/dL (9-20); Calcium 9.4 mg/dL (8.4-10.2); Carbon Dioxide 24 mmol/L (22-30); Chloride 100 mmol/L (98-107); Estimated CRCL calculation 39 ml/min; Estimated Glomerular Filt Rate 37; Glucose 125 mg/dL (65-110); Potassium 3.8 mmol/L (3.4-5.0); Sodium 132 mmol/L (137-145)
[2025-04-16] MEDS: LORATADINE 10 MG TABLET PO (08:54)
[2025-04-16] MEDS: TAMSULOSIN HCL 0.4 MG CAPSULE PO (08:54)
[2025-04-16] MEDS: ATORVASTATIN 20 MG TABLET PO (08:54)
[2025-04-16] MEDS: FLUDROCORTISONE ACETATE 0.1 MG TABLET PO (08:54)
[2025-04-16] MEDS: FENOFIBRATE 145 MG TABLET PO (08:54)
[2025-04-16] MEDS: CARBIDOPA/LEVODOPA 25/100 MG TABLET 2 TABLET PO ×2 (08:54→13:05)
[2025-04-16] MEDS: ASPIRIN 81 MG ENTERIC TABLET PO (08:54)
[2025-04-16] MEDS: MIDODRINE HCL 2.5 MG TABLET 5 MG PO (08:54)
[2025-04-16] MEDS: SERTRALINE HCL 50 MG TABLET 150 MG PO (08:54)
[2025-04-16] MEDS: INSULIN GLARGINE (*BKC) 100 UNITS/ML 24 UNITS SUB-Q (09:02)
--- NOTE | 2025-04-16 09:23 | P.DS_ITS ---
DS: Admitting Diagnosis Discharge Date 04/16/2025 Admitting Diagnosis Fall/anxiety DS: Discharge Diagnosis Discharge Diagnosis (1) Orthostatic hypertension: Code(s): I10 - Essential (primary) hypertension Status: Acute (2) DM2 (diabetes mellitus, type 2): Code(s): E11.9 - Type 2 diabetes mellitus without complications Status: Acute (3) Anxiety: Code(s): F41.9 - Anxiety disorder, unspecified Status: Acute (4) Lumbar transverse process fracture: Qualifiers: Encounter type: initial encounter Fracture type: closed Qualified Code(s): S32.009A - Unspecified fracture of unspecified lumbar vertebra, initial encounter for closed fracture Code(s): S32.009A - Unspecified fracture of unspecified lumbar vertebra, initial encounter for closed fracture Status: Acute (5) Fall: Qualifiers: Encounter type: initial encounter Qualified Code(s): W19.XXXA - Unspecified fall, initial encounter Code(s): W19.XXXA - Unspecified fall, initial encounter Status: Acute DS: Summary Hospital Course Reason for hospitalization: Fall/ anxiety Hospital Course: 69 year old male presented to the ED for a fall that happened 04/11 where he hit the cabinet door. Patient denied hitting his head and loss of consciousness during the fall. He was having some severe right lower back pain that was worse with movement. He does have a history of orthostatic hypertension related to Parkinson's diagnosis. Patient also has a history of anxiety. In the ED a heat CT was preformed and showed there is a remote right basal ganglion lacunar infarct. There is an acute appearing right occipital infarct. No hemorrhage. No midline shift or mass effect. No extra-axial fluid collections. Patient was admitted inpatient. Neurology, PT, and OT were consulted. MRI shoed no acute ischemic event, mass or bleed. No abnormal enhancing lesions or masses and carotid doppler no hemodynamically significant ICA stenosis and normal bilateral antegrade vertebral artery flow. Patient was the option of home health care or SNIF placement for further treatment. The patient and his declined SNIF placement and would prefer home health care. The patient is hemodynamically stable to go home with home healthcare. Status at Discharge Functional status at discharge: uses cane/walker Overall status at discharge: patient is back to baseline Time Spent with Patient Time attestation: Total time spent providing and/or coordinating discharge services: Exam Const: General: comfortable Eyes: General: appearance normal, both eyes and all related structures Sclera: sclerae normal Pupils: Equal, round and reactive pupils present Neck: Neck: supple and no JVD Thyroid: thyroid normal Resp: Effort & Inspection: normal respiratory effort Auscultation: clear to auscultation bilaterally Cardio: Rate: regular rate Rhythm: regular rhythm GI: GI Palp: Yes Soft to palpation Auscultation: normal bowel sounds Skin: General skin exam: normal color Wounds: no wounds Neuro: General: No gait normal (Hx of Parkinson's) Motor exam (neuro): 5/5 motor strength present throughout Sensory Exam: normal sensation Psych: Mental Status: mental status grossly normal Affect: normal affect DS: Data Data Completed and Pending Labs on day of discharge: Labs from last 24 hours 04/16/25 04/16/25 04/15/25 08:44 04:27 21:23 WBC 8.5 RBC 4.53 L Hgb 12.2 L Hct 37.7 L MCV 83.2 MCH 26.9 MCHC 32.4 RDW 14.5 Plt Count 291 MPV 9.8 Sodium 132 L Potassium 3.8 Chloride 100 Carbon Dioxide 24 Anion Gap 8 BUN 27 H Creatinine 1.82 H Estim Creat Clear Calc 39 Estimated GFR 37 L Glucose 125 H POC Capillary Glucose 119 H 185 H Calcium 9.4 04/15/25 04/15/25 16:16 11:21 WBC RBC Hgb Hct MCV MCH MCHC RDW Plt Count MPV Sodium Potassium Chloride Carbon Dioxide Anion Gap BUN Creatinine Estim Creat Clear Calc Estimated GFR Glucose POC Capillary Glucose 231 H 209 H Calcium Discharge Plan Discharge Attending physician on discharge: Edu Flaherty Consulting providers: Damon Morin Discharging Clinician: Jesus Akbar Anticipated Discharge Date/Time: 04/16/25 15:45 Patient Disposition: Home with Home Health Service Activity: no driving and as tolerated Diet: diabetic Discharge Instructions: Why You were in the Hospital You were hospitalized because you had a fall about four nights ago. You did not hit your head, but had some concerns about your lower back and pain with movement. Recommendations * Please follow up with your primary care provider as soon as possible. Medications- Taking your medications is very important. Please make sure you follow the directions exactly as prescribed. Some of your medications, might have changed. * You should continue taking all your home medications as prescribed by your previous doctor. All side effects of medications discussed with patient Follow up appointments * Care Coordination: Patient to have [facility] for PT/OT eval and treat, and usp. Their phone number is [phone], if you have any questions; they will contact you to schedule their visit Patient should call 911 if you experience any of the following: - Chest pains or pressure - Trouble breathing - Fever over 100.4 or greater - Heavy bleeding or bleeding that will not stop - Short of breath - Dizziness or unsteady - If you have worrisome concerns RN Please fax discharge instructions to [phone]. Patient Instructions: Parkinson Disease (DC), Hypotension (DC), Fall Prevention (DC), Diabetes and Nutrition (DC), Depression in Older Adults (DC) Patient Language: Kiswahili Stand Alone Forms: General Discharge Information Follow-up/Referrals: Celeste,Jm Woodard MD [Primary Care Provider] Discharge Medications: Continued Tradjenta 5 mg tablet 5 mg PO QAM mirabegron 50 mg tablet extended release 24 hr 50 mg PO HS insulin glargine-yfgn 100 unit/mL (3 mL) insulin pen 30 unit SUBCUT QAM Adult Aspirin EC Low Strength 81 mg PO DAILY atorvastatin 20 mg tablet 20 mg PO DAILY clonazepam 0.5 mg tablet 0.5 mg PO HS carbidopa-levodopa 50-200 mg tablet extended release 50 - 200 tablet PO HS sertraline 100 mg tablet 100 mg PO DAILY Patient Comments: TAKES 1 1/2 TABS IN AM tamsulosin 0.4 mg capsule 0.4 mg PO DAILY gabapentin 300 mg capsule 300 mg PO HS carbidopa-levodopa [Sinemet] 25-100 mg tablet 25 - 100 tablet PO TID Patient Comments: TAKES 2 TABLETS TID Rx Instructions: Take 3 tablets Three Times A Day fenofibrate 160 mg tablet 160 mg PO DAILY cetirizine 10 mg PO DAILY omeprazole 20 mg PO DAILY midodrine 5 mg tablet 5 mg PO QAM fludrocortisone 0.1 mg tablet 0.1 mg PO QAM methocarbamol 500 mg tablet 500 mg PO PRN PRN (Reason: back pain) Patient Comments: Prescribed today. Pt has not had this medication yet. Date of admission: 04/13/25 14:23 Primary Care Provider: CelesteJm Admitting Provider: Edu Flaherty Attending physician on admission: Edu Flaherty Condition: Stable
== END 2025-04-16 15:45 | disposition home health service (06) | DRG 312 ==
LOC: ANHED 14:11 → ANH3MEDSUR 15:47 → ANH2MED 18:27
PROVIDERS: Nurse Practitioner; Physician Assistant; Admitting Provider Internal Medicine; Emergency Provider Student in an Organized Health Care Education/Training Program; PCP Internal Medicine; Visit Provider Internal Medicine
DX: I95.1 Orthostatic hypotension (principal); S32.018A Other fracture of first lumbar vertebra, initial encounter for closed fracture; F41.9 Anxiety disorder, unspecified; G20.B1 Parkinson's disease with dyskinesia, without mention of fluctuations; N20.0 Calculus of kidney; I11.9 Hypertensive heart disease without heart failure; I51.89 Other ill-defined heart diseases; M48.061 Spinal stenosis, lumbar region without neurogenic claudication; N40.0 Benign prostatic hyperplasia without lower urinary tract symptoms; E78.5 Hyperlipidemia, unspecified; E11.40 Type 2 diabetes mellitus with diabetic neuropathy, unspecified; W18.39XA Other fall on same level, initial encounter; F32.A Depression, unspecified; R29.703 NIHSS score 3; Z79.4 Long term (current) use of insulin; Z79.82 Long term (current) use of aspirin; Z86.73 Personal history of transient ischemic attack (TIA), and cerebral infarction without residual deficits
CPT/HCPCS: 36415; 70450; 70553; 71045; 72131; 80048; 80053; 82948; 83036; 83735; 84443; 84484; 85025; 85027; 85610; 85730; 92507; 92523; 93005; 93880; 96375; 97110; 97116; 97162; 97166; 99285; A9270; A9577; C8929; J1815; Q9957